=== PATIENT | female | born 2000 | race Caucasian/White ===

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

== ENCOUNTER 2020-08-16 07:39 | Emergency (ER) | payer OTHER, SELFPAY ==
[2020-08-16 07:40] VITALS: BP 139/79; PULSE 90; RESP 17; TEMP 36.4; O2SAT 100; BMI 26.0
--- NOTE | 2020-08-16 07:49 | CT_ITS ---
STUDY: CT ABDOMEN AND PELVIS WITH CONTRAST REASON FOR EXAM: Female, 20 years old. RLQ PAIN RADIATION DOSAGE (If Supplied By Facility): CTDIvol = ( 11.11 ) mGy, DLP = ( 559.07 ) mGycm TECHNIQUE: Transaxial images were obtained from the dome of the diaphragm to the symphysis pubis with oral contrast. Oral and amp; IV Gastrografin and amp; 100mL Isovue-300 was administered. Sagittal and coronal images were reconstructed. Individualized dose optimization techniques were used for this CT. COMPARISON: None. FINDINGS: The visualized lung bases are unremarkable. The visualized portions of the heart are within normal limits. Normal liver. Normal gallbladder and extrahepatic biliary system. Normal spleen. Normal pancreas. Normal bilateral adrenal glands. Normal right kidney. Normal left kidney. Normal visualized stomach. Normal small intestine. Normal colon. The appendix is visualized and appears normal. Small lymph nodes are seen in the mesenteric fat in the right lower quadrant. This may represent mesenteric adenitis. Normal abdominal aorta. Normal inferior vena cava. Normal retroperitoneum. Normal urinary bladder. Follicles are seen in both ovaries. Normal abdominal wall. Normal osseous structures. CT/Abdomen/Pelvis WITH Contrast IMPRESSION: Findings suggestive of a mesenteric adenitis in the right lower quadrant. Follicles are seen in both ovaries. Electronically Signed: Lobo Holloway, at 10:03 EST , Service support ,
--- NOTE | 2020-08-16 07:50 | ED.VIS.GEN ---
History of Present Illness Chief Complaint: Abd Pain Informant: Patient Narrative: 20-year-old female presents with 3 days of right lower quadrant pain. She states that the first 2 days she had diarrhea but that has subsequently resolved. She denies any fevers nausea or vomiting. She states that the band from her pants is uncomfortable. Does not radiate. No urinary symptoms. Last menstrual period was last month. She is on control. Past Medical History - Allergies and Home Meds Allergies/Adverse Reactions: Allergies Egg Derived Allergy (Intermediate, Verified 08/16/20 07:39) Hives Primary Care Physician: Paulina Ware MD [Primary Care Provider] - Past Medical History: - - Depression Surgical History: tonsillectomy, - Smoking Status: Never smoker Review of Systems General: Denies: Chills, Fever, Sweats Eyes: Denies: Visual changes - bilaterally, Diplopia ENT: Denies: Rhinorrhea, Sore throat Cardiovascular: Denies: Chest pain, Palpitations Respiratory: Denies: Dyspnea, Cough, Dyspnea on exertion Gastrointestinal: Reports: Abdominal pain, Diarrhea. Denies: Nausea, Vomiting, Melena, Hematochezia Genitourinary: Denies: Dysuria, Hematuria, Frequency Musculoskeletal: Denies: Back pain, Extremity Pain Skin: Denies: Rash, Wounds Neurological: Denies: Headache, Weakness, Numbness Physical Exam Vital Signs/Narrative: Vital Signs Temp Pulse Resp BP Pulse Ox 08/16/20 07:40 97.6 F L 90 17 139/79 H 100 Inital Vital Signs reviewed: Yes General: Well nourished, Well developed, No Acute Distress Head: Normocephalic, Atraumatic Eyes: Perrl, EOMI ENT: Moist mucous membranes, No rhinorrhea Neck: Supple, Nontender Cardiovascular: Regular rate, Regular rhythm, No murmurs Respiratory: No distress, CTA bilaterally, Chest nontender Abdomen: Soft, Nondistended, Normal bowel sounds, Tender. Negative for: Guarding, Rebound tenderness Back: Nontender, Normal Inspection Extremities: Nontender, No edema Skin: Normal color, No rash Neurological: Alert, Oriented x3, Cranial nerves II-XII grossly intact, Normal Strength, Normal Sensation Psychological: Normal affect, Normal Mood Diagnostic/Tx/Re-eval Laboratory Last Values WBC 6.1 K/mm3 (4.4-11.0) 08/16/20 08:00 RBC 5.13 M/mm3 (4.2-5.4) 08/16/20 08:00 Hgb 14.2 g/dL (12.0-15.0) 08/16/20 08:00 Hct 44.0 % (37-47) 08/16/20 08:00 MCV 85.8 fL (81-99) 08/16/20 08:00 MCH 27.7 pg (27.0-32.0) 08/16/20 08:00 MCHC 32.3 g/dL (32-36) 08/16/20 08:00 RDW Std Deviation 39.5 fl (35.1-43.9) 08/16/20 08:00 RDW Coeff of Breonna 12.4 % (11.6-14.6) 08/16/20 08:00 Plt Count 193 K/mm3 (150-450) 08/16/20 08:00 MPV 8.7 fl (6.2-12.0) 08/16/20 08:00 Immature Gran % (Auto) 0.200 % (0.0-0.9) 08/16/20 08:00 Neut % (Auto) 60.5 % (47-70) 08/16/20 08:00 Lymph % (Auto) 27.5 % (19-41) 08/16/20 08:00 [place] % (Auto) 10.0 % (0-10) 08/16/20 08:00 Eos % (Auto) 1.6 % (0-5) 08/16/20 08:00 Baso % (Auto) 0.2 % (0-1) 08/16/20 08:00 Absolute Neuts (auto) 3.7 X10^3/uL (2.0-7.7) 08/16/20 08:00 Absolute Lymphs (auto) 1.67 X10^3/uL (0.83-4.51) 08/16/20 08:00 Nucleated RBC % 0 % (0-5) 08/16/20 08:00 Sodium 137 mmol/L (136-145) 08/16/20 08:00 Potassium 3.5 mmol/L (3.5-5.1) 08/16/20 08:00 Chloride 104 mmol/L (98-107) 08/16/20 08:00 Carbon Dioxide 27.0 mmol/L (21.0-32.0) 08/16/20 08:00 Anion Gap 6 (5-15) 08/16/20 08:00 BUN 9 mg/dL (7-18) 08/16/20 08:00 Creatinine 0.86 mg/dL (0.55-1.02) 08/16/20 08:00 Estim Creat Clear Calc 86.32 ml/min 08/16/20 08:00 Est GFR (MDRD) Af Amer 108 mL/min (>60) 08/16/20 08:00 Est GFR (MDRD) Non-Af 89 mL/min (>60) 08/16/20 08:00 BUN/Creatinine Ratio 10.5 RATIO (10-20) 08/16/20 08:00 Glucose 97 mg/dL (74-106) 08/16/20 08:00 Calcium 9.1 mg/dL (8.5-10.1) 08/16/20 08:00 Total Bilirubin 0.30 mg/dL (0.20-1.00) 08/16/20 08:00 AST 40 U/L (15-37) H 08/16/20 08:00 ALT 44 U/L (13-56) 08/16/20 08:00 Alkaline Phosphatase 74 U/L (45-117) 08/16/20 08:00 Total Protein 8.3 g/dL (6.4-8.2) H 08/16/20 08:00 Albumin 4.0 g/dL (3.2-5.0) 08/16/20 08:00 Globulin 4.3 g/dL (2.2-4.2) H 08/16/20 08:00 Albumin/Globulin Ratio 0.9 RATIO (0.9-2.4) 08/16/20 08:00 Urine Color Yellow (Yellow) 08/16/20 08:45 Urine Clarity Sl. Cloudy (Clear) 08/16/20 08:45 Urine pH 6.0 (5.0 - 8.0) 08/16/20 08:45 Ur Specific [place] 1.015 (1.002-1.030) 08/16/20 08:45 Urine Protein Negative mg/dl (Negative) 08/16/20 08:45 Urine Glucose (UA) Normal mg/dl (Normal) 08/16/20 08:45 Urine Ketones Negative mg/dl (Negative) 08/16/20 08:45 Urine Occult Blood Negative /ul (Negative) 08/16/20 08:45 Urine Nitrite Negative (Negative) 08/16/20 08:45 Urine Bilirubin Negative mg/dL (Negative) 08/16/20 08:45 Urine Urobilinogen Normal mg/dl (Normal) 08/16/20 08:45 Ur Leukocyte Esterase 25 /ul (Negative) H 08/16/20 08:45 Urine RBC 0 SEEN /hpf (0-5) 08/16/20 08:45 Urine WBC 0-5 SEEN /hpf (0-5) 08/16/20 08:45 Ur Squamous Epith Cells 0-5 SEEN /hpf (5-10) 08/16/20 08:45 Urine Bacteria 0 SEEN /hpf (None Seen) 08/16/20 08:45 Urine Mucus 0 SEEN /hpf (<or=2+) 08/16/20 08:45 Urine Test Negative Negative 08/16/20 08:45 Clinical Impression(s) from Imaging Studies Abdomen/Pelvis CT 08/16/20 07:49 IMPRESSION: Findings suggestive of a mesenteric adenitis in the right lower quadrant. Follicles are seen in both ovaries. Electronically Signed: Lobo Holloway, at 10:03 EST , Service support , - Medical Decision Making IV established basic labs were normal including urinalysis. CT of the abdomen pelvis was obtained and read by myself and the radiologist. CT of the abd/pelvis demonstrates mesenteric adenitis. Evidence of colitis. The appendix was visualized and appears normal. Patient will be discharged home with supportive care return if worsening or concerns ED Disposition - Plan for ED Patient: Disposition: Home or Assisted Living Diagnosis: Mesenteric adenitis, Abdominal pain Instructions: ED Adenitis Mesenteric Referrals: Paulina Ware MD [Primary Care Provider] - As Needed
[2020-08-16 08:25] LABS: Absolute Lymphocyte Count 1.67 X10^3/uL (0.83-4.51); Absolute Neutrophil Count 3.7 X10^3/uL (2.0-7.7); Basophil# 0.01 X10^3/uL; Basophil% 0.2 % (0-1); Eosinophils% 1.6 % (0-5); Hemoglobin 14.2 g/dL (12.0-15.0); Lymphocyte # 1.67 X10^3/ul (4.0); Lymphocyte % 27.5 % (19-41); Mean Corp Hgb Conc 32.3 g/dL (32-36); Mean Corpuscular Hgb 27.7 pg (27.0-32.0); Mean Corpuscular Volume 85.8 fL (81-99); Mean Platelet Vol. 8.7 fl (6.2-12.0); Monocyte# 0.61 X10^3/uL; NRBC Flagged by Analyzer 0 % (0-5); Neutrophil # 3.67 X10^3/uL (2.7-7.7); Neutrophil % 60.5 % (47-70); Platelet Count 193 K/mm3 (150-450); RBC Distribution Width CV 12.4 % (11.6-14.6); RBC Distribution Width SD 39.5 fl (35.1-43.9); Red Blood Count 5.13 M/mm3 (4.2-5.4); White Blood Count 6.1 K/mm3 (4.4-11.0)
[2020-08-16 08:30] LABS: ALB/GLOB Ratio 0.9 RATIO (0.9-2.4); AST(SGOT) 40 U/L (15-37); Alanine Aminotransfer ALT/SGPT 44 U/L (13-56); Alkaline Phosphatase 74 U/L (45-117); Anion Gap 6 (5-15); BUN 9 mg/dL (7-18); BUN/Creat Ratio 10.5 RATIO (10-20); Calcium,Total 9.1 mg/dL (8.5-10.1); Chloride 104 mmol/L (98-107); Creatinine, Serum 0.86 mg/dL (0.55-1.02); EST Glomerular Filtration Rate 89 mL/min (>60); Est Glom Filt Rate - Afr Amer 108 mL/min (>60); Estimated Creatinine Clearance 86.32 ml/min; Globulin 4.3 g/dL (2.2-4.2); Glucose 97 mg/dL (74-106); Potassium 3.5 mmol/L (3.5-5.1); Protein, Total 8.3 g/dL (6.4-8.2); Sodium Level 137 mmol/L (136-145)
[2020-08-16 08:50] VITALS: BP 114/70; PULSE 69; O2SAT 100
[2020-08-16 08:52] LABS: Bacteria 0 SEEN /hpf (None Seen); Mucous, Urine 0 SEEN /hpf (<or=2+); Red Blood Cells-Urine 0 SEEN /hpf (0-5)
[2020-08-16 08:55] LABS: Color, Urine Yellow (Yellow); Glucose, Dipstick Normal (Normal); Ketone-Dipstick Negative (Negative); Leukocyte Esterase-Dipstick 25 /ul (Negative); Nitrite-Dipstick Negative (Negative); Occult Blood-Urine Negative /ul (Negative); Protein-Dipstick Negative (Negative); Specific Gravity, Urine 1.015 (1.002-1.030); Urine Bilirubin Dipstick Negative (Negative); Urine Clarity Sl. Cloudy (Clear); Urine Urobilinogen Normal (Normal)
[2020-08-16 09:02] LABS: Squamous Epithelial Cells - UA 0-5 SEEN /hpf (5-10); White Blood Cells 0-5 SEEN /hpf (0-5)
[2020-08-16 09:03] LABS: Internal QC Validated? YES +Cl - CLEAR BKGD; Pregnancy, Urine Negative Negative
[2020-08-16 10:40] VITALS: BP 112/70; PULSE 70; RESP 18; O2SAT 97
== END 2020-08-16 10:40 | disposition home or self-care (01) ==
PROVIDERS: Emergency Provider Emergency Medicine; PCP Family Medicine
DX: I88.0 Nonspecific mesenteric lymphadenitis (principal)
CPT/HCPCS: 74177; 80053; 81001; 81025; 85025; 99283; Q9967; A4216

== ENCOUNTER 2021-03-28 12:29 | Emergency (ER) | payer OTHER, SELFPAY ==
[2021-02-08 13:18] VITALS: BMI 26.0
[2021-03-28 12:30] VITALS: BP 140/71; PULSE 93; RESP 16; TEMP 36.8; O2SAT 97; BMI 28.0
--- NOTE | 2021-03-28 12:47 | EDS_ITS ---
HPI History of Present Illness Chief Complaint: Shortness of Breath Detail of Chief Complaint: Shortness of breath that started this morning Informant: patient Narrative Narrative: Patient presents to the emergency department complaint of shortness of breath. Patient states that she felt kind of a tightness in her back that comes through to her chest and discomfort when taking deep breath. Patient's had similar symptoms in the past related to bronchospasm. She used her inhaler but did not get much relief. Patient's been to the ER before for this. Patient normally receives breathing treatments and typically resolves her symptoms. She denies fever or recent illness. 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 She herself is not had Covid. Prior similar symptoms: Yes PFSH [facility] Medical History (Updated 03/28/21 @ 15:[address] Deb Donahue, DO) Bronchial spasms Physical exam, pre-employment Home Medications ibuprofen 200 mg capsule 200 mg PO Q6H PRN 04/16/19 [History Last Taken Unknown] cyclobenzaprine 5 mg PO QHS PRN 11/14/19 [History Last Taken Unknown] sertraline 50 mg PO DAILY 11/14/19 [History Last Taken Unknown] prednisone 20 mg PO BID #7 tab 03/28/21 [Rx Last Taken Unknown] Allergy/AdvReac Type Severity Reaction Status Date / Time Egg Derived Allergy Intermediate Hives Verified 03/28/21 12:29 Social History (Updated 04/16/19 @ 13:25 by Jeffry TONY, CECILY) Smoking Status: Never smoker ROS ROS ED Constitutional Constitutional ED: Reports systems reviewed and no addt'l complaints, except as documented; Denies body ache(s), change in weight or chills Eyes Eyes: Denies acute decrease in peripheral vision, change in vision, double vision or loss of vision ENT ENT ED: Reports none; Denies ear pain, lip swelling, loss taste/smell, neck pain, otalgia or sore throat Cardiovascular Cardiovascular: Reports none; Denies abdominal pain, chest pain with activity, leg edema, lightheadedness, palpitations, rapid heart rate or syncope Respiratory/Chest Respiratory/Chest: Reports none and dyspnea; Denies change in mental status, dry cough, hemoptysis, shortness of breath at rest or shortness of breath with exertion Gastrointestinal Gastrointestinal: Reports none; Denies abdominal pain, change in stool character, diarrhea, hematemesis, hematochezia, melena, rectal bleeding or vomiting Genitourinary Genitourinary ED: Reports none; Denies abdominal discomfort, anuria, dysuria, genital pain or polyuria Musculoskeletal Musculoskeletal: Reports none; Denies arthralgias, back pain, difficulty walking, extremity pain, muscle weakness or myalgias Integumentary Reports none; Denies abscess or rash Neurologic Neurologic: Reports none; Denies abnormal gait, confusion, focal weakness, frequent falls, headache(s), loss of vision, numbness, paresthesias, radicular pain, vertigo or weakness Psychiatric Psychiatric: Reports systems reviewed and no addt'l complaints, except as documented and none; Denies behavioral changes, confusion, difficulty concentrating, hallucinations, suicidal ideation, tactile hallucinations or visual hallucinations Endocrine Endocrinology: Denies none, cold intolerance, excessive sweating, fatigue or heat intolerance Hematologic/Lymphatic Hematologic/Lymphatic: Reports none; Denies anemia, easy bleeding or easy bruising Allergic/Immunologic Allergic/Immunologic ED: Denies as per HPI, none, lip swelling, mouth swelling, throat swelling, tongue swelling or hives EXAM Physical Exam Const Vital Signs: 03/28/21 12:30 03/28/21 13:07 03/28/21 13:12 Temperature 98.3 F Temperature Source Temporal Pulse Rate 93 86 Respiratory Rate 16 18 Respiratory Effort Normal Non-Labored Respiratory Depth Normal Respiratory Pattern Normal Blood Pressure 140/71 H Blood Pressure Mean 94 Pulse Ox 97 Oxygen Delivery Method Room Air Room Air Positive well nourished and well developed General Appearance ED: well developed and NAD HEENT Reports TM's clear and moist mucous membranes normocephalic and atraumatic; Negative for trauma or tenderness Tympanic Membrane ED: Yes TM's clear Eyes PERRL and EOMs intact bilaterally General Eye ED: Negative for pale conjunctiva or scleral icterus Neck no lymphadenopathy, supple and no JVD General: Negative for tenderness Chest Wall inspection of chest normal and palpation of chest normal Chest: Negative for tenderness Resp normal respiratory effort and clear to auscultation bilaterally Effort and Inspection: Negative for respiratory distress or pain with movement Auscultation: Negative for rhonchi, wheezes or diminished lung sounds Cardio regular rate, regular rhythm, S1 normal heart sound, S2 normal heart sound and no murmurs Peripheral Pulses: pulses 2+ throughout GI normal to inspection, nondistended, normoactive bowel sounds, soft to palpation, non-tender, non-distended and no masses Back/Spine no CVA tenderness and no thoracic nor lumbar tenderness Extremity normal to inspection General Extremety ED: Negative for edema General Extremity: Negative for edema Neuro oriented x3, CN's II-XII intact bilaterally, no sensory deficits noted and gait normal Sensorium / Orientation: awake, alert, oriented to person, oriented to place and oriented to time Motor Exam: strength 5/5 throughout and strength abnormal Psych mental status grossly normal Skin no rashes or lesions noted and no wounds MDM MDM MDM Narrative Medical decision making narrative: Patient DuoNeb aerosol and did feel improved with that. Patient had a D-dimer test that was negative. Chest x-ray that was normal. At this point I suspect possibly bronchospasm as the etiology of her symptoms. She was started on prednisone. She will be treated with prednisone for 3 days and advised to follow-up with her primary care physician in 3 to 5 days. Lab Data Labs: Laboratory Results - last 24 hr 03/28/21 14:05 D-Dimer Quant (PE/DVT) 0.34 Radiography Chest X-Ray - ED: 1 View Diagnostic Testing: Radiology Impression Chest X-Ray 03/28/21 14:30 IMPRESSION: Normal x-ray examination of the chest. Electronically Signed: Lobo Holloway MD at 14:47 EDT , Service support , 1 view chest x-ray obtained interpreted by myself as no acute disease process. Discharge Plan Triage Chief Complaint: Shortness of Breath ED Provider: Deb Donahue Dx/Rx/DC Orders Clinical Impression: Reactive airway disease Instructions: ED Bronchospasm (Adult) Prescriptions: New prednisone 20 mg tablet 20 mg PO BID Qty: 7 RF: 0 No Action ibuprofen 200 mg capsule 200 mg PO Q6H PRNRF: 0 cyclobenzaprine 10 MG tablet 5 mg PO QHS PRN (Reason: Muscle Spasm) RF: 0 sertraline 50 MG tablet 50 mg PO DAILY RF: 0 Primary Care Provider: Paulina Ware Referrals: Paulina Ware MD [Primary Care Provider] - 3-5 Days Disposition Disposition: Home, Self Care
[2021-03-28] MEDS: Ipratropium/Albuterol Sulfate 3 ML AMPUL.NEB INHALATION (13:05)
[2021-03-28 13:07] VITALS: PULSE 86; RESP 18
[2021-03-28 13:12] VITALS: O2SAT 99
[2021-03-28 14:21] LABS: D-Dimer Quantitative (DVT/PE) 0.34 FEU/ug/m (0.27-0.49)
--- NOTE | 2021-03-28 14:30 | RAD_ITS ---
STUDY: X-RAY CHEST REASON FOR EXAM: Female, 20 years old. Dyspnea TECHNIQUE: Single AP portable view of the chest. COMPARISON: Comparison is made with prior study dated 11/14/2019. FINDINGS: The lungs are clear and expanded. There is no demonstrated pleural abnormality. Normal size heart. Normal mediastinum and guerrero. Normal visualized pulmonary arteries. Normal visualized aortic arch and descending thoracic aorta. Normal visualized thoracic spine. Normal visualized ribs, clavicles, and shoulders. There is no demonstrated abnormality of the visualized soft tissue structures of the upper abdomen. RAD/Chest 1 View (Portable) IMPRESSION: Normal x-ray examination of the chest. Electronically Signed: Lobo Holloway MD at 14:47 EDT , Service support ,
[2021-03-28] MEDS: predniSONE 20 MG Tablet 40 MG PO (15:12)
[2021-03-28 15:15] VITALS: BP 108/67; PULSE 80; RESP 16; O2SAT 98
== END 2021-03-28 15:17 | disposition home or self-care (01) ==
PROVIDERS: Emergency Provider Emergency Medicine; PCP Family Medicine
DX: J45.909 Unspecified asthma, uncomplicated (principal)
CPT/HCPCS: 71045; 85379; 94640; 99284; A4216

== ENCOUNTER → 2022-10-16 | Outpatient (CLI) | payer BC, SELFPAY ==
--- NOTE | 2022-10-16 15:16 | RAD_ITS ---
STUDY: X-RAY - LUMBAR SPINE REASON FOR EXAM: Female, 22 years old. INFLAMMATORY SPONDYLOPATHY TECHNIQUE: 5 view(s) of the lumbar spine were obtained. COMPARISON: None FINDINGS: Normal lumbar lordosis. There is no substantial scoliosis. There is a normal alignment of the vertebrae. Normal vertebral bodies and endplates. Normal disc space heights. The soft tissue structures are unremarkable. RAD/L/S Spine Min 4 Views IMPRESSION: Normal x-ray examination of the lumbar spine. Electronically Signed: London Sandoval MD at 15:57 EST ,
--- NOTE | 2022-10-16 15:16 | RAD_ITS ---
STUDY: X-RAY - PELVIS AND RIGHT HIP REASON FOR EXAM: Female, 22 years old. HIP PAIN TECHNIQUE: 3 views of the pelvis and hip. COMPARISON: None. FINDINGS: There is a non-specific bowel gas pattern. Normal visualized soft tissue structures. Normal bilateral iliac wings, sacroiliac joints and visualized sacrum. Normal bilateral superior and inferior pubic rami. Normal pubic symphysis. Normal bilateral ischial tuberosities. Normal visualized femoral head. Normal acetabulum. Normal hip joint. RAD/HIP, UNI W/ Pelvis 2-3 Views IMPRESSION: Normal x-ray examination of the pelvis and hip. Electronically Signed: Lobo Holloway MD at 15:35 EST ,
== END | disposition home or self-care (01) ==
LOC: RAD 15:12
DX: M46.96 Unspecified inflammatory spondylopathy, lumbar region (principal); M25.551 Pain in right hip
CPT/HCPCS: 72110; 73502

== ENCOUNTER 2022-12-05 19:57 | Emergency (ER) | payer BC, SELFPAY ==
[2022-12-05 19:58] VITALS: BP 148/89; PULSE 107; RESP 18; TEMP 36.8; O2SAT 99; BMI 29.5
[2022-12-05] MEDS: 0.9% Normal Saline 1,000 ML 1000 ML IV (20:22)
--- NOTE | 2022-12-05 20:32 | EDS_ITS ---
HPI History of Present Illness Chief Complaint: Palpitations Narrative Narrative: Patient presents with palpitations and lightheadedness especially when she stands up. She felt somewhat weak all day and very lightheaded. She has no urinary symptoms she has no back pain, she is denying any, chest pain. No tearing sensation no pleuritic component. She does not have any vertigo or neurological symptoms PFSH PFS Medical History Bronchial spasms Contact with and (suspected) exposure to other viral communicable diseases Physical exam, pre-employment URI (upper respiratory infection) Home Medications ethynodiol diacetate-ethinyl estradiol 1 mg-35 mcg tablet (Zovia) 1 tab PO DAILY 12/05/22 [History Last Taken Unknown] meclizine 25 mg tablet 25 mg PO 4X/DAY PRN PRN Dizziness #20 tabs 12/05/22 [Rx Last Taken Unknown] Allergy/AdvReac Type Severity Reaction Status Date / Time Egg Derived Allergy Intermediate Hives Verified 12/05/22 20:00 Social History Smoking Status: Never smoker ROS ROS ED ROS Narrative Past medical history: Reviewed Medications: Reviewed Social history: Noncontributory Review of systems: All systems negative except as indicated General: No fever Eyes: No visual changes ENT: No upper airway congestion, normal voice Neck: No neck pain Cardiovascular: No chest pain. Palpitations as in HPI Respiratory: No shortness of breath or cough Gastrointestinal: No abdominal pain, nausea vomiting or diarrhea Genitourinary: No dysuria Musculoskeletal: Denies myalgias no difficulty with ambulation Skin: No rash Neurological: No memory loss, confusion or any focal weakness Psych: No recent behavioral changes Hematologic: No easy bleeding or easy bruising EXAM Physical Exam Narrative Exam Narrative: Physical exam General: She appears relatively comfortable in the bed Head: Normocephalic, Atraumatic Eyes: Conjunctiva not pale ENT: Dry mucous membranes Neck: Supple, Nontender, No lymphadenopathy Cardiovascular: Regular rate, Regular rhythm Respiratory: No distress, CTA bilaterally Abdomen: Soft, Nontender, Nondistended Back: Nontender, Normal Inspection. Negative for: CVA tenderness Extremities: Nontender, No edema Skin: Normal color, No rash Neurological: Alert, Normal Strength, Normal Sensation Psychological: Normal affect Const Vital Signs: 12/05/22 19:58 12/05/22 20:12 Temperature 98.3 F Temperature Source Temporal Pulse Rate 107 H Respiratory Rate 18 Respiratory Effort Short of Breath Respiratory Pattern Normal Blood Pressure 148/89 H Blood Pressure Mean 108 Pulse Ox 99 Oxygen Delivery Method Room Air MDM MDM MDM Narrative Medical decision making narrative: A. Problems addressed As I walk into the room her heart rate is in the 90s on the monitor. However when I stand her up her heart rate goes into the 130s and she is quite lightheaded. However after I gave her IV fluids, I reassessed her heart rate improved however she still felt dizzy I talked to her again and she said that there may be an element of spinning sensation. I reexamined her, she has bilateral TM bulging. However neurological exam is normal including a Romberg including cerebellar and there is no weakness or focalizing signs. I gave her meclizine and Valium. She is significantly improved I will discharge her. I do not believe she has a central etiology for her symptoms, I think it correlates with her allergies. B. Amount and/or complexity of the data 1. CBC and CMP were interpreted by me I discussed the patient with who was in the room 2. Independent interpretation of test Telemetry: Sinus rhythm with rate in the 90s without ectopy C. Risk of complications and/or morbidity Differential diagnosis: See above Lab Data Labs: Laboratory Results - last 24 hr 12/05/22 12/05/22 20:23 20:23 WBC 7.5 RBC 4.94 Hgb 14.5 Hct 42.9 MCV 86.8 MCH 29.4 MCHC 33.8 RDW Std Deviation 38.0 RDW Coeff of Breonna 11.9 Plt Count 222 MPV 9.2 Immature Gran % (Auto) 0.300 Neut % (Auto) 62.3 Lymph % (Auto) 29.4 [place] % (Auto) 7.4 Eos % (Auto) 0.5 Baso % (Auto) 0.1 Absolute Neuts (auto) 4.6 Absolute Lymphs (auto) 2.19 Nucleated RBC % 0 Sodium 140 Potassium 3.7 Chloride 109 H Carbon Dioxide 23.0 Anion Gap 8 BUN 9 Creatinine 0.90 Estim Creat Clear Calc 81.11 Est GFR (MDRD) Af Amer 100 Est GFR (MDRD) Non-Af 83 BUN/Creatinine Ratio 10.0 Glucose 102 Calcium 8.8 Total Bilirubin 0.40 AST 15 ALT 14 Alkaline Phosphatase 49 Total Protein 7.5 Albumin 3.7 Globulin 3.8 Albumin/Globulin Ratio 1.0 EKG Initial EKG: Comments: Sinus rhythm with a rate of 90. Normal VA and QTc intervals. No ischemic changes. Interpreted by emergency doctor Discharge Plan Triage Chief Complaint: Palpitations ED Provider: Jose Fabian Dx/Rx/DC Orders Clinical Impression: Dizziness, Acute dehydration Instructions: ED Dizziness, Uncertain Cause Prescriptions: New meclizine 25 mg tablet 25 mg PO 4X/DAY PRN PRN (Reason: Dizziness) Qty: 20 0RF No Action ethynodiol diac-eth estradiol [Zovia 1-35 (28)] 1-35 mg-mcg tablet 1 tab PO DAILY Label Comments: Take 1 tablet by mouth daily Primary Care Provider: Paulina Ware Referrals: Paulina Ware MD [Primary Care Provider] - Activity Restrictions/Additional Instructions: Follow-up with your doctor in 2 to 3 days Disposition Disposition: Home, Self Care
[2022-12-05 20:34] LABS: Absolute Lymphocyte Count 2.19 X10^3/uL (0.83-4.51); Absolute Neutrophil Count 4.6 X10^3/uL (2.0-7.7); Basophil# 0.01 X10^3/uL; Basophil% 0.1 % (0-1); Eosinophil# 0.04 X10^3/uL; Eosinophils% 0.5 % (0-5); Hematocrit 42.9 % (37-47); Hemoglobin 14.5 g/dL (12.0-15.0); Lymphocyte # 2.19 X10^3/ul (0.83-4.51); Lymphocyte % 29.4 % (19-41); Mean Corp Hgb Conc 33.8 g/dL (32-36); Mean Corpuscular Hgb 29.4 pg (27.0-32.0); Mean Corpuscular Volume 86.8 fL (81-99); Mean Platelet Vol. 9.2 fl (6.2-12.0); Monocyte# 0.55 X10^3/uL; Monocyte% 7.4 % (0-10); NRBC Flagged by Analyzer 0 % (0-5); Neutrophil # 4.64 X10^3/uL (2.7-7.7); Neutrophil % 62.3 % (47-70); Platelet Count 222 K/mm3 (150-450); RBC Distribution Width CV 11.9 % (11.6-14.6); Red Blood Count 4.94 M/mm3 (4.2-5.4); White Blood Count 7.5 K/mm3 (4.4-11.0)
[2022-12-05 20:54] LABS: AST(SGOT) 15 U/L (15-37); Alanine Aminotransfer ALT/SGPT 14 U/L (13-56); Albumin, Serum 3.7 g/dL (3.2-5.0); Alkaline Phosphatase 49 U/L (45-117); Anion Gap 8 (5-15); BUN 9 mg/dL (7-18); Calcium,Total 8.8 mg/dL (8.5-10.1); Chloride 109 mmol/L (98-107); EST Glomerular Filtration Rate 83 mL/min (>60); Est Glom Filt Rate - Afr Amer 100 mL/min (>60); Estimated Creatinine Clearance 81.11 ml/min; Globulin 3.8 g/dL (2.2-4.2); Glucose 102 mg/dL (74-106); Potassium 3.7 mmol/L (3.5-5.1); Protein, Total 7.5 g/dL (6.4-8.2); Sodium Level 140 mmol/L (136-145)
[2022-12-05] MEDS: Meclizine HCl 25 MG Tablet PO (21:10)
[2022-12-05] MEDS: diazePAM 5 MG Tablet 2.5 MG PO (21:10)
[2022-12-05 21:49] VITALS: BP 128/81; PULSE 80; RESP 20; O2SAT 100
== END 2022-12-05 21:50 | disposition home or self-care (01) ==
PROVIDERS: Emergency Provider Emergency Medicine; PCP Family Medicine; Visit Provider Emergency Medicine
DX: E86.0 Dehydration (principal); R42 Dizziness and giddiness
CPT/HCPCS: 80053; 85025; 93005; 96360; 99284; J7030; A4216

== ENCOUNTER → 2022-12-21 | Outpatient (CLI) | payer BC, SELFPAY ==
--- NOTE | 2022-12-21 09:00 | MRI_ITS ---
INDICATION: INFLAMMATORY SPONDYLOPATHY LUMBAR, rt hip pain extending down leg EXAMINATION: MRI - MR Hip W/O Contrast TECHNIQUE: Multiplanar and multisequence MR images of the RIGHT hip. IV Contrast Dosage and Agent: None. COMPARISON: None. FINDINGS: BONE: No femoral neck fracture, avascular necrosis of the femoral head, or sacral insufficiency fracture. No suspicious bone marrow signal alteration. JOINT: Articular cartilage intact.] No joint effusion. MUSCLES: Normal muscle bulk and signal. ACETABULAR LABRUM: No evidence of a tear on this non-arthrogram exam. TENDONS: The gluteal tendons, hamstrings tendons, and iliopsoas tendon are intact. BURSA: No trochanteric bursitis. OTHER SOFT TISSUES: Unremarkable. PELVIS: Limited non-contrast imaging of the pelvic viscera is unremarkable. MRI/Lower Ext Joint Only (Routine) IMPRESSION: Unremarkable MRI of the RIGHT hip. Electronically Signed: Shiva Man MD, MARISOL at 12:48 EDT ,
== END | disposition home or self-care (01) ==
LOC: MRI 08:47
PROVIDERS: PCP Family Medicine
DX: M46.96 Unspecified inflammatory spondylopathy, lumbar region (principal)
CPT/HCPCS: 73721

== ENCOUNTER → 2023-02-26 | Outpatient (CLI) | payer BC, SELFPAY ==
--- NOTE | 2023-02-26 10:00 | MRI_ITS ---
STUDY: MRI LUMBAR SPINE WITHOUT CONTRAST REASON FOR EXAM: Female, 22 years old. LBP TECHNIQUE: MRI examination lumbar spine fusion protocol including multiplanar multiecho noncontrast imaging. Contrast: No contrast administered. COMPARISON: Plain film examination of 10/16/2022. FINDINGS: Vertebral bodies and alignment. 1. Vertebral body height and alignment are maintained. No evidence of marrow edema or occult fracture. 2. Paraspinous soft tissue planes have normal appearance. Normal appearance of the muscular fascial planes of the erector spinae. 3. Normal appearance of the sacrum and sacroiliac joints. Intervertebral disks levels. T12-L1: Normal endplates. Normal disc height, hydration and morphology. Normal bilateral facet joints. Normal central canal and bilateral lateral recesses. Normal bilateral intervertebral neural foramina. L1-2: Normal endplates. Normal disc height, hydration and morphology. Normal bilateral facet joints. Normal central canal and bilateral lateral recesses. Normal bilateral intervertebral neural foramina. L2-3: Normal endplates. Normal disc height, hydration and morphology. Normal bilateral facet joints. Normal central canal and bilateral lateral recesses. Normal bilateral intervertebral neural foramina. L3-4: Normal endplates. Normal disc height, hydration and morphology. Normal bilateral facet joints. Normal central canal and bilateral lateral recesses. Normal bilateral intervertebral neural foramina. L4-5: Normal endplates. Normal disc height, hydration and morphology. Normal bilateral facet joints. Normal central canal and bilateral lateral recesses. Normal bilateral intervertebral neural foramina. L5-S1: Normal endplates. Normal disc height, hydration and morphology. Normal bilateral facet joints. Normal central canal and bilateral lateral recesses. Normal bilateral intervertebral neural foramina. Spinal cord: Normal appearance of the spinal cord and conus. Conus is located at L1. Cauda equina has normal appearance. No evidence of cord compression or edema. No intramedullary signal abnormality noted. MRI/Spine Lumbar (Routine) IMPRESSION: 1. Normal unenhanced MR examination of the lumbar spine. 2. No evidence of disc herniation canal or foraminal narrowing. No evidence of cord or nerve root impingement or compression. Electronically Signed: Ki Soler MD at 23:53 EDT ,
== END | disposition home or self-care (01) ==
LOC: MRI 09:31
PROVIDERS: PCP Family Medicine
DX: M46.96 Unspecified inflammatory spondylopathy, lumbar region (principal); M54.50 Low back pain, unspecified
CPT/HCPCS: 72148

== ENCOUNTER → 2023-04-15 | Outpatient (CLI) | payer BC, SELFPAY ==
[2023-04-15 18:17] LABS: Absolute Lymphocyte Count 1.95 X10^3/uL (0.83-4.51); Basophil# 0.02 X10^3/uL; Basophil% 0.2 % (0-1); Color, Urine Yellow (Yellow); Eosinophil# 0.05 X10^3/uL; Eosinophils% 0.6 % (0-5); Glucose, Dipstick Normal (Normal); Hematocrit 44.8 % (37-47); Hemoglobin 14.9 g/dL (12.0-15.0); Ketone-Dipstick Negative (Negative); Leukocyte Esterase-Dipstick Negative /ul (Negative); Lymphocyte # 1.95 X10^3/ul (0.83-4.51); Lymphocyte % 22.9 % (19-41); Mean Corp Hgb Conc 33.3 g/dL (32-36); Mean Corpuscular Hgb 28.9 pg (27.0-32.0); Mean Corpuscular Volume 86.8 fL (81-99); Mean Platelet Vol. 9.3 fl (6.2-12.0); Monocyte# 0.47 X10^3/uL; Monocyte% 5.5 % (0-10); NRBC Flagged by Analyzer 0 % (0-5); Neutrophil # 6.03 X10^3/uL (2.7-7.7); Neutrophil % 70.7 % (47-70); Nitrite-Dipstick Negative (Negative); Occult Blood-Urine Negative /ul (Negative); Platelet Count 235 K/mm3 (150-450); Protein-Dipstick Negative (Negative); RBC Distribution Width CV 11.8 % (11.6-14.6); RBC Distribution Width SD 37.9 fl (35.1-43.9); Red Blood Count 5.16 M/mm3 (4.2-5.4); Urine Bilirubin Dipstick Negative (Negative); Urine Clarity Clear (Clear); Urine Urobilinogen Normal (Normal); White Blood Count 8.5 K/mm3 (4.4-11.0)
[2023-04-15 18:38] LABS: AST(SGOT) 17 U/L (15-37); Alanine Aminotransfer ALT/SGPT 19 U/L (13-56); Albumin, Serum 4.1 g/dL (3.2-5.0); Alkaline Phosphatase 65 U/L (45-117); Anion Gap 7 (5-15); BUN 11 mg/dL (7-18); Calcium,Total 9.4 mg/dL (8.5-10.1); Chloride 103 mmol/L (98-107); Creatinine, Serum 0.91 mg/dL (0.55-1.02); EST Glomerular Filtration Rate 81 mL/min (>60); Est Glom Filt Rate - Afr Amer 98 mL/min (>60); Glucose 95 mg/dL (74-106); Protein, Total 8.1 g/dL (6.4-8.2); Sodium Level 137 mmol/L (136-145)
[2023-04-15 18:55] LABS: Protein, Urine (Random) 13.2 mg/dL (<11.9); Protein:Creat Ratio 83 mg/g CRE (0-200)
[2023-04-15 19:09] LABS: Hepatitis C Antibody Non-Reactive (Nonreactive)
[2023-04-15 21:24] LABS: Hepatitis B Surface Antibody Reactive; Hepatitis B Surface Antigen Non-Reactive (Nonreactive)
[2023-04-15 21:26] LABS: EXAGEN MAILED SPECIMEN
[2023-04-19 20:10] LABS: Dilute Prothrombin Time (dPT) 40.6 sec (0.0-47.6); Hexagonal Phase Phospholipid 3 sec (0-11); Hexagonal Phase Phospholipid 2 3 sec (0-11); Interpretation Comment: (.); PTT-LA Mix 41.1 sec (0.0-40.5); Thrombin Time 17.2 sec (0.0-23.0); dPT Confirm Ratio 1.03 Ratio (0.00-1.34)
[2023-04-22 14:36] LABS: Dilute Russell Viper Venom 48.1 sec (0.0-47.0)
== END | disposition home or self-care (01) ==
LOC: MTLAB 14:33
PROVIDERS: PCP Family Medicine; Referring Provider Internal Medicine Rheumatology; Visit Provider Internal Medicine Rheumatology
DX: M06.4 Inflammatory polyarthropathy (principal); R76.8 Other specified abnormal immunological findings in serum
CPT/HCPCS: 80053; 81002; 82570; 84156; 85025; 85598; 85610; 85670; 86706; 86707; 86803; 87340; 87350

== ENCOUNTER → 2023-06-18 | Outpatient (CLI) | payer BC, SELFPAY ==
--- NOTE | 2023-06-18 13:13 | RAD_ITS ---
EXAM: XR CHEST, 2 VIEWS CLINICAL INDICATION: INFLAMMATORY POLYARTHROPATHY TECHNIQUE: Frontal and lateral views of the chest. COMPARISON: 03/28/2021 FINDINGS: LUNGS AND PLEURAL SPACES: No significant abnormality. No consolidation or edema. No pneumothorax. No effusion. HEART: No significant abnormality. Cardiac silhouette not enlarged. MEDIASTINUM: Central airways and mediastinal contour are unremarkable. BONES/JOINTS: No significant abnormality. SOFT TISSUES: No significant abnormality. RAD/Chest PA and Lateral IMPRESSION: No radiographic evidence of acute cardiopulmonary disease. Electronically Signed: Mannie Batista DO at 20:28 EDT ,
[2023-06-20 21:06] LABS: QNTFERON TB Mitogen Value > 10.00 IU/mL (.); QNTFERON TB Nil Value 0.04 IU/mL (.); QNTFERON TB1+ Ag Value 0.03 IU/mL (.); QNTFERON TB2+ Ag Value 0.03 IU/mL (.); QNTIFERON TB Positive Criteria Negative (Negative)
== END | disposition home or self-care (01) ==
LOC: MTLAB 13:11
PROVIDERS: PCP Family Medicine; Referring Provider Internal Medicine Rheumatology; Visit Provider Internal Medicine Rheumatology
DX: M06.4 Inflammatory polyarthropathy (principal); R76.8 Other specified abnormal immunological findings in serum; Z79.899 Other long term (current) drug therapy
CPT/HCPCS: 36415; 71046; 86480

== ENCOUNTER → 2023-10-16 | Outpatient (CLI) | payer BC, SELFPAY ==
--- OUTSIDE RECORDS SUMMARY | 2023-10-16 13:13 | XMS RPT_ITS | CCD ---
Author Name Unknown Address [address] [place] [address] Organization [facility] Care Team Providers Care Corduroy Cutter Operator Name Role Phone MEET LARES Unavailable Unavailable MEET LARES Unavailable Unavailable MEET LARES Unavailable Unavailable AMAN DAVIS Unavailable Unavailable Nessa Ryan Unavailable Unavailable Unruly Warenna Unavailable Unavailable Unruly Warenna Unavailable Unavailable GALI GUZMAN Unavailable Unavailabl e PROVIDER, UNKNOWN Admitting Unavailable PROVIDER, UNKNOWN Attending Unavailable Paulina Ware MD Primary Care Provider [phone] Paulina Ware MD Primary Care Provider [phone] Paulina Ware MD Primary Care Provider PAULINA WARE S Primary Care Unavailable RENATO, PAULINA S Primary Care Unavailable RENATO, PAULINA S Primary Care Unavailable DONNA DUFF Attending Unavailable GIOVANNA DELATORRE Referring Unavailable RENATO, PAULINA S Primary Care Unavailable RENATO, PAULINA S Referring Unavailable PANTERA WAREA S Primary Care Unavailable Paulina Ware MD Primary Care Provider PAULINA WARE Attending Unavailable RENATO, PAULINA Primary Care Unavailable PANTERA WAREA Attending Unavailable PANTERA WAREA Primary Care Unavailable Paulina Ware MD Primary Care Provider [phone] Allergies Allergy Classification Reported Allergen(s) Allergy Type Date of Onset Reaction(s) Facility (6 sources) egg extract; Translations: [EGG] Drug Allergy [address] [facility] Repository (1 source) NO KNOWN ALLERGIES; Translations: [NO KNOWN ALLERGIES] Propensity to adverse reactions to drug (disorder) [facility] Repository (9 sources) Eggs Or Egg-Derived Products Propensity to adverse reactions to drug 6 Hives [facility] Medications Current Medications Medication Drug Class(es) Dates Sig (Normalized) Sig (Original) amoxicillin 875 mg oral tablet (1 source) Penicillin-class Antibacterial Start: 03-16-2022 End: 03-23-2022 take 1 tablet by mouth twice daily amoxicillin (AMOXIL) 875 mg tablet Indications: Otitis media with effusion, left Take 1 tablet by mouth twice daily for 7 days. 14 tablet 0 03/16/2022 03/23/2022 Active Completed/Discontinued Medications Medication Drug Class(es) Dates Sig (Normalized) Sig (Original) amoxicillin 875 mg / clavulanate 125 mg oral tablet (1 source) Penicillin-class Antibacterial Start: 03-16-2019 End: 03-16-2022 take 1 tablet by mouth twice daily amoxicillin-clavul anic acid (AUGMENTIN) 875-125 mg per tablet Indications: Bacterial sinusitis Take 1 tablet by mouth twice daily. 20 tablet 0 03/16/2019 03/16/2022 Discontinued Problems Active Problems Problem Classification Problem Date Documented Date Episodic/Chronic Anxiety disorders (8 sources) Generalized anxiety disorder; Translations: [Generalized anxiety disorder] Onset: 07-11-2022 12-18-2022 Chronic Asthma (8 sources) Reactive airway disease; Translations: [Unspecified asthma, uncomplicated] Onset: 06-18-2021 07-13-2022 Chronic Genitourinary symptoms and ill-defined conditions (1 source) Dysuria; Translations: [Dysuria] Onset: 09-21-2018 Episodic Headache; including migraine (8 sources) Migraine without aura, not refractory ; Translations: [Migraine without aura, not intractable, without status migrainosus] Onset: 06-18-2021 07-13-2022 Chronic Medical examination/evaluatio n (1 source) Encounter for other preprocedural examination; Translations: [Encounter for other preprocedural examination] Onset: 2018 Episodic Mood disorders (8 sources) Mood disorder; Translations: [Unspecified mood [affective] disorder] Onset: 02-22-2021 07-13-2022 Chronic Nonspecific chest pain (2 sources) Chest pain, unspecified; Translations: [Chest pain, unspecified] Onset: 06-22-2018 Episodic Other connective tissue disease (2 sources) Pain in left arm; Translations: [Pain in left arm] Onset: 06-22-2018 Episodic Other connective tissue disease (1 source) Trochanteric bursitis of right hip; Translations: [Trochanteric bursitis, right hip] 03-13-2023 Episodic Other connective tissue disease (2 sources) Spasm; Translations: [Other muscle spasm] 04-14-2023 Episodic Other connective tissue disease (2 sources) Trochanteric bursitis, right hip; Translations: [Trochanteric bursitis, right hip] Onset: 03-13-2023 Episodic Other ear and sense organ disorders (1 source) Impacted cerumen in left ear; Translations: [Impacted cerumen, left ear] Episodic Other non-traumatic joint disorders (3 sources) Pain in right hip joint; Translations: [Pain in right hip] 03-13-2023 Episodic Other non-traumatic joint disorders (3 sources) Joint pain; Translations: [Pain in unspecified joint] 03-13-2023 Episodic Other non-traumatic joint disorders (2 sources) Pain in right hip; Translations: [Pain in right hip] Onset: 03-13-2023 Episodic Other non-traumatic joint disorders (2 sources) Pain in unspecified joint; Translations: [Pain in unspecified joint] Onset: 03-13-2023 Episodic Other upper respiratory disease (1 source) Acute bronchospasm; Translations: [Acute bronchospasm] Onset: 2018 Episodic Other upper respiratory disease (3 sources) Bronchospasm; Translations: [Acute bronchospasm] 2018 Episodic Otitis media and related conditions (1 source) Otitis media; Translations: [Unspecified nonsuppurative otitis media, left ear] Episodic Residual codes; unclassified (2 sources) Difficulty sleeping ; Translations: [Sleep deprivation] 04-14-2023 Episodic Spondylosis; intervertebral disc disorders; other back problems (8 sources) Cervicalgia; Translations: [Acute low back pain] Onset: 06-22-2018 Episodic Unclassified (1 source) Pain, unspecified; Translations: [Pain, unspecified] Onset: 04-21-2017 Unclassified (1 source) Other specified postprocedural states; Translations: [Other specified postprocedural states] Onset: 04-07-2018 Unclassified (1 source) Encounter for screening for COVID-19; Translations: [Encounter for screening for COVID-19] Onset: 11-17-2021 Unclassified (1 source) Low back pain, unspecified; Translations: [Low back pain, unspecified] Onset: 12-18-2022 Past or Other Problems Problem Classification Problem Date Documented Date Episodic/Chronic Cardiac dysrhythmias (1 source) Palpitations Episodic Contraceptive and procreative management (2 sources) Encounter for surveillance of contraceptive pills; Translations: [Encounter for surveillance of contraceptive pills] Onset: 12-18-2022 Episodic Joint disorders and dislocations; trauma-related (13 sources) Unspecified tear of unspecified meniscus, current injury, right knee, subsequent encounter; Translations: [Tear of meniscus of knee] Onset: 09-15-2015 01-09-2017 Episodic Lymphadenitis (8 sources) Mesenteric lymphadenitis; Translations: [Nonspecific mesenteric lymphadenitis] Onset: 06-18-2021 07-13-2022 Episodic Other connective tissue disease (2 sources) Other muscle spasm; Translations: [Other muscle spasm] Onset: 12-18-2022 Episodic Other non-traumatic joint disorders (8 sources) Pain in right knee; Translations: [Pain in joint, lower leg] Onset: 09-15-2015 09-15-2015 Episodic Residual codes; unclassified (2 sources) Sleep deprivation; Translations: [Sleep deprivation] Onset: 12-18-2022 Episodic Unclassified (1 source) Low back pain, unspecified; Translations: [Low back pain, unspecified] Onset: 12-18-2022 Results Test Name Value Interpretation Reference Range Facil ity Vital Signs Date Time Vital Sign Value Performing Clinician Padmini powell 03-13-2023 10:24040 Body height 162.6 cm Paulina Ware MD Work Phone: [facility] [email or web address] 03-13-2023 10:24-0400 Body mass index (BMI) [Ratio] 28.43 kg/m2 Paulina Ware MD Work Phone: [facility] [email or web address] 03-13-2023 10:24-040 Body temperature 97.9 [degF] Paulina Ware MD Work Phone: [facility] [email or web address] 03-13-2023 10:24-040 Body weight 75.12 kg Paulina Ware MD Work Phone: [facility] 03-13-2023 10:24-0400 Diastolic blood pressure 74 mm[Hg] Paulina Ware MD Work Phone: [facility] 03-13-2023 10:24-0400 Heart rate 71 /min Paulina Ware MD Work Phone: [facility] 03-13-2023 10:24-0400 SaO2% (BldA) [Mass fraction] 98 % Pualina Ware MD Work Phone: [facility] 03-13-2023 10:24-0400 Systolic blood pressure 113 mm[Hg] Paulina Ware MD Work Phone: [facility] 09-13-2022 15:42-0500 Body temperature 98.71 [degF] Jimmy Monahan MD Work Phone: [facility] 09-13-2022 15:42-0500 Body weight 76.75 kg Jimmy Monahan MD Work Phone: [facility] 09-13-2022 15:42-0500 Diastolic blood pressure 74 mm[Hg] Jimmy Monahan MD Work Phone: [facility] 09-13-2022 15:42-0500 Heart rate 84 /min Jimmy Monahan MD Work Phone: [facility] 09-13-2022 15:42-0500 Respiratory rate 16 /min Jimmy Monahan MD Work Phone: [facility] 09-13-2022 15:42-0500 SaO2% (BldA) [Mass fraction] 97 % Jimmy Monahan MD Work Phone: [facility] 09-13-2022 15:42-0500 Systolic blood pressure 126 mm[Hg] Jimmy Monahan MD Work Phone: [facility] 03-25-2022 11:23-0400 Body height 160 cm Donna Duff MD Work Phone: [facility] 06-27-2022 11:23-0400 Body weight 75.75 kg Donna Duff MD Work Phone: [facility] 03-16-2022 13:47-0400 Body temperature 97.9 [degF] Zuleyka Praisler-Wood APPLIED COMPUTER SCIENCE PROFESSOR.MACHINE PACKAGING TECHNICIAN Work Phone: [facility] 03-16-2022 13:47-0400 Body weight 74.84 kg Zuleyka Praisler-Wood APPLIED COMPUTER SCIENCE PROFESSOR.MACHINE PACKAGING TECHNICIAN Work Phone: [facility] 03-16-2022 13:47-0400 Diastolic blood pressure 70 mm[Hg] Zuleyka Praisler-Wood APPLIED COMPUTER SCIENCE PROFESSOR.MACHINE PACKAGING TECHNICIAN Work Phone: [facility] 03-16-2022 13:47-0400 Heart rate 77 /min Zuleyka Praisler-Wood APPLIED COMPUTER SCIENCE PROFESSOR.MACHINE PACKAGING TECHNICIAN Work Phone: [facility] 03-16-2022 13:47-0400 Respiratory rate 18 /min Zuleyka Praisler-Wood APPLIED COMPUTER SCIENCE PROFESSOR.MACHINE PACKAGING TECHNICIAN Work Phone: [facility] 03-16-2022 13:47-0400 SaO2% (BldA) [Mass fraction] 98 % Zuleyka Praisler-Wood APPLIED COMPUTER SCIENCE PROFESSOR.MACHINE PACKAGING TECHNICIAN Work Phone: [facility] 03-16-2022 13:47-0400 Systolic blood pressure 116 mm[Hg] Zuleyka Praisler-Wood APPLIED COMPUTER SCIENCE PROFESSOR.MACHINE PACKAGING TECHNICIAN Work Phone: [facility] Encounters Encounter Date Encounter Type Care Provider Facility Start: 07-21-2023 Refill Paulina ga MD Work Phone: [facility] Procedures Date Procedure Procedure Detail Performing Clinician Start: 07-11-2022 Microscopic observat ion [Identifier] in Cervix by Cyto stain Paulina Wrae MD Work Phone: Plan of Treatment Date Care Activity Detail Author Start: 2050 Zoster Vaccines (1 of 2) Zoster Vacc fern (1 of 2) [facility] Start: 11-12-2032 DTaP/Tdap/Td Vaccine s (8 - Td or Tdap) DTaP/Tdap/Td Vaccines (8 - Td or Tdap) [facility] Start: 07-11-2025 Screening for malign ant neoplasm of cervix Pap Smear [facility] Start: 05-30-2023 Influenza vaccination Influenza Vacc ine (#1) [facility] Start: 03-13-2023 End: 03-13-2024 C reactive protein [Mass/volume] in Serum or Plasma C-reactive protein Lab Routine Right hip pain Arthralgia, unspecified joint Expected: 03/13/2023 (Approximate), Expires: 03/13/2024 [facility] Work Phone: Immunizations Immunization Date Immunization Notes Care Provider Fa cility 11-12-2022 tetanus toxoid, redu sachin diphtheria toxoid, and acellular pertussis vaccine, adsorbed Paulina Ware MD Work Phone: [facility] 11-05-2022 influenza, seasonal, injectable Paulina Ware MD Work Phone: [facility] 11-05-2022 influenza virus vacc ine, unspecified formulation Paulina Ware MD Work Phone: [facility] 12-21-2021 Pfizer SARS-CoV-2 Vaccination Paulina Ware MD Work Phone: [facility] 11-30-2021 Pfizer SARS-CoV-2 Vaccination Paulina Ware MD Work Phone: [facility] 06-18-2021 Human Papillomavirus 9-valent vaccine Paulina Ware MD Work Phone: [facility] 06-18-2021 HPV, unspecified formulation Paulina Ware MD Work Phone: [facility] 05-31-2020 Human Papillomavirus 9-valent vaccine Paulina Ware MD Work Phone: [facility] 07-30-2019 Seasonal, quadrivale nt, recombinant, injectable influenza vaccine, preservative free Nessa Ryan APRN - MACHINE PACKAGING TECHNICIAN Work Phone: [facility] 05-13-2016 meningococcal oligosaccharide (groups A, C, Y and W-135) diphtheria toxoid conjugate vaccine (MCV4O) Nessa Ryan APRN - MACHINE PACKAGING TECHNICIAN Work Phone: [facility] 05-06-2012 meningococcal polysaccharide (groups A, C, Y and W-135) diphtheria toxoid conjugate vaccine (MCV4P) Nessa Ryan APPLIED COMPUTER SCIENCE PROFESSOR - [facility] Work Phone: [facility] 05-06-2012 tetanus toxoid, redu sachin diphtheria toxoid, and acellular pertussis vaccine, adsorbed Nessa Ryan APPLIED COMPUTER SCIENCE PROFESSOR - [facility] Work Phone: [facility] 04-04-2005 diphtheria, tetanus toxoids and acellular pertussis vaccine Nessa Ryan APPLIED COMPUTER SCIENCE PROFESSOR - [facility] Work Phone: [facility] Work Phone: 04-04-2005 measles, mumps and rubella virus vaccine Nessa Ryan APPLIED COMPUTER SCIENCE PROFESSOR - [facility] Work Phone: [facility] 04-04-2005 poliovirus vaccine, inactivated Nessa Ryan APPLIED COMPUTER SCIENCE PROFESSOR - [facility] Work Phone: [facility] 04-07-2002 diphtheria, tetanus toxoids and acellular pertussis vaccine Nessa Ryan APPLIED COMPUTER SCIENCE PROFESSOR - [facility] Work Phone: [facility] Work Phone: 04-07-2002 haemophilus influenz ae type b vaccine, PRP-T conjugate Nessa Ryan APPLIED COMPUTER SCIENCE PROFESSOR - [facility] Work Phone: [facility] 04-07-2002 measles, mumps and rubella virus vaccine Nessa Ryan APPLIED COMPUTER SCIENCE PROFESSOR - [facility] Work Phone: [facility] 2001 poliovirus vaccine, inactivated Nessa Ryan APPLIED COMPUTER SCIENCE PROFESSOR - [facility] Work Phone: [facility] 2001 varicella virus vaccine Kale Ryan APPLIED COMPUTER SCIENCE PROFESSOR - [facility] Work Phone: [facility] 2000 hepatitis B vaccine, unspecified formulation Nessa Ryan APPLIED COMPUTER SCIENCE PROFESSOR - [facility] Work Phone: [facility] Work Phone: 2000 pneumococcal conjuga te vaccine, 13 valent Nessa Ryan APPLIED COMPUTER SCIENCE PROFESSOR - MACHINE PACKAGING TECHNICIAN Work Phone: [facility] 2000 diphtheria, tetanus toxoids and acellular pertussis vaccine Nessa Ryan APPLIED COMPUTER SCIENCE PROFESSOR - MACHINE PACKAGING TECHNICIAN Work Phone: [facility] Work Phone: 2000 haemophilus influenz ae type b vaccine, PRP-T conjugate Nessa Connor APPLIED COMPUTER SCIENCE PROFESSOR - MACHINE PACKAGING TECHNICIAN Work Phone: [facility] 2000 pneumococcal conjuga te vaccine, 13 valent Nessa Ryan APPLIED COMPUTER SCIENCE PROFESSOR - MACHINE PACKAGING TECHNICIAN Work Phone: [facility] 2000 diphtheria, tetanus toxoids and acellular pertussis vaccine Nessameliza Ryan APPLIED COMPUTER SCIENCE PROFESSOR - MACHINE PACKAGING TECHNICIAN Work Phone: [facility] Work Phone: 2000 haemophilus influenz ae type b vaccine, PRP-T conjugate Nessa Suellpatrick APPLIED COMPUTER SCIENCE PROFESSOR - MACHINE PACKAGING TECHNICIAN Work Phone: [facility] 2000 pneumococcal conjuga te vaccine, 13 valent Nessa Ryan APPLIED COMPUTER SCIENCE PROFESSOR - MACHINE PACKAGING TECHNICIAN Work Phone: [facility] 2000 poliovirus vaccine, inactivated Nessa Ryan APPLIED COMPUTER SCIENCE PROFESSOR - MACHINE PACKAGING TECHNICIAN Work Phone: [facility] 2000 diphtheria, tetanus toxoids and acellular pertussis vaccine Nessa Ryan APPLIED COMPUTER SCIENCE PROFESSOR - MACHINE PACKAGING TECHNICIAN Work Phone: [facility] Work Phone: 2000 haemophilus influenz ae type b vaccine, PRP-T conjugate Nessa Suellpatrick APPLIED COMPUTER SCIENCE PROFESSOR - MACHINE PACKAGING TECHNICIAN Work Phone: [facility] 2000 poliovirus vaccine, inactivated Nessa Connor APPLIED COMPUTER SCIENCE PROFESSOR - MACHINE PACKAGING TECHNICIAN Work Phone: [facility] 2000 hepatitis B vaccine, unspecified formulation Nessa Connor APPLIED COMPUTER SCIENCE PROFESSOR - MACHINE PACKAGING TECHNICIAN Work Phone: [facility] Work Phone: 2000 hepatitis B vaccine, unspecified formulation Nessa Ryan APPLIED COMPUTER SCIENCE PROFESSOR - MACHINE PACKAGING TECHNICIAN Work Phone: [facility] Work Phone: Payers Date Payer Category Payer Unknown 2022 Unknown [id number] 2015 Unknown [id number] 2015 Unknown MMO MMO [employer] [id number] 2015-Present [phone] [address] [place] [address] PPO [id number] 2014 Unknown [employer] [address] xxxxxxxxxxxx 2014-Present [phone] [address] [place] [address] xxxxxxxxxxxx [id number] 2000 Unknown [id number] 2000 Unknown [id number] Social History Date Type Detail Facility Start: 09-16-2019 End: 12-18-2022 Tobacco smoking status NHIS Never smoker [facility] Start: 09-16-2019 Alcohol intake Current non-dr air brakes inspector of alcohol (finding) [facility] Work Phone: Start: 2000 Sex Assigned At Not on file [facility] Work Phone: Start: 12-30-2012 End: 12-18-2022 Tobacco use and exposure Smokeless tobacco non-user [facility] Start: 03-16-2022 End: 03-13-2023 Alcohol intake Current drinker of alcohol (finding) [facility] Start: 03-06-2022 End: 03-25-2022 Exposure to SARS-CoV-2 (event) Not sure [facility] Start: 03-25-2022 End: 12-18-2022 Alcohol intake [facility] Start: 03-25-2022 History SDOH Alcohol Comment 2 [place] Claws per week [facility] Start: 12-18-2022 End: 03-13-2023 Humiliation, Afraid, Rape, and Kick questionnaire [HARK] [facility] Within the last year , have you been afraid of your partner or ex-partner? Patient refused [facility] Are you now , , , , never or living with a partner? Living with partner [facility] How often to you hav e a drink containing alcohol? 2-4 times a month [facility] How many standard dr inks containing alcohol do you have on a typical day? 1 or 2 [facility] How often do you hav e 6 or more drinks on 1 occasion? Never [facility] How hard is it for y ou to pay for the very basics like food, housing, medical care, and heating Not very hard [facility] Do you feel stress - tense, restless, nervous, or anxious, or unable to sleep at night because your mind is troubled all the time - these days [OSQ] Only a little [facility] (I/We) worried wheth er (my/our) food would run out before (I/we) got money to buy more. Never true [facility] In the past 12 month s, was there a time when you were not able to pay the mortgage or rent on time? No [facility] NEGATED: Highlighted rowStart: JEYF History of tobacco use Passive smoker [facility] Goals Date Patient Goal Desired Activity /State Clinical Notes 11-17-2021 to 06-12-2023 Telephone Encounter - Emerald Savage LPN - 06/12/2023 6:33 AM EDTTelephone Encounter - Emerald Savage LPN - 06/12/2023 6:33 AM EDTTelephone Encounter - Emerald Savage LPN - 06/12/2023 6:32 AM EDT Note Date & Type Note Facility 06-12-2023 Telephone encounter Note Last appointment 03/13/2023 , Next appointment is Visit date not found Last filled 04/15/23 1 month 1 refill [facility] 06-12-2023 Miscellaneous Notes Last appointment 03/13/2023 , Next appointment is Visit date not found Last filled 04/15/23 1 month 1 refill documented in this encounter [facility] 06-12-2023 Telephone encounter Note Last appointment 03/13/2023 , Next appointment is 06/12/2023 Last filled 04/14/23 1 month 1 refill [facility] 06-12-2023 Miscellaneous Notes Last appointment 03/13/2023 , Next appointment is 06/12/2023 Last filled 04/14/23 1 month 1 refill documented in this encounter [facility] 04-15-2023 Telephone encounter Note Last appointment 03/13/2023 , Next appointment is Visit date not found Last filled 02/13/23 1 month 1 refill [facility] 04-15-2023 Miscellaneous Notes Last appointment 03/13/2023 , Next appointment is Visit date not found Last filled 02/13/23 1 month 1 refill documented in this encounter [facility] 04-13-2023 Telephone encounter Note Last appointment 03/13/2023 , Next appointment is Visit date not found Last filled 02/13/23 1 month 1 refill [facility] 04-13-2023 Miscellaneous Notes Last appointment 03/13/2023 , Next appointment is Visit date not found Last filled 02/13/23 1 month 1 refill documented in this encounter [facility] 03-19-2023 Telephone encounter Note Name of caller: Purnima Contact phone number: [phone] Relationship to Patient: Patient Provider: Dr. Ware Practice: [facility] [place] Chief Complaint/Reason for Call: Patient says the other office hasn't received the fax yet and wanted it resent over. Confirmed fax # is [phone]. They are also requesting a copy of patients insurance card which was put in her chart in November 2021. Please advise. [facility] 03-19-2023 Miscellaneous Notes Name of caller: Purnima Contact phone number: [phone] Relationship to Patient: Patient Provider: Dr. Ware Practice: [facility] Chief Complaint/Reason for Call: Patient says the other office hasn't received the fax yet and wanted it resent over. Confirmed fax # is [phone]. They are also requesting a copy of patients insurance card which was put in her chart in November 2021. Please advise. Faxed to psychology professor, and patient notified. In the fax folder Name of caller: Purnima Acosta Contact phone number: [phone] Relationship to Patient: patient Provider: Dr Ware Practice: [facility] Chief Complaint/Reason for Call: Pt requesting referral for Rheumatology to be sent to Dr Chela Loomis in [place] [phone]. Please fax referral, labs and OV notes to [phone] Best time of day caller can be reached: Any Patient advised that office/PCP has 24-48 business hours to return their call: Yes documented in this encounter [facility] 03-19-2023 Telephone encounter Note Faxed to psychology professor, and patient notified. [facility] 03-19-2023 Telephone encounter Note In the fax folder [facility] 03-18-2023 Telephone encounter Note Name of caller: Purnima Acosta Contact phone number: [phone] Relationship to Patient: patient Provider: Dr Ware Practice: [facility] Chief Complaint/Reason for Call: Pt requesting referral for Rheumatology to be sent to Dr Chela Loomis in [place] [phone]. Please fax referral, labs and OV notes to [phone] Best time of day caller can be reached: Any Patient advised that office/PCP has 24-48 business hours to return their call: Yes [facility] 03-13-2023 History of Presen t illness Narrative Subjective Patient ID: Purnima Acosta is a 22 y.o. female who presents for Hip Pain (Right hip pain, since haroldo time. Seeing chiropractor who wants blood work done to check inflammatory markers. MRI was normal./Pt is fasting). No specific injury. Played soccer in high school. Has an MRI and x ray and all normal. PGM has RA. MGM osteoarthritis. Mom has DJD. MRI of the right knee was done in December. Sees Dr Lares. Review of Systems Constitutional: Positive for activity change. Negative for chills and fever. Musculoskeletal: Positive for arthralgias, back pain and gait problem. Objective Physical Exam Vitals and nursing note reviewed. Constitutional: General: She is not in acute distress. Appearance: She is not ill-appearing or toxic-appearing. Musculoskeletal: General: Tenderness present. No swelling or deformity. Right lower leg: No edema. Left lower leg: No edema. Comments: Tender over the right trochanteric bursae Skin: Capillary Refill: Capillary refill takes less than 2 seconds. Neurological: Mental Status: She is alert. Assessment/Plan Problem List Items Addressed This Visit None Visit Diagnoses Right hip pain - Primary Acute, uncontrolled Continue with PT Could be bursitis. May want to look into a steroid shot Relevant Orders C-reactive protein Uric acid Sedimentation rate, automated Arthralgia, unspecified joint Acute, uncontrolled Has a FH of CTD Check the labs Relevant Orders C-reactive protein MATTHEW Rheumatoid factor Sedimentation rate, automated Trochanteric bursitis of right hip Acute, uncontrolled She is tender right over the hip May want to see Dr Lares for an injection documented in this encounter [facility] 09-13-2022 Note HNO ID: [id number] Author: Jimmy Monahan MD Service: ? Author Type: Physician Type: Progress Notes Filed: 09/13/2022 4:18 PM Note Text: Patient presents with: Pain: Pt denied injury, reported lower back pain current txt Chiropractor pain rated 8, denied urinary sxs. HPI: Back pain: Duration: 5 days Character: dull, aching, sharp, and spasms Location: bilateral lower back (started on the right) Radiation: upper right buttock Aggravating: bending and twisting Relieving: standing Pain relievers: Motrin and Tylenol are no help. Associated: sciatica 6 months ago Pertinent negatives: Denies numbness or weakness, fever, loss of bladder or bowel control, dysuria, blood in urine, urinary frequency. Imaging: none Physical Therapy: not for back. Has been to chiropractor this week it is suggested she get prescribed an anti-inflammatory and muscle relaxer. PAST MEDICAL HISTORY Diagnosis Date Bronchial spasm Tear of meniscus of right knee 09/15/2015 See OR report 04-07-[address] Lares MEDICATIONS: ethynodiol d-ethinyl estradiol (ZOVIA 35E, 28, ORAL) Take by mouth. ALLERGIES: ALLERGIES Allergen Reactions Eggs [Egg] Hives VITALS: BP 126/74 Pulse 84 Temp 37.1 ?C (98.7 ?F) Resp 16 Wt 76.7 kg (169 lb 3.2 oz) LMP (Approximate) SpO2 97% BMI 29.97 kg/m? PHYSICAL EXAM: GEN: pleasant, no acute distress, alert HEART: regular rate, regular rhythm, no murmurs LUNGS: clear to auscultation, no wheezes or crackles, no increased WOB EXT: no clubbing, no cyanosis, no edema BACK: Normal curvature of spine. No midline tenderness. No paraspinal tenderness. Straight leg test negative. Deep tendon reflexes 2+/4 at patellas. Normal lower extremity strength. ASSESSMENT/PLAN: 1. Acute bilateral low back pain without sciatica - ICD9: 724.2, 338.19, ICD10: M54.50 Musculoskeletal low back pain. - CYCLOBENZAPRINE 10 MG TABLET -cautioned about drowsiness, she has used this before. Reviewed options for anti-inflammatory pain medicine which is not ibuprofen. She did not tolerate prednisone in the past (caused sweats and anxiety). She would rather use OTC ibuprofen then prescription for once or twice a day anti-inflammatory. 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 Discussed physical therapy for core strengthening. Narcotic pain relievers would need prescribed through PCP appropriate. Seek immediate evaluation for loss of bladder or bowel control, unexplained fever, or progressive weakness or numbness. Jimmy Monahan MD [facility] 09-13-2022 History of Presen t illness Narrative Patient presents with: Pain: Pt denied injury, reported lower back pain current txt Chiropractor pain rated 8, denied urinary sxs. HPI: Back pain: Duration: 5 days Character: dull, aching, sharp, and spasms Location: bilateral lower back (started on the right) Radiation: upper right buttock Aggravating: bending and twisting Relieving: standing Pain relievers: Motrin and Tylenol are no help. Associated: sciatica 6 months ago Pertinent negatives: Denies numbness or weakness, fever, loss of bladder or bowel control, dysuria, blood in urine, urinary frequency. Imaging: none Physical Therapy: not for back. Has been to chiropractor this week it is suggested she get prescribed an anti-inflammatory and muscle relaxer. PAST MEDICAL HISTORY Diagnosis Date Bronchial spasm Tear of meniscus of right knee 09/15/2015 See OR report 04-07-[address] Lares MEDICATIONS: ethynodiol d-ethinyl estradiol (ZOVIA E, 28, ORAL) Take by mouth. ALLERGIES: ALLERGIES Allergen Reactions Eggs [Egg] Hives VITALS: BP 126/74 Pulse 84 Temp 37.1 C (98.7 F) Resp 16 Wt 76.7 kg (169 lb 3.2 oz) LMP (Approximate) SpO2 97% BMI 29.97 kg/m PHYSICAL EXAM: GEN: pleasant, no acute distress, alert HEART: regular rate, regular rhythm, no murmurs LUNGS: clear to auscultation, no wheezes or crackles, no increased WOB EXT: no clubbing, no cyanosis, no edema BACK: Normal curvature of spine. No midline tenderness. No paraspinal tenderness. Straight leg test negative. Deep tendon reflexes 2+/4 at patellas. Normal lower extremity strength. ASSESSMENT/PLAN: 1. Acute bilateral low back pain without sciatica - ICD9: 724.2, 338.19, ICD10: M54.50 Musculoskeletal low back pain. - CYCLOBENZAPRINE 10 MG TABLET -cautioned about drowsiness, she has used this before. Reviewed options for anti-inflammatory pain medicine which is not ibuprofen. She did not tolerate prednisone in the past (caused sweats and anxiety). She would rather use OTC ibuprofen then prescription for once or twice a day anti-inflammatory. 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 Discussed physical therapy for core strengthening. Narcotic pain relievers would need prescribed through PCP appropriate. Seek immediate evaluation for loss of bladder or bowel control, unexplained fever, or progressive weakness or numbness. Jimmy Monahan MD documented in this encounter [facility] 03-25-2022 Note HNO ID: [id number] Author: Donna Duff MD Service: ? Author Type: Physician Type: Progress Notes Filed: 04/15/2022 7:03 AM Note Text: Donna Duff MD Department of Orthopaedics [facility] [address] [facility] [address] Dept: [phone] Dept March 25, 2022 CHIEF COMPLAINT: New and Knee Pain of the Right Knee and REF: Lottie ([facility] films) HPI Pt initially injured knee in high school playing football. She had right knee scope by Dr. Lares on 04-07-18 after MRI and xrays. She has continued to have intermittent knee pain and swelling since. 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 She sought second opinion by Dr. Delatorre and he ordered PT and another xray and MRI, and she is no better and he does not feel surgery would benefit her. She denies locking, but knee feels unstable. She states PT made worse. She is here for another opinion. CD from [facility] downloaded by [place] in radiology, but not viewable yet. AMB ROOMING INTAKE FLOWSHEET DATA Risk Screening Do you have concerns about personal safety or safety in the home?: No Pain Pain Level: (2-7) Pain Location: Knee-Right Description: Aching, Sharp Duration Amount of Time: 2 Duration Units: Months Frequency: Continuous Intervention/Comfort measure: Medication Comments: knee brace and PT and meloxicam without relief, PT made worse ASSESSMENT: M25.561, G89.29 Chronic pain of right knee (primary encounter diagnosis) PLAN: New MRI actually looks quite well. I suspect this is still some patellofemoral pain in the instability she is feeling is likely secondary to simply strengthening and conditioning. I recommend VMO exercises. FOLLOW UP INSTRUCTIONS: As needed Ms. Purnima Acosta was advised as to contrast therapies and/or to take analgesics/anti-inflammatories as needed and all contraindications were reviewed. OBJECTIVE: Ms. Purnima Acosta is a pleasant 21 year old in no apparent distress. Gen:Ht 5' 3 [stated[ (1.60m) Wt 167 lb (75.8kg) LMP 03/08/2022 BMI 29.59 kg/(m2). nl development, non obese, no deformities ENT: Normocephalic, normal hearing, moist mucosa CV: Pulses:DP/PT= 2+ and symmetric, capillary refill < 2 secs, no peripheral edema/varicosities Skin: no rash, bruising or lesions. Good turgor. Psych: cooperative and appropriate, alert and oriented x 3, good mood and affect. Musculoskeletal: Patient walks without antalgia, normal station. Hip motion without pain. Knee without effusion. Patella tracks normally. There is no patellar crepitance. No pain along the medial positive tenderness over the lateral facets. Range of motion 0-130 degrees. No medial or lateral joint line pain on palpation. Ligamentous exam stable on varus and valgus stress testing at 0 and 30 degrees. Judd's examination is negative. Posterior drawer is negative. Negative McMurrays, without palpable click. Extremity is warm and well perfused. Sensation is grossly intact to light touch, subjectively. IMAGING: MRI from an outside facility suggest no obvious neurosurgical findings. Supporting Subjective Information Below: Past Medical History: PAST MEDICAL HISTORY Diagnosis Date - Bronchial spasm - Tear of meniscus of right knee 09/15/2015 See OR report 04-07-[address] Lares Past Surgical History: PAST SURGICAL HISTORY Procedure Laterality Date - ARTHROSCOPY KNEE DIAGNOSTIC W/WO SYNOVIAL BX SPX Right 04/07/2018 Arthroscopy, knee - TONSILLECTOMY HX 2009 Family History: FAMILY HISTORY Problem Relation Age of Onset - Hypertension Mother - Diabetes Mother - other (Leiden Factor 5) Father Social History: Social History Tobacco Use - Smoking status: Never Smoker - Smokeless tobacco: Never Used Vaping Use - Vaping Use: Never used Substance Use Topics - Alcohol use: Yes Alcohol/week: 2.0 standard drinks Types: 2 Cans of Beer (12oz) per week Comment: 2 White Claws per week - Drug use: Not Currently Comment: last night Medications: Current Outpatient Medications Medication Sig - sertraline (ZOLOFT) 50 mg tablet Take 100 mg by mouth. - ethynodiol d-ethinyl estradiol (ZOVIA 1/35E, 28, ORAL) Take by mouth. - Ibuprofen 200 mg cap Take by mouth as needed. - ibuprofen (MOTRIN) 600 mg tablet Take 1 tablet by mouth every 6 hours as needed for Pain. (Patient not taking: Reported on 03/25/2022 ) - cyclobenzaprine (FLEXERIL) 5 mg tablet Take 1 tablet by mouth three times daily as needed. (Patient not taking: Reported on 11/17/2021 ) No current facility-administered medications for this visit. Allergies: Eggs [Egg] ROS: General (negative for fatigue, malaise, weight loss/gain) HEENT (negative for headache, earache, recent vision changes, sinus pain, sore throat) Respiratory (no recent shortness of breath, hemoptysis) CV (negative for chest tightness, palpitations) Musculoskeletal (see HPI) Psych (no depres (more content not included)... [facility] 03-25-2022 History of Presen t illness Narrative Donna Duff MD Department of Orthopaedics Orthopaedics [address] [facility] [address] Dept: [phone] Dept March 25, 2022 CHIEF COMPLAINT: New and Knee Pain of the Right Knee and REF: Lottie ([facility] films) HPI Pt initially injured knee in high school playing football. She had right knee scope by Dr. Lares on 04-07-18 after MRI and xrays. She has continued to have intermittent knee pain and swelling since. 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 She sought second opinion by Dr. Delatorre and he ordered PT and another xray and MRI, and she is no better and he does not feel surgery would benefit her. She denies locking, but knee feels unstable. She states PT made worse. She is here for another opinion. [facility] [place] in [facility], but not viewable yet. AMB ROOMING INTAKE FLOWSHEET DATA Risk Screening Do you have concerns about personal safety or safety in the home?: No Pain Pain Level: (2-7) Pain Location: Knee-Right Description: Aching, Sharp Duration Amount of Time: 2 Duration Units: Months Frequency: Continuous Intervention/Comfort measure: Medication Comments: knee brace and PT and meloxicam without relief, PT made worse ASSESSMENT: M25.561, G89.29 Chronic pain of right knee (primary encounter diagnosis) PLAN: New MRI actually looks quite well. I suspect this is still some patellofemoral pain in the instability she is feeling is likely secondary to simply strengthening and conditioning. I recommend VMO exercises. FOLLOW UP INSTRUCTIONS: As needed Ms. Purnima Acosta was advised as to contrast therapies and/or to take analgesics/anti-inflammatories as needed and all contraindications were reviewed. OBJECTIVE: Ms. Purnima Acosta is a pleasant 21 year old in no apparent distress. Gen:Ht 5' 3 [stated[ (1.60m) Wt 167 lb (75.8kg) LMP 03/08/2022 BMI 29.59 kg/(m^2). nl development, non obese, no deformities ENT: Normocephalic, normal hearing, moist mucosa CV: Pulses:DP/PT= 2+ and symmetric, capillary refill < 2 secs, no peripheral edema/varicosities Skin: no rash, bruising or lesions. Good turgor. Psych: cooperative and appropriate, alert and oriented x 3, good mood and affect. Musculoskeletal: Patient walks without antalgia, normal station. Hip motion without pain. Knee without effusion. Patella tracks normally. There is no patellar crepitance. No pain along the medial positive tenderness over the lateral facets. Range of motion 0-130 degrees. No medial or lateral joint line pain on palpation. Ligamentous exam stable on varus and valgus stress testing at 0 and 30 degrees. Judd's examination is negative. Posterior drawer is negative. Negative McMurrays, without palpable click. Extremity is warm and well perfused. Sensation is grossly intact to light touch, subjectively. IMAGING: MRI from an outside facility suggest no obvious neurosurgical findings. Supporting Subjective Information Below: Past Medical History: PAST MEDICAL HISTORY Diagnosis Date Bronchial spasm Tear of meniscus of right knee 09/15/2015 See OR report 04-07-[address] Lares Past Surgical History: PAST SURGICAL HISTORY Procedure Laterality Date ARTHROSCOPY KNEE DIAGNOSTIC W/WO SYNOVIAL BX SPX Right 04/07/2018 Arthroscopy, knee TONSILLECTOMY HX 2009 Family History: FAMILY HISTORY Problem Relation Age of Onset Hypertension Mother Diabetes Mother other (Leiden Factor 5) Father Social History: Social History Tobacco Use Smoking status: Never Smoker Smokeless tobacco: Never Used Vaping Use Vaping Use: Never used Substance Use Topics Alcohol use: Yes Alcohol/week: 2.0 standard drinks Types: 2 Cans of Beer (12oz) per week Comment: 2 [place] Claws per week Drug use: Not Currently Comment: last night Medications: Current Outpatient Medications Medication Sig sertraline (ZOLOFT) 50 mg tablet Take 100 mg by mouth. ethynodiol d-ethinyl estradiol (ZOVIA 1/35E, 28, ORAL) Take by mouth. Ibuprofen 200 mg cap Take by mouth as needed. ibuprofen (MOTRIN) 600 mg tablet Take 1 tablet by mouth every 6 hours as needed for Pain. (Patient not taking: Reported on 03/25/2022 ) cyclobenzaprine (FLEXERIL) 5 mg tablet Take 1 tablet by mouth three times daily as needed. (Patient not taking: Reported on 11/17/2021 ) No current facility-administered medications for this visit. Allergies: Eggs [Egg] ROS: General (negative for fatigue, malaise, weight loss/gain) HEENT (negative for headache, earache, recent vision changes, sinus pain, sore throat) Respiratory (no recent shortness of breath, hemoptysis) CV (negative for chest tightness, palpitations) Musculoskeletal (see HPI) Psych (no depression, anxiety) REFERRING PHYSICIAN: Ms. Purnima Acosta was referred to me for consultation by the following physician. This consultation note will be sent to the following physician by either mail or electronic medical record. Giovanna Delatorre MD [address] [facility] [address] Paulina Ware MD [address] [facility] [address] [facility] [address] Donna Duff MD documented in this encounter [facility] 03-16-2022 Note HNO ID: [id number] Author: Zuleyka Hatfield APRN.MACHINE PACKAGING TECHNICIAN Service: ? Author Type: Nurse Practitioner Type: Progress Notes Filed: 03/16/2022 2:24 PM Note Text: Subjective HPI Purnima Acosta is a 21 year old female who presents with left ear pain. She was rinsing her ear yesterday after using debrox. Since then she has had decreased hearing and some ringing in her ear. She denies pain. No recent URI symptoms. Review of Systems Constitutional: Negative for chills and fever. HENT: Positive for hearing loss and tinnitus. Negative for congestion, ear pain and sore throat. Respiratory: Negative for cough. Cardiovascular: Negative. Neurological: Positive for dizziness. BP 116/70 Pulse 77 Temp 36.6 ?C (97.9 ?F) Resp 18 Wt 74.8 kg (165 lb) LMP 03/08/2022 SpO2 98% BMI 29.23 kg/m? PAST MEDICAL HISTORY Diagnosis Date - Bronchial spasm - Tear of meniscus of right knee 09/15/2015 PAST SURGICAL HISTORY Procedure Laterality Date - ARTHROSCOPY KNEE DIAGNOSTIC W/WO SYNOVIAL BX SPX Right 04/07/2018 Arthroscopy, knee - TONSILLECTOMY HX 2009 ALLERGIES Eggs [Egg] MEDICATIONS ibuprofen (MOTRIN) 600 mg tablet Take 1 tablet by mouth every 6 hours as needed for Pain. ethynodiol d-ethinyl estradiol (ZOVIA 1/35E, 28, ORAL) Take by mouth. sertraline (ZOLOFT) 50 mg tablet Take 100 mg by mouth. cyclobenzaprine (FLEXERIL) 5 mg tablet Take 1 tablet by mouth three times daily as needed. amoxicillin-clavulanic acid (AUGMENTIN) 875-125 mg per tablet Take 1 tablet by mouth twice daily. Ibuprofen 200 mg cap Take by mouth as needed. FAMILY HISTORY Problem Relation Age of Onset - Hypertension Mother - Diabetes Mother - other (Leiden Factor 5) Father Social History Tobacco Use - Smoking status: Never Smoker - Smokeless tobacco: Never Used Vaping Use - Vaping Use: Never used Substance Use Topics - Alcohol use: Yes - Drug use: Not Currently Comment: last night Objective Physical Exam Vitals and nursing note reviewed. Constitutional: Appearance: Normal appearance. HENT: Right Ear: Tympanic membrane, ear canal and external ear normal. Left Ear: External ear normal. There is impacted cerumen. Cardiovascular: Rate and Rhythm: Normal rate. Pulmonary: Effort: Pulmonary effort is normal. Skin: General: Skin is warm and dry. Neurological: Mental Status: She is alert. ASSESSMENT/PLAN: 1. Impacted cerumen of left ear - ICD9: 380.4, ICD10: H61.22 - PERS HLTH MGMT EAR WAX REMOVAL - Cerumen removed from left ear via irrigation by MA, patient tolerated procedure well. Post procedure left ear canal is clear and TM is well visualized with bony landmarks intact. The left ear drum is injected and bulging with cloudy fluid behind TM. 2. Otitis media with effusion, left - ICD9: 381.4, ICD10: H65.92 - Will begin treatment with Amoxicillin for 7 days - AMOXICILLIN 875 MG TABLET Zuleyka Hatfield APRN.CNP [facility] 03-16-2022 Instructions Zuleyka Hatfield APRN.CNP - 03/16/2022 2:04 PM EDT ASSESSMENT/PLAN: 1. Impacted cerumen of left ear - ICD9: 380.4, ICD10: H61.22 - PERS HLTH MGMT EAR WAX REMOVAL - Cerumen removed from left ear via irrigation by DAYA, patient tolerated procedure well. Post procedure ear canal is clear and TM is well visualized with bony landmarks intact. The left ear drum is injected and bulging with cloudy fluid behind TM. 2. Otitis media with effusion, left - ICD9: 381.4, ICD10: H65.92 - Will begin treatment with Amoxicillin for 7 days - AMOXICILLIN 875 MG TABLET Zuleyka Hatfield APRN.MACHINE PACKAGING TECHNICIAN documented in this encounter [facility] 03-16-2022 History of Presen t illness Narrative Subjective HPI Purnima Acosta is a 21 year old female who presents with left ear pain. She was rinsing her ear yesterday after using debrox. Since then she has had decreased hearing and some ringing in her ear. She denies pain. No recent URI symptoms. Review of Systems Constitutional: Negative for chills and fever. HENT: Positive for hearing loss and tinnitus. Negative for congestion, ear pain and sore throat. Respiratory: Negative for cough. Cardiovascular: Negative. Neurological: Positive for dizziness. BP 116/70 Pulse 77 Temp 36.6 C (97.9 F) Resp 18 Wt 74.8 kg (165 lb) LMP 03/08/2022 SpO2 98% BMI 29.23 kg/m PAST MEDICAL HISTORY Diagnosis Date Bronchial spasm Tear of meniscus of right knee 09/15/2015 PAST SURGICAL HISTORY Procedure Laterality Date ARTHROSCOPY KNEE DIAGNOSTIC W/WO SYNOVIAL BX SPX Right 04/07/2018 Arthroscopy, knee TONSILLECTOMY HX 2009 ALLERGIES Eggs [Egg] MEDICATIONS ibuprofen (MOTRIN) 600 mg tablet Take 1 tablet by mouth every 6 hours as needed for Pain. ethynodiol d-ethinyl estradiol (ZOVIA 1/35E, 28, ORAL) Take by mouth. sertraline (ZOLOFT) 50 mg tablet Take 100 mg by mouth. cyclobenzaprine (FLEXERIL) 5 mg tablet Take 1 tablet by mouth three times daily as needed. amoxicillin-clavulanic acid (AUGMENTIN) 875-125 mg per tablet Take 1 tablet by mouth twice daily. Ibuprofen 200 mg cap Take by mouth as needed. FAMILY HISTORY Problem Relation Age of Onset Hypertension Mother Diabetes Mother other (Leiden Factor 5) Father Social History Tobacco Use Smoking status: Never Smoker Smokeless tobacco: Never Used Vaping Use Vaping Use: Never used Substance Use Topics Alcohol use: Yes Drug use: Not Currently Comment: last night Objective Physical Exam Vitals and nursing note reviewed. Constitutional: Appearance: Normal appearance. HENT: Right Ear: Tympanic membrane, ear canal and external ear normal. Left Ear: External ear normal. There is impacted cerumen. Cardiovascular: Rate and Rhythm: Normal rate. Pulmonary: Effort: Pulmonary effort is normal. Skin: General: Skin is warm and dry. Neurological: Mental Status: She is alert. ASSESSMENT/PLAN: 1. Impacted cerumen of left ear - ICD9: 380.4, ICD10: H61.22 - PERS TH MGMT EAR WAX REMOVAL - Cerumen removed from left ear via irrigation by MA, patient tolerated procedure well. Post procedure left ear canal is clear and TM is well visualized with bony landmarks intact. The left ear drum is injected and bulging with cloudy fluid behind TM. 2. Otitis media with effusion, left - ICD9: 381.4, ICD10: H65.92 - Will begin treatment with Amoxicillin for 7 days - AMOXICILLIN 875 MG TABLET Zuleyka Hatfield APRN.MACHINE PACKAGING TECHNICIAN documented in this encounter [facility] 11-17-2021 Note HNO ID: [id number] Author: Roselia Mcgill PA-C Service: ? Author Type: Physician Copyright Manager Type: Progress Notes Filed: 11/17/2021 10:21 AM Note Text: This note was created using [employer]. Subjective Purnima Acosta is a 21 year old female. HPI Patient presents with congestion sore throat fever and fatigue with a cough for 1 day. She had a temp of 101 that had broke this morning around 6 AM. 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 She did have Covid September 29. She had been on Augmentin at the end of the month due to a secondary sinus infection. No shortness of breath or chest pain. She states she was completely better for about a week and then this started yesterday. Denies any known influenza exposure. No diarrhea. Review of Systems Constitutional: Positive for chills, fatigue and fever. HENT: Positive for congestion, ear pain, rhinorrhea and sore throat. Respiratory: Positive for cough. Negative for shortness of breath and wheezing. Cardiovascular: Negative. Gastrointestinal: Negative. Musculoskeletal: Positive for myalgias. Neurological: Positive for headaches. All other systems reviewed and are negative. PAST MEDICAL HISTORY Diagnosis Date - Bronchial spasm - Tear of meniscus of right knee 09/15/2015 Current Outpatient Medications Medication Sig Dispense Refill - sertraline (ZOLOFT) 50 mg tablet Take 100 mg by mouth. - ethynodiol d-ethinyl estradiol (ZOVIA /35E, 28, ORAL) Take by mouth. - Ibuprofen 200 mg cap Take by mouth as needed. - ibuprofen (MOTRIN) 600 mg tablet Take 1 tablet by mouth every 6 hours as needed for Pain. 30 tablet 1 - cyclobenzaprine (FLEXERIL) 5 mg tablet Take 1 tablet by mouth three times daily as needed. (Patient not taking: Reported on 11/17/2021 ) 30 tablet 0 - amoxicillin-clavulanic acid (AUGMENTIN) 875-125 mg per tablet Take 1 tablet by mouth twice daily. (Patient not taking: Reported on 11/09/2019 ) 20 tablet 0 No current facility-administered medications for this visit. PAST SURGICAL HISTORY Procedure Laterality Date - ARTHROSCOPY KNEE DIAGNOSTIC W/WO SYNOVIAL BX SPX Right 04/07/2018 Arthroscopy, knee - TONSILLECTOMY HX 2009 FAMILY HISTORY Problem Relation Age of Onset - Hypertension Mother - Diabetes Mother - other (Leiden Factor 5) Father Social History Tobacco Use - Smoking status: Never Smoker - Smokeless tobacco: Never Used Vaping Use - Vaping Use: Never used Substance Use Topics - Alcohol use: No - Drug use: Not Currently Comment: last night Objective BP 122/80 Pulse 70 Temp 36.3 ?C (97.4 ?F) (Tympanic) Resp 18 Wt 74.4 kg (164 lb) LMP 12/13/2020 SpO2 99% BMI 29.05 kg/m? Physical Exam Vitals reviewed. Constitutional: Appearance: Normal appearance. HENT: Head: Normocephalic and atraumatic. Right Ear: Tympanic membrane, ear canal and external ear normal. Left Ear: Tympanic membrane, ear canal and external ear normal. Nose: Congestion present. Mouth/Throat: Mouth: Mucous membranes are moist. Pharynx: Oropharynx is clear. Cardiovascular: Rate and Rhythm: Normal rate and regular rhythm. Heart sounds: Normal heart sounds. Pulmonary: Effort: Pulmonary effort is normal. Breath sounds: Normal breath sounds. Skin: General: Skin is warm and dry. Findings: No rash. Neurological: General: No focal deficit present. Mental Status: She is alert and oriented to person, place, and time. Assessment and Plan ASSESSMENT/PLAN: 1. Viral URI with cough - ICD9: 465.9, ICD10: J06.9 - Discussed viral etiology and rationale for treatment. - Symptomatic treatment with prn analgesia - Supportive care with fluids and rest - Follow up in 3-5 days if symptoms persist or sooner if worsening of symptoms -Patient just had Covid at the beginning of September, testing today more for influenza. She is interested in Tamiflu and would be in the window if that comes back positive she would like that called in. Discussed red flags to be seen again. Patient agreeable. - COVID WITH FLUA+B, ROUTINE Roselia Mcgill PA-C [facility] documented in this encounter [facility] Work Phone: Evaluation note* Diagnosis Impacted cerumen of left ear- Primary Impacted cerumen Otitis media with effusion, left [facility] Diagnosis Chronic pain of right knee- Primary [facility] Diagnosis Acute bilateral low back pain without sciatica- Primary [facility] Diagnosis Right hip pain- Primary Pain in joint, pelvic region and thigh Arthralgia, unspecified joint Trochanteric bursitis of right hip [facility] Diagnosis Arthralgia, unspecified joint- Primary Right hip pain Pain in joint, pelvic region and thigh documented in this encounter [facility] note* Diagnosis Acute right-sided low back pain without sciatica Muscle spasm Spasm of muscle Poor sleep [facility] Diagnosis Acute right-sided low back pain without sciatica documented in this encounter [facility] note* Diagnosis Acute right-sided low back pain without sciatica [facility] Consultation (Routine) - Pending Review Specialty Diagnoses / Procedures Referred By Michela roldan Referred To Contact Rheumatology Diagnoses Arthralgia, unspecified joint Right hip pain Procedures [place] OFFICE/OUTPATIENT [facility] 60-74 MINUTES Paulina Ware MD [facility] [place] [address] Referral ID Status Reason Start Date Expiration Date Visits Requested Visits Authorized [id number] Pending Review Specialty Services Required 03/19/2023 03/18/2024 1 1 [facility] Summary Purpose Family History No Family History Records FoundNo Family History Records FoundNo Family History Records FoundNo Family History Records FoundNo Family History Records FoundNo Family History Records FoundNo Family History Records Found Advance Directives Documents on File Type Date Recorded 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 Advance Directives and Living Will Power of Fire Investigator Documents on File Type Date Recorded 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 DATE CREATED AUTHOR AUTHOR'S ORGANIZ ATION 09/23/2018 [facility] DATE CREATED AUTHOR AUTHOR'S ORGANIZ ATION 04/17/2020 [facility] DATE CREATED AUTHOR AUTHOR'S ORGANIZ ATION 12/22/2020 [facility] DATE CREATED AUTHOR AUTHOR'S ORGANIZ ATION 09/20/2022 [facility] DATE CREATED AUTHOR AUTHOR'S ORGANIZ ATION 04/15/2023 [facility] Source Comments (unrecognize d section and content) In the event this informatio n is protected by the Federal Confidentiality of Alcohol and Drug Abuse Patient Records regulations: The Federal rules restrict any use of the information to criminally investigate or prosecute any alcohol or drug abuse patient.[facility] the event this information is protected by the Federal Confidentiality of Alcohol and Drug Abuse Patient Records regulations: The Federal rules restrict any use of the information to criminally investigate or prosecute any alcohol or drug abuse patient.[facility] the event this information is protected by the Federal Confidentiality of Alcohol and Drug Abuse Patient Records regulations: The Federal rules restrict any use of the information to criminally investigate or prosecute any alcohol or drug abuse patient.[facility] Reason for Visit (unrecogniz ed section and content) Reason Comments REF: [facility] films New Knee Pain Reason Comments Pain Pt denied injury, re ported lower back pain current txt Chiropractor pain rated 8, denied urinary sxs. Reason Comments Hip Pain Right hip pain, sinc e haroldo time. Seeing chiropractor who wants blood work done to check inflammatory markers. 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 Relationship Specialty Start Date End Date Paulina Ware MD [address] [place] [address] PCP - General 06/24/15 Corduroy Cutter Operator Relationship Specialty Start Date End Date Paulina Ware MD [address] [place] [address] PCP - General 06/24/15 Corduroy Cutter Operator Relationship Specialty Start Date End Date Paulina Ware MD [address], [address] [place] [address] PCP - General 06/24/15 Corduroy Cutter Operator Relationship Specialty Start Date End Date Paulina Ware MD [address] [place] [address], [address] [place], [place] [id number] PCP - General 06/24/15 Corduroy Cutter Operator Relationship Specialty Start Date End Date Paulina Ware MD [address] [place] [address] [address] [place] [address] PCP - General 06/24/15 FOR RECORDS PERTAINING TO PATIENTS WHO ARE OR HAVE BEEN ENROLLED IN A CHEMICAL DEPENDENCY/SUBSTANCEABUSE PROGRAM, SOME INFORMATION MAY BE OMITTED. This clinical summary was aggregated from multiple sources. Caution should be exercised in using it in the provision of clinical care. This summary normalizes information from multiple sources, and as a consequence, information in this document may materially change the coding, format and clinical context of patient data. In addition, data may be omitted in some cases. CLINICAL DECISIONS SHOULD BE BASED ON THE PRIMARY CLINICAL RECORDS. [facility] [employer] provides no warranty or guarantee of the accuracy or completeness of information in this document.
[2023-10-16 15:34] LABS: Absolute Lymphocyte Count 2.07 X10^3/uL (0.83-4.51); Absolute Neutrophil Count 3.6 X10^3/uL (2.0-7.7); Basophil# 0.03 X10^3/uL; Basophil% 0.5 % (0-1); Eosinophil# 0.08 X10^3/uL; Eosinophils% 1.3 % (0-5); Hemoglobin 13.9 g/dL (12.0-15.0); Lymphocyte # 2.07 X10^3/ul (0.83-4.51); Lymphocyte % 32.5 % (19-41); Mean Corp Hgb Conc 32.3 g/dL (32-36); Mean Corpuscular Hgb 28.6 pg (27.0-32.0); Mean Corpuscular Volume 88.5 fL (81-99); Mean Platelet Vol. 9.1 fl (6.2-12.0); Monocyte% 9.4 % (0-10); NRBC Flagged by Analyzer 0 % (0-5); Neutrophil # 3.58 X10^3/uL (2.7-7.7); Neutrophil % 56.1 % (47-70); Platelet Count 229 K/mm3 (150-450); RBC Distribution Width CV 11.9 % (11.6-14.6); RBC Distribution Width SD 38.6 fl (35.1-43.9); Red Blood Count 4.86 M/mm3 (4.2-5.4); White Blood Count 6.4 K/mm3 (4.4-11.0)
[2023-10-16 16:49] LABS: ALB/GLOB Ratio 0.9 RATIO (0.9-2.4); AST(SGOT) 17 U/L (15-37); Alanine Aminotransfer ALT/SGPT 18 U/L (13-56); Albumin, Serum 3.4 g/dL (3.2-5.0); Alkaline Phosphatase 58 U/L (45-117); Anion Gap 5 (5-15); BUN 8 mg/dL (7-18); BUN/Creat Ratio 10.1 RATIO (10-20); Calcium,Total 8.9 mg/dL (8.5-10.1); Chloride 109 mmol/L (98-107); EST Glomerular Filtration Rate 95 mL/min (>60); Est Glom Filt Rate - Afr Amer 114 mL/min (>60); Globulin 3.9 g/dL (2.2-4.2); Glucose 91 mg/dL (74-106); Potassium 3.9 mmol/L (3.5-5.1); Protein, Total 7.3 g/dL (6.4-8.2); Sodium Level 140 mmol/L (136-145)
== END | disposition home or self-care (01) ==
LOC: MTLAB 12:51
PROVIDERS: PCP Family Medicine; Referring Provider Internal Medicine Rheumatology; Visit Provider Internal Medicine Rheumatology
DX: M06.4 Inflammatory polyarthropathy (principal); R76.8 Other specified abnormal immunological findings in serum; Z79.899 Other long term (current) drug therapy
CPT/HCPCS: 36415; 80053; 85025

== ENCOUNTER 2023-11-05 02:03 | Emergency (ER) | payer BC, SELFPAY ==
[2023-11-05] VITALS (11 sets, daily range): BP systolic 146–153; BP diastolic 80–88; PULSE 102–132; RESP 14–34; TEMP 36.4; O2SAT 98–100; BMI 30.2
--- OUTSIDE RECORDS SUMMARY | 2023-11-05 02:40 | XMS RPT_ITS | CCD ---
Author Name Unknown Address [address] [place] [address] Organization [facility] Care Team Providers Care Shampoo Assistant Name Role Phone MEET LARES Unavailable Unavailable MEET LARES Unavailable Unavailable MEET LARES Unavailable Unavailable AMAN DAVIS Unavailable Unavailable Nessa Ryan Unavailable Unavailable Duke Warenna Unavailable Unavailable Duke Warenna Unavailable Unavailable GALI GUZMAN Unavailable Unavailabl e PROVIDER, UNKNOWN Admitting Unavailable PROVIDER, UNKNOWN Attending Unavailable Paulina Ware MD Primary Care Provider [phone] Paulina Ware MD Primary Care Provider Paulina Ware MD Primary Care Provider [phone] PAULINA AWRE S Primary Care Unavailable RENATO, PAULINA S Primary Care Unavailable RENATO, PAULINA S Primary Care Unavailable DONNA DUFF Attending Unavailable GIOVANNA DELATORRE Referring Unavailable RENATO, PAULINA S Primary Care Unavailable RENATO, PAULINA S Referring Unavailable PANTERA WAREA S Primary Care Unavailable Paulina Ware MD Primary Care Provider [phone] PAULINA WARE Attending Unavailable RENATO, PAULINA Primary Care Unavailable PANTERA WAREA Attending Unavailable DUKE WARENNA Primary Care Unavailable Paulina Ware MD Primary Care Provider Allergies Allergy Classification Reported Allergen(s) Allergy Type Date of Onset Reaction(s) Facility (6 sources) egg extract; Translations: [EGG] Drug Allergy 8 Hives [facility] Repository (1 source) NO KNOWN ALLERGIES; Translations: [NO KNOWN ALLERGIES] Propensity to adverse reactions to drug (disorder) [facility] Repository (9 sources) Eggs Or Egg-Derived Products [...] 162.6 cm Paulina Ware MD Work Phone: [facility] [employer] 03-13-2023 10:24-0400 Body mass index (BMI) [Ratio] 28.43 kg/m2 Paulina Ware MD Work Phone: [facility] [employer] 03-13-2023 10:24-040 Body temperature 97.9 [degF] Paulina Ware MD Work Phone: [facility] [employer] 03-13-2023 10:24-040 Body weight 75.12 kg Paulina Ware MD Work Phone: [facility] 03-13-2023 10:24-0400 Diastolic blood pressure 74 mm[Hg] Paulina Ware MD Work Phone: [facility] 03-13-2023 10:24-0400 Heart rate 71 /min Paulina Ware MD Work Phone: [facility] 03-13-2023 10:24-0400 SaO2% (BldA) [Mass fraction] 98 % Paulina Ware MD Work Phone: [facility] 03-13-2023 10:24-0400 Systolic blood pressure 113 mm[Hg] Paulina Ware MD Work Phone: [facility] 09-13-2022 15:42-0500 Body temperature 98.71 [degF] Jimmy Monahan MD Work Phone: [facility] 09-13-2022 15:42-0500 Body weight 76.75 kg Jimmy Monahan MD Work Phone: [facility] 09-13-2022 15:42-0500 Diastolic blood pressure 74 mm[Hg] Jimmy Monahan MD Work Phone: [facility] 09-13-2022 15:42-0500 Heart rate 84 /min Jimmy Monahan MD Work Phone: [facility] 09-13-2022 15:42-0500 Respiratory rate 16 /min Jimmy Monahan MD Work Phone: [facility] 09-13-2022 15:42-0500 SaO2% (BldA) [Mass fraction] 97 % Jimmy Monahan MD Work Phone: [facility] 09-13-2022 15:42-0500 Systolic blood pressure 126 mm[Hg] Jimmy Monahan MD Work Phone: [facility] 03-25-2022 11:23-0400 Body height 160 cm Donna Duff MD Work Phone: [facility] 06-27-2022 11:23-0400 Body weight 75.75 kg Donna Duff MD Work Phone: [facility] 03-16-2022 13:47-0400 Body temperature 97.9 [degF] Zuleyka Praisler-Wood BROADCAST OPERATIONS ENGINEER.MOTTLER OPERATOR Work Phone: [facility] 03-16-2022 13:47-0400 Body weight 74.84 kg Zuleyka Praisler-Wood BROADCAST OPERATIONS ENGINEER.MOTTLER OPERATOR Work Phone: [facility] 03-16-2022 13:47-0400 Diastolic blood pressure 70 mm[Hg] Zuleyka Praisler-Wood BROADCAST OPERATIONS ENGINEER.MOTTLER OPERATOR Work Phone: [facility] 03-16-2022 13:47-0400 Heart rate 77 /min Zuleyka Praisler-Wood BROADCAST OPERATIONS ENGINEER.MOTTLER OPERATOR Work Phone: [facility] 03-16-2022 13:47-0400 Respiratory rate 18 /min Zuleyka Praisler-Wood BROADCAST OPERATIONS ENGINEER.MOTTLER OPERATOR Work Phone: [facility] 03-16-2022 13:47-0400 SaO2% (BldA) [Mass fraction] 98 % Zuleyka Praisler-Wood BROADCAST OPERATIONS ENGINEER.MOTTLER OPERATOR Work Phone: [facility] 03-16-2022 13:47-0400 Systolic blood pressure 116 mm[Hg] Zuleyka Praisler-Wood BROADCAST OPERATIONS ENGINEER.MOTTLER OPERATOR Work Phone: [facility] Encounters Encounter Date Encounter Type Care Provider Facility Start: 07-21-2023 Refill Paulina ga MD Work Phone: [facility] Procedures Date Procedure Procedure Detail Performing Clinician Start: 07-11-2022 Microscopic observat ion [Identifier] in Cervix by Cyto stain Paulina Ware MD Work Phone: Plan of Treatment Date Care Activity Detail Author Start: 2050 Zoster Vaccines (1 of 2) Zoster Vacc fern (1 of 2) [facility] Start: 11-12-2032 DTaP/Tdap/Td Vaccine s (8 - Td or Tdap) DTaP/Tdap/Td Vaccines (8 - Td or Tdap) [facility] Start: 07-11-2025 Screening for malign ant neoplasm of cervix Pap Smear [facility] Start: 05-30-2023 Influenza vaccination Influenza Vacc ine (#1) [facility] Start: 03-13-2023 End: 03-13-2024 C reactive protein [Mass/volume] in Serum or Plasma C-reactive protein Lab Routine Right hip pain Arthralgia, unspecified joint Expected: 03/13/2023 (Approximate), Expires: 03/13/2024 [facility] Work Phone: Immunizations Immunization Date Immunization Notes Care Provider Fa cility 11-12-2022 tetanus toxoid, redu sachin diphtheria toxoid, and acellular pertussis vaccine, adsorbed Paulina Ware MD Work Phone: [facility] 11-05-2022 influenza, seasonal, injectable Paulina Ware MD Work Phone: [facility] 11-05-2022 influenza virus vacc ine, unspecified formulation Paulina Ware MD Work Phone: [facility] 12-21-2021 Pfizer SARS-CoV-2 Vaccination Paulina Ware MD Work Phone: [facility] 11-30-2021 Pfizer SARS-CoV-2 Vaccination Paulina Ware MD Work Phone: [facility] 06-18-2021 Human Papillomavirus 9-valent vaccine Paulina Ware MD Work Phone: [facility] 06-18-2021 HPV, unspecified formulation Pualina Ware MD Work Phone: [facility] 05-31-2020 Human Papillomavirus 9-valent vaccine Paulina Ware MD Work Phone: [facility] 07-30-2019 Seasonal, quadrivale nt, recombinant, injectable influenza vaccine, preservative free Nessa Ryan APRN - MOTTLER OPERATOR Work Phone: [facility] 05-13-2016 meningococcal oligosaccharide (groups A, C, Y and W-135) diphtheria toxoid conjugate vaccine (MCV4O) Nessa Ryan APRN - MOTTLER OPERATOR Work Phone: [facility] 05-06-2012 meningococcal polysaccharide (groups A, C, Y and W-135) diphtheria toxoid conjugate vaccine (MCV4P) Nessa Ryan BROADCAST OPERATIONS ENGINEER - [facility] Work Phone: [facility] 05-06-2012 tetanus toxoid, redu sachin diphtheria toxoid, and acellular pertussis vaccine, adsorbed Nessa Ryan BROADCAST OPERATIONS ENGINEER - [facility] Work Phone: [facility] 04-04-2005 diphtheria, tetanus toxoids and acellular pertussis vaccine Nessa Ryan BROADCAST OPERATIONS ENGINEER - [facility] Work Phone: [facility] Work Phone: 04-04-2005 measles, mumps and rubella virus vaccine Nessa Ryan BROADCAST OPERATIONS ENGINEER - [facility] Work Phone: [facility] 04-04-2005 poliovirus vaccine, inactivated Nessa Ryan BROADCAST OPERATIONS ENGINEER - [facility] Work Phone: [facility] 04-07-2002 diphtheria, tetanus toxoids and acellular pertussis vaccine Nessa Ryan BROADCAST OPERATIONS ENGINEER - [facility] Work Phone: [facility] Work Phone: 04-07-2002 haemophilus influenz ae type b vaccine, PRP-T conjugate Nessa Ryan BROADCAST OPERATIONS ENGINEER - [facility] Work Phone: [facility] 04-07-2002 measles, mumps and rubella virus vaccine Nessa Ryan BROADCAST OPERATIONS ENGINEER - [facility] Work Phone: [facility] 2001 poliovirus vaccine, inactivated Nessa Ryan BROADCAST OPERATIONS ENGINEER - [facility] Work Phone: [facility] 2001 varicella virus vaccine Kale Ryan BROADCAST OPERATIONS ENGINEER - [facility] Work Phone: [facility] 2000 hepatitis B vaccine, unspecified formulation Nessa Ryan BROADCAST OPERATIONS ENGINEER - [facility] Work Phone: [facility] Work Phone: 2000 pneumococcal conjuga te vaccine, 13 valent Nessa Ryan BROADCAST OPERATIONS ENGINEER - MOTTLER OPERATOR Work Phone: [facility] 2000 diphtheria, tetanus toxoids and acellular pertussis vaccine Nessa Ryan BROADCAST OPERATIONS ENGINEER - MOTTLER OPERATOR Work Phone: [facility] Work Phone: 2000 haemophilus influenz ae type b vaccine, PRP-T conjugate Nessa Connor BROADCAST OPERATIONS ENGINEER - MOTTLER OPERATOR Work Phone: [facility] 2000 pneumococcal conjuga te vaccine, 13 valent Nessa Ryan BROADCAST OPERATIONS ENGINEER - MOTTLER OPERATOR Work Phone: [facility] 2000 diphtheria, tetanus toxoids and acellular pertussis vaccine Nessameliza Ryan BROADCAST OPERATIONS ENGINEER - MOTTLER OPERATOR Work Phone: [facility] Work Phone: 2000 haemophilus influenz ae type b vaccine, PRP-T conjugate Nessa Suellpatrick BROADCAST OPERATIONS ENGINEER - MOTTLER OPERATOR Work Phone: [facility] 2000 pneumococcal conjuga te vaccine, 13 valent Nessa Ryan BROADCAST OPERATIONS ENGINEER - MOTTLER OPERATOR Work Phone: [facility] 2000 poliovirus vaccine, inactivated Nessa Ryan BROADCAST OPERATIONS ENGINEER - MOTTLER OPERATOR Work Phone: [facility] 2000 diphtheria, tetanus toxoids and acellular pertussis vaccine Nessa Ryan BROADCAST OPERATIONS ENGINEER - MOTTLER OPERATOR Work Phone: [facility] Work Phone: 2000 haemophilus influenz ae type b vaccine, PRP-T conjugate Nessa Suellpatrick BROADCAST OPERATIONS ENGINEER - MOTTLER OPERATOR Work Phone: [facility] 2000 poliovirus vaccine, inactivated Nessa Connor BROADCAST OPERATIONS ENGINEER - MOTTLER OPERATOR Work Phone: [facility] 2000 hepatitis B vaccine, unspecified formulation Nessa Connor BROADCAST OPERATIONS ENGINEER - MOTTLER OPERATOR Work Phone: [facility] Work Phone: 2000 hepatitis B vaccine, unspecified formulation Nessa Ryan BROADCAST OPERATIONS ENGINEER - MOTTLER OPERATOR Work Phone: [facility] Work Phone: Payers Date Payer Category Payer Unknown 2022 Unknown [id number] 2015 Unknown [id number] 2015 Unknown MMO MMO [employer] [id number] 2015-Present [phone] [address] [place] [address] PPO [id number] 2014 Unknown [employer] [address] xxxxxxxxxxxx 2014-Present [phone] [address] [place] [address] xxxxxxxxxxxx [id number] 2000 Unknown [id number] 2000 Unknown [id number] Social History Date Type Detail Facility Start: 09-16-2019 End: 12-18-2022 Tobacco smoking status NHIS Never smoker [facility] Start: 09-16-2019 Alcohol intake 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) [facility] Work Phone: Start: 2000 Sex Assigned At Not on file S [facility] Work Phone: Start: 12-30-2012 End: 12-18-2022 Tobacco use and exposure Smokeless tobacco non-user [facility] Start: 03-16-2022 End: 03-13-2023 Alcohol intake Current drinker of alcohol (finding) [facility] Start: 03-06-2022 End: 03-25-2022 Exposure to SARS-CoV-2 (event) Not sure [facility] Start: 03-25-2022 End: 12-18-2022 Alcohol intake [facility] Start: 03-25-2022 History SDOH Alcohol Comment 2 White Claws per week [facility] Start: 12-18-2022 End: 03-13-2023 Humiliation, Afraid, Rape, and Kick questionnaire [HARK] [facility] Within the last year , have [...] Last filled 04/15/23 1 month 1 refill [facility] 06-12-2023 Miscellaneous Notes Last appointment 03/13/2023 , Next appointment is Visit date not found Last filled 04/15/23 1 month 1 refill documented in this encounter [facility] 06-12-2023 Telephone encounter Note Last appointment 03/13/2023 , Next appointment is 06/12/2023 Last filled 04/14/23 1 month 1 refill [facility] 06-12-2023 Miscellaneous Notes Last appointment 03/13/2023 , Next appointment is 06/12/2023 Last filled 04/14/23 1 month 1 refill documented in this encounter [facility] 04-15-2023 Telephone encounter Note Last appointment 03/13/2023 , Next appointment is Visit date not found Last filled 02/13/23 1 month 1 refill [facility] 04-15-2023 Miscellaneous Notes Last appointment 03/13/2023 , Next appointment is Visit date not found Last filled 02/13/23 1 month 1 refill documented in this encounter [facility] 04-13-2023 Telephone encounter Note Last appointment 03/13/2023 , Next appointment is Visit date not found Last filled 02/13/23 1 month 1 refill [facility] 04-13-2023 Miscellaneous Notes Last appointment 03/13/2023 , Next appointment is Visit date not found Last filled 02/13/23 1 month 1 refill documented in this encounter [facility] 03-19-2023 Telephone encounter Note Name of caller: Purnima Contact phone number: [phone] Relationship to Patient: Patient Provider: Dr. Ware Practice: [facility] Chief Complaint/Reason for Call: Patient says the other office hasn't received the fax yet and wanted it resent over. Confirmed fax # is [phone]. They are also requesting a copy of patients insurance card which was put in her chart in November 2021. Please advise. [facility] 03-19-2023 Miscellaneous Notes Name of caller: Purnima Contact phone number: [phone] Relationship to Patient: Patient Provider: Dr. Ware Practice: [facility] Chief Complaint/Reason for Call: Patient says the other office hasn't received the fax yet and wanted it resent over. Confirmed fax # is [phone]. They are also requesting a copy of patients insurance card which was put in her chart in November 2021. Please advise. Faxed to button inspector, and patient notified. In the fax folder Name of caller: Purnima Acosta Contact phone number: [phone] Relationship to Patient: patient Provider: Dr Ware Practice: [facility] Chief Complaint/Reason for Call: Pt requesting referral for Rheumatology to be sent to Dr Chela Loomis in [place] [phone]. Please fax referral, labs and OV notes to [phone] Best time of day caller can be reached: Any Patient advised that office/PCP has 24-48 business hours to return their call: Yes documented in this encounter [facility] 03-19-2023 Telephone encounter Note Faxed to button inspector, and patient notified. [facility] 03-19-2023 Telephone encounter Note In the fax folder [facility] 03-18-2023 Telephone encounter Note Name of caller: Purnima Acosta Contact phone number: [phone] Relationship to Patient: patient Provider: Dr Ware Practice: [facility] Chief Complaint/Reason for Call: Pt requesting referral for Rheumatology to be sent to Dr Chela Loomis in [place] [phone]. Please fax referral, labs and OV notes to [phone] Best time of day caller can be reached: Any Patient advised that office/PCP has 24-48 business hours to return their call: Yes [facility] 03-13-2023 History of Presen t illness Narrative [...] for an injection documented in this encounter [facility] 09-13-2022 Note HNO ID: [id number] Author: Jimmy Monahan MD Service: ? Author [...] twice a day anti-inflammatory. She may continue rn progressive care. Discussed physical therapy for core strengthening. Narcotic pain relievers would need prescribed through PCP appropriate. Seek immediate evaluation for loss of bladder or bowel control, unexplained fever, or progressive weakness or numbness. Jimmy Monahan MD [facility] 09-13-2022 History of Presen t illness Narrative [...] twice a day anti-inflammatory. She may continue rn progressive care. Discussed physical therapy for core strengthening. Narcotic pain relievers would need prescribed through PCP appropriate. Seek immediate evaluation for loss of bladder or bowel control, unexplained fever, or progressive weakness or numbness. Jimmy Monahan MD documented in this encounter [facility] 03-25-2022 Note HNO ID: [id number] Author: Donna Duff MD Service: ? Author Type: Physician Type: Progress Notes Filed: 04/15/2022 7:03 AM Note Text: Donna Duff MD Department of Orthopaedics [facility] [address] [facility] [facility] [address] Dept: [phone] Dept March 25, 2022 CHIEF COMPLAINT: New and Knee Pain of the Right Knee and REF: Lottie ([facility] films) HPI Pt initially injured knee in high school playing football. She had right knee scope by Dr. Lares on 04-07-18 after MRI and xrays. She has continued to have intermittent knee pain and swelling since. 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 She sought second opinion by Dr. Delatorre and he ordered PT and another xray and MRI, and she is no better and he does not feel surgery would benefit her. She denies locking, but knee feels unstable. She states PT made worse. She is here for another opinion. CD from [facility] [facility] downloaded by [place] in radiology, but [...] Psych (no depres (more content not included)... [facility] 03-25-2022 History of Presen t illness Narrative Donna Duff MD Department of Orthopaedics Orthopaedics [address] [facility] [address] Dept: [phone] Dept March 25, 2022 CHIEF COMPLAINT: New and Knee Pain of the Right Knee and REF: Lottie ([facility] films) HPI Pt initially injured knee in high school playing football. She had right knee scope by Dr. Lares on 04-07-18 after MRI and xrays. She has continued to have intermittent knee pain and swelling since. 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 She sought second opinion by Dr. Delatorre and he ordered PT and another xray and MRI, and she is no better and he does not feel surgery would benefit her. She denies locking, but knee feels unstable. She states PT made worse. She is here for another opinion. [facility] [place] [facility], but [...] electronic medical record. Giovanna Delatorre MD [address] [place] [address] [facility] [address] Paulina Ware MD [address] [facility] [address] [facility] [address] Donna Duff MD documented in this encounter [facility] 03-16-2022 Note HNO ID: [id number] Author: Zuleyka Hatfield APRN.MOTTLER OPERATOR Service: ? Author Type: Nurse Practitioner Type: [...] AMOXICILLIN 875 MG TABLET Zuleyka Hatfield APRN.CNP [facility] 03-16-2022 Instructions Zuleyka Hatfield APRN.CNP - 03/16/2022 [...] - AMOXICILLIN 875 MG TABLET Zuleyka Hatfield APRN.MOTTLER OPERATOR documented in this encounter [facility] 03-16-2022 History of Presen t illness Narrative [...] - AMOXICILLIN 875 MG TABLET Zuleyka Hatfield APRN.MOTTLER OPERATOR documented in this encounter [facility] 11-17-2021 Note HNO ID: [id number] Author: Roselia Mcgill PA-C Service: ? Author Type: Physician Interdisciplinary Professor Type: Progress Notes Filed: 11/17/2021 10:21 AM Note Text: This note was created using K2 Mediar[employer]. Subjective Purnima Acosta is a 21 year old female. HPI Patient presents with congestion sore throat fever and fatigue with a cough for 1 day. She had a temp of 101 that had broke this morning around 6 AM. 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 She did have Covid September 29. She [...] COVID WITH FLUA+B, ROUTINE Roselia Mcgill PA-C [facility] documented in this encounter [facility] Work Phone: Evaluation note* Diagnosis Impacted cerumen of left ear- Primary Impacted cerumen Otitis media with effusion, left [facility] Diagnosis Chronic pain of right knee- Primary [facility] [place]* Diagnosis Acute bilateral low back pain without sciatica- Primary [facility]* Diagnosis Right hip pain- Primary Pain in joint, pelvic region and thigh Arthralgia, unspecified joint Trochanteric bursitis of right hip documented [facility] [place] [facility]* Diagnosis Arthralgia, unspecified joint- Primary Right hip pain Pain in joint, pelvic region and thigh documented in this encounter [facility] note* Diagnosis Acute right-sided low back pain without sciatica Muscle spasm Spasm of muscle Poor sleep documented [facility] this encounter [facility] [place] [facility]* Diagnosis Acute right-sided low back pain without sciatica documented in this encounter [facility] note* Diagnosis Acute right-sided low back pain without sciatica documented [facility] this [facility] Consultation (Routine) - Pending Review Specialty Diagnoses / Procedures Referred By Michela roldan Referred To Contact Rheumatology Diagnoses Arthralgia, unspecified joint Right hip pain Procedures [facility] OFFICE/OUTPATIENT [facility] 60-74 MINUTES Paulina Ware MD [facility], [address] [place] [address] Referral ID Status Reason Start Date Expiration Date Visits Requested Visits Authorized [id number] Pending Review Specialty Services Required 03/19/2023 03/18/2024 1 1 [facility] Summary Purpose Family History No Family History Records FoundNo Family History Records FoundNo Family History Records FoundNo Family History Records FoundNo Family History Records FoundNo Family History Records FoundNo Family History Records Found Advance Directives Documents on File Type Date Recorded Patient House Painter Expl anation Advance Directives and Living Will Power of Store Warehouse Associate Documents on File Type Date Recorded Patient House Painter Expl anation Advance Directive(s) 12/20/2020 11:42 PM Advance Directive(s) 09/21/2018 6:51 PM Advance Directive(s) 04/07/2018 6:37 AM Reason for Referral Status Reason Specialty Diagnoses / Procedures Referre d By Contact Referred To Contact Open Diagnoses Heart palpitations Procedures Cardiac event monitor Nessa Ryan APRN - CNP [address] [facility] [place] [address] Additional Source Comments INFORMATION SOURCE (unrecogn ized section and content) DATE CREATED AUTHOR AUTHOR'S ORGANIZ ATION 09/07/2018 [facility] DATE CREATED AUTHOR AUTHOR'S ORGANIZ ATION 09/23/2018 [facility] DATE CREATED AUTHOR AUTHOR'S ORGANIZ ATION 04/17/2020 [facility] DATE CREATED AUTHOR AUTHOR'S ORGANIZ ATION 12/22/2020 [facility] DATE CREATED AUTHOR AUTHOR'S ORGANIZ ATION 09/20/2022 [facility] DATE CREATED AUTHOR AUTHOR'S ORGANIZ ATION 04/15/2023 [facility] Source Comments (unrecognize d section and content) In the event this informatio n is protected by the Federal Confidentiality of Alcohol and Drug Abuse Patient Records regulations: The Federal rules restrict any use of the information to criminally investigate or prosecute any alcohol or drug abuse patient.[facility] the event this information is protected by the Federal Confidentiality of Alcohol and Drug Abuse Patient Records regulations: The Federal rules restrict any use of the information to criminally investigate or prosecute any alcohol or drug abuse patient.[facility] the event this information is protected by the Federal Confidentiality of Alcohol and Drug Abuse Patient Records regulations: The Federal rules restrict any use of the information to criminally investigate or prosecute any alcohol or drug abuse patient.[facility] Reason for Visit (unrecogniz ed section and [...] Onset Date Comments Referral 03/18/2023 Rheumatology in [place] Reason Comments Med Refill Care Teams (unrecognized sec tion and content) Shampoo Assistant Relationship Specialty Start Date End Date Paulina Ware MD [address] [place] [address] [place] [address] PCP - General Family Practice 12/17/12 Shampoo Assistant Relationship Specialty Start Date End Date Paulina Ware MD [address] [place] [address] [place] [address] PCP - General Family Medicine 12/17/12 Shampoo Assistant Relationship Specialty Start Date End Date Paulina Ware MD [address] [place] [address] PCP - General 06/24/15 Shampoo Assistant Relationship Specialty Start Date End Date Paulina Ware MD [address] [place] [address] PCP - General 06/24/15 Shampoo Assistant Relationship Specialty Start Date End Date Paulina Ware MD [address] [place] [address] [place] [address] PCP - General 06/24/15 Shampoo Assistant Relationship Specialty Start Date End Date Paulina Ware MD [address] [place] [address], [address] [place], [place] [id number] PCP - General 06/24/15 Shampoo Assistant Relationship Specialty Start Date End Date Paulina Ware MD [address] [place] [address] [address] [place] [address] PCP - General 06/24/15 FOR [...] BE BASED ON THE PRIMARY CLINICAL RECORDS. [facility] [employer] provides no warranty or guarantee of the accuracy or completeness of information in this document.
--- NOTE | 2023-11-05 03:13 | RAD_ITS ---
EXAM: XR CHEST, 2 VIEWS CLINICAL INDICATION: dyspnea TECHNIQUE: Frontal and lateral views of the chest. COMPARISON: Two-view chest 06/18/2023 FINDINGS: LUNGS AND PLEURAL SPACES: Unremarkable. No consolidation or edema. No pneumothorax. No effusion. HEART: Unremarkable. Cardiac silhouette not enlarged. MEDIASTINUM: Central airways and mediastinal contour are unremarkable. BONES/JOINTS: Unremarkable. No acute fracture. SOFT TISSUES: Unremarkable. RAD/Chest PA and Lateral IMPRESSION: No radiographic evidence of acute cardiopulmonary disease. Electronically Signed: Harinder Valdivia MD at 4:01 EST ,
[2023-11-05] MEDS: 0.9% Normal Saline (1000mL) 1,000 ML 999 ML IV (03:21)
[2023-11-05 03:25] LABS: Absolute Lymphocyte Count 2.37 X10^3/uL (0.83-4.51); Basophil# 0.02 X10^3/uL; Basophil% 0.2 % (0-1); Eosinophil# 0.03 X10^3/uL; Eosinophils% 0.3 % (0-5); Hematocrit 41.4 % (37-47); Hemoglobin 14.3 g/dL (12.0-15.0); Lymphocyte # 2.37 X10^3/ul (0.83-4.51); Lymphocyte % 23.4 % (19-41); Mean Corp Hgb Conc 34.5 g/dL (32-36); Mean Corpuscular Hgb 29.2 pg (27.0-32.0); Mean Corpuscular Volume 84.7 fL (81-99); Mean Platelet Vol. 9.8 fl (6.2-12.0); Monocyte# 0.69 X10^3/uL; Monocyte% 6.8 % (0-10); NRBC Flagged by Analyzer 0 % (0-5); Neutrophil # 6.98 X10^3/uL (2.7-7.7); Neutrophil % 69.1 % (47-70); POSITIVE COUNT YES; Platelet Count 197 K/mm3 (150-450); RBC Distribution Width CV 11.7 % (11.6-14.6); RBC Distribution Width SD 35.5 fl (35.1-43.9); Red Blood Count 4.89 M/mm3 (4.2-5.4); White Blood Count 10.1 K/mm3 (4.4-11.0)
[2023-11-05 03:41] LABS: Anion Gap 6 (5-15); BUN 5 mg/dL (7-18); BUN/Creat Ratio 6.8 RATIO (10-20); Calcium,Total 9.3 mg/dL (8.5-10.1); Chloride 105 mmol/L (98-107); Creatinine, Serum 0.74 mg/dL (0.55-1.02); EST Glomerular Filtration Rate 103 mL/min (>60); Est Glom Filt Rate - Afr Amer 124 mL/min (>60); Estimated Creatinine Clearance 116.47 ml/min; Glucose 95 mg/dL (74-106); Internal QC Validated? YES +Cl - CLEAR BKGD; Magnesium 1.9 mg/dL (1.6-2.6); Potassium 3.1 mmol/L (3.5-5.1); Pregnancy, Serum, hCG Quali. NEGATIVE Negative; Sodium Level 134 mmol/L (136-145)
[2023-11-05 03:52] LABS: D-Dimer Quantitative (DVT/PE) 1.16 FEU/ug/m (0.27-0.49)
--- NOTE | 2023-11-05 03:54 | CT_ITS ---
EXAM: CT ANGIOGRAPHY CHEST WITHOUT AND WITH INTRAVENOUS CONTRAST CLINICAL INDICATION: chest pain with elevated d-dimer TECHNIQUE: Helically acquired angiography images were obtained of the chest without and with intravenous contrast. This CT exam was performed using one or more of the following dose reduction techniques: automated exposure control, adjustment of the mA and/or kV according to patient size, and/or use of iterative reconstruction technique. MIP reconstructed images were created and reviewed. CONTRAST: IV 100mL Isovue-370 RADIATION DOSE: CTDIvol = 12.90 mGy, DLP = 299.59 mGy-cm COMPARISON: Two-view chest from same date FINDINGS: PULMONARY ARTERIES: Unremarkable. Normal in caliber. No evidence of pulmonary embolism. AORTA: Unremarkable. Normal in caliber. No evidence of dissection. GREAT VESSELS OF AORTIC ARCH: Unremarkable. Normal in caliber. No evidence of dissection. LUNGS AND PLEURAL SPACES: Unremarkable. No mass. No consolidation or edema. No pleural effusion or thickening. No pneumothorax. HEART: Unremarkable. Heart size is normal. No pericardial effusion. No significant coronary artery calcifications. MEDIASTINUM: Unremarkable. No mediastinal or hilar adenopathy. Esophagus is unremarkable. No hiatal hernia. THYROID: Unremarkable. No thyroid lesions. BONES/JOINTS: Unremarkable. No suspicious lytic or blastic abnormality. CT/CTA Chest W/WO Contrast IMPRESSION: Negative CTA chest. Electronically Signed: Harinder Valdivia MD at 4:55 EST ,
[2023-11-05 04:06] LABS: International Normalized Ratio 1.1
[2023-11-05 04:07] LABS: Partial Thromboplast Time 25.3 Seconds (24.1-36.2)
[2023-11-05 04:09] LABS: Thyroid Stim Hormone (TSH) 2.04 uIU/mL (0.358-3.74); Troponin-I HS 15 pg/mL (3.0-54.0)
[2023-11-05 04:45] LABS: Differential Comment SCANNED
[2023-11-05 04:46] LABS: Differential Indicated SCAN CRITERIA MET
--- NOTE | 2023-11-05 05:21 | EX.ED.DYSGE1 ---
HPI History of Present Illness Chief Complaint: Shortness of Breath Informant: patient Narrative Narrative: Patient is a 23-year-old female with past medical history of anxiety depression rheumatoid arthritis and cold induced bronchospasm. She states that over the last day she has had intermittent bouts of sharp left-sided chest pain. She states the pain feels like she is being stabbed and only last for 1 to 2 seconds and then resolves. She states that she has noticed that her heart has been racing along with the pain. She denies any recent trauma any previous surgery travel or history of DVT/PE but does report a strong family history of blood clot . The patient also denies any family history of cardiac disease at a young age and she denies any illicit drug use but with the recurrent nature of her symptoms and her persistent tachycardia she comes in for evaluation [facility] Medical History (Updated 11/06/23 @ 06:[address] Justice Alberto DO) Anxiety Bronchial spasms Contact with and (suspected) exposure to other viral communicable diseases Depression Irregular heart beat Migraines Physical exam, pre-employment Rheumatoid arthritis URI (upper respiratory infection) Home Medications ethynodiol diacetate-ethinyl estradiol 1 mg-35 mcg tablet (Zovia) 1 tab PO DAILY 12/05/22 [History Last Taken Unknown] Allergy/AdvReac Type Severity Reaction Status Date / Time Egg Derived Allergy Intermediate Hives Verified 06/18/23 12:45 hydroxychloroquine Allergy Intermediate Rash Verified 11/05/23 02:17 [From Plaquenil] Surgical History (Updated 11/05/23 @ 02:19 by Keke Cabrera) History of tonsillectomy Social History Smoking Status: Never smoker ROS ROS ED Constitutional Constitutional ED: Denies chills or fever(s) ENT ENT ED: Denies sore throat Cardiovascular Cardiovascular: Reports chest pain, palpitations and racing heartbeat Respiratory/Chest Respiratory/Chest: Reports dyspnea; Denies cough Gastrointestinal Gastrointestinal: Denies abdominal pain, diarrhea, nausea or vomiting Genitourinary Genitourinary ED: Denies dysuria Musculoskeletal Musculoskeletal: Denies myalgias Integumentary Denies rash Neurologic Neurologic: Denies headache(s) Psychiatric Psychiatric: Reports anxiety Hematologic/Lymphatic Hematologic/Lymphatic: Denies easy bleeding or easy bruising EXAM Physical Exam Const Vital Signs: 11/05/23 02:04 11/05/23 02:19 11/05/23 02:21 Temperature 97.6 F L Temperature Source Oral Pulse Rate 132 H 127 H Respiratory Rate 34 H 21 H Respiratory Effort Short of Breath Respiratory Depth Normal Respiratory Pattern Tachypnea Blood Pressure 146/88 H 153/80 H Blood Pressure Mean 107 104 Pulse Ox 100 100 Oxygen Delivery Method Room Air Room Air 11/05/23 03:08 11/05/23 03:10 11/05/23 03:20 Temperature Temperature Source Pulse Rate 127 H 121 H 128 H Respiratory Rate 14 14 19 H Respiratory Effort Respiratory Depth Respiratory Pattern Blood Pressure Blood Pressure Mean Pulse Ox 100 100 100 Oxygen Delivery Method 11/05/23 03:30 11/05/23 03:40 11/05/23 03:50 Temperature Temperature Source Pulse Rate 102 H 116 H 106 H Respiratory Rate 14 21 H 21 H Respiratory Effort Respiratory Depth Respiratory Pattern Blood Pressure Blood Pressure Mean Pulse Ox 100 99 98 Oxygen Delivery Method Positive well nourished and well developed General Appearance ED: well developed; Negative for pallor HEENT Reports moist mucous membranes HEENT Narrative: No tongue or lip swelling no oral lesions no airway edema or compromise No signs of infection noted in the posterior pharynx Eyes PERRL and EOMs intact bilaterally General Eye ED: Negative for scleral icterus Neck supple and no JVD Neck Narrative: No nuchal rigidity or meningeal signs noted Chest Wall Chest Narrative: No bony deformity or crepitance with palpation of the chest wall but there is reproducible left-sided chest pain with palpation Resp clear to auscultation bilaterally Resp Narrative: Patient is tachypneic but otherwise no nasal flaring retractions or accessory muscle use and breath sounds are clear throughout Cardio regular rhythm Rate: tachycardic and other Other Details: Tachycardic rate with regular rhythm. No murmurs rubs or gallops Radial and carotid pulses are equal and symmetric GI normal to inspection, nondistended, normoactive bowel sounds, non-tender, non-distended and no masses GI Narrative: No voluntary guarding or rigidity or pulsatile mass Auscultation: normoactive bowel sounds Palpation: soft Extremity normal to inspection Extremity Narrative: No asymmetric edema no pitting edema negative Homans' sign bilaterally Neuro oriented x3, CN's II-XII intact bilaterally and no sensory deficits noted Sensorium / Orientation: alert Motor Exam: strength 5/5 throughout Psych Psych Narrative: Patient has a nervous/anxious affect Skin no rashes or lesions noted and no wounds General Skin Exam: Negative for jaundice or pallor MDM MDM MDM Narrative Medical decision making narrative: Patient presented to the ER hypertensive and tachycardic. She reported intermittent left-sided sharp stabbing chest pain that just last for a few seconds and then resolved. Difficult diagnosis is for acute coronary syndrome versus pneumothorax versus pneumonia versus anxiety versus [place] abnormality versus cardiac dysrhythmia versus pulmonary embolus. Secondary to this a cardiac workup was obtained with a D-dimer in order to rule out PE as patient is tachycardic and on control. H&H is stable no signs of acute kidney injury or electrolyte derangement. Her troponin is normal at 15 going against acute coronary injury or pericarditis or myocarditis. Her D-dimer was elevated however a 1.16 so a CTA was obtained. CTA revealed no signs of PE or dissection or lung pathology. Therefore at this time as patient does not have findings to suggest hyperthyroidism pulmonary embolus infection anemia or electrolyte derangement as a cause of her symptoms and they have improved with rest and IV hydration I do not feel there is need for further workup in the ER and patient is otherwise safe for discharge History & Record Review Discussion w/independent historian: Patient Lab Data Attestation: I reviewed the patient's lab results. Labs: Laboratory Results - last 24 hr 11/05/23 11/05/23 02:40 03:45 WBC 10.1 RBC 4.89 Hgb 14.3 Hct 41.4 MCV 84.7 MCH 29.2 MCHC 34.5 RDW Std Deviation 35.5 RDW Coeff of Breonna 11.7 Plt Count 197 MPV 9.8 Immature Gran % (Auto) 0.200 Neut % (Auto) 69.1 Lymph % (Auto) 23.4 [place] % (Auto) 6.8 Eos % (Auto) 0.3 Baso % (Auto) 0.2 Absolute Neuts (auto) 7.0 Absolute Lymphs (auto) 2.37 Nucleated RBC % 0 Differential Comment SCANNED PT 14.0 INR 1.1 APTT 25.3 D-Dimer Quant (PE/DVT) 1.16 H* Sodium 134 L Potassium 3.1 L Chloride 105 Carbon Dioxide 23.0 Anion Gap 6 BUN 5 L Creatinine 0.74 Estim Creat Clear Calc 116.47 Est GFR (MDRD) Af Amer 124 Est GFR (MDRD) Non-Af 103 BUN/Creatinine Ratio 6.8 L Glucose 95 Calcium 9.3 Magnesium 1.9 Troponin I High Sens 15 TSH 2.04 Serum , Qual NEGATIVE Radiography Diagnostic Testing: Clinical Impression(s) from Imaging Studies Chest X-Ray 11/05/23 03:13 IMPRESSION: No radiographic evidence of acute cardiopulmonary disease. Electronically Signed: Harinder Valdivia MD at 4:01 EST Reading Location ID and State: [address] [place] [address] Tel , Service support , Chest CTA 11/05/23 03:54 IMPRESSION: Negative CTA chest. Electronically Signed: Harinder Valdivia MD at 4:55 EST Reading Location ID and State: [facility] / [place] Tel , Service support , Chest x-ray as interpreted by the emergency medicine physician reveals no acute infiltrate pneumothorax or pleural effusion Discharge Plan Triage Chief Complaint: Shortness of Breath ED Provider: Justice Alberto Dx/Rx/DC Orders Clinical Impression: Acute nonspecific chest pain with low risk of coronary artery disease, Sinus tachycardia, Rheumatoid arthritis Instructions: Understanding Tachycardia, ED Chest Pain, Uncertain Cause Prescriptions: No Action ethynodiol diac-eth estradiol [Zovia 1-35 (28)] 1-35 mg-mcg tablet 1 tab PO DAILY Patient Comments: Take 1 tablet by mouth daily Primary Care Provider: Paulina Ware Referrals: Paulina Ware MD [Primary Care Provider] - Activity Restrictions/Additional Instructions: Your workup today showed no sign of pneumonia or pulmonary embolus/blood clot and we did not have an abnormal heart rhythm or signs of heart damage. Your potassium was slightly low so therefore eat potassium rich foods. Follow-up with your family doctor for repeat evaluation and return to the ER should you have any further concerns Disposition Disposition: Home, Self Care Discharge Date/Time: 11/05/23 05:47
== END 2023-11-05 05:47 | disposition home or self-care (01) ==
PROVIDERS: Emergency Provider Emergency Medicine; PCP Family Medicine; Visit Provider Emergency Medicine
DX: R07.9 Chest pain, unspecified (principal); M06.9 Rheumatoid arthritis, unspecified; R00.0 Tachycardia, unspecified
CPT/HCPCS: 71046; 71275; 80048; 83735; 84443; 84484; 84703; 85025; 85379; 85610; 85730; 93005; 99283; J7030; Q9967; A4216

== ENCOUNTER → 2024-01-15 | Outpatient (CLI) | payer BC, SELFPAY ==
[2024-01-15 15:26] LABS: Absolute Lymphocyte Count 1.21 X10^3/uL (0.83-4.51); Basophil# 0.02 X10^3/uL; Basophil% 0.4 % (0-1); Eosinophil# 0.11 X10^3/uL; Eosinophils% 2.3 % (0-5); Hematocrit 42.5 % (37-47); Hemoglobin 13.9 g/dL (12.0-15.0); Lymphocyte # 1.21 X10^3/ul (0.83-4.51); Lymphocyte % 24.9 % (19-41); Mean Corp Hgb Conc 32.7 g/dL (32-36); Mean Corpuscular Hgb 27.9 pg (27.0-32.0); Mean Corpuscular Volume 85.2 fL (81-99); Mean Platelet Vol. 9.3 fl (6.2-12.0); Monocyte# 0.49 X10^3/uL; Monocyte% 10.1 % (0-10); NRBC Flagged by Analyzer 0 % (0-5); Neutrophil % 61.9 % (47-70); Platelet Count 227 K/mm3 (150-450); RBC Distribution Width CV 11.6 % (11.6-14.6); RBC Distribution Width SD 35.3 fl (35.1-43.9); Red Blood Count 4.99 M/mm3 (4.2-5.4); White Blood Count 4.9 K/mm3 (4.4-11.0)
[2024-01-15 16:04] LABS: ALB/GLOB Ratio 0.9 RATIO (0.9-2.4); AST(SGOT) 20 U/L (15-37); Alanine Aminotransfer ALT/SGPT 30 U/L (13-56); Albumin, Serum 3.5 g/dL (3.2-5.0); Alkaline Phosphatase 77 U/L (45-117); Anion Gap 5 (5-15); BUN 7 mg/dL (7-18); Calcium,Total 8.9 mg/dL (8.5-10.1); Chloride 106 mmol/L (98-107); Creatinine, Serum 0.87 mg/dL (0.55-1.02); EST Glomerular Filtration Rate 85 mL/min (>60); Est Glom Filt Rate - Afr Amer 103 mL/min (>60); Globulin 4.1 g/dL (2.2-4.2); Glucose 109 mg/dL (74-106); Potassium 3.8 mmol/L (3.5-5.1); Protein, Total 7.6 g/dL (6.4-8.2); Sodium Level 137 mmol/L (136-145)
== END | disposition home or self-care (01) ==
LOC: MTLAB 13:21
PROVIDERS: PCP Family Medicine; Referring Provider Internal Medicine Rheumatology; Visit Provider Internal Medicine Rheumatology
DX: M06.09 Rheumatoid arthritis without rheumatoid factor, multiple sites (principal); R76.8 Other specified abnormal immunological findings in serum; Z79.899 Other long term (current) drug therapy
CPT/HCPCS: 36415; 80053; 85025

== ENCOUNTER → 2024-06-17 | Outpatient (CLI) | payer OTHER, BC, SELFPAY ==
--- NOTE | 2024-06-17 15:49 | CT_ITS ---
STUDY: CT ABDOMEN AND PELVIS WITH CONTRAST REASON FOR EXAM: Female, 24 years old. RLQ abdominal pain x1 week, pain with palpitation. RADIATION DOSAGE (If Supplied By Facility): CTDIvol = ( 11.86 ) mGy, DLP = ( 819.76 ) mGycm TECHNIQUE: Transaxial images were obtained from the dome of the diaphragm to the symphysis pubis without oral contrast. Oral and amp; IV Gastrografin and amp; 75mL Isovue-370 was administered. Sagittal and coronal images were reconstructed. Individualized dose optimization techniques were used for this CT. COMPARISON: None. FINDINGS: The visualized lung bases are unremarkable. The visualized portions of the heart are within normal limits. Normal liver. Normal gallbladder and extrahepatic biliary system. Normal spleen. Normal pancreas. Normal bilateral adrenal glands. Normal right kidney. Normal left kidney. Normal visualized stomach. There is minor thickening of the rosales of the cecum and terminal ileum possibly due to ileocolitis... There is also diffuse thickening of the rosales of the sigmoid:. The appendix is visualized and does not fill with contrast. There are also tiny pericecal nodes There is some minor thickening of the rosales of the appendix with mild stranding of fat possibly representing early changes of acute appendicitis.. Normal abdominal aorta. Normal inferior vena cava. Normal retroperitoneum. Normal urinary bladder. There is a right ovarian cyst measuring 2.7 x 1.6 cm Normal abdominal wall. Normal osseous structures. CT/Abdomen/Pelvis WITH Contrast IMPRESSION: Findings which may be consistent with ileocolitis. There are also findings which may be consistent with early changes of acute appendicitis however clinical correlation is recommended Small right ovarian cyst measuring 2.7 x 1.6 cm N.B. : The above Results were Read Back by London Sandoval MD to Jenn Sweeney DO, and understanding confirmed on 06/17/2024 19:56:32 (ET). Electronically Signed: London Sandoval MD at 20:01 EDT ,
== END | disposition home or self-care (01) ==
PROVIDERS: PCP Family Medicine; Referring Provider Family Medicine; Visit Provider Family Medicine
DX: R10.9 Unspecified abdominal pain (principal)
CPT/HCPCS: 74177; Q9967

== ENCOUNTER → 2024-06-17 | Outpatient (CLI) | payer BC, OTHER, SELFPAY ==
[2024-06-17 10:04] LABS: Mucous, Urine 0 SEEN /hpf (<or=2+); Red Blood Cells-Urine 0 SEEN /hpf (0-5); White Blood Cells 0 SEEN /hpf (0-5)
[2024-06-17 10:50] LABS: Color, Urine Yellow (Yellow); Glucose, Dipstick Normal (Normal); Ketone-Dipstick Negative (Negative); Leukocyte Esterase-Dipstick Negative /ul (Negative); Nitrite-Dipstick Negative (Negative); Occult Blood-Urine Negative /ul (Negative); Protein-Dipstick Negative (Negative); Specific Gravity, Urine 1.015 (1.002-1.030); Urine Bilirubin Dipstick Negative (Negative); Urine Clarity Clear (Clear); Urine Urobilinogen Normal (Normal)
[2024-06-17 10:52] LABS: Absolute Lymphocyte Count 1.86 X10^3/uL (0.83-4.51); Absolute Neutrophil Count 3.1 X10^3/uL (2.0-7.7); Basophil# 0.03 X10^3/uL; Basophil% 0.5 % (0-1); Eosinophil# 0.06 X10^3/uL; Eosinophils% 1.1 % (0-5); Hematocrit 41.2 % (37-47); Hemoglobin 13.8 g/dL (12.0-15.0); Lymphocyte # 1.86 X10^3/ul (0.83-4.51); Lymphocyte % 33.3 % (19-41); Mean Corp Hgb Conc 33.5 g/dL (32-36); Mean Corpuscular Hgb 28.5 pg (27.0-32.0); Mean Corpuscular Volume 85.1 fL (81-99); Mean Platelet Vol. 8.7 fl (6.2-12.0); Monocyte# 0.53 X10^3/uL; Monocyte% 9.5 % (0-10); NRBC Flagged by Analyzer 0 % (0-5); Neutrophil # 3.08 X10^3/uL (2.7-7.7); Neutrophil % 55.2 % (47-70); Platelet Count 172 K/mm3 (150-450); RBC Distribution Width CV 12.3 % (11.6-14.6); RBC Distribution Width SD 37.9 fl (35.1-43.9); Red Blood Count 4.84 M/mm3 (4.2-5.4); White Blood Count 5.6 K/mm3 (4.4-11.0)
[2024-06-17 11:03] LABS: Vitamin B12 481 pg/mL (211-911); Vitamin D,25 Hydroxy 25.8 ng/mL
[2024-06-17 11:07] LABS: Bacteria 1+ /hpf (None Seen); Squamous Epithelial Cells - UA 0-5 SEEN /hpf (5-10)
[2024-06-17 11:32] LABS: Ferritin 40 ng/mL (8-252)
[2024-06-18 15:13] LABS: ALB/GLOB Ratio 1.1 RATIO (0.9-2.4); AST(SGOT) 45 U/L (15-37); Alanine Aminotransfer ALT/SGPT 57 U/L (13-56); Albumin, Serum 3.9 g/dL (3.2-5.0); Alkaline Phosphatase 81 U/L (45-117); Anion Gap 6 (5-15); BUN 8 mg/dL (7-18); BUN/Creat Ratio 11.6 RATIO (10-20); Calcium,Total 9.1 mg/dL (8.5-10.1); Chloride 109 mmol/L (98-107); Creatinine, Serum 0.69 mg/dL (0.55-1.02); EST Glomerular Filtration Rate 112 mL/min (>60); Est Glom Filt Rate - Afr Amer 135 mL/min (>60); Globulin 3.6 g/dL (2.2-4.2); Glucose 95 mg/dL (74-106); Potassium 4.1 mmol/L (3.5-5.1); Protein, Total 7.5 g/dL (6.4-8.2); Sodium Level 138 mmol/L (136-145)
== END | disposition home or self-care (01) ==
LOC: VSLAB 10:01
PROVIDERS: PCP Family Medicine; Visit Provider Family Medicine
DX: R10.9 Unspecified abdominal pain (principal); R53.83 Other fatigue
CPT/HCPCS: 36415; 80053; 81001; 82306; 82607; 82728; 83735; 84443; 85025; 87086

== ENCOUNTER 2024-06-23 22:57 | Emergency (ER) | payer OTHER, BC, SELFPAY ==
[2024-06-23 22:58] VITALS: BP 137/78; PULSE 92; RESP 16; TEMP 37.1; O2SAT 100; BMI 28.9
[2024-06-23 23:16] VITALS: BP 134/82; PULSE 93; RESP 18; TEMP 37.1; O2SAT 100
[2024-06-23] MEDS: 0.9% Normal Saline (1000mL) 1,000 ML 999 ML IV (23:27)
[2024-06-23 23:45] LABS: Absolute Lymphocyte Count 2.58 X10^3/uL (0.83-4.51); Absolute Neutrophil Count 4.3 X10^3/uL (2.0-7.7); Basophil# 0.03 X10^3/uL; Basophil% 0.4 % (0-1); Eosinophil# 0.06 X10^3/uL; Eosinophils% 0.8 % (0-5); Hematocrit 42.8 % (37-47); Hemoglobin 14.3 g/dL (12.0-15.0); Lymphocyte # 2.58 X10^3/ul (0.83-4.51); Lymphocyte % 34.4 % (19-41); Mean Corp Hgb Conc 33.4 g/dL (32-36); Mean Corpuscular Hgb 28.4 pg (27.0-32.0); Mean Corpuscular Volume 84.9 fL (81-99); Mean Platelet Vol. 8.8 fl (6.2-12.0); Monocyte% 6.7 % (0-10); NRBC Flagged by Analyzer 0 % (0-5); Neutrophil # 4.32 X10^3/uL (2.7-7.7); Neutrophil % 57.4 % (47-70); Platelet Count 231 K/mm3 (150-450); RBC Distribution Width CV 12.4 % (11.6-14.6); RBC Distribution Width SD 37.4 fl (35.1-43.9); Red Blood Count 5.04 M/mm3 (4.2-5.4); White Blood Count 7.5 K/mm3 (4.4-11.0)
[2024-06-23 23:49] LABS: Internal QC Validated? YES +Cl - CLEAR BKGD; Pregnancy, Serum, hCG Quali. NEGATIVE Negative; Record Kit Lot#, Serum Preg. 774476
[2024-06-23 23:54] LABS: AST(SGOT) 33 U/L (15-37); Alanine Aminotransfer ALT/SGPT 54 U/L (13-56); Albumin, Serum 4.4 g/dL (3.2-5.0); Alkaline Phosphatase 88 U/L (45-117); Anion Gap 5 (5-15); BUN 10 mg/dL (7-18); BUN/Creat Ratio 13.3 RATIO (10-20); Bilirubin, Direct 0.12 mg/dL (0.00-0.30); CRP < 2.90 mg/L (0.0-3.0); Calcium,Total 9.8 mg/dL (8.5-10.1); Chloride 107 mmol/L (98-107); Creatinine, Serum 0.75 mg/dL (0.55-1.02); EST Glomerular Filtration Rate 101 mL/min (>60); Est Glom Filt Rate - Afr Amer 122 mL/min (>60); Estimated Creatinine Clearance 111.57 ml/min; Globulin 3.8 g/dL (2.2-4.2); Glucose 91 mg/dL (74-106); Lipase 34 U/L (13-75); Potassium 3.6 mmol/L (3.5-5.1); Protein, Total 8.2 g/dL (6.4-8.2); Sodium Level 139 mmol/L (136-145)
[2024-06-23 23:57] LABS: Lactic Acid 0.9 mmol/L (0.4-1.9)
[2024-06-23 23:59] LABS: Erythrocyte Sedimentation Rate 2 mm/hr (0-30)
[2024-06-24 00:58] VITALS: BP 126/58; PULSE 85; RESP 18; O2SAT 98
--- NOTE | 2024-06-24 01:03 | EDS_ITS ---
HPI History of Present Illness Chief Complaint: Abd Pain Informant: patient Narrative Narrative: Patient is a 24-year-old female with past medical history of anxiety depression and rheumatoid arthritis. She has been having right sided abdominal pain for the past few weeks and was seen as an outpatient and had a CT scan of the abdomen and pelvis with oral and IV contrast obtained on June 17. That scan showed inflammation along the ileocecal region of the intestine consistent with ileocolitis. There is also a question of early/developing appendicitis. The patient states that reported this case was reviewed by general surgery and they did not feel correlated with appendicitis and therefore wanted her to keep her GI appointment but recommended she go to the ER if symptoms worsen. Patient states today she had increased pain in the right lower quadrant with a bout of diarrhea and this concerned her and therefore she presents for evaluation. [facility] Medical History (Updated 06/24/24 @ 01:[address] Justice Alberto, DO) Ovarian cyst Rheumatoid arthritis Depression Anxiety Irregular heart beat Migraines Bronchial spasms Home Medications ?Medication ?Instructions ?Recorded ?Last Taken ?Type cholecalciferol (vitamin D3) 50 50 mcg PO DAILY 04/21/24 Unknown History mcg (2,000 unit) capsule Allergy/AdvReac Type Severity Reaction Status Date / Time Egg Derived Allergy Intermediate Hives Verified 06/23/24 22:58 hydroxychloroquine (From Allergy Intermediate Rash Verified 06/23/24 22:58 Plaquenil) Family History (Updated 04/21/24 @ 14:21 by Nat Haney) Grandfather Cancer Paternal- skin cancer Surgical History S/P wisdom tooth extraction H/O knee surgery History of tonsillectomy Social History (Updated 04/21/24 @ 14:22 by Nat Haney) household members: spouse current occupational status: employed 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[employer] Smoking Status: Never smoker substance use type: does not use seatbelt use: always do you feel safe at home: Yes additional social history: - Suhail Parsons HELENA ROS ED Constitutional Constitutional ED: Denies chills or fever(s) ENT ENT ED: Denies sore throat Cardiovascular Cardiovascular: Denies chest pain Respiratory/Chest Respiratory/Chest: Denies cough or dyspnea Gastrointestinal Gastrointestinal: Reports abdominal pain, diarrhea and nausea; Denies vomiting Genitourinary Genitourinary ED: Denies dysuria, hematuria or urinary frequency Musculoskeletal Musculoskeletal: Denies back pain or myalgias Integumentary Denies rash Neurologic Neurologic: Denies headache(s) Psychiatric Psychiatric: Reports anxiety and depression Hematologic/Lymphatic Hematologic/Lymphatic: Denies easy bleeding or easy bruising EXAM Physical Exam Const Vital Signs: 06/23/24 22:58 06/23/24 23:16 06/24/24 00:58 Temperature 98.8 F 98.7 F Temperature Source Oral Oral Pulse Rate 92 93 85 Respiratory Rate 16 18 18 Blood Pressure 137/78 H 134/82 H 126/58 H Blood Pressure Mean 97 99 80 Pulse Ox 100 100 98 Oxygen Delivery Method Room Air Room Air Room Air Positive well nourished and well developed General Appearance ED: well developed; Negative for pallor HEENT Reports moist mucous membranes HEENT Narrative: No signs of infection noted in the posterior pharynx Eyes PERRL and EOMs intact bilaterally General Eye ED: Negative for scleral icterus Neck supple Resp normal respiratory effort and clear to auscultation bilaterally Cardio regular rate and regular rhythm Rate: other Other Details: Heart is regular rate and rhythm without murmurs rubs or gallop Radial and carotid pulses are equal and symmetric GI non-distended and no masses GI Narrative: Abdomen is soft and nondistended with normal active bowel sounds. There is pain with palpation and voluntary guarding in the right lower. No rebound. Negative heel strike psoas and obturator signs. No increased tympany or pulsatile mass Auscultation: normoactive bowel sounds Palpation: soft Back/Spine no CVA tenderness Extremity normal to inspection Neuro oriented x3, CN's II-XII intact bilaterally and no sensory deficits noted Sensorium / Orientation: alert Motor Exam: strength 5/5 throughout Psych mental status grossly normal Skin no rashes or lesions noted and no wounds General Skin Exam: Negative for jaundice or pallor MDM MDM MDM Narrative Medical decision making narrative: Patient presented to the ER with stable vitals. She had pain with guarding in the right lower quadrant and a CT scan from May at 19 that question early developing appendicitis. With her report of worsening pain nausea and a bout of diarrhea there is concern that she is developing appendicitis. There is also potential for UTI versus pyelonephritis versus kidney stone versus complication versus colitis. Therefore repeat labs were obtained as well as a CT scan. Patient's labs revealed no clinically significant changes serum test is negative going as complication and she denied any dysuria going against UTI. CT scan showed inflammation of the right hemicolon consistent with her recent ileocolitis but a normal appendix. Therefore at this time as the appendix is seen and is normal her vitals are stable and labs normal I do not feel there is need for further workup and she is otherwise safe for discharge. She was advised to keep her appointment with GI as previously directed based on the persistent inflammation of her right sided colon History & Record Review Discussion w/independent historian: Patient Lab Data Attestation: I reviewed the patient's lab results. Labs: Laboratory Results - last 24 hr 06/23/24 06/23/24 23:08 23:26 WBC 7.5 RBC 5.04 Hgb 14.3 Hct 42.8 MCV 84.9 MCH 28.4 MCHC 33.4 RDW Std Deviation 37.4 RDW Coeff of Breonna 12.4 Plt Count 231 MPV 8.8 Immature Gran % (Auto) 0.300 Neut % (Auto) 57.4 Lymph % (Auto) 34.4 [place] % (Auto) 6.7 Eos % (Auto) 0.8 Baso % (Auto) 0.4 Absolute Neuts (auto) 4.3 Absolute Lymphs (auto) 2.58 Nucleated RBC % 0 ESR 2 Sodium 139 Potassium 3.6 Chloride 107 Carbon Dioxide 27.0 Anion Gap 5 BUN 10 Creatinine 0.75 Estim Creat Clear Calc 111.57 Est GFR (MDRD) Af Amer 122 Est GFR (MDRD) Non-Af 101 BUN/Creatinine Ratio 13.3 Glucose 91 Lactic Acid 0.9 Calcium 9.8 Total Bilirubin 0.30 Direct Bilirubin 0.12 AST 33 ALT 54 Alkaline Phosphatase 88 C-React Prot Ext Range < 2.90 Total Protein 8.2 Albumin 4.4 Globulin 3.8 Lipase 34 Serum , Qual NEGATIVE Radiography Diagnostic Testing: Clinical Impression(s) from Imaging Studies Abdomen/Pelvis CT 06/24/24 23:21 IMPRESSION: 1. Some wall thickening and inflammation involving the hepatic flexure and proximal transverse colon. This may indicate an infectious or inflammatory colitis. 2. The appendix is normal. Electronically Signed: Harinder Valdivia MD at 0:55 EDT , Discharge Plan Triage Chief Complaint: Abd Pain ED Provider: Justice Alberto Dx/Rx/DC Orders Clinical Impression: Colitis, Rheumatoid arthritis, Anxiety and depression Instructions: ED Understanding Colitis Prescriptions: No Action cholecalciferol (vitamin D3) 50 mcg (2,000 unit) capsule 50 mcg PO DAILY Stand Alone Forms: ED Work / School Excuse Primary Care Provider: Jenn Sweeney Referrals: Jenn Sweeney DO [Primary Care Provider] - Activity Restrictions/Additional Instructions: Your CT scan today showed persistent inflammation of your right sided intestine consistent with the ileocolitis diagnosed on your CT scan from June 17. Your appendix was seen and is normal. Keep your appointment with your treasury consultant for further testing regarding the cause of your colitis and return to the ER should you have any further concerns Print Language: Luxembourgish Disposition Disposition: Home, Self Care Discharge Date/Time: 06/24/24 01:14
[2024-06-24 01:13] VITALS: BP 110/74; PULSE 69; RESP 17; TEMP 37; O2SAT 99
--- NOTE | 2024-06-24 23:21 | CT_ITS ---
EXAM: CT ABDOMEN AND PELVIS WITH INTRAVENOUS CONTRAST CLINICAL INDICATION: RLQ pain TECHNIQUE: Helically acquired images were obtained of the abdomen and pelvis with intravenous contrast. This CT exam was performed using one or more of the following dose reduction techniques: automated exposure control, adjustment of the mA and/or kV according to patient size, and/or use of iterative reconstruction technique. CONTRAST: IV 100mL Isovue-370 RADIATION DOSE: CTDIvol = 12.17 mGy, DLP = 681.48 mGy-cm COMPARISON: CT abdomen and pelvis 06/17/2024 FINDINGS: LOWER THORAX: Unremarkable. Lung bases are clear. No cardiomegaly. No significant pericardial effusion. ABDOMEN: LIVER: Unremarkable. Homogeneous. No focal mass. GALLBLADDER AND BILE DUCTS: Unremarkable. No calcified gallstones. No gallbladder distention or wall edema. No intra- or extrahepatic biliary ductal dilation. PANCREAS: Unremarkable. No focal cystic or solid mass. SPLEEN: Unremarkable. Normal size without focal cystic or solid mass. ADRENALS: Unremarkable. No nodules. KIDNEYS AND URETERS: Normal enhancement of the renal parenchyma bilaterally. Normal renal size and position. No hydronephrosis. STOMACH AND BOWEL: Some wall thickening and inflammation involving the hepatic flexure and proximal transverse colon. No stomach or bowel distention. PELVIS: APPENDIX: The appendix is normal. BLADDER: Unremarkable. REPRODUCTIVE: Tampon artifact in the vagina. ABDOMEN and PELVIS: INTRAPERITONEAL SPACE: Unremarkable. No ascites or other fluid collection. No free air. BONES/JOINTS: Unremarkable. No suspicious lytic or blastic abnormality. SOFT TISSUES: Unremarkable. No discrete abdominal or pelvic wall hernia. VASCULATURE: Unremarkable. Abdominal aorta is non-dilated. LYMPH NODES: Unremarkable. No enlarged lymph nodes. CT/Abdomen/Pelvis W IV Cont ONLY IMPRESSION: 1. Some wall thickening and inflammation involving the hepatic flexure and proximal transverse colon. This may indicate an infectious or inflammatory colitis. 2. The appendix is normal. Electronically Signed: Harinder Valdivia MD at 0:55 EDT ,
== END 2024-06-24 01:14 | disposition home or self-care (01) ==
PROVIDERS: Emergency Provider Emergency Medicine; PCP Family Medicine; Visit Provider Emergency Medicine
DX: K52.9 Noninfective gastroenteritis and colitis, unspecified (principal); M06.9 Rheumatoid arthritis, unspecified; F41.9 Anxiety disorder, unspecified; F32.A Depression, unspecified
CPT/HCPCS: 74177; 80048; 80076; 83605; 83690; 84703; 85025; 85652; 86140; 96360; 96361; 99283; J7030; Q9967; A4216

== ENCOUNTER → 2024-07-02 | Outpatient (CLI) | payer OTHER, BC, SELFPAY ==
--- NOTE | 2024-07-02 08:49 | US_ITS ---
HISTORY: pelvic pain. TECHNIQUE: Transabdominal and transvaginal pelvic ultrasound was performed with kramer scale , spectral Doppler, and color Doppler evaluation. 136 images. COMPARISON: CT 06/24/2024. FINDINGS: UTERUS: 8.2 x 3.3 x 4.7 cm. Anteverted. ENDOMETRIAL THICKNESS: 6 mm. RIGHT OVARY: 2.1 x 2.5 x 4.5 cm for a volume of 12 cc. Several follicles present. Vascular flow demonstrated. No adnexal masses. LEFT OVARY: 2.3 x 2.8 x 3.3 cm for a volume of 11 cc. Several follicles present. Vascular flow demonstrated. No adnexal masses. FREE FLUID: None. URINARY BLADDER: Well-distended at 412 cc. US/Pelvic w/ Transvaginal IMPRESSION: Mildly prominent size of the ovaries with several follicles, raising the possibility of polycystic ovarian syndrome in the appropriate clinical setting. Electronically Signed: Queta Card MD at 10:59 EDT ,
== END | disposition home or self-care (01) ==
LOC: OPUS 08:48
PROVIDERS: PCP Family Medicine; Referring Provider Nurse Practitioner Women's Health; Visit Provider Nurse Practitioner Women's Health
DX: R10.2 Pelvic and perineal pain (principal)
CPT/HCPCS: 76830; 76856

== ENCOUNTER → 2024-07-12 | Outpatient (CLI) | payer OTHER, BC, SELFPAY ==
[2024-07-12 11:30] LABS: LDH 259 U/L (84-246)
[2024-07-15 21:07] LABS: ACCA 9 units (0-90); ALCA 21 units (0-60); AMCA 51 units (0-100); Albumin 4.4 g/dL (2.9-4.4); Alpha-1-Globulins 0.2 g/dL (0.0-0.4); Alpha-2-Globulins 0.6 g/dL (0.4-1.0); Cytoplasmic Ab (C-ANCA) <1:20 titer (Neg:<1:20); Endomysial Antibody IgA Negative (Negative); Gamma Globulin 1.3 g/dL (0.4-1.8); Immunoglobulin A 131 mg/dL (87-352); Immunoglobulin E 213 IU/mL (6-495); Immunoglobulin G 1302 mg/dL (586-1602); Immunoglobulin M 152 mg/dL (26-217); PROEL- TOTAL PROTEIN 7.4 g/dL (6.0-8.5); Perinuclear Ab (P-ANCA) <1:20 titer (Neg:<1:20); gASCA 51 units (0-50); t-Transglutaminase IgA <2 U/mL (0-3)
[2024-07-16 06:10] LABS: Anti-Centromere B Ab <0.2 AI (0.0-0.9); Anti-Chromatin <0.2 AI (0.0-0.9); Anti-Jo <0.2 AI (0.0-0.9); Anti-Scleroderma-70 AB <0.2 AI (0.0-0.9); Anti-dsDNA Ab 1 IU/mL (0-9); Beef <0.10 kU/L (Class 0); Chocolate <0.10 kU/L (Class 0); Codfish <0.10 kU/L (Class 0); Corn <0.10 kU/L (Class 0); Milk (Cow) 0.27 kU/L (Class 0/I); Mussels <0.10 kU/L (Class 0); Peanut 0.14 kU/L (Class 0/I); Pork <0.10 kU/L (Class 0); RNP Ab <0.2 AI (0.0-0.9); SJOGREN'S Anti-SS-A test < 0.2 AI (0.0-0.9); SJOGREN'S Anti-SS-B test < 0.2 AI (0.0-0.9); Salmon <0.10 kU/L (Class 0); Shrimp 0.45 kU/L (Class I); Smith Ab <0.2 AI (0.0-0.9); Soybean <0.10 kU/L (Class 0); Tuna <0.10 kU/L (Class 0)
== END | disposition home or self-care (01) ==
LOC: LAB 10:20
PROVIDERS: PCP Family Medicine
DX: K58.9 Irritable bowel syndrome, unspecified (principal)
CPT/HCPCS: 36415; 82784; 82785; 83516; 83615; 84165; 86003; 86005; 86036; 86037; 86225; 86235; 86255; 86334; 86671

== ENCOUNTER → 2024-07-14 | Outpatient (CLI) | payer OTHER, BC, SELFPAY ==
[2024-07-19 17:49] LABS: HPV Reflexed? NOT INDICATED
== END | disposition home or self-care (01) ==
LOC: LABSPEC 10:57
PROVIDERS: PCP Family Medicine; Referring Provider Nurse Practitioner Women's Health; Visit Provider Nurse Practitioner Women's Health
DX: Z12.4 Encounter for screening for malignant neoplasm of cervix (principal)
CPT/HCPCS: 88175; G0145

== ENCOUNTER → 2024-11-10 | Outpatient (CLI) | payer OTHER, BC, SELFPAY ==
[2024-11-10 13:43] LABS: Syphilis Antibodies Non-reactive
[2024-11-11 05:06] LABS: HEPATITIS B SURFACE AG Negative (Negative); Hep C Antibodies Non Reactive (Non Reactive); Hepatitis A IgM Antibody Negative (Negative); Hepatitis B Core AB IgM Negative (Negative)
[2024-11-16 16:13] LABS: HIV - WCH Non-Reactive (Nonreactive)
== END | disposition home or self-care (01) ==
LOC: VSLAB 11:57
PROVIDERS: PCP Family Medicine; Visit Provider Family Medicine
DX: N89.8 Other specified noninflammatory disorders of vagina (principal)
CPT/HCPCS: 36415; 80074; 86703; 86780

== ENCOUNTER → 2024-11-18 | Outpatient (CLI) | payer OTHER, BC, SELFPAY ==
[2024-11-18 12:56] LABS: hCG Titer Quant., Serum < 1 mIU/mL (1-3)
== END | disposition home or self-care (01) ==
LOC: VSLAB 11:42
PROVIDERS: PCP Family Medicine; Visit Provider Family Medicine
DX: N92.6 Irregular menstruation, unspecified (principal)
CPT/HCPCS: 36415; 84702

== ENCOUNTER → 2025-02-17 | Outpatient (CLI) | payer OTHER, BC, SELFPAY ==
--- NOTE | 2025-02-17 11:32 | RAD_ITS ---
EXAM: XR Left Foot Complete, 3 or More Views CLINICAL INDICATION: FOOT INJURY TECHNIQUE: Frontal, lateral and oblique views of the left foot. COMPARISON: No relevant prior studies available. FINDINGS: BONES/JOINTS: Renal cortical created bony fragment inferior to the navicular, best visualized in the lateral view, likely from prior injury. Otherwise, no acute fracture. No dislocation. SOFT TISSUES: Soft tissue swelling. No radiopaque foreign body. RAD/Foot min 3 Views IMPRESSION: Renal cortical created bony fragment inferior to the navicular, best visualized in the lateral view, likely from prior injury. Otherwise, no acute fracture. Reading Location[facility]
--- NOTE | 2025-02-17 11:32 | RAD_ITS ---
EXAM: XR Left Ankle Complete, 3 or More Views CLINICAL INDICATION: ANKLE INJURY TECHNIQUE: Frontal, lateral and oblique views of the left ankle. COMPARISON: No relevant prior studies available. FINDINGS: BONES/JOINTS: See below. SOFT TISSUES: Soft tissue swelling without acute fracture. RAD/Ankle min 3 Views IMPRESSION: 1. Soft tissue swelling without acute fracture. 2. If symptoms persist, further evaluation with CT is recommended. Reading Location: [facility]
== END | disposition home or self-care (01) ==
LOC: MTRAD 11:31
PROVIDERS: PCP Family Medicine; Referring Provider Physician Assistant Surgical; Visit Provider Physician Assistant Surgical
DX: S99.922A Unspecified injury of left foot, initial encounter (principal); S99.912A Unspecified injury of left ankle, initial encounter
CPT/HCPCS: 73610; 73630

== ENCOUNTER 2025-03-15 20:44 | Emergency (ER) | payer OTHER, BC, SELFPAY ==
[2025-03-15 20:44] VITALS: BP 134/80; PULSE 108; RESP 16; TEMP 36.1; O2SAT 100; BMI 30.8
--- NOTE | 2025-03-15 20:57 | ED.RN ---
positive test 03/14. states she went to OB this morning and had an ultrasound. They called her after her appointment and advised her to seek treatment in ER d/t risk of ectopic .
--- NOTE | 2025-03-15 21:03 | US_ITS ---
PROCEDURE: TRANSVAGINAL W/PREG US 03/15/2025 REASON FOR EXAM: RIGHT LOWER QUADRANT PAIN CONCERN ECTOPIC TECHNIQUE: TRANSVAGINAL W/PREG US COMPARISON: None. FINDINGS No visualized gestational sac or pole. Uterus measures 6.7 x 4.4 x 3.7 cm. Endometrial thickness measures 18 mm. No free fluid in the cul-de-sac. The cervix is closed. Right ovary measures 4.2 x 3.0 x 2.9 cm with preserved vascular flow. Right ovarian 2.9 cm cyst. Left ovary measures 3.3 x 2.4 x 1.9 cm with preserved vascular flow. US/Transvaginal w/Preg US IMPRESSION: No visualized intrauterine . No visualized ectopic (can not be excluded). Reading Location: [id number]
[2025-03-15 21:41] LABS: hCG Titer Quant., Serum 128 mIU/mL (<9 non-preg)
[2025-03-15 22:44] VITALS: BP 133/80; PULSE 101; RESP 18; O2SAT 100
--- NOTE | 2025-03-15 23:05 | EDS_ITS ---
HPI HPI - Female History of Present Illness Chief Complaint: Detail of Chief Complaint: Sent from OB clinic for possible ectopic. Informant: patient Pain Pain: Negative for Pelvic Pain, Vulvar Pain or Vaginal Pain Current Severity: Mild Maximum Severity: Mild Worsened by: - (Nothing specific) Relieved by: - (Nothing) Bleeding Issue: Negative for Vaginal bleeding, Passing clots or Passing tissue Associated Symptoms Associated Symptoms: Positive for Frequency and Missed Period; Negative for Dysuria, Urgency or Hematuria Last known menstrual period: February 10 Test: Positive Sexually: Positive for Active Control: No control P: 0 Ab: 0 Narrative Narrative: Patient is a 24-year-old female who presents for possible ectopic. She does not use any form of control. She is sexually active. She denies history of STI, endometriosis. She does have history of ovarian cyst. She denies vaginal bleeding or vaginal discharge. Her only urologic symptom is frequency. She denies nausea or vomiting. She does report some breast fullness. She denies pain referred to her shoulder/trapezius area. Prior similar symptoms: No Recent Illness/Hospitalization: No PFSH PFSH Medical History Ovarian cyst Rheumatoid arthritis Depression Anxiety Irregular heart beat Migraines Bronchial spasms Home Medications ?Medication ?Instructions ?Recorded ?Last Taken ?Type allergy shot IM 02/17/25 Unknown History fexofenadine 60 mg tablet (Liss 60 mg PO BID Unknown History Allergy) trazodone 100 mg tablet 50 - 200 mg PO QHS PRN insom naga 02/17/25 Unknown History Allergy/AdvReac Type Severity Reaction Status Date / Time Egg Derived Allergy Intermediate Hives Verified 03/15/25 20:48 hydroxychloroquine (From Allergy Intermediate Rash Verified 03/15/25 20:48 Plaquenil) Family History Grandfather Cancer Paternal- skin cancer Surgical History S/P wisdom tooth extraction H/O knee surgery History of tonsillectomy Social History household members: spouse current occupational status: employed 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[employer]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 smoker alcohol intake: current alcohol intake frequency: a few times a month Alcohol type: other substance use type: does not use seatbelt use: always do you feel safe at home: Yes additional social history: - Suhail MALIK ROS ED Cardiovascular Cardiovascular: Denies chest pain or palpitations Respiratory/Chest Respiratory/Chest: Denies dyspnea or dyspnea on exertion Gastrointestinal Gastrointestinal: Reports abdominal pain and nausea; Denies constipation, diarrhea, melena or vomiting Genitourinary Genitourinary ED: Reports urinary frequency; Denies dysuria or hematuria Psychiatric Psychiatric: Denies anxiety Endocrine Endocrinology: Denies heat intolerance, polydipsia or polyuria Hematologic/Lymphatic Hematologic/Lymphatic: Denies easy bleeding or easy bruising EXAM Physical Exam Const Vital Signs: 03/15/25 20:44 03/15/25 22:44 Temperature 97.0 F L Temperature Source Temporal Pulse Rate 108 H 101 H Respiratory Rate 16 18 Blood Pressure 134/80 H 133/80 H Blood Pressure Mean 98 97 Pulse Ox 100 100 Oxygen Delivery Method Room Air Room Air Positive well nourished and well developed General Appearance ED: well developed and NAD HEENT Reports moist mucous membranes HEENT Narrative: Head is atraumatic normocephalic. Eyes EOMs intact bilaterally General Eye ED: Negative for pale conjunctiva or scleral icterus Neck no lymphadenopathy, supple and no JVD Chest Wall palpation of chest normal Resp normal respiratory effort and clear to auscultation bilaterally Cardio regular rate, regular rhythm, S1 normal heart sound, no murmurs and no JVD GI normal to inspection, nondistended, normoactive bowel sounds, soft to palpation, non-distended and no masses; Negative for non-tender GI Narrative: There is pain palpation near the right inguinal groove. There is no tenderness over McBurney's point or in the proximity of McBurney's point. There is no guarding or peritoneal findings. Her pain started a couple of days ago. Was worse today when she pushed on it. Extremity normal to inspection and full ROM General Extremety ED: Negative for edema or tenderness General Extremity: Negative for edema Neuro oriented x3 and CN's II-XII intact bilaterally Sensorium / Orientation: alert Psych mental status grossly normal Skin no rashes or lesions noted and no wounds MDM MDM MDM Narrative Medical decision making narrative: With positive test and concern for ectopic and unable to view films pelvic ultrasound was ordered here. Patient informed that the person to perform the pelvic is an RN and not a radiologist. Since she does not know her blood type we will obtain ABO Rh as well. Also in consideration is ovarian cyst, torsion versus early . Lab Data Attestation: I reviewed the patient's lab results. Lab results narrative: hCG quant is 128. Patient has a negative blood. Labs: Laboratory Results - last 24 hr 03/15/25 21:04 HCG, Quant 128 H Blood Type A NEGATIVE Radiography Diagnostic Testing: Clinical Impression(s) from Imaging Studies Obstetrics Ultrasound 03/15/25 21:03 IMPRESSION: No visualized intrauterine . No visualized ectopic (can not be excluded). Reading Location: [id number] Reviewed radiologist interpretation. Since she has been seen by the [place] [employer] group page was placed to Dr. Tijerina. Plan repeat hCG in 48 hours and close follow-up. Suspect this is an early . Management Discussion w/another healthcare provider: [facility] (Spoke with Dr. Sarah Tijerina. Plan is repeat quant in 48 hours and follow-up in the [employer] office.) Discharge Plan Triage Chief Complaint: ED Provider: David Oakley Dx/Rx/DC Orders Clinical Impression: Abdominal pain in early , Sinus tachycardia, Elevated blood-pressure reading without diagnosis of hypertension Instructions: ED Abdominal Pain, Early Prescriptions: No Action trazodone 100 mg tablet 50 - 200 mg PO QHS PRN (Reason: insomnia) fexofenadine [Liss Allergy] 60 mg tablet 60 mg PO BID allergy shot IM Rx Instructions: Weekly allergy shots Primary Care Provider: Jenn Sweeney Referrals: Sarah Harmon DO [Med Staff - Active Staff] - 3-5 Days Jenn Sweeney DO [Primary Care Provider] - Activity Restrictions/Additional Instructions: Need to repeat blood test on , March 17. You will need to go to outpatient lab. Call Dr. Tijerina's office for follow-up in 3 to 5 days Print Language: Urdu Disposition Disposition: Home, Self Care
[2025-03-16 00:15] VITALS: BP 123/74; PULSE 78; RESP 16; TEMP 36.6; O2SAT 99
== END 2025-03-16 00:15 | disposition home or self-care (01) ==
PROVIDERS: Emergency Provider Emergency Medicine; PCP Family Medicine; Visit Provider Emergency Medicine
DX: O99.891 Other specified diseases and conditions complicating pregnancy (principal); R10.9 Unspecified abdominal pain; R00.0 Tachycardia, unspecified; R03.0 Elevated blood-pressure reading, without diagnosis of hypertension; Z3A.00 Weeks of gestation of pregnancy not specified; Z87.891 Personal history of nicotine dependence
CPT/HCPCS: 76817; 84702; 86900; 86901; 99283; A4216

== ENCOUNTER → 2025-03-17 | Outpatient (CLI) | payer OTHER, BC, SELFPAY ==
[2025-03-17 13:34] LABS: hCG Titer Quant., Serum 248 mIU/mL (<9 non-preg)
== END | disposition home or self-care (01) ==
PROVIDERS: PCP Family Medicine; Referring Provider Emergency Medicine; Visit Provider Emergency Medicine
DX: O99.891 Other specified diseases and conditions complicating pregnancy (principal); R10.9 Unspecified abdominal pain; Z3A.00 Weeks of gestation of pregnancy not specified
CPT/HCPCS: 36415; 84702

== ENCOUNTER → 2025-03-30 | Outpatient (CLI) | payer OTHER, BC, SELFPAY ==
[2025-03-30 16:52] LABS: hCG Titer Quant., Serum 15712 mIU/mL (<9 non-preg)
== END | disposition home or self-care (01) ==
LOC: LAB 14:38
PROVIDERS: PCP Family Medicine; Referring Provider Obstetrics & Gynecology; Visit Provider Obstetrics & Gynecology
DX: Z34.90 Encounter for supervision of normal pregnancy, unspecified, unspecified trimester (principal)
CPT/HCPCS: 36415; 84702

== ENCOUNTER → 2025-04-04 | Outpatient (CLI) | payer OTHER, BC, SELFPAY | END | disposition home or self-care (01) | LOC: US 16:26 | PROVIDERS: PCP Family Medicine; Referring Provider Obstetrics & Gynecology; Visit Provider Obstetrics & Gynecology | DX: O26.899 Other specified pregnancy related conditions, unspecified trimester (principal); R10.9 Unspecified abdominal pain; Z3A.00 Weeks of gestation of pregnancy not specified | CPT/HCPCS: 76817 ==

== ENCOUNTER 2025-04-15 15:47 | Emergency (ER) | payer OTHER, BC, SELFPAY ==
[2025-04-15 15:48] VITALS: BP 140/85; PULSE 106; RESP 16; TEMP 36.8; O2SAT 97; BMI 30.6
--- NOTE | 2025-04-15 16:19 | ED.VIS.FEGU ---
HPI HPI - Female History of Present Illness Chief Complaint: Informant: patient Narrative Narrative: Patient is a G1, P0 25-year-old female with history of sinus tachycardia and rheumatoid arthritis presenting from home with nausea, vomiting, decreased urine output and lightheadedness. States her symptoms been particularly bad for the past 2 days is not really been able to keep anything down. She states she has not urinated since 4 AM this morning. States her urine is dark. States the nausea is intermittent. Denies any significant nausea right now. Does have some mild lower abdominal cramping and some mild discomfort in her left flank area. Denies any dysuria. Denies any abnormal vaginal discharge or bleeding. Follows Dr. T[place]ina. Has had a to confirm intrauterine gestation. Has not had any vaginal bleeding. Came in for further evaluation. No other complaints or concerns reported at this time. PFSH PFS Medical History Ovarian cyst Depression Anxiety Irregular heart beat Migraines Bronchial spasms Home Medications ?Medication ?Instructions ?Recorded ?Last Taken ?Type fexofenadine 60 mg tablet (Liss 60 mg PO BID 02/17/25 Unknown History Allergy) docosahexaenoic acid 200 mg mg PO 04/12/25 Unknown History capsule ( DHA) ondansetron 4 mg disintegrating 4 mg PO Q8H PRN PRN Nausea #20 tabs 04/15/25 Unknown Rx tablet Allergy/AdvReac Type Severity Reaction Status Date / Time Egg Derived Allergy Intermediate Hives Verified 04/15/25 15:48 hydroxychloroquine (From Allergy Intermediate Rash Verified 04/15/25 15:48 Plaquenil) adhesive Allergy Mild rash Verified 04/15/25 15:48 Family History Grandfather Cancer Paternal- skin cancer COPD (chronic obstructive pulmonary disease) Factor 5 Leiden mutation, heterozygous Grandmother Congestive heart failure Rheumatoid arthritis Father Factor 5 Leiden mutation, heterozygous Mother Gestational diabetes Hypertension Osteoarthritis Grandmother Arthritis Surgical History S/P wisdom tooth extraction H/O knee surgery History of tonsillectomy Social History adopted: No household members: significant other number of children: 0 current occupational status: employed 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/hazards: No pets and animals: Yes pets and animals: dog(s) history of recent travel: No sexually active: Yes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 smoker quit date: 01/27/25 second hand exposure: Yes quit status: quit date established alcohol intake: current alcohol intake frequency: a few times a month Alcohol type: other details: Not while substance use type: does not use diet: other well-balanced diet: about half the time caffeine: Yes Type: carbonated beverages Number of servings: 1 eating out: 1-3 times/week during the past year weight has: increased > 10 lbs what type of physical activity do you participate in: walking frequency: 3-4 times per week duration: < 15 minutes/day jaye/anabaptism: Adventist seatbelt use: always do you feel safe at home: Yes additional social history: (Martinez) : BF: [facility] - [facility] ROS ROS ED Constitutional Constitutional ED: Denies chills or fever(s) Respiratory/Chest Respiratory/Chest: Denies cough or dyspnea Gastrointestinal Gastrointestinal: Reports abdominal pain, nausea and vomiting; Denies constipation or diarrhea Genitourinary Genitourinary ED: Reports other Details: Decreased urination, darker urine ; Denies dysuria or hematuria Musculoskeletal Musculoskeletal: Reports other Details: Left-sided low back pain ; Denies arthralgias Integumentary Denies rash Neurologic Neurologic: Reports weakness and other Details: Lightheaded EXAM Physical Exam Const Vital Signs: 04/15/25 15:48 04/15/25 17:47 04/15/25 21:18 Temperature 98.2 F 98 F Temperature Source Oral Pulse Rate 106 H 65 96 Respiratory Rate 16 16 18 Blood Pressure 140/85 H 102/67 117/66 Blood Pressure Mean 103 78 83 Pulse Ox 97 97 100 Oxygen Delivery Method Room Air Room Air Positive well nourished and well developed General Appearance ED: well developed and NAD HEENT Reports moist mucous membranes Eyes PERRL Neck supple Chest Wall inspection of chest normal and palpation of chest normal Resp normal respiratory effort and clear to auscultation bilaterally Cardio regular rhythm Rate: tachycardic GI normal to inspection, nondistended, normoactive bowel sounds, soft to palpation and non-tender Auscultation: normoactive bowel sounds Palpation: Negative for tender or guarding Back/Spine no CVA tenderness Extremity normal to inspection and full ROM Neuro oriented x3 Sensorium / Orientation: alert Psych mental status grossly normal Skin no rashes or lesions noted and no wounds MDM MDM MDM Narrative Medical decision making narrative: Patient evaluated for nausea and vomiting associate with early . Is also having some cramping. Has had decreased urine output. Differential includes gastritis, hyperemesis gravidarum, infection, urinary tract infection, DENAE and dehydration. She is already had confirmed IUP so low suspicion for ectopic . She denies any vaginal bleeding. Bedside ultrasound performed by myself which shows normal cardiac activity. Patient is reassured with this. Patient is given IV fluids. She declines nausea medicine in the emergency room. CBC normal. CMP shows normal creatinine but she does have a low bicarb of 20.3. Laboratory work otherwise normal. She gets a second liter of fluid she still not able to produce urine. She finally is able to give a urine sample and she is of 150 ketones. Urinalysis most consistent otherwise with contamination. Patient is able to tolerate liquids in the emergency room and states she is feeling hungry would like to go home. Patient will be discharged home with a prescription for Zofran. Discussed risk and benefits. Patient verbalized agreement or stands this plan. Discharged home in stable condition. Will follow-up with her [employer]. Given return precautions. Discussed small frequent meals to help with morning sickness as well. Lab Data Attestation: I reviewed the patient's lab results. Labs: Laboratory Results - last 24 hr 04/15/25 04/15/25 15:56 19:59 WBC 8.2 RBC 4.74 Hgb 14.7 Hct 39.7 MCV 83.8 MCH 31.0 MCHC 37.0 H RDW Std Deviation 34.8 L RDW Coeff of Breonna 11.4 L Plt Count 224 MPV 9.4 Immature Gran % (Auto) 0.400 Neut % (Auto) 72.4 H Lymph % (Auto) 19.4 [place] % (Auto) 7.2 Eos % (Auto) 0.2 Baso % (Auto) 0.4 Absolute Neuts (auto) 6.0 Absolute Lymphs (auto) 1.60 Nucleated RBC % 0 Sodium 136 Potassium 3.6 Chloride 102 Carbon Dioxide 20.3 L Anion Gap 14 BUN 6 Creatinine 0.68 L Estim Creat Clear Calc 125.44 Est GFR (MDRD) Non-Af 124 BUN/Creatinine Ratio 9.1 L Glucose 101 H Calcium 9.6 Total Bilirubin 0.89 AST 19 ALT 13 Alkaline Phosphatase 76 Total Protein 7.6 Albumin 4.5 Globulin 3.2 Albumin/Globulin Ratio 1.4 Lipase 24 Urine Color Yellow Urine Clarity Clear Urine pH 6.0 Ur Specific [place] 1.020 Urine Protein Negative Urine Glucose (UA) Normal Urine Ketones 150 A* Urine Occult Blood Negative Urine Nitrite Negative Urine Bilirubin Negative Urine Urobilinogen Normal Ur Leukocyte Esterase Negative Urine RBC 0 SEEN Urine WBC 0-5 SEEN Ur Squamous Epith Cells 0-5 SEEN Urine Bacteria 1+ Urine Mucus 1+ Discharge Plan Triage Chief Complaint: ED Provider: Sarah Stubbs Dx/Rx/DC Orders Clinical Impression: Acute dehydration, Nausea and vomiting during Instructions: ED Dehydration (Adult), ED Hyperemesis Gravidarum Prescriptions: New ondansetron 4 mg tablet,disintegrating 4 mg PO Q8H PRN PRN (Reason: Nausea) Qty: 20 0RF No Action fexofenadine [Liss Allergy] 60 mg tablet 60 mg PO BID DHA 200 mg capsule PO Primary Care Provider: Jenn Sweeney Referrals: Jenn Sweeney, DO [Primary Care Provider] - Activity Restrictions/Additional Instructions: Continue to try to push fluids and eat small frequent meals. Return if you have progression worsening your symptoms or further concerns. Print Language: Mohawk Disposition Disposition: Home, Self Care
[2025-04-15] MEDS: 0.9% Normal Saline (1000mL) 1,000 ML 1000 ML IV (16:30)
[2025-04-15 16:41] LABS: Hematocrit 39.7 % (37-47); Hemoglobin 14.7 g/dL (12.0-15.0); Immature Granulocytes Count 0.030 X10^3/uL (0.0-0.0); Mean Corp Hgb Conc 37.0 g/dL (32-36); Mean Corpuscular Volume 83.8 fL (81-99); Mean Platelet Vol. 9.4 fl (6.2-12.0); NRBC Flagged by Analyzer 0 % (0-5); Platelet Count 224 K/mm3 (150-450); RBC Distribution Width CV 11.4 % (11.6-14.6); RBC Distribution Width SD 34.8 fl (35.1-43.9); Red Blood Count 4.74 M/mm3 (4.2-5.4); White Blood Count 8.2 K/mm3 (4.4-11.0)
[2025-04-15 17:15] LABS: AST(SGOT) 19 U/L (<=31); Alanine Aminotransfer ALT/SGPT 13 U/L (<=34); Albumin, Serum 4.5 g/dL (3.5-5.0); Alkaline Phosphatase 76 U/L (35-104); Anion Gap 14 (5-15); BUN 6 mg/dL (4-19); BUN/Creat Ratio 9.1 RATIO (10-20); Calcium,Total 9.6 mg/dL (7.6-11.0); Carbon Dioxide 20.3 mmol/L (21.0-32.0); Chloride 102 mmol/L (98-108); Estimated Creatinine Clearance 125.44 ml/min (50-250); Globulin 3.2 g/dL (2.2-4.2); Glucose 101 mg/dL (70-99); Lipase 24 U/L (13-75); Potassium 3.6 mmol/L (3.3-5.1)
[2025-04-15 17:47] VITALS: BP 102/67; PULSE 65; RESP 16; O2SAT 97
[2025-04-15] MEDS: 0.9% Normal Saline (1000mL) 1,000 ML 999 ML IV (17:50)
[2025-04-15 20:20] LABS: Red Blood Cells-Urine 0 SEEN /hpf (0-5)
[2025-04-15 20:21] LABS: Color, Urine Yellow (Yellow); Glucose, Dipstick Normal (Normal); Leukocyte Esterase-Dipstick Negative /ul (Negative); Nitrite-Dipstick Negative (Negative); Occult Blood-Urine Negative /ul (Negative); Protein-Dipstick Negative (Negative); Specific Gravity, Urine 1.020 (1.002-1.030); Urine Bilirubin Dipstick Negative (Negative)
[2025-04-15 20:25] LABS: Ketone-Dipstick 150 mg/dl (Negative)
[2025-04-15 20:29] LABS: Mucous, Urine 1+ /hpf (<or=2+); Squamous Epithelial Cells - UA 0-5 SEEN /hpf (5-10)
[2025-04-15 21:18] VITALS: BP 117/66; PULSE 96; RESP 18; TEMP 36.6; O2SAT 100
== END 2025-04-15 21:45 | disposition home or self-care (01) ==
PROVIDERS: Emergency Provider Emergency Medicine; PCP Family Medicine; Visit Provider Emergency Medicine
DX: O21.9 Vomiting of pregnancy, unspecified (principal); M06.9 Rheumatoid arthritis, unspecified; O99.280 Endocrine, nutritional and metabolic diseases complicating pregnancy, unspecified trimester; E86.0 Dehydration; O99.891 Other specified diseases and conditions complicating pregnancy; Z3A.00 Weeks of gestation of pregnancy not specified; Z87.891 Personal history of nicotine dependence
CPT/HCPCS: 80053; 81001; 83690; 85025; 96360; 96361; 99283; A4216

== ENCOUNTER → 2025-04-22 | Outpatient (CLI) | payer OTHER, BC, SELFPAY ==
[2025-04-25 20:08] LABS: Chlamydia By Nucleic Acid AMP Negative (Negative); Gonococcus By Nucleic Acid AMP Negative (Negative)
== END | disposition home or self-care (01) ==
LOC: LABSPEC 11:26
PROVIDERS: PCP Family Medicine; Referring Provider Registered Nurse; Visit Provider Registered Nurse
DX: O09.90 Supervision of high risk pregnancy, unspecified, unspecified trimester (principal); Z3A.00 Weeks of gestation of pregnancy not specified
CPT/HCPCS: 87086; 87088; 87491; 87591

== ENCOUNTER → 2025-04-28 | Outpatient (CLI) | payer OTHER, BC, SELFPAY ==
[2025-04-28 15:27] LABS: Hematocrit 39.5 % (37-47); Hemoglobin 13.7 g/dL (12.0-15.0); Immature Granulocytes Count 0.010 X10^3/uL (0.0-0.0); Mean Corp Hgb Conc 34.7 g/dL (32-36); Mean Corpuscular Volume 85.1 fL (81-99); Mean Platelet Vol. 9.2 fl (6.2-12.0); NRBC Flagged by Analyzer 0 % (0-5); Platelet Count 200 K/mm3 (150-450); RBC Distribution Width CV 11.4 % (11.6-14.6); RBC Distribution Width SD 35.0 fl (35.1-43.9); Red Blood Count 4.64 M/mm3 (4.2-5.4); White Blood Count 5.7 K/mm3 (4.4-11.0)
[2025-04-28 16:51] LABS: HIV Nonreactive (Nonreactive); Hepatitis B Surface Antigen Nonreactive (Nonreactive); Hepatitis C Antibody Nonreactive (Nonreactive); Syphilis Antibodies Nonreactive (Nonreactive)
== END | disposition home or self-care (01) ==
LOC: BWCLAB 14:28
PROVIDERS: PCP Family Medicine; Visit Provider Registered Nurse
DX: O99.210 Obesity complicating pregnancy, unspecified trimester (principal); Z3A.00 Weeks of gestation of pregnancy not specified
CPT/HCPCS: 36415; 83036; 85025; 86703; 86762; 86780; 86803; 86850; 86900; 86901; 87340

== ENCOUNTER 2025-05-06 09:04 | Outpatient (CLI) | payer OTHER, BC, SELFPAY ==
[2025-05-06] MEDS: 0.9% NaCl Peripheral Flush Adult IV ×2 (09:17→10:47)
[2025-05-06 09:18] VITALS: BP 116/60; PULSE 87; RESP 16; TEMP 36.2; O2SAT 98; BMI 30.4
[2025-05-06 10:48] VITALS: BP 115/64; PULSE 87; RESP 16; TEMP 36.3; O2SAT 100
== END 2025-05-06 23:59 | disposition home or self-care (01) ==
LOC: MEDOUTP 09:05
PROVIDERS: PCP Family Medicine; Referring Provider Obstetrics & Gynecology; Visit Provider Obstetrics & Gynecology
DX: E86.0 Dehydration (principal)
CPT/HCPCS: 96360; A4216; J2405

== ENCOUNTER → 2025-05-20 | Outpatient (CLI) | payer OTHER, BC, SELFPAY | END | disposition home or self-care (01) | LOC: BWCLAB 14:26 | PROVIDERS: PCP Family Medicine; Referring Provider Obstetrics & Gynecology; Visit Provider Obstetrics & Gynecology | DX: Z34.90 Encounter for supervision of normal pregnancy, unspecified, unspecified trimester (principal) ==

== ENCOUNTER → 2025-06-07 | Outpatient (CLI) | payer OTHER, BC, SELFPAY ==
[2025-06-07 16:53] LABS: Hematocrit 37.6 % (37-47); Hemoglobin 12.9 g/dL (12.0-15.0); Immature Granulocytes Count 0.020 X10^3/uL (0.0-0.0); Mean Corp Hgb Conc 34.3 g/dL (32-36); Mean Corpuscular Volume 85.1 fL (81-99); Mean Platelet Vol. 9.3 fl (6.2-12.0); NRBC Flagged by Analyzer 0 % (0-5); Platelet Count 202 K/mm3 (150-450); RBC Distribution Width CV 11.9 % (11.6-14.6); RBC Distribution Width SD 36.8 fl (35.1-43.9); Red Blood Count 4.42 M/mm3 (4.2-5.4); White Blood Count 7.5 K/mm3 (4.4-11.0)
[2025-06-07 17:14] LABS: AST(SGOT) 17 U/L (<=31); Alanine Aminotransfer ALT/SGPT 14 U/L (<=34); Albumin, Serum 4.0 g/dL (3.5-5.0); Alkaline Phosphatase 69 U/L (35-104); Anion Gap 11 (5-15); BUN 5 mg/dL (4-19); BUN/Creat Ratio 7.9 RATIO (10-20); Calcium,Total 9.2 mg/dL (7.6-11.0); Carbon Dioxide 22.1 mmol/L (21.0-32.0); Chloride 103 mmol/L (98-108); Globulin 3.0 g/dL (2.2-4.2); Glucose 95 mg/dL (70-99); Potassium 4.0 mmol/L (3.3-5.1)
== END | disposition home or self-care (01) ==
PROVIDERS: PCP Family Medicine; Referring Provider Obstetrics & Gynecology; Visit Provider Obstetrics & Gynecology
DX: O46.90 Antepartum hemorrhage, unspecified, unspecified trimester (principal); Z3A.00 Weeks of gestation of pregnancy not specified
CPT/HCPCS: 36415; 80053; 85025

== ENCOUNTER → 2025-06-14 | Outpatient (CLI) | payer OTHER, BC, SELFPAY | END | disposition home or self-care (01) | LOC: LABSPEC 09:17 | PROVIDERS: PCP Family Medicine; Referring Provider Obstetrics & Gynecology; Visit Provider Obstetrics & Gynecology | DX: O46.90 Antepartum hemorrhage, unspecified, unspecified trimester (principal); Z3A.00 Weeks of gestation of pregnancy not specified | CPT/HCPCS: 87086 ==

== ENCOUNTER 2025-07-23 07:42 | Emergency (ER) | payer OTHER, BC, SELFPAY ==
[2025-07-23 07:43] VITALS: BP 124/80; PULSE 78; RESP 16; TEMP 37.1; O2SAT 98; BMI 31.3
--- NOTE | 2025-07-23 08:14 | EKG12_ITS ---
Test Reason : CP Blood Pressure : */* mmHG Vent. Rate : 75 BPM Atrial Rate : 75 BPM P-R Int : 130 ms QRS Dur : 88 ms QT Int : 382 ms P-R-T Axes : 33 19 21 degrees QTcB Int : 426 ms Normal sinus rhythm Normal ECG bpm Confirmed by MAEVE CALLES ([id number]), offline editor SUSAN GRAYSON ([id number]) on 07/25/2025 7:10:14 AM Referred By: FAUSTO Confirmed By: MAEVE CALLES
--- NOTE | 2025-07-23 08:30 | RAD_ITS ---
PROCEDURE: CHEST 1 VIEW (PORTABLE) 07/23/2025 REASON FOR EXAM: CHEST PAIN TECHNIQUE: Frontal view of the chest. FINDINGS: The lungs are clear. The cardiomediastinal silhouette appears unremarkable. No acute osseous abnormality. RAD/Chest 1 View (Portable) IMPRESSION: As above. Reading Location: [id number]
[2025-07-23 08:51] LABS: Hematocrit 34.5 % (37-47); Hemoglobin 11.9 g/dL (12.0-15.0); Immature Granulocytes Count 0.030 X10^3/uL (0.0-0.0); Mean Corp Hgb Conc 34.5 g/dL (32-36); Mean Corpuscular Volume 85.0 fL (81-99); Mean Platelet Vol. 8.9 fl (6.2-12.0); NRBC Flagged by Analyzer 0 % (0-5); Platelet Count 169 K/mm3 (150-450); RBC Distribution Width CV 12.2 % (11.6-14.6); RBC Distribution Width SD 37.1 fl (35.1-43.9); Red Blood Count 4.06 M/mm3 (4.2-5.4); White Blood Count 9.4 K/mm3 (4.4-11.0)
--- OUTSIDE RECORDS SUMMARY | 2025-07-23 09:08 | XMS RPT_ITS | CCD ---
Author Organization [facility] Care Team Providers Care School Curriculum Developer Name Role Phone METE LARES Unavailable Unavailable MEET LARES Unavailable Unavailable MEET LARES Unavailable Unavailable AMAN DAVIS Unavailable Unavailable Nessa Crespo Unavailable Unavailable Paulina Ware Unavailable Unavailable Paulina Ware Unavailable Unavailable GALI GUZMAN Unavailable [place] PROVIDER, UNKNOWN Admitting Unavailable PROVIDER, UNKNOWN Attending Unavailable Paulina Ware MD Primary Care Provider Paulina Ware MD Primary Care Provider Paulina Ware MD Primary Care Provider PAULINA WARE Primary Care Unavailable PAULINA WARE Primary Care Unavailable PAULINA WARE Primary Care Unavailable KERON DUFF Attending Unavailable GIOVANNA DELATORRE Referring Unavailable PAULINA WARE Primary Care Unavailable PAULINA WARE Referring Unavailable PAULINA WARE Primary Care Unavailable Dr. Paulina Ware Primary Care Provider Dr. Paulina Ware Referring Provider CECILY Joseph Attending Provider CECILY Joseph Attending Provider [phone] CECILY King Attending Provider [phone] CECILY Joseph Attending Provider [phone] CECILY King Attending Provider Paulina Ware MD Primary Care Provider [phone] Dr. Paulina Ware Primary Care Provider Dr. Paulina Ware Referring Provider CECILY King Attending Provider CECILY Hopkins Attending Provider Paulina Ware MD Primary Care Provider Dr. Paulina Ware Primary Care Provider Dr. Paulina Ware Referring Provider CECILY Joseph Attending Provider PAULINA WARE Attending Unavailable RENATO, PAULINA Primary Care Unavailable PAULINA WARE Attending Unavailable RENATO PAULINA Primary Care Unavailable ELISABETH POWERS [facility] PAULINA WARE Attending Unavailable RENATO PAULINA Primary Care Unavailable Jose Ware MDa S Primary Care Provider [phone] Patel DO, Jenn Primary Care Provider Patel DO, Jenn Attending Provider Patle DO, Jenn Referring Provider Jeffry King Attending Provider Jeffry King Referring Provider Patel DO, Jenn Primary Care Provider Patel DO, Jenn Attending Provider Dr. David Oakley MD Emergency Provider Patel DO, Jenn Primary Care Provider Dr. David Oakley MD Attending Provider Dr. David Oakley MD Referring Provider Dr. aSrah Harmon DO Other Provider [phone] Dr. David Oakley MD Attending Provider Dr. Sarah Harmon DO Attending Provider Dr. Sarah Harmon DO Referring Provider Dr. Sarah Stubbs DO Emergency Provider Tiburcio CARCAMO, Inga Attending Provider Dr. Sarah Stubbs DO Attending Provider Tiburcio CARCAMO, Inga Referring Provider Alexsander ELLIOTT, Dr. Winston Attending Provider Alexsander ELLIOTT, Dr. Winston Referring Provider Wendy Cat CNM Attending Provider Patel DO, Jenn Primary Care Physician Adin ELLIOTT, Dr. Hernandez Attending Physician [phone] Adin ELLIOTT, Dr. Hernandez Emergency Department Physician Miles Fall DO, Dr. Smith Nurse Practitioner Miles Fall DO, Dr. Smith Attending Physician Patel DO, Jenn Referring Provider Evelyne ARMENTA, Dr. Smith Attending Physician Dr. Sarah Stubbs DO Emergency Department Physi gustavo Inga Dey CNM Attending Physician [phone] Alexsander ELLIOTT, Dr. Winston Attending Physician Wendy Cat CNM Attending Physician [phone] KATE TAVERAS Attending Unavailable TISH KAUFFMAN Referring Unavailabl e PITA SWEENEY Primary Care Unavailable Inga Dey Attending Unavailable Patel VS, Jenn Primary Care Unavailable Patel VS, Jenn Primary Care Unavailable Patel VS, Jenn Referring Unavailable Edward SPANISH LINGUISTAiyana Attending Unavailable Patel VS, Jenn Primary Care Unavailable Paulina Ware Referring Unavailable Cindy Angel Attending Unavailable Patel VS, Jenn Primary Care Unavailable Edward SPANISH LINGUIST, Aiyana Referring Unavailable [place] SPANISH LINGUIST, Aiyana Attending Unavailable Patel VS, Jenn Primary Care Unavailable Jeffry King Referring Unavailable Jeffry King Attending Unavailable Patel [facility], Jenn Primary Care Unavailable Patel [facility], Jenn Attending Unavailable Patel [facility], Jenn Primary Care Unavailable Patel [facility], Jenn Attending Unavailable Patel [facility], Jenn Primary Care Unavailable Jeffry King Attending Unavailable Patel [facility], Jenn Referring Unavailable Patel [facility], Jenn Primary Care Unavailable Tish Kauffman Attending Unavailable Tish Kauffman Referring Unavailable VandSarah Berg Referring Unavailabl e Vande VelSarah dietz Attending Unavailabl e Patel [facility], Jenn Primary Care Unavailable Patel [facility], Jenn Primary Care Unavailable Patel [facility], Jenn Referring Unavailable Wendy Cat Attending Unavailable Patel [facility], Jenn Primary Care Unavailable Patel [facility], Jenn Referring Unavailable Tish Kauffman Attending Unavailable Patel [facility], Jenn Referring Unavailable Patel [facility], Jenn Primary Care Unavailable Tish Kauffman Attending Unavailable Patel [facility], Jenn Referring Unavailable Vande Sarah Fall Attending Unavailabl e Patel [facility], Jenn Primary Care Unavailable Patel [facility], Jenn Referring Unavailable nIga Dey Attending Unavailable Patel [facility], Jenn Primary Care Unavailable Patel [facility], Jenn Referring Unavailable Sarah Harmon Attending Unavailabl e Patel [facility], Jenn Primary Care Unavailable Patel [facility], Jenn Primary Care Unavailable Tish Kauffman Attending Unavailable Tish Kauffman Referring Unavailable Sarah Harmon Consulting Unavailabl e Oakley, David Referring Unavailable Oakley, David Attending Unavailable Patel [facility], Jenn Primary Care Unavailable Vande Velde Sarah Referring Unavailabl e Patel [facility], Jenn Primary Care Unavailable Sarah Harmon Attending Unavailabl e Patel [facility], Jenn Primary Care Unavailable Tish Kauffman Attending Unavailable Tish Kauffman Referring Unavailable Patel [facility], Jenn Primary Care Unavailable Cindy Angel Referring Unavailable Cindy Angel Attending Unavailable Patel [facility], Jenn Primary Care Unavailable Sarah Harmon Referring UnavailSarah Segal [facility], Jenn Primary Care Unavailable David Oakley Attending Unavailable Inga Dey Referring Unavailable Inga Dey Attending Unavailable [facility], [facility] Primary Care Unavailable Sarah Stubbs Attending Unavailable [facility], [facility] Primary Care Unavailable Allergies Allergy Classification Reported Allergen(s) Allergy Type Date of Onset Reaction(s) Facility (6 sources) egg extract; Translations: [EGG] Drug Allergy 12-06-19 18 [facility] Repository (1 source) NO KNOWN ALLERGIES; Translations: [NO KNOWN ALLERGIES] Propensity to adverse reactions to drug (disorder) [facility] Repository (20 sources) Eggs Or Egg-Derived Products Propensity to adverse reactions to drug 05-13-20 16 [facility] (20 sources) Hydroxychloroquine Drug Allergy 11-05-19 24 Hives, Itching, Rash [facility] (3 sources) Egg-Derived Products Drug Intolerance 05-13-20 16 [facility] (12 sources) Adhesive agent; Translations: [adhesive] Allergy to substance 04-15-[address] [facility] (1 source) egg extract Drug Allergy 07-11-[address] [facility] Repository (1 source) Hydroxychloroquine Drug Allergy 07-11-[address] [facility] Repository Medications Current Medications Medication Drug Class(es) Dates Sig (Normalized) Sig (Original) docosahexaenoic acid 200 mg oral capsule (12 sources) Start: 04-12-2025 take 1 capsule by mouth once daily Ethinyl Estradiol / ethynodiol (20 sources) Progestin, Estrogen Start: 10-01-2023 End: 09-30-2024 take 1 tablet by mouth once daily Zovia 1/35E, 28, 1-35 MG-MCG tablet Indications: Encounter for surveillance of contraceptive pills Take 1 tablet by mouth daily. 84 tablet 3 10/01/2023 09/30/2024 Active Start: 12-18-2022 End: 12-18-2023 take 1 tablet by mouth once daily Zovia 1/35E, 28, 1-35 MG-MCG tablet Indications: Encounter for surveillance of contraceptive pills Take 1 tablet by mouth daily. 84 tablet 3 12/18/2022 12/18/2023 Active Start: 12-15-2022 End: 12-18-2022 take 1 tablet by mouth once daily Zovia 1/35E, 28, 1-35 MG-MCG tablet Take 1 tablet by mouth daily. 0 12/15/2022 12/18/2022 Discontinued (Reorder) Start: 12-05-2022 End: 04-21-2024 take 1-35 ug by mouth once daily Ethynodiol Diac-Eth Estradiol (Zovia 1-35 (28)) 1-35 mg-mcg tablet Discontinued 1 {tbl} PO DAILY December 05, 2022 1:00am April 21, 2024 2:19pm Start: 03-25-2019 take 1 tablet by андрей once daily ethynodiol-ethinyl estradiol (ZOVIA 1/35E, 28,) 1-35 MG-MCG per tablet Take 1 tablet by mouth daily 1 packet 12 03/25/2019 Active fexofenadine hydrochloride 60 mg oral tablet (17 sources) Histamine-1 Receptor Antagonist Start: 02-17-2025 take 1 tablet by mouth twice daily ondansetron 4 mg disintegrating oral tablet (12 sources) Serotonin-3 Receptor Antagonist Start: 04-15-2025 take 1 tablet by mouth every eight hours as needed for nausea Start: 01-16-2024 End: 01-23-2024 take 1 tablet by mouth every eight hours as needed for nausea and vomiting and nausea and nausea ondansetron (Zofran) 4 MG tablet Indications: Nausea Take 1 tablet (4 mg) by mouth every 8 hours as needed for nausea or vomiting for up to 7 days. 20 tablet 0 01/16/2024 01/23/2024 Active SUMAtriptan 50 mg oral tablet (5 sources) Serotonin-1b and Serotonin-1d Receptor Agonist Start: 07-22-2023 End: 07-21-2024 SUMAtriptan (Imitrex) 50 MG tablet Indications: Migraine without aura and without status migrainosus, not intractable Take 1 tablet (50 mg) by mouth Once as needed for migraine. May repeat after 2 hours. 27 tablet 3 07/22/2023 07/21/2024 Active traMADol hydrochloride 50 mg oral tablet (5 sources) Opioid Agonist Start: 10-22-2023 take 1 tablet by mouth every six hours as needed traMADol (Ultram) 50 MG tablet Take 1 tablet by mouth every 6 hours as needed. 0 10/22/2023 Active Start: 10-22-2023 take 1 tablet by андрей th three times daily traMADol (Ultram) 50 MG tablet Take 1 tablet by mouth 3 times daily. 0 10/22/2023 Active Completed/Discontinued Medications Medication Drug Class(es) Dates Sig (Normalized) Sig (Original) acetaminophen 500 mg oral tablet (17 sources) Start: 07-12-2024 End: 02-17-2025 take 1 tablet by mouth every six hours as needed Acetaminophen (Tylenol Extra Strength) 500 mg tablet Discontinued 500 mg PO EVERY 6 HOURS as needed July 12, 2024 12:00am February 17, 2025 11:47am allergy shot (17 sources) Start: 02-17-2025 End: 04-12-2025 allergy shot Discontinued IM February 17, 2025 12:00am April 12, 2025 9:17am Weekly allergy shots Start: 02-17-2025 allergy shot A ctive IM February 17, 2025 12:00am Weekly allergy shots amoxicillin 500 mg oral capsule (3 sources) Penicillin-class Antibacterial Start: 01-16-2024 End: 02-11-2024 take 1 capsule by mouth three times daily amoxicillin (Amoxil) 500 MG capsule Indications: Sore throat , Ear pain, right Take 1 capsule (500 mg) by mouth 3 times daily. 21 capsule 0 01/16/2024 02/11/2024 Discontinued (Therapy completed) Start: 03-16-2022 End: 03-23-2022 take 1 tablet by mouth twice daily amoxicillin (AMOXIL) 875 mg tablet Indications: Otitis media with effusion, left Take 1 tablet by mouth twice daily for 7 days. 14 tablet 0 03/16/2022 03/23/2022 Active Comment on above: Take 1 tablet by андрей th twice daily for 7 days. amoxicillin 875 mg / clavulanate 125 mg oral tablet (20 sources) Penicillin-class Antibacterial Start: 05-17-2023 End: 06-18-2023 Amoxicillin-Pot Clavulanate 875-125 mg tablet Discontinued 1 {tbl} PO TWICE A DAY 14 0 May 17, 2023 12:00am June 18, 2023 12:45pm Acute maxillary sinusitis Acute maxillary sinusitis, unspecified Start: 05-17-2023 End: 06-18-2023 take 1 tablet by mouth twice daily Amoxicillin-Pot Clavulanate Discontinued 1 TABLET PO TWICE A DAY 14 May 17, 2023 12:00am June 18, 2023 12:45pm Start: 03-16-2019 End: 03-16-2022 take 1 tablet by mouth twice daily amoxicillin-clavulanic acid (AUGMENTIN) 875-125 mg per tablet Indications: Bacterial sinusitis Take 1 tablet by mouth twice daily. 20 tablet 0 03/16/2019 03/16/2022 Discontinued Comment on above: Take 1 tablet by андрей twice daily. benzonatate 200 mg oral capsule (18 sources) Non-narcotic Antitussive Start: End: take 1 capsule by mouth three times daily as needed for cough Benzonatate 200 mg capsule Discontinued 200 mg PO THREE TIMES A DAY as needed for cough 20 January 19, 2024 12:00am April 21, 2024 2:19pm busPIRone hydrochloride 5 mg oral tablet (1 source) Start: 022 End: take 1 tablet by mouth twice daily as needed busPIRone (Buspar) 5 MG tablet Take 5 mg by mouth 2 times daily as needed. 0 07/11/2022 12/18/2022 Discontinued (Med list cleanup) 1 ml certolizumab pegol 200 mg/ml prefilled syringe (1 source) Start: 023 End: Cimzia 2 X 200 MG/ML Prefilled Syringe Kit injection cholecalciferol 0.05 mg oral capsule (19 sources) Vitamin D Start: 024 End: take 1 capsule by mouth once daily Cholecalciferol (Vitamin D3) 50 mcg (2,000 unit) capsule Discontinued 50 ug PO DAILY April 21, 2024 12:00am February 17, 2025 11:47am take 1 capsule by mouth once sierra ly cholecalciferol (Vitamin D-3) 50 MCG (2000 UT) capsule Take 2,000 Units by mouth daily. 0 Active cyclobenzaprine hydrochloride 10 mg oral tablet (6 sources) Muscle Relaxant Start: 09-13-2022 End: 12-18-2022 take 1 tablet by mouth every eight hours as needed cyclobenzaprine (Flexeril) 10 MG tablet Take 10 mg by mouth every 8 hours as needed. 0 09/13/2022 12/18/2022 Discontinued (Med list cleanup) Start: 11-14-2019 take 5 mg by mouth at bedtime Cyclobenzaprine Active 5 MG PO AT BEDTIME November 14, 2019 12:00am Start: 11-09-2019 End: 09-13-2022 take 1 tablet by mouth three times daily as needed cyclobenzaprine (FLEXERIL) 5 mg tablet Indications: Referred otalgia of right ear Take 1 tablet by mouth three times daily as needed. 30 tablet 0 11/09/2019 09/13/2022 Discontinued Comment on above: Take 1 tablet by андрей th three times daily as needed. Take 1 tablet by андрей th every 8 hours as needed for up to 10 days. dicyclomine hydrochloride 20 mg oral tablet (17 sources) Anticholinergic Start: 08-16-20 End: 02-18-20 take 1 tablet by mouth three times daily as needed for pain Dicyclomine 20 mg tablet Discontinued 20 mg PO THREE TIMES A DAY as needed for abdominal pain 60 1 August 16, 2024 1:00am February 17, 2025 11:47am ethynodiol d-ethinyl estradiol (ZOVIA 1/35E, 28, ORAL) (3 sources) ethynodiol d-ethinyl estradiol (ZOVIA 1/35E, 28, ORAL) Take by mouth. 0 Active Comment on above: Take by mouth. ibuprofen 200 mg oral capsule (20 sources) Nonsteroidal Anti-inflammatory Drug Start: 07-12-20 End: 02-18-20 take 1 capsule by mouth every six hours as needed Ibuprofen 200 mg capsule Discontinued 200 mg PO EVERY 6 HOURS as needed July 12, 2024 12:00am February 17, 2025 11:47am Start: 08-20-2023 take 1 tablet by андрей th three times daily ibuprofen 600 MG tablet Indications: Acute right-sided low back pain without sciatica TAKE 1 TABLET BY MOUTH THREE TIMES A DAY 90 tablet 0 08/20/2023 Active Start: 02-13-2023 End: 07-22-2023 take 1 tablet by mouth three times daily ibuprofen 600 MG tablet Indications: Acute right-sided low back pain without sciatica TAKE 1 TABLET BY MOUTH THREE TIMES A DAY 90 tablet 0 07/22/2023 Active Start: 04-29-2022 End: 01-17-2023 take 1 tablet by mouth three times daily ibuprofen 600 MG tablet Indications: Acute right-sided low back pain without sciatica Take 1 tablet (600 mg) by mouth 3 times daily. 90 tablet 1 12/18/2022 01/17/2023 Active Start: 11-09-2019 End: 09-13-2022 take 1 tablet by mouth every six hours as needed for pain ibuprofen (MOTRIN) 600 mg tablet Indications: Referred otalgia of right ear Take 1 tablet by mouth every 6 hours as needed for Pain. 30 tablet 1 11/09/2019 09/13/2022 Discontinued Start: 04-16-2019 End: 09-13-2022 take 200 mg by mouth every six hours Ibuprofen Active 200 MG PO EVERY 6 HOURS April 15, 2019 11:00pm take 1 tablet by андрей th every six hours as needed for pain ibuprofen (ADVIL;MOTRIN) 200 MG tablet Take 200 mg by mouth every 6 hours as needed for Pain 0 Active Comment on above: Take by mouth as nee ded. Take 1 tablet by андрей th every 6 hours as needed for Pain. levOCARNitine 500 mg oral tablet (12 sources) Carnitine Analog End: 01-15 levOCARNitine (L-Carnitine) 500 MG tablet Take by mouth. 0 01/16/2024 Discontinued (Med list cleanup) meclizine hydrochloride 25 mg oral tablet (20 sources) Antiemetic Start : 12-05 End: 11-05 take 1 tablet by mouth four times daily as needed for dizziness Meclizine 25 mg tablet Discontinued 25 mg PO 4 TIMES DAILY NEEDED as needed for Dizziness 20 0 December 05, 2022 1:00am November 05, 2023 3:13am medroxyPROGESTERone acetate 10 mg oral tablet (17 sources) Progestin Start : 07-28 End: 08-02 take 1 tablet by mouth once daily Medroxyprogesterone (Provera) 10 mg tablet Discontinued 10 mg PO DAILY 5 5 0 July 28, 2024 12:00am August 01, 2024 12:00am August 02, 2024 1:09am methylPREDNISolone 4 mg oral tablet (20 sources) Corticosteroid Start : 04-19 End: 04-24 take 1 tablet by mouth once Methylprednisolone (Medrol (Alex)) 4 mg tablets,dose pack Discontinued 4 mg PO per package directions 21 5 0 April 19, 2019 12:00am April 23, 2019 12:00am April 24, 2019 12:07am predniSONE 20 mg oral tablet (20 sources) Start : 05-17 End: 06-18 take 1 tablet by mouth once daily Prednisone 20 mg tablet Discontinued 20 mg PO DAILY 18 0 May 17, 2023 12:00am June 18, 2023 12:45pm Acute maxillary sinusitis Acute maxillary sinusitis, unspecified Day 1, 2, 3 60mg Day 4, 5, 6 40mg Day 7, 8, 9 20mg Start: 03-28-2021 take 20 mg by mouth twice larisa y Prednisone Active 20 MG PO TWICE A DAY 7 March 27, 2021 11:00pm sertraline 100 mg oral tablet (5 sources) Serotonin Reuptake Inhibitor Start: 03-10-2022 End: 12-18-2022 take 1 tablet by mouth once daily sertraline (Zoloft) 100 MG tablet Take 100 mg by mouth daily. 0 03/10/2022 12/18/2022 Discontinued (Med list cleanup) Start: 11-14-2019 take 50 mg by mouth once daily Sertraline Active 50 MG PO DAILY November 14, 2019 12:00am Start: 10-20-2019 End: 09-13-2022 sertraline (ZOLOFT) 50 mg ta blet Take 100 mg by mouth. 0 10/20/2019 09/13/2022 Discontinued Comment on above: Take 100 mg by mouth . tiZANidine 4 mg oral tablet (16 sources) Central alpha-2 Adrenergic Agonist Start: 3 End: take 1 tablet by mouth twice daily as needed for muscle spasms tiZANidine (Zanaflex) 4 MG tablet Indications: Acute right-sided low back pain without sciatica , Muscle spasm , Poor sleep TAKE 1 TABLET (4 MG) BY MOUTH 2 TIMES DAILY NEEDED FOR MUSCLE SPASMS. 60 tablet 0 08/20/2023 02/11/2024 Discontinued (Therapy completed) Start: 06-12-2023 End: 08-11-2023 take 1 tablet by mouth twice daily as needed for muscle spasms tiZANidine (Zanaflex) 4 MG tablet Indications: Acute right-sided low back pain without sciatica , Muscle spasm , Poor sleep Take 1 tablet (4 mg) by mouth 2 times daily as needed for muscle spasms. 60 tablet 1 06/12/2023 08/11/2023 Active Start: 12-18-2022 End: 04-13-2024 take 1 capsule by mouth twice daily tiZANidine (Zanaflex) 4 MG capsule Indications: Acute right-sided low back pain without sciatica , Muscle spasm , Poor sleep TAKE 1 CAPSULE (4 MG) BY MOUTH 2 TIMES DAILY. 60 capsule 1 04/14/2023 06/12/2023 Discontinued traZODone hydrochloride 100 mg oral tablet (17 sources) Serotonin Reuptake Inhibitor Start: 02-17-2025 End: 04-12-2025 take 50-200 mg by mouth at bedtime as needed Trazodone 100 mg tablet Discontinued 50 - 200 mg PO AT BEDTIME as needed for insomnia February 17, 2025 12:00am April 12, 2025 9:17am Problems Active Problems Problem Classification Problem Date Documented Da te Episodic/Chronic Administrative/social admission (15 sources) Patient encounter status; Translations: [Encounter for pre-employment examination] 02-08-2021 Episodic Anxiety disorders (20 sources) Generalized anxiety disorder; Translations: [Generalized anxiety disorder] Onset: 07-11-2022 12-18-2022 Chronic Asthma (20 sources) Reactive airway disease; Translations: [Unspecified asthma, uncomplicated] Onset: 06-18-2021 03-28-2021 Chronic Cardiac dysrhythmias (20 sources) Palpitations; Translations: [Sinus tachycardia] Onset: 02-11-2024 Episodic Conditions associated with dizziness or vertigo (20 sources) Dizziness; Translations: [Dizziness and giddiness] Onset: 02-11-2024 12-05-2022 Episodic E Codes: Adverse effects of medical drugs (1 source) Adverse reaction to drug; Translations: [Adverse effect of unspecified drugs, medicaments and biological substances, initial encounter] 11-11-2023 Episodic Fluid and electrolyte disorders (20 sources) Dehydration; Translations: [Dehydration] Onset: 05-12-2025 12-05-2022 Episodic Genitourinary symptoms and ill-defined conditions (1 source) Dysuria; Translations: [Dysuria] Onset: 09-21-2018 Episodic Headache; including migraine (14 sources) Migraine without aura, not refractory ; Translations: [Migraine without aura, not intractable, without status migrainosus] Onset: 06-18-2021 07-13-2022 Chronic Hemorrhage during ; abruptio placenta; placenta previa (1 source) Antepartum hemorrhage, unspecified, unspecified trimester; Translations: [Antepartum hemorrhage, unspecified, unspecified trimester] Onset: 06-22-2025 Episodic Immunizations and screening for infectious disease (14 sources) Contact with and (suspected) exposure to other viral communicable diseases; Translations: [Contact with or suspected exposure to other viral communicable disease] 10-28-2022 Episodic Lymphadenitis (20 sources) Mesenteric lymphadenitis; Translations: [Nonspecific mesenteric lymphadenitis] Onset: 06-18-2021 08-17-2020 Episodic Medical examination/evaluation (1 source) Encounter for other preprocedural examination; Translations: [Encounter for other preprocedural examination] Onset: 2018 Episodic Menstrual disorders (1 source) Irregular menstruation, unspecified; Translations: [Irregular menstruation, unspecified] Onset: 12-01-2024 Chronic Mood disorders (14 sources) Mood disorder; Translations: [Unspecified mood [affective] disorder] Onset: 02-22-2021 07-13-2022 Chronic Mycoses (1 source) Tinea corporis; Translations: [Tinea corporis] Onset: 07-11-2025 Episodic Nausea and vomiting (4 sources) Nausea; Translations: [Nausea] Onset: 01-16-2024 01-16-2024 Episodic Noninfectious gastroenteritis (17 sources) Colitis; Translations: [Noninfective gastroenteritis and colitis, unspecified] 07-02-2024 Episodic Nonspecific chest pain (20 sources) Chest pain, unspecified; Translations: [Acute chest pain] Onset: 06-22-2018 11-05-2023 Episodic Nutritional deficiencies (4 sources) Vitamin D deficiency; Translations: [Vitamin D deficiency, unspecified] Onset: 11-11-2023 11-11-2023 Chronic Other circulatory disease (16 sources) Elevated blood-pressure reading without diagnosis of hypertension; Translations: [Elevated blood-pressure reading, without diagnosis of hypertension] 03-15-2025 Episodic Other complications of (20 sources) Maternal obesity complicating , childbirth and the puerperium, antepartum; Translations: [Obesity complicating , unspecified trimester] 04-12-2025 Chronic Comment on above: BMI 30.7; HgBA1C ord ered w/NOB Other complications of (1 source) Obesity complicating , unspecified trimester; Translations: [Obesity complicating , unspecified trimester] Onset: 07-11-2025 Chronic Other complications of (20 sources) Abdominal pain in early ; Translations: [Other specified related conditions, unspecified trimester] 03-15-2025 Episodic Other complications of (20 sources) High risk ; Translations: [Supervision of high risk , unspecified, unspecified trimester] 04-12-2025 Episodic Comment on above: , KAUR 11/22/25, BF: Santy PRR , KAUR , girl Tracy BF: Santy Other complications of (11 sources) Vomiting of , unspecified; Translations: [Nausea and vomiting during ] 04-15-2025 Episodic Other complications of (20 sources) RhD negative; Translations: [Other specified related conditions, unspecified trimester] 04-12-2025 Episodic Comment on above: A-; Rhogam at 28week s & PRN Other complications of (1 source) Other specified related conditions, unspecified trimester; Translations: [Other specified related conditions, unspecified trimester] Onset: 07-11-2025 Episodic Other complications of (1 source) Supervision of high risk , unspecified, unspecified trimester; Translations: [Supervision of high risk , unspecified, unspecified trimester] Onset: 07-11-2025 Episodic Other connective tissue disease (2 sources) Pain in left arm; Translations: [Pain in left arm] Onset: 06-22-2018 Episodic Other connective tissue disease (1 source) Trochanteric bursitis of right hip; Translations: [Trochanteric bursitis, right hip] 03-13-2023 Episodic Other connective tissue disease (3 sources) Spasm; Translations: [Other muscle spasm] 04-14-2023 Episodic Other ear and sense organ disorders (1 source) Impacted cerumen in left ear; Translations: [Impacted cerumen, left ear] Episodic Other ear and sense organ disorders (4 sources) Impacted cerumen; Translations: [Impacted cerumen, unspecified ear] 06-18-2023 Episodic Other ear and sense organ disorders (1 source) Impacted cerumen, unspecified ear; Translations: [Impacted cerumen] 06-18-2023 Episodic Other ear and sense organ disorders (3 sources) Otalgia, right ear; Translations: [Otalgia, unspecified] Onset: 01-16-2024 01-16-2024 Episodic Other gastrointestinal disorders (20 sources) Irritable bowel syndrome; Translations: [Irritable bowel syndrome without diarrhea] 07-12-2024 Chronic Other gastrointestinal disorders (1 source) Mixed irritable bowel syndrome; Translations: [Mixed irritable bowel syndrome] Onset: 07-11-2025 Chronic Other gastrointestinal disorders (1 source) Irritable bowel syndrome without diarrhea; Translations: [Irritable bowel syndrome, unspecified] Onset: 03-23-2025 Chronic Other non-traumatic joint disorders (3 sources) Pain in right hip joint; Translations: [Pain in right hip] 03-13-2023 Episodic Other non-traumatic joint disorders (3 sources) Joint pain; Translations: [Pain in unspecified joint] 03-13-2023 Episodic Other and delivery including normal (20 sources) Early stage of ; Translations: [Encounter for supervision of normal , unspecified, unspecified trimester] Onset: 05-25-2025 03-30-2025 Episodic Comment on above: Discussed genetic/ca rrier testing - elects NIPT w/gender + Carrier lr nipt. Carrier neg . Other skin disorders (1 source) Disorder of sweat gland; Translations: [Eccrine sweat disorder, unspecified] 02-11-2024 Episodic Other skin disorders (2 sources) Eccrine sweat disorder, unspecified; Translations: [Eccrine sweat disorder, unspecified] Onset: 02-11-2024 Episodic Other upper respiratory disease (1 source) Acute bronchospasm; Translations: [Acute bronchospasm] Onset: 2018 Episodic Other upper respiratory disease (3 sources) Bronchospasm; Translations: [Acute bronchospasm] 2018 Episodic Other upper respiratory infections (20 sources) Upper respiratory infection; Translations: [Acute upper respiratory infection, unspecified] Onset: 01-16-2024 10-28-2022 Episodic Otitis media and related conditions (1 source) Otitis media; Translations: [Unspecified nonsuppurative otitis media, left ear] Episodic Ovarian cyst (17 sources) Cyst of ovary; Translations: [Unspecified ovarian cyst, unspecified side] 07-14-2024 Episodic Comment on above: Right side Residual codes; unclassified (3 sources) Difficulty sleeping ; Translations: [Sleep deprivation] 04-14-2023 Episodic Residual codes; unclassified (1 source) Sedentary lifestyle; Translations: [Lack of physical exercise] 11-12-2023 Episodic Residual codes; unclassified (16 sources) Family history of gene mutation; Translations: [Family history of diseases of the blood and blood-forming organs and certain disorders involving the immune mechanism] 04-12-2025 Episodic Comment on above: Father, paternal gra ndfather & paternal uncle (). 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 DISCUSS IF FOCUS NEEDS DONE, PREVIOUSY PATIENT WANTED IT. Residual codes; unclassified (8 sources) Family history of Factor V Leiden mutation; Translations: [Family history of diseases of the blood and blood-forming organs and certain disorders involving the immune mechanism] 04-12-2025 Episodic Comment on above: Father, paternal gra ndfather & paternal uncle (). Paternal aunt - carrier Residual codes; unclassified (1 source) 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 of other disease; Translations: [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 of other disease] Onset: 07-11-2025 Episodic Residual codes; unclassified (1 source) Unspecified blood type, Rh negative; Translations: [Unspecified blood type, Rh negative] Onset: 07-11-2025 Episodic Residual codes; unclassified (1 source) Family history of diseases of the blood and blood-forming organs and certain disorders involving the immune mechanism; Translations: [Family history of diseases of the blood and blood-forming organs and certain disorders involving the immune mechanism] Onset: 07-11-2025 Episodic Residual codes; unclassified (1 source) 20 weeks gestation of ; Translations: [20 weeks gestation of ] Onset: 07-11-2025 Episodic Residual codes; unclassified (1 source) 16 weeks gestation of ; Translations: [16 weeks gestation of ] Onset: 06-07-2025 Episodic Residual codes; unclassified (1 source) 13 weeks gestation of ; Translations: [13 weeks gestation of ] Onset: 05-20-2025 Episodic Rheumatoid arthritis and related disease (20 sources) Rheumatoid arthritis; Translations: [Rheumatoid arthritis, unspecified] Onset: 10-21-2023 11-13-2023 Chronic Screening and history of mental health and substance abuse codes (20 sources) Ex-tobacco user 04-12-2025 Episodic Comment on above: Quit January 2025 Spondylosis; intervertebral disc disorders; other back problems (9 sources) Cervicalgia; Translations: [Acute low back pain] Onset: 06-22-2018 Episodic Sprains and strains (20 sources) Strain of knee; Translations: [Strain of unspecified muscle(s) and tendon(s) at lower leg level, right leg, initial encounter] 04-16-2019 Episodic Unclassified (1 source) Pain, unspecified; Translations: [Pain, unspecified] Onset: 04-21-2017 Unclassified (1 source) Other specified postprocedural states; Translations: [Other specified postprocedural states] Onset: 04-07-2018 Unclassified (1 source) Encounter for screening for COVID-19; Translations: [Encounter for screening for COVID-19] Onset: 11-17-2021 Unclassified (1 source) Other specified diseases and conditions complicating ; Translations: [Other specified diseases and conditions complicating ] Onset: 03-22-2025 Past or Other Problems Problem Classification Problem Date Documented Date Episodic/Chronic Abdominal pain (20 sources) Abdominal pain; Translations: [Unspecified abdominal pain] Onset: 03-22-2025 08-17-2020 Episodic Contraceptive and procreative management (1 source) Oral contraception; Translations: [Encounter for surveillance of contraceptive pills] Episodic Joint disorders and dislocations; trauma-related (19 sources) Unspecified tear of unspecified meniscus, current injury, right knee, subsequent encounter; Translations: [Tear of meniscus of knee] Onset: 09-15-2015 01-09-2017 Episodic Other connective tissue disease (2 sources) Trochanteric bursitis, right hip; Translations: [Trochanteric bursitis, right hip] Onset: 03-13-2023 Episodic Other female genital disorders (1 source) Other specified noninflammatory disorders of vagina; Translations: [Other specified noninflammatory disorders of vagina] Onset: 11-25-2024 Episodic Other injuries and conditions due to external causes (1 source) Unspecified injury of left foot, initial encounter; Translations: [Unspecified injury of left foot, initial encounter] Onset: 02-22-2025 Episodic Other injuries and conditions due to external causes (1 source) Unspecified injury of unspecified foot, initial encounter; Translations: [Unspecified injury of unspecified foot, initial encounter] Onset: 02-17-2025 Episodic Other injuries and conditions due to external causes (1 source) Unspecified injury of unspecified ankle, initial encounter; Translations: [Unspecified injury of unspecified ankle, initial encounter] Onset: 02-17-2025 Episodic Other non-traumatic joint disorders (8 sources) Pain in right knee; Translations: [Pain in joint, lower leg] Onset: 09-15-2015 09-15-2015 Episodic Other non-traumatic joint disorders (2 sources) Pain in right hip; Translations: [Pain in right hip] Onset: 03-13-2023 Episodic Other non-traumatic joint disorders (2 sources) Pain in unspecified joint; Translations: [Pain in unspecified joint] Onset: 03-13-2023 Episodic Other screening for suspected conditions (not mental disorders or infectious disease) (1 source) Encounter for screening for malignant neoplasm of cervix; Translations: [Encounter for screening for malignant neoplasm of cervix] Onset: 12-16-2024 Episodic Results Test Name Value Interpretation Reference Range Facility Engraver Signature Office Visit Reporton 07-11-2025 Engraver Signature Office Visit Report [facility] [address], [address] [place] [address] OFFICE VISIT Date of Service: 07/11/25 MR#: [id number] Acct: [id number] Name: JUMANA HARRIS Rep #: [id number] : 2000 Provider: Dr. 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 Required: No Is patient in pain?: No Allergies Egg Derived Allergy (Intermediate, Verified 07/11/25 09:33) Hives hydroxychloroquine (From Plaquenil) Allergy (Intermediate, Verified 07/11/25 09:33) Rash adhesive Allergy (Mild, Verified 07/11/25 09:33) rash Medications ???Medication ???Instructions ???Recorded ???Confirmed ???Type fexofenadine 60 mg tablet (Liss 60 mg PO BID 02/17/25 07/11/25 H istory Allergy) docosahexaenoic acid 200 mg 200 mg PO DAILY 04/12/25 07/11/25 History capsule ( DHA) ondansetron 4 mg disintegrating 4 mg PO Q8H PRN PRN Nausea #20 tab s 04/15/25 07/11/25 Rx tablet clotrimazole 1 % topical cream 1 applic topical BID 4 weeks #45 1 07/11/25 Rx grams famotidine 20 mg tablet (Pepcid) 20 mg PO BID #60 tabs 07/11/25 Rx Last Menstrual Period: 02/13/25 Zika: Zika virus screening: Negative : No PFSH PFSH Medical History 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 Ovarian cyst Depression Anxiety Irregular heart beat Migraines Bronchial spasms Surgical History S/P wisdom tooth extraction H/O knee surgery History of tonsillectomy Family History Grandfather Cancer Paternal- skin cancer COPD (chronic obstructive pulmonary disease) Factor 5 Leiden mutation, heterozygous Grandmother Congestive heart failure Rheumatoid arthritis Father Factor 5 Leiden mutation, heterozygous Mother Gestational diabetes Hypertension Osteoarthritis Grandmother Arthritis Social History adopted: No household members: significant other number of children: 0 current occupational status: employed 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/hazards: No pets and animals: Yes pets and animals: dog(s) history of recent travel: No sexually active: Yes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 smoker quit date: 01/27/25 second hand exposure: Yes quit status: quit date established alcohol intake: current alcohol intake frequency: a few times a month Alcohol type: other details: Not while substance use type: does not use diet: other well-balanced diet: about half the time caffeine: Yes Type: carbonated beverages Number of servings: 1 eating out: 1-3 times/week during the past year weight has: increased > 10 lbs what type of physical activity do you participate in: walking frequency: 3-4 times per week duration: < 15 minutes/day jaye/yazidi: Gnosticist seatbelt use: always do you feel safe at home: Yes additional social history: (Martinez) : BF: [facility] History 1 Elective abortions 0 Hx Para 0 Spontaneous abortions 0 Hx # Term Pregnancies Ectopic pregnancies Hx # Pregnancies Multiple births # of living children HPI 20wk6d ob Details: JUMANA HARRIS is a 25 year old who presents for routine OB visit. OB Visit KAUR Calculator Estimated Delivery Date Method Current WG Current Estimate 11/22/25 Ultrasound #1 20w 6d Other Estimates 11/20/25 LMP (Certain) 21w 1d Expected Delivery Route/Plan Labor Preferences- CB/BF classes: [] labor support person: [] labor intervention preferences: [] pain management options preferred: [] cut cord/dad catch: [] : [] PP control planned: [] discussed possible routes of delivery and associated risks: [] special requests: [] Specific Issue/Plans Covid status: [] Flu vaccine: [] Tdap vaccine: [] Rhogam: [] LARC form signed: [] Problem list reviewed and updated with the most current plan of care details and appropriate orders placed. Relevant counseling for the gestational age provided. Continue routine care and follow up unless otherwise noted in visit notes/problem list details Initial Weight: 172 lb Date -???-???-???-???-???-??? -???-???-???-???-???-??? - EGA Weight BP Urine Prot -???-???-???-???-???-??? -???-???-???-???-???-??? - Glucose FHR FuHt Pres Dilation -???-???-???-???-???-??? -???-???-???-???-???-??? - Effaced (more content not included)... Normal [facility] Urine Cultureon 06-15-2025 URC Culture exhibits no growth. Normal [facility] Comment on above: Performed By: #### L 500.4050, L100.0100, L501.2450 #### [facility] [address] [place], [address] Laboratory - Chemistry and C hemistry - challengeOrdered By: Wendy Cat on 06-14-2025 Glucose Ql (U) Negative [facility] Laboratory - UrinalysisOrder ed By: Wendy Cat on 06-14-2025 Protein Ql (U) Negative [facility] Engraver Signature Office Visit Reporton 06-14-2025 Engraver Signature Office Visit Report [facility] [address], [address] [place] [address] OFFICE VISIT Date of Service: 06/14/25 MR#: [id number] Acct: [id number] Name: JMUANA HARRIS Rep #: [id number] : 2000 Provider: CARLOS ALBERTO Mahoney ams Age/Sex: 25/F Location: [facility] Status: Signed Intake Vital Signs 05/20/25 13:58 06/07/25 14:01 06/14/25 08:51 Height 5 ft 3 in 5 ft 3 in 5 ft 3 in Weight: 172 lb 3 oz BMI 30.4 BP 114/75 Intake Visit Reasons: 16 WK OB Chief Complaint: 16wk OB 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 Required: No Is patient in pain?: No Allergies Egg Derived Allergy (Intermediate, Verified 06/14/25 08:50) Hives hydroxychloroquine (From Plaquenil) Allergy (Intermediate, Verified 06/14/25 08:50) Rash adhesive Allergy (Mild, Verified 06/14/25 08:50) rash Medications ???Medication ???Instructions ???Recorded ???Confirmed ???Type fexofenadine 60 mg tablet (Liss 60 mg PO BID 02/17/25 06/14/25 H istory Allergy) docosahexaenoic acid 200 mg 200 mg PO DAILY 04/12/25 06/14/25 History capsule ( DHA) ondansetron 4 mg disintegrating 4 mg PO Q8H PRN PRN Nausea #20 tab s 04/15/25 06/14/25 Rx tablet Last Menstrual Period: 02/13/25 : No PFSH PFSH Medical History 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 Ovarian cyst Depression Anxiety Irregular heart beat Migraines Bronchial spasms Surgical History S/P wisdom tooth extraction H/O knee surgery History of tonsillectomy Family History Grandfather Cancer Paternal- skin cancer COPD (chronic obstructive pulmonary disease) Factor 5 Leiden mutation, heterozygous Grandmother Congestive heart failure Rheumatoid arthritis Father Factor 5 Leiden mutation, heterozygous Mother Gestational diabetes Hypertension Osteoarthritis Grandmother Arthritis Social History adopted: No household members: significant other number of children: 0 current occupational status: employed 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/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: No pets and animals: Yes pets and animals: dog(s) history of recent travel: No sexually active: Yes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 smoker quit date: 05/01/25 second hand exposure: Yes quit status: quit date established alcohol intake: current alcohol intake frequency: a few times a month Alcohol type: other details: Not while substance use type: does not use diet: other well-balanced diet: about half the time caffeine: Yes Type: carbonated beverages Number of servings: 1 eating out: 1-3 times/week during the past year weight has: increased > 10 lbs what type of physical activity do you participate in: walking frequency: 3-4 times per week duration: < 15 minutes/day jaye/yazidi: Gnosticist seatbelt use: always do you feel safe at home: Yes additional social history: (Martinez) : BF: [employer] History 1 Elective abortions 0 Hx Para 0 Spontaneous abortions 0 Hx # Term Pregnancies Ectopic pregnancies Hx # Pregnancies Multiple births # of living children HPI 16 WK OB Details: JUMANA HARRIS is a 25 year old who presents for routine OB visit. OB Visit KAUR Calculator Estimated Delivery Date Method Current WG Current Estimate 11/22/25 Ultrasound #1 17w 0d Other Estimates 11/20/25 LMP (Certain) 17w 2d Expected Delivery Route/Plan Labor Preferences- CB/BF classes: [] labor support person: [] labor intervention preferences: [] pain management options preferred: [] cut cord/dad catch: [] : [] PP control planned: [] discussed possible routes of delivery and associated risks: [] special requests: [] Specific Issue/Plans Covid status: [] Flu vaccine: [] Tdap vaccine: [] Rhogam: [] LARC form signed: [] Problem list reviewed and updated with the most current plan of care details and appropriate orders placed. Relevant counseling for the gestational age provided. Continue routine care and follow up unless otherwise noted in visit notes/problem list details Initial Weight: 172 lb Date -???-???-???-???-???-??? -???-???-???-???-???-??? - EGA Weight BP Urine Prot -???-???-???-???-???-??? -???-???-???-???-???-??? - Glucose FHR FuHt Pres Dilation -???-???-???-???-???-??? -???-???-???-???-???-??? - Effaced St Visit Note 04/22/ -???-???-???-???-???-??? -???-???-???-???-???-??? - 9w 3d 172 lb (+0 oz) 132/75 -???-???-???-???-???-??? -???-???-???-???-???-??? - 169 -???-???-???-???-???-??? -???-???-???-???-???-??? - Lc 2.49CRL c on with Lmp. desires (more content not included)... Normal [facility] Urine cultureOrdered By: Moshe Kauffman on 06-14-2025 Bacteria identified Cx Nom (U) Culture exhibits no growth. [facility] Absolute lymphocyte countOrd ered By: Tish Kauffman on 06-07-2025 Lymphocytes Auto (Unsp spec) [#/Vol] 1.52 10*3/uL 0.83-4.[address] [facility] Absolute neutrophil countOrd ered By: Tish Kauffman on 06-07-2025 Neutrophils (Bld) [#/Vol] 5.4 10*3/uL 2.0-7.[address] [facility] Anion gap in Serum or Plasma Ordered By: Tish Kauffman on 06-07-2025 Anion gap [Moles/Vol] 11 mmol/L 5-15 [facility] Automated lymphocyte count a s percentage of total leukocytesOrdered By: Tish Kauffman on 06-07-2025 Lymphocytes/100 WBC Auto (Unsp spec) 20.2 % 19-[address] [facility] BUN/creatinine ratioOrdered By: Tish Kauffman on 06-07-2025 Urea nitrogen/Creatinine [Mass ratio] 7.9 mg/mg Low 10-[address] [facility] Basophil percentageOrdered B y: Tish Kauffman on 06-07-2025 Basophils/100 WBC (Bld) 0.3 % 0-[address] [facility] Bilirubin, totalOrdered By: Tish Kauffman on 06-07-2025 Bilirubin [Mass/Vol] 0.47 mg/dL 0.00-1.30 [facility] CBC W/Diff, Automatedon Absolute Lymph 1.52 X10 3/uL Normal 0.83-4.[address] [facility] Comment on above: Performed By: #### L 500.4050, L100.0100 #### [facility] [address] [place], [address] Absolute Neut 5.4 X10 3/uL Normal 2.0-7.[address] [facility] Comment on above: Performed By: #### L 500.4050, L100.0100 #### [facility] [address] [place], [address] Basophils/100 WBC (Bld) 0.3 % Normal 0-[address] [facility] Comment on above: Performed By: #### L 500.4050, L100.0100 #### [facility] [address] [place], [address] Eosinophils/100 WBC (Bld) 0.7 % Normal 0-[address] [facility] Comment on above: Performed By: #### L [id number], L100.0100 #### [facility] [address] [place], [address] Erythrocyte distribution width (RBC) [Ratio] 11.9 % Normal 11.6-14.[address] [facility] Comment on above: Performed By: #### L 500.4050, L100.0100 #### [facility] [address] [place], [address] Hematocrit (Bld) [Volume fraction] 37.6 % Normal 37-[address] [facility] Comment on above: Performed By: #### L 500.4050, L100.0100 #### [facility] [address] [place], [address] Hemoglobin (Bld) [Mass/Vol] 12.9 g/dL Normal 12.0-15.[address] [facility] Comment on above: Performed By: #### L 500.4050, L100.0100 #### [facility] [address] [place], [address] IG% 0.300 Normal 0.0-0.[address] [facility] Comment on above: Result Comment: IG% - Immature Granulocytes (promyelocytes, myelocytes and metamyelocytes) > 1% indicates that a LEFT SHIFT is Present. Performed By: #### L 500.4050, L100.0100 #### [facility] [address] [place], [address] Lymphocytes/100 WBC (Bld) 20.2 % Normal 19-[address] [facility] Comment on above: Performed By: #### L 500.4050, L100.0100 #### [facility] [address] [place], [address] MCH (RBC) [Entitic mass] 29.2 pg Normal 27.0-32.[address] [facility] Comment on above: Performed By: #### L 500.4050, L100.0100 #### [facility] [address] [place], [address] MCHC (RBC) [Mass/Vol] 34.3 g/dL Normal 32-36 [facility] Comment on above: Performed By: #### L 500.4050, L100.0100 #### [facility] [address] [place], [address] MCV (RBC) [Entitic vol] 85.1 fL Normal 81-[address] [facility] Comment on above: Performed By: #### L [id number], L100.0100 #### [facility] [address] [place], [address] Monocytes/100 WBC (Bld) 7.3 % Normal 0-[address] [facility] Comment on above: Performed By: #### L [id number], L100.0100 #### [facility] [address] [place], [address] Neutrophils/100 WBC (Bld) 71.2 % High 47-[address] [facility] Comment on above: Performed By: #### L [id number], L100.0100 #### [facility] [address] [place], [address] Nucleated RBC (Bld) [#/Vol] 0 10*3/uL Normal 0-[address] [facility] Comment on above: Performed By: #### L 500.4050, L100.0100 #### [facility] [address] [place], [address] Platelet mean volume (Bld) [Entitic vol] 9.3 fL Normal 6.2-12.[address] [facility] Comment on above: Performed By: #### L 500.4050, L100.0100 #### [facility] [address] [place], [address] Platelets (Bld) [#/Vol] 202 10*3/uL Normal 150-[address] [facility] Comment on above: Performed By: #### L 500.4050, L100.0100 #### [facility] [address] [place], [address] RBC (Bld) [#/Vol] 4.42 10*6/uL Normal 4.2-5.4 [facility] Comment on above: Performed By: #### L 500.4050, L100.0100 #### [facility] [address] [place], [address] RDW SD 36.8 fl Normal 35.1-43.[address] [facility] Comment on above: Performed By: #### L 500.4050, L100.0100 #### [facility] [address] [place], [address] WBC (Bld) [#/Vol] 7.5 10*3/uL Normal 4.4-11.0 [facility] Comment on above: Performed By: #### L 500.4050, L100.0100 #### [facility] [address] [place], [address] Carbon dioxide, total [Moles /volume] in Central venous bloodOrdered By: Tish Kauffman on 06-07-2025 CO2 [Moles/Vol] 22.1 mmol/L 21.0-32.[address] [facility] Chloride assayOrdered By: Michelet Kauffman on 06-07-2025 Chloride [Moles/Vol] 103 mmol/L 98-108 [facility] Comprehensive Metabolic Prof ilon 06-07-2025 Albumin [Mass/Vol] 4.0 g/dL Normal 3.5-5.0 [facility] Comment on above: Performed By: #### L 500.4050, L100.0100 #### [facility] [address] [place], [address] Albumin/Globulin [Mass ratio] 1.3 {ratio} Normal 0.9-2.[address] [facility] Comment on above: Performed By: #### L 500.4050, L100.0100 #### [facility] [address] [place], [address] ALK PHOS 69 U/L Normal 35-[address] [facility] Comment on above: Performed By: #### L 500.4050, L100.0100 #### [facility] [address] [place], [address] ALT [Catalytic activity/Vol] 14 U/L Normal <=[address] [facility] Comment on above: Performed By: #### L 500.4050, L100.0100 #### [facility] [address] [place], [address] AST [Catalytic activity/Vol] 17 U/L Normal <=[address] [facility] Comment on above: Performed By: #### L 500.4050, L100.0100 #### [facility] [address] [place], [address] Bilirubin [Mass/Vol] 0.47 mg/dL Normal 0.00-1.30 [facility] Comment on above: Performed By: #### L 500.4050, L100.0100 #### [facility] [address] [place], [address] BUN/CRE 7.9 RATIO Low 10-[address] [facility] Comment on above: Performed By: #### L 500.4050, L100.0100 #### [facility] [address] [place], [address] Calcium [Mass/Vol] 9.2 mg/dL Normal 7.6-11.0 [facility] Comment on above: Performed By: #### L 500.4050, L100.0100 #### [facility] [address] [place], [address] Chloride [Moles/Vol] 103 mmol/L Normal 98-108 [facility] Comment on above: Performed By: #### L 500.4050, L100.0100 #### [facility] [address] [place], [address] CO2 [Moles/Vol] 22.1 mmol/L Normal 21.0-32.[address] [facility] Comment on above: Performed By: #### L 500.4050, L100.0100 #### [facility] [address] [place], [address] Creatinine [Mass/Vol] 0.60 mg/dL Low 0.70-1.20 [facility] Comment on above: Performed By: #### L 500.4050, L100.0100 #### [facility] [address] [place], [address] GAP 11 Normal 5-[address] [facility] Comment on above: Performed By: #### L 500.4050, L100.0100 #### [facility] [address] [place], [address] GFR/1.73 sq M.predicted among non-blacks MDRD (S/P/Bld) [Vol rate/Area] 128 mL/min/{1.73_m2} Normal >[address] [facility] Comment on above: Result Comment: mL/m in/1.73m2 CKD-EPI Creatinine Equation (2020) Performed By: #### L 500.4050, L100.0100 #### [facility] [address] [place], [address] Globulin (S) [Mass/Vol] 3.0 g/dL Normal 2.2-4.[address] [facility] Comment on above: Performed By: #### L 500.4050, L100.0100 #### [facility] [address] [place], [address] Glucose [Mass/Vol] 95 mg/dL Normal 70-99 [facility] Comment on above: Performed By: #### L 500.4050, L100.0100 #### [facility] [address] [place], [address] Potassium [Moles/Vol] 4.0 mmol/L Normal 3.3-5.1 [facility] Comment on above: Performed By: #### L 500.4050, L100.0100 #### [facility] [address] [place], [address] Sodium [Moles/Vol] 136 mmol/L Normal 133-145 [facility] Comment on above: Performed By: #### L 500.4050, L100.0100 #### [facility] [address] [place], [address] T PROT 7.0 g/dL Normal 5.9-8.[address] [facility] Comment on above: Performed By: #### L 500.4050, L100.0100 #### [facility] [address] [place], [address] Urea nitrogen [Mass/Vol] 5 mg/dL Normal 4-[address] [facility] Comment on above: Performed By: #### L 500.4050, L100.0100 #### [facility] [address] [place], [address] Eosinophil percentageOrdered By: Tish Kauffman on 06-07-2025 Eosinophils/100 WBC (Bld) 0.7 % 0-[address] [facility] Erythrocyte distribution wid th ratioOrdered By: Tish Kauffman on 06-07-2025 Erythrocyte distribution width (RBC) [Ratio] 11.9 % 11.6-14.[address] [facility] Erythrocyte distribution wid th standard deviationOrdered By: Tish Kauffman on 06-07-2025 Erythrocyte distribution width (RBC) [Ratio] 36.8 fl 35.1-43.[address] [facility] Glomerular filtration rate ( GFR) estimation/1.73 sq m using serum, plasma, or whole bOrdered By: Tish Kauffman on 06-07-2025 GFR/1.73 sq M.predicted among non-blacks MDRD (S/P/Bld) [Vol rate/Area] 128 mL/min/{1.73_m2} >[address] [facility] Comment on above: mL/min/1.73m2 CKD-EP I Creatinine Equation (2020) Hematocrit Auto (Bld) [Volum e fraction]Ordered By: Tish Kauffman on 06-07-2025 Hematocrit (Bld) [Volume fraction] 37.6 % 37-[address] [facility] Hemoglobin measurementOrdere d By: Tish Kauffman on 06-07-2025 Hemoglobin (Bld) [Mass/Vol] 12.9 g/dL 12.0-15.[address] [facility] Immature granulocytes/100 WB C Auto (Bld)Ordered By: Tish Kauffman on 06-07-2025 Immature granulocytes/100 WBC (Bld) 0.300 % 0.0-0.[address] [facility] Comment on above: IG% - Immature Granu locytes (promyelocytes, myelocytes and metamyelocytes) > 1% indicates that a LEFT SHIFT is Present. Laboratory - Chemistry and C hemistry - challengeOrdered By: Tish Kauffman on 06-07-2025 AST [Catalytic activity/Vol] 17 U/L <[address] [facility] MCV (mean corpuscular volume ) determinationOrdered By: Tish Kauffman on 06-07-2025 MCV (RBC) [Entitic vol] 85.1 fL 81-[address] [facility] Mean corpuscular hemoglobin (MCH) determinationOrdered By: Tish Kauffman on 06-07-2025 MCH (RBC) [Entitic mass] 29.2 pg 27.0-32.[address] [facility] Mean corpuscular hemoglobin concentration (MCHC) determinationOrdered By: Tish Kauffman on 06-07-2025 MCHC (RBC) [Mass/Vol] 34.3 g/dL 32-36 [facility] Mean platelet volume determi nationOrdered By: Tish Kauffman on 06-07-2025 Platelet mean volume (Bld) [Entitic vol] 9.3 fL 6.2-12.[address] [facility] Monocyte percentageOrdered B y: Tish Kauffman on 06-07-2025 Monocytes/100 WBC (Bld) 7.3 % 0-[address] [facility] Neutrophil percentageOrdered By: Tish Kauffman on 06-07-2025 Neutrophils/100 WBC (Bld) 71.2 % High 47-[address] [facility] Nucleated red blood cell per centageOrdered By: Tish Kauffman on 06-07-2025 Nucleated RBC/100 WBC (Bld) [Ratio] 0 % 0-[address] [facility] Office Visit Reporton 06-07-2025 [facility] Office Visit Report [facility] [address], [address] [place] [address] OFFICE VISIT Date of Service: 06/07/25 MR#: [id number] Acct: [id number] Name: JUMANA HARRIS Rep #: [id number] : 2000 Provider: Dr. Tish teixeira MD Age/Sex: 25/F Location: [facility] Status: Signed Intake Vital Signs 05/20/25 13:58 06/07/25 14:01 Height 5 ft 3 in 5 ft 3 in Weight: 170 lb 5 oz BMI 30.2 BP 112/75 Intake Visit Reasons: OB Brown spotting 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 Required: No Is patient in pain?: Yes (abdominal pain) Allergies Egg Derived Allergy (Intermediate, Verified 05/20/25 13:53) Hives hydroxychloroquine (From Plaquenil) Allergy (Intermediate, Verified 05/20/25 13:53) Rash adhesive Allergy (Mild, Verified 05/20/25 13:53) rash Medications ???Medication ???Instructions ???Recorded ???Confirmed ???Type fexofenadine 60 mg tablet (Liss 60 mg PO BID 02/17/25 06/07/25 H istory Allergy) docosahexaenoic acid 200 mg 200 mg PO DAILY 04/12/25 06/07/25 History capsule ( DHA) ondansetron 4 mg disintegrating 4 mg PO Q8H PRN PRN Nausea #20 tab s 04/15/25 06/07/25 Rx tablet Last Menstrual Period: 02/13/25 Zika: Zika virus screening: Negative : No PFSH PFSH Medical History 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 Ovarian cyst Depression Anxiety Irregular heart beat Migraines Bronchial spasms Surgical History S/P wisdom tooth extraction H/O knee surgery History of tonsillectomy Family History Grandfather Cancer Paternal- skin cancer COPD (chronic obstructive pulmonary disease) Factor 5 Leiden mutation, heterozygous Grandmother Congestive heart failure Rheumatoid arthritis Father Factor 5 Leiden mutation, heterozygous Mother Gestational diabetes Hypertension Osteoarthritis Grandmother Arthritis Social History adopted: No household members: significant other number of children: 0 current occupational status: employed 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/hazards: No pets and animals: Yes pets and animals: dog(s) history of recent travel: No sexually active: Yes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 smoker quit date: 01/27/25 second hand exposure: Yes quit status: quit date established alcohol intake: current alcohol intake frequency: a few times a month Alcohol type: other details: Not while substance use type: does not use diet: other well-balanced diet: about half the time caffeine: Yes Type: carbonated beverages Number of servings: 1 eating out: 1-3 times/week during the past year weight has: increased > 10 lbs what type of physical activity do you participate in: walking frequency: 3-4 times per week duration: < 15 minutes/day jaye/yazidi: Gnosticist seatbelt use: always do you feel safe at home: Yes additional social history: (Martinez) : BF: [facility] History 1 Elective abortions 0 Hx Para 0 Spontaneous abortions 0 Hx # Term Pregnancies Ectopic pregnancies Hx # Pregnancies Multiple births # of living children HPI OB Brown spotting Details: JUMANA HARRIS is a 25 year old who presents for routine OB visit. OB Visit KAUR Calculator Estimated Delivery Date Method Current WG Current Estimate 11/22/25 Ultrasound #1 16w 0d Other Estimates 11/20/25 LMP (Certain) 16w 2d Expected Delivery Route/Plan Labor Preferences- CB/BF classes: [] labor support person: [] labor intervention preferences: [] pain management options preferred: [] cut cord/dad catch: [] : [] PP control planned: [] discussed possible routes of delivery and associated risks: [] special requests: [] Specific Issue/Plans Covid status: [] Flu vaccine: [] Tdap vaccine: [] Rhogam: [] LARC form signed: [] Problem list reviewed and updated with the most current plan of care details and appropriate orders placed. Relevant counseling for the gestational age provided. Continue routine care and follow up unless otherwise noted in visit notes/problem list details Initial Weight: 172 lb Date -???-???-???-???-???-??? -???-???-???-???-???-??? - EGA Weight BP Urine Prot -???-???-???-???-???-??? -???-???-???-???-???-??? - Glucose FHR FuHt Pres Dilation -???-???-???-???-???-??? -???-???-???-???-???-??? - Effaced St Visit Note 04/22/ -???-???-???-???-???-??? -???-???-???-???-???-??? - 9w 3d 172 lb (+0 oz) 132/75 -???-???-???-???-???-??? -???-???-???-???-???-??? - 169 -???-???-???-???-???-??? -???-???-???-???-???-? (more content not included)... Normal [facility] Platelet countOrdered By: Michelet Kauffman on 06-07-2025 Platelets (Bld) [#/Vol] 202 10*3/uL 150-[address] [facility] Potassium measurement (mass/ volume)Ordered By: Tish Kauffman on 06-07-2025 Potassium (Unsp spec) [Mass/Vol] 4.0 mmol/L 3.3-5.[address] [facility] RBC Auto (Bld) [#/Vol]Ordere d By: Tish Kauffman on 06-07-2025 RBC (Bld) [#/Vol] 4.42 10*6/uL 4.2-5.4 [facility] Serum creatinine measurement (mass/volume)Ordered By: Tish Kauffman on 06-07-2025 Creatinine [Mass/Vol] 0.60 mg/dL Low 0.70-1.20 [facility] Serum globulin measurementOr dered By: Tish Kauffman on 06-07-2025 Globulin (S) [Mass/Vol] 3.0 g/dL 2.2-4.[address] [facility] Serum glucose measurement (m ass/volume)Ordered By: Tish Kauffman on 06-07-2025 Glucose [Mass/Vol] 95 mg/dL 70-99 [facility] Serum or plasma alanine fountain otransferase (ALT) measurementOrdered By: Tish Kauffman on 06-07-2025 ALT [Catalytic activity/Vol] 14 U/L <[address] [facility] Serum or plasma albumin lulu urement (mass/volume)Ordered By: Tish Kauffman on 06-07-2025 Albumin [Mass/Vol] 4.0 g/dL 3.5-5.0 [facility] Serum or plasma albumin/glob ulin mass ratioOrdered By: Tish Kauffman on 06-07-2025 Albumin/Globulin [Mass ratio] 1.3 {ratio} 0.9-2.[address] [facility] Serum or plasma alkaline gregorio sphatase measurementOrdered By: Tish Kauffman on 06-07-2025 ALP [Catalytic activity/Vol] 69 U/L 35-[address] [facility] Serum or plasma calcium lulu urement (mass/volume)Ordered By: Tish Kauffman on 06-07-2025 Calcium [Mass/Vol] 9.2 mg/dL 7.6-11.0 [facility] Serum or plasma urea nitroge n measurement (mass/volume)Ordered By: Tish Kauffman on 06-07-2025 Urea nitrogen [Mass/Vol] 5 mg/dL 4-[address] [facility] Sodium levelOrdered By: Marcial Kauffman on 06-07-2025 Sodium [Moles/Vol] 136 mmol/L 133-145 [facility] Total proteinOrdered By: Moshe Kauffman on 06-07-2025 Protein [Mass/Vol] 7.0 g/dL 5.9-8.4 [facility] White blood cell (WBC) count Ordered By: Tish Kauffman on 06-07-2025 WBC (Bld) [#/Vol] 7.5 10*3/uL 4.4-11.0 [facility] - Chemistry and C hemistry - challengeOrdered By: Tish Kauffman on 05-20-2025 Glucose Ql (U) Negative [facility] - UrinalysisOrder ed By: Tish Kauffman on 05-20-2025 Protein Ql (U) Negative [facility] Signature Office Visit Reporton 05-20-2025 Eng[facility] Signature Office Visit Report [facility]'[address], [address] [place] [address] OFFICE VISIT Date of Service: 05/20/25 MR#: [id number] Acct: [id number] Name: JUMANA HARRIS Rep #: [id number] : 2000 Provider: Dr. Tish teixeira MD Age/Sex: 25/F Location: [facility] Status: Signed Intake Vital Signs 04/06/25 09:15 05/06/25 09:18 05/20/25 13:54 05/20/25 13:58 Height 5 ft 3 in 5 ft 3 in 5 ft 3 in 5 ft 3 in Weight: 168 lb 4 oz BMI 29.7 BP 125/80 H Intake Visit Reasons: 12wk OB 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 Required: No Is patient in pain?: No Allergies Egg Derived Allergy (Intermediate, Verified 05/20/25 13:53) Hives hydroxychloroquine (From Plaquenil) Allergy (Intermediate, Verified 05/20/25 13:53) Rash adhesive Allergy (Mild, Verified 05/20/25 13:53) rash Medications ???Medication ???Instructions ???Recorded ???Confirmed ???Type fexofenadine 60 mg tablet (Liss 60 mg PO BID 02/17/25 05/20/25 H istory Allergy) docosahexaenoic acid 200 mg 200 mg PO DAILY 04/12/25 05/20/25 History capsule ( DHA) ondansetron 4 mg disintegrating 4 mg PO Q8H PRN PRN Nausea #20 tab s 04/15/25 05/20/25 Rx tablet Last Menstrual Period: 02/13/25 Zika: Zika virus screening: Negative : No PFSH PFSH Medical History 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 Ovarian cyst Depression Anxiety Irregular heart beat Migraines Bronchial spasms Surgical History S/P wisdom tooth extraction H/O knee surgery History of tonsillectomy Family History Grandfather Cancer Paternal- skin cancer COPD (chronic obstructive pulmonary disease) Factor 5 Leiden mutation, heterozygous Grandmother Congestive heart failure Rheumatoid arthritis Father Factor 5 Leiden mutation, heterozygous Mother Gestational diabetes Hypertension Osteoarthritis Grandmother Arthritis Social History adopted: No household members: significant other number of children: 0 current occupational status: employed 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/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: No pets and animals: Yes pets and animals: dog(s) history of recent travel: No sexually active: Yes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 smoker quit date: 01/27/25 second hand exposure: Yes quit status: quit date established alcohol intake: current alcohol intake frequency: a few times a month Alcohol type: other details: Not while substance use type: does not use diet: other well-balanced diet: about half the time caffeine: Yes Type: carbonated beverages Number of servings: 1 eating out: 1-3 times/week during the past year weight has: increased > 10 lbs what type of physical activity do you participate in: walking frequency: 3-4 times per week duration: < 15 minutes/day jaye/yazidi: Gnosticist seatbelt use: always do you feel safe at home: Yes additional social history: (Martinez) : BF: [facility] History 1 Elective abortions 0 Hx Para 0 Spontaneous abortions 0 Hx # Term Pregnancies Ectopic pregnancies Hx # Pregnancies Multiple births # of living children HPI 12wk OB Details: JUMANA HARRIS is a 25 year old who presents for routine OB visit. OB Visit KAUR Calculator Estimated Delivery Date Method Current WG Current Estimate 11/22/25 Ultrasound #1 13w 3d Other Estimates 11/20/25 LMP (Certain) 13w 5d Expected Delivery Route/Plan Labor Preferences- CB/BF classes: [] labor support person: [] labor intervention preferences: [] pain management options preferred: [] cut cord/dad catch: [] : [] PP control planned: [] discussed possible routes of delivery and associated risks: [] special requests: [] Specific Issue/Plans Covid status: [] Flu vaccine: [] Tdap vaccine: [] Rhogam: [] LARC form signed: [] Problem list reviewed and updated with the most current plan of care details and appropriate orders placed. Relevant counseling for the gestational age provided. Continue routine care and follow up unless otherwise noted in visit notes/problem list details Initial Weight: 172 lb Date -???-???-???-???-???-??? -???-???-???-???-???-??? - EGA Weight BP Urine Prot -???-???-???-???-???-??? -???-???-???-???-???-??? - Glucose FHR FuHt Pres Dilation -???-???-???-???-???-??? -???-???-???-???-???-??? - Effaced St Visit Note 04/22/25 -???-???-???-???-???-??? -???-???-???-???-???-??? - 9w 3d 172 lb (+0 oz) 132/75 -???-???-???-???-???-??? -???-???-???-???-???-??? - 169 -???-???-???-???-???-??? -??? (more content not included)... Normal [facility] Absolute lymphocyte countOrd ered By: Inga Dey on 04-28-2025 Lymphocytes Auto (Unsp spec) [#/Vol] 1.15 10*3/uL 0.83-4.[address] [facility] Absolute neutrophil countOrd ered By: Inga Dey on 04-28-2025 Neutrophils (Bld) [#/Vol] 4.2 10*3/uL 2.0-7.[address] [facility] Automated lymphocyte count a s percentage of total leukocytesOrdered By: Inga Dey on 04-28-2025 Lymphocytes/100 WBC Auto (Unsp spec) 20.3 % 19-[address] [facility] Basophil percentageOrdered B y: Inga Dey on 04-28-2025 Basophils/100 WBC (Bld) 0.2 % 0-[address] [facility] CBC W/Diff, Automatedon 03-31 Absolute Lymph 1.15 X10 3/uL Normal 0.83-4.[address] [facility] Comment on above: Performed By: #### L 500.4050, L100.0100 #### [facility] [address] [place], [address] Absolute Neut 4.2 X10 3/uL Normal 2.0-7.[address] [facility] Comment on above: Performed By: #### L 500.4050, L100.0100 #### [facility] [address] [place], [address] Basophils/100 WBC (Bld) 0.2 % Normal 0-[address] [facility] Comment on above: Performed By: #### L 500.4050, L100.0100 #### [facility] [address] [place], [address] Eosinophils/100 WBC (Bld) 0.5 % Normal 0-[address] [facility] Comment on above: Performed By: #### L 500.4050, L100.0100 #### [facility] [address] [place], [address] Erythrocyte distribution width (RBC) [Ratio] 11.4 % Low 11.6-14.[address] [facility] Comment on above: Performed By: #### L 500.4050, L100.0100 #### [facility] [address] [place], [address] Hematocrit (Bld) [Volume fraction] 39.5 % Normal 37-[address] [facility] Comment on above: Performed By: #### L 500.4050, L100.0100 #### [facility] [address] [place], [address] Hemoglobin (Bld) [Mass/Vol] 13.7 g/dL Normal 12.0-15.[address] [facility] Comment on above: Performed By: #### L 500.4050, L100.0100 #### [facility] [address] [place], [address] IG% 0.200 Normal 0.0-0.[address] [facility] Comment on above: Result Comment: IG% - Immature Granulocytes (promyelocytes, myelocytes and metamyelocytes) > 1% indicates that a LEFT SHIFT is Present. Performed By: #### L 500.4050, L100.0100 #### [facility] [address] [place], [address] Lymphocytes/100 WBC (Bld) 20.3 % Normal 19-[address] [facility] Comment on above: Performed By: #### L 500.4050, L100.0100 #### [facility] [address] [place], [address] MCH (RBC) [Entitic mass] 29.5 pg Normal 27.0-32.[address] [facility] Comment on above: Performed By: #### L 500.4050, L100.0100 #### [facility] [address] [place], [address] MCHC (RBC) [Mass/Vol] 34.7 g/dL Normal 32-36 [facility] Comment on above: Performed By: #### L 500.4050, L100.0100 #### [facility] [address] [place], [address] MCV (RBC) [Entitic vol] 85.1 fL Normal 81-[address] [facility] Comment on above: Performed By: #### L 500.4050, L100.0100 #### [facility] [address] [place], [address] Monocytes/100 WBC (Bld) 4.4 % Normal 0-[address] [facility] Comment on above: Performed By: #### L 500.4050, L100.0100 #### [facility] [address] [place], [address] Neutrophils/100 WBC (Bld) 74.4 % High 47-[address] [facility] Comment on above: Performed By: #### L 500.4050, L100.0100 #### [facility] [address] [place], [address] Nucleated RBC (Bld) [#/Vol] 0 10*3/uL Normal 0-[address] [facility] Comment on above: Performed By: #### L 500.4050, L100.0100 #### [facility] [address] [place], [address] Platelet mean volume (Bld) [Entitic vol] 9.2 fL Normal 6.2-12.[address] [facility] [facility] [address] [facility] Comment on above: Performed By: #### L 500.4050, L100.0100 #### [facility] [address] [place], [address] Platelets (Bld) [#/Vol] 200 10*3/uL Normal 150-[address] [facility] Comment on above: Performed By: #### L 500.4050, L100.0100 #### [facility] [address] [place], [address] RBC (Bld) [#/Vol] 4.64 10*6/uL Normal 4.2-5.4 [facility] Comment on above: Performed By: #### L 500.4050, L100.0100 #### [facility] [address] [place], [address] RDW SD 35.0 fl Low 35.1-43.[address] [facility] Comment on above: Performed By: #### L 500.4050, L100.0100 #### [facility] [address] [place], [address] WBC (Bld) [#/Vol] 5.7 10*3/uL Normal 4.4-11.0 [facility] Comment on above: Performed By: #### L 500.4050, L100.0100 #### [facility] [address] [place], [address] Eosinophil percentageOrdered By: Inga Dey on 04-28-2025 Eosinophils/100 WBC (Bld) 0.5 % 0-[address] [facility] Erythrocyte distribution wid th ratioOrdered By: Inga Dey on 04-28-2025 Erythrocyte distribution width (RBC) [Ratio] 11.4 % Low 11.6-14.[address] [facility] Erythrocyte distribution wid th standard deviationOrdered By: Inga Dey on 04-28-2025 Erythrocyte distribution width (RBC) [Ratio] 35.0 fl Low 35.1-43.[address] [facility] HIVon 04-28-2025 HIV Non-Reactive Normal Nonreactive [facility] Comment on above: Result Comment: Non- Reactive Reactive Repeatedly reactive samples must be confirmed according to CDC recommended confirmatory algorithms. The subresults for either HIVAG or AHIV can be used as an aid in the selection of the confirmation algorithm for reactive samples. Send out specimens with Reactive results to [facility] for confirmation. Order the HIV antibody detection and differentiation: lc#[id number] Performed By: #### L 500.4050, L100.0100 #### [facility] [address] [place], [place], [address] Hematocrit Auto (Bld) [Volum e fraction]Ordered By: Inga Tiburcio on 04-28-2025 Hematocrit (Bld) [Volume fraction] 39.5 % 37-[address] [facility] Hemoglobin A1con 04-28-2025 HbA1c (Bld) [Mass fraction] 5.0 % Normal <=5.[address] [facility] Comment on above: Result Comment: Norm al < 5.7 % Prediabetic 5.7 - 6.4 % Diabetic >or= 6.5 % Please note range changes. Performed By: #### L 500.4050, L100.0100 #### [facility] [address] [place], [address] Hemoglobin A1c percentageOrd ered By: Inga Dey on 04-28-2025 HbA1c (Bld) [Mass fraction] 5.0 % <5.[address] [facility] Comment on above: Normal < 5.7 % Predi abetic 5.7 - 6.4 % Diabetic >or= 6.5 % Please note range changes. Hemoglobin measurementOrdere d By: Inga Tiburcio on 04-28-2025 Hemoglobin (Bld) [Mass/Vol] 13.7 g/dL 12.0-15.[address] [facility] Hepatitis C Antibodyon 04-28 Hepatitis C Ab Non-Reactive Normal Nonreactive [facility] Comment on above: Result Comment: Reac tive: Presumptive evidence of antibodies to HCV. Follow CDC recommendations for supplemental testing. Non-Reactive: Antibodies to HCV were not detected; does not exclude the possibility of exposure to HCV Reactive Results are presumptive evidence of antibodies to HCV. Follow CDC recommendations for supplemental testing. Order confirmation testing: HCV Quant by PCR testing - HCVPCR #[id number] Non Reactive: < 0.8 Equivocal: >/= 0.8 to < 1.0 Reactive: >/= 1.0 The CDC requires that a reactive/equivocal HCV antibody result be sent out for confirmation. HCV Quant by PCR testing. Performed By: #### L 500.4050, L100.0100 #### [facility] [address] [place], [place], [address] Immature granulocytes/100 WB C Auto (Bld)Ordered By: Inga Dey on 04-28-2025 Immature granulocytes/100 WBC (Bld) 0.200 % 0.0-0.[address] [facility] Comment on above: IG% - Immature Granu locytes (promyelocytes, myelocytes and metamyelocytes) > 1% indicates that a LEFT SHIFT is Present. L3890.6102on 04-28-2025 HEP B Surf Ag Non-Reactive Normal Nonreactive [facility] Comment on above: Result Comment: Reac tive: Presumptive evidence of HBV. Repeatedly reactive samples must be confirmed using a neutralization test ([employer] HBsAg Confirmatory Test) Non-Reactive: HBsAg not detected; does not exclude the possibility of exposure to HBV Performed By: #### L 500.4050, L100.0100 #### [facility] [address] [place], [address] L509.4006on 04-28-2025 Rubella IgG REAC Normal Nonreactive [facility] Comment on above: Result Comment: Anti body Result: Interpretation Non-Reactive: Non-Immune Reactive: Immune The following results were obtained with the [employer] Rubella IgG assay. Results from assays of other manufacturers cannot be used interchangeably. Performed By: #### L 500.4050, L100.0100 #### [facility] [address] [place], [place], [address] Laboratory - Microbiology an d Antimicrobial susceptibilityOrdered By: Inga Dey on 04-28-2025 HBV surface Ag Ql (S) Non-Reactive Nonreactive [facility] Comment on above: Reactive: Presumptiv e evidence of HBV. Repeatedly reactive samples must be confirmed using a neutralization test ([employer] HBsAg Confirmatory Test)Non-Reactive: HBsAg not detected; does not exclude the possibility of exposure to HBV MCV (mean corpuscular volume ) determinationOrdered By: Inga Dey on 04-28-2025 MCV (RBC) [Entitic vol] 85.1 fL 81-[address] [facility] Mean corpuscular hemoglobin (MCH) determinationOrdered By: Inga Dey on 04-28-2025 MCH (RBC) [Entitic mass] 29.5 pg 27.0-32.[address] [facility] Mean corpuscular hemoglobin concentration (MCHC) determinationOrdered By: Inga Dey on 04-28-2025 MCHC (RBC) [Mass/Vol] 34.7 g/dL 32-36 [facility] Mean platelet volume determi nationOrdered By: Inga Dey on 04-28-2025 Platelet mean volume (Bld) [Entitic vol] 9.2 fL 6.2-12.[address] [facility] Monocyte percentageOrdered B y: Inga Dey on 04-28-2025 Monocytes/100 WBC (Bld) 4.4 % 0-[address] [facility] NATERAon 04-28-2025 NATURA SEE SCANNED REPORT Normal [facility] Comment on above: Order Comment: Comme nts: NIPT w/gender and Carrier Performed By: #### L 500.4050, L100.0100 #### [facility] [address] [facility] [place], [address] Neutrophil percentageOrdered By: Inga Dey on 04-28-2025 Neutrophils/100 WBC (Bld) 74.4 % High 47-[address] [facility] No Panel InformationOrdered By: Inga Dey on 04-28-2025 HIV (1&2) Antibody Non-Reactive Nonreactive [facility] Comment on above: Non-ReactiveReactive Repeatedly reactive samples must be confirmed according to CDC recommended confirmatory algorithms. The subresults for either HIVAG or AHIV can be used as an aid in the selection of the confirmation algorithm for reactive samples.Send out specimens with Reactive results to [facility] for confirmation.Order the HIV antibody detection and differentiation: #[id number] Nucleated red blood cell per centageOrdered By: Inga Dey on 04-28-2025 Nucleated RBC/100 WBC (Bld) [Ratio] 0 % 0-[address] [facility] Platelet countOrdered By: Karla Dey on 04-28-2025 Platelets (Bld) [#/Vol] 200 10*3/uL 150-[address] [facility] RBC Auto (Bld) [#/Vol]Ordere d By: Inga Dey on 04-28-2025 RBC (Bld) [#/Vol] 4.64 10*6/uL 4.2-5.4 [facility] Syphilis Antibodieson 2024 Syphilis Abs Non-Reactive Normal Nonreactive [facility] Comment on above: Performed By: #### L 500.4050, L100.0100 #### [facility] [address] [place], [address] Type AND Screenon 04-28-2025 ABO and Rh group Nom (Bld) Blood group A Rh(D) negative Normal [facility] Comment on above: Order Comment: PN Performed By: #### L 500.4050, L100.0100 #### [facility] [address] [place], [address] White blood cell (WBC) count Ordered By: Inga Dey on 04-28-2025 WBC (Bld) [#/Vol] 5.7 10*3/uL 4.4-11.0 [facility] Chlamydia/GC MARTHA aptimaon CHLAMY,NUC ACID Negative Normal Negative [facility] Comment on above: Performed By: #### L 500.4050, L100.0100, L501.2450 #### [facility] [address] [place], [address] GC BY NUC ACID Negative Normal Negative [facility] Comment on above: Result Comment: Perf ormed at: =G - [facility] [address] [id number] Clinical Documentation Consultant: Juany Chan MD, Phone: [phone] Performed By: #### L 500.4050, L100.0100, L501.2450 #### [facility] [address] [place], [address] Urine Cultureon 04-24-2025 URC Below infection leve l. GPC Poss Enterococcus sp [place] Count <[address] [facility] Comment on above: Performed By: #### L 500.4050, L100.0100, L501.2450 #### [facility] [address] [place], [address] Chlamydia trachomatis rRNA d etection by probe and target amplification methodOrdered By: Inga Dey on 04-22-2025 C. trachomatis rRNA MARTHA+probe Ql (Unsp spec) Negative Negative [facility] Neisseria gonorrhoeae nuclei c acid detection by amplified probe techniqueOrdered By: Inga Dey on 04-22-2025 N. gonorrhoeae DNA MARTHA+probe Ql (Unsp spec) Negative Negative [facility] Comment on above: Performed at: =G - L [address] [id number] Director: Juany Chan MD, Phone: [phone] [facility] Visit Reporton 04-22-2025 [facility] Visit Report [facility] [address], [address] [place] [address] OFFICE VISIT Date of Service: 04/22/25 MR#: [id number] Acct: [id number] Name: JUMANA HARRIS Rep #: [id number] : 2000 Provider: CARLOS ALBERTO finley Age/Sex: 25/F Location: [facility] Status: Signed Intake Vital Signs 03/15/25 20:44 04/15/25 15:48 04/22/25 08:55 04/22/25 08:56 Height 5 ft 3 in 5 ft 3 in 5 ft 3 in 5 ft 3 in Weight: 172 lb BMI 30.4 BP 132/75 H Intake Visit Reasons: *EST* NOB LMP 02/13, [facility] 11/20 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 Required: No Is patient in pain?: No Allergies Egg Derived Allergy (Intermediate, Verified 04/22/25 08:55) Hives hydroxychloroquine (From Plaquenil) Allergy (Intermediate, Verified 04/22/25 08:55) Rash adhesive Allergy (Mild, Verified 04/22/25 08:55) rash Medications ???Medication ???Instructions ???Recorded ???Confirmed ???Type fexofenadine 60 mg tablet (Liss 60 mg PO BID 02/17/25 04/22/25 H istory Allergy) docosahexaenoic acid 200 mg mg PO 04/12/25 04/22/25 History capsule ( DHA) ondansetron 4 mg disintegrating 4 mg PO Q8H PRN PRN Nausea #20 tab s 04/15/25 04/22/25 Rx tablet Last Menstrual Period: 02/13/25 Zika: Zika virus screening: Negative : No Have you fallen in the past year?: No PFSH PFSH Medical History Ovarian cyst Depression Anxiety Irregular heart beat Migraines Bronchial spasms Surgical History S/P wisdom tooth extraction H/O knee surgery History of tonsillectomy Family History Grandfather Cancer Paternal- skin cancer COPD (chronic obstructive pulmonary disease) Factor 5 Leiden mutation, heterozygous Grandmother Congestive heart failure Rheumatoid arthritis Father Factor 5 Leiden mutation, heterozygous Mother Gestational diabetes Hypertension Osteoarthritis Grandmother Arthritis Social History adopted: No household members: significant other number of children: 0 current occupational status: employed 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/hazards: No pets and animals: Yes pets and animals: dog(s) history of recent travel: No sexually active: Yes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 smoker quit date: 01/27/25 second hand exposure: Yes quit status: quit date established alcohol intake: current alcohol intake frequency: a few times a month Alcohol type: other details: Not while substance use type: does not use diet: other well-balanced diet: about half the time caffeine: Yes Type: carbonated beverages Number of servings: 1 eating out: 1-3 times/week during the past year weight has: increased > 10 lbs what type of physical activity do you participate in: walking frequency: 3-4 times per week duration: < 15 minutes/day jaye/yazidi: Gnosticist seatbelt use: always do you feel safe at home: Yes additional social history: (Martinez) : BF: [facility] History 1 Elective abortions 0 Hx Para 0 Spontaneous abortions 0 Hx # Term Pregnancies Ectopic pregnancies Hx # Pregnancies Multiple births # of living children HPI *EST* NOB LMP 02/13, [facility] 11/20 Details: JUMANA HARRIS is a 25 year old who presents for New OB visit. OB Visit [facility] Calculator Estimated Delivery Date Method Current WG Current Estimate 11/22/25 Ultrasound #1 9w 3d Other Estimates 11/20/25 LMP (Certain) 9w 5d Estimated Due Date: 11/22/25 Expected Delivery Route/Plan Labor Preferences- CB/BF classes: [] labor support person: [] labor intervention preferences: [] pain management options preferred: [] cut cord/dad catch: [] : [] PP control planned: [] discussed possible routes of delivery and associated risks: [] special requests: [] Specific Issue/Plans Covid status: [] Flu vaccine: [] Tdap vaccine: [] Rhogam: [] LARC form signed: [] Problem list reviewed and updated with the most current plan of care details and appropriate orders placed. Relevant counseling for the gestational age provided. Continue routine care and follow up unless otherwise noted in visit notes/problem list details Initial Weight: 172 lb Date -???-???-???-???-???-??? -???-???-???-???-???-??? - EGA Weight BP Urine Prot -???-???-???-???-???-??? -???-???-???-???-???-??? - Glucose FHR FuHt Pres Dilation -???-???-???-???-???-??? -???-???-???-???-???-??? - Effaced St Visit Note 04/22/25 -???-???-???-???-???-??? -???-???-???-???-???-??? - 9w 3d 172 lb (+0 oz) 132/75 -???-???-???-???-???-??? -???- (more content not included)... Normal [facility] Urine cultureOrdered By: Olga chance Dey on 04-22-2025 Bacteria identified Cx Nom (U) GPC Poss Enterococcus sp Abnormal [facility] Absolute lymphocyte countOrd ered By: Sarah Stubbs on 04-15-2025 Lymphocytes Auto (Unsp spec) [#/Vol] 1.60 10*3/uL 0.83-4.[address] [facility] Absolute neutrophil countOrd ered By: Sarah Stubbs on 04-15-2025 Neutrophils (Bld) [#/Vol] 6.0 10*3/uL 2.0-7.[address] [facility] Anion gap in Serum or Plasma Ordered By: Sarah Stubbs on 04-15-2025 Anion gap [Moles/Vol] 14 mmol/L 5- [facility] Automated lymphocyte count a s percentage of total leukocytesOrdered By: Sarah Stubbs on 04-15-2025 Lymphocytes/100 WBC Auto (Unsp spec) 19.4 % 19- [facility] BUN/creatinine ratioOrdered By: Sarah Stubbs on 04-15-2025 Urea nitrogen/Creatinine [Mass ratio] 9.1 mg/mg Low 10- [facility] Basophil percentageOrdered B y: Sarah Stubbs on 04-15-2025 Basophils/100 WBC (Bld) 0.4 % 0- [facility] Bilirubin Test strip Ql (U)O rdered By: Sarah Stubbs on 04-15-2025 Bilirubin Ql (U) Negative Negative [facility] Bilirubin, totalOrdered By: Sarah Stubbs on 04-15-2025 Bilirubin [Mass/Vol] 0.89 mg/dL 0.00-1.30 [facility] CBC W/Diff, Automatedon 03-29 Absolute Lymph 1.60 X10 3/uL Normal 0.83-4.[address] [facility] Comment on above: Performed By: #### L 500.4050, L100.0100, L501.2450 #### [facility] [facility] [place], [address] Absolute Neut 6.0 X10 3/uL Normal 2.0-7.[address] [facility] Comment on above: Performed By: #### L 500.4050, L100.0100, L501.2450 #### [facility] [address] [place], [address] Basophils/100 WBC (Bld) 0.4 % Normal 0-[address] [facility] Comment on above: Performed By: #### L 500.4050, L100.0100, L501.2450 #### [facility] [address] [place], [address] Eosinophils/100 WBC (Bld) 0.2 % Normal 0-[address] [facility] Comment on above: Performed By: #### L 500.4050, L100.0100, L501.2450 #### [facility] [address] [place], [address] Erythrocyte distribution width (RBC) [Ratio] 11.4 % Low 11.6-14.[address] [facility] Comment on above: Performed By: #### L 500.4050, L100.0100, L501.2450 #### [facility] [address] [place], [address] Hematocrit (Bld) [Volume fraction] 39.7 % Normal 37-[address] [facility] Comment on above: Performed By: #### L 500.4050, L100.0100, L501.2450 #### [facility] [address] [place], [address] Hemoglobin (Bld) [Mass/Vol] 14.7 g/dL Normal 12.0-15.[address] [facility] Comment on above: Performed By: #### L 500.4050, L100.0100, L501.2450 #### [facility] [address] [place], [address] IG% 0.400 Normal 0.0-0.[address] [facility] Comment on above: Result Comment: IG% - Immature Granulocytes (promyelocytes, myelocytes and metamyelocytes) > 1% indicates that a LEFT SHIFT is Present. Performed By: #### L 500.4050, L100.0100, L501.2450 #### [facility] [address] [place], [address] Lymphocytes/100 WBC (Bld) 19.4 % Normal 19-[address] [facility] Comment on above: Performed By: #### L 500.4050, L100.0100, L501.2450 #### [facility] [address] [place], [address] MCH (RBC) [Entitic mass] 31.0 pg Normal 27.0-32.[address] [facility] Comment on above: Performed By: #### L 500.4050, L100.0100, L501.2450 #### [facility] [address] [place], [address] MCHC (RBC) [Mass/Vol] 37.0 g/dL High 32-36 [facility] Comment on above: Performed By: #### L 500.4050, L100.0100, L501.2450 #### [facility] [address] [place], [address] MCV (RBC) [Entitic vol] 83.8 fL Normal 81-[address] [facility] Comment on above: Performed By: #### L 500.4050, L100.0100, L501.2450 #### [facility] [address] [place], [address] Monocytes/100 WBC (Bld) 7.2 % Normal 0-[address] [facility] Comment on above: Performed By: #### L 500.4050, L100.0100, L501.2450 #### [facility] [address] [place], [address] Neutrophils/100 WBC (Bld) 72.4 % High 47-[address] [facility] Comment on above: Performed By: #### L 500.4050, L100.0100, L501.2450 #### [facility] [address] [place], [address] Nucleated RBC (Bld) [#/Vol] 0 10*3/uL Normal 0-[address] [facility] Comment on above: Performed By: #### L 500.4050, L100.0100, L501.2450 #### [facility] [address] [place], [address] Platelet mean volume (Bld) [Entitic vol] 9.4 fL Normal 6.2-12.[address] [facility] Comment on above: Performed By: #### L 500.4050, L100.0100, L501.2450 #### [facility] [address] [place], [address] Platelets (Bld) [#/Vol] 224 10*3/uL Normal 150-[address] [facility] Comment on above: Performed By: #### L 500.4050, L100.0100, L501.2450 #### [facility] [address] [place], [address] RBC (Bld) [#/Vol] 4.74 10*6/uL Normal 4.2-5.4 [facility] Comment on above: Performed By: #### L 500.4050, L100.0100, L501.2450 #### [facility] [address] [place], [address] RDW SD 34.8 fl Low 35.1-43.[address] [facility] Comment on above: Performed By: #### L 500.4050, L100.0100, L501.2450 #### [facility] [address] [place], [address] WBC (Bld) [#/Vol] 8.2 10*3/uL Normal 4.4-11.0 [facility] Comment on above: Performed By: #### L 500.4050, L100.0100, L501.2450 #### [facility] [address] [place], [address] Carbon dioxide, total [Moles /volume] in Central venous bloodOrdered By: Sarah Stbubs on 04-15-2025 CO2 [Moles/Vol] 20.3 mmol/L Low 21.0-32.[address] [facility] Chloride assayOrdered By: Rolly Stubbs on 04-15-2025 Chloride [Moles/Vol] 102 mmol/L 98-108 [facility] Comprehensive Metabolic Prof ilon 04-15-2025 Albumin [Mass/Vol] 4.5 g/dL Normal 3.5-5.0 [facility] Comment on above: Performed By: #### L 500.4050, L100.0100, L501.2450 #### [facility] [address] [place], [address] Albumin/Globulin [Mass ratio] 1.4 {ratio} Normal 0.9-2.[address] [facility] Comment on above: Performed By: #### L 500.4050, L100.0100, L501.2450 #### [facility] [address] [place], [address] ALK PHOS 76 U/L Normal 35-[address] [facility] Comment on above: Performed By: #### L 500.4050, L100.0100, L501.2450 #### [facility] [address] [place], [address] ALT [Catalytic activity/Vol] 13 U/L Normal <=[address] [facility] Comment on above: Performed By: #### L 500.4050, L100.0100, L501.2450 #### [facility] [address] [place], [address] AST [Catalytic activity/Vol] 19 U/L Normal <=[address] [facility] Comment on above: Performed By: #### L 500.4050, L100.0100, L501.2450 #### [facility] [address] [place], [address] Bilirubin [Mass/Vol] 0.89 mg/dL Normal 0.00-1.30 [facility] Comment on above: Performed By: #### L 500.4050, L100.0100, L501.2450 #### [facility] [address] [place], [address] BUN/CRE 9.1 RATIO Low 10-[address] [facility] Comment on above: Performed By: #### L 500.4050, L100.0100, L501.2450 #### [facility] [address] [place], [address] Calcium [Mass/Vol] 9.6 mg/dL Normal 7.6-11.0 [facility] Comment on above: Performed By: #### L 500.4050, L100.0100, L501.2450 #### [facility] [address] [place], [address] Chloride [Moles/Vol] 102 mmol/L Normal 98-108 [facility] Comment on above: Performed By: #### L 500.4050, L100.0100, L501.2450 #### [facility] [address] [place], [address] CO2 [Moles/Vol] 20.3 mmol/L Low 21.0-32.[address] [facility] Comment on above: Performed By: #### L 500.4050, L100.0100, L501.2450 #### [facility] [address] [place], [address] Creatinine [Mass/Vol] 0.68 mg/dL Low 0.70-1.20 [facility] Comment on above: Performed By: #### L 500.4050, L100.0100, L501.2450 #### [facility] [address] [place], [address] ECRCL 125.44 ml/min Normal 50-[address] [facility] Comment on above: Performed By: #### L 500.4050, L100.0100, L501.2450 #### [facility] [address] [place], [address] GAP 14 Normal 5-[address] [facility] Comment on above: Performed By: #### L 500.4050, L100.0100, L501.2450 #### [facility] [address] [place], [address] GFR/1.73 sq M.predicted among non-blacks MDRD (S/P/Bld) [Vol rate/Area] 124 mL/min/{1.73_m2} Normal >[address] [facility] Comment on above: Result Comment: mL/m in/1.73m2 CKD-EPI Creatinine Equation (2020) Performed By: #### L 500.4050, L100.0100, L501.2450 #### [facility] [address] [place], [address] Globulin (S) [Mass/Vol] 3.2 g/dL Normal 2.2-4.[address] [facility] Comment on above: Performed By: #### L 500.4050, L100.0100, L501.2450 #### [facility] [address] [place], [address] Glucose [Mass/Vol] 101 mg/dL High 70-99 [facility] Comment on above: Performed By: #### L 500.4050, L100.0100, L501.2450 #### [facility] [address] [place], [address] Potassium [Moles/Vol] 3.6 mmol/L Normal 3.3-5.1 [facility] Comment on above: Performed By: #### L 500.4050, L100.0100, L501.2450 #### [facility] [address] [place], [address] Sodium [Moles/Vol] 136 mmol/L Normal 133-145 [facility] Comment on above: Performed By: #### L 500.4050, L100.0100, L501.2450 #### [facility] [address] [place], [address] T PROT 7.6 g/dL Normal 5.9-8.[address] [facility] Comment on above: Performed By: #### L 500.4050, L100.0100, L501.2450 #### [facility] [address] [place], [address] Urea nitrogen [Mass/Vol] 6 mg/dL Normal 4-[address] [facility] Comment on above: Performed By: #### L 500.4050, L100.0100, L501.2450 #### [facility] [address] [place], [address] Emergency Department Summary on 04-15-2025 Emergency Department Summary [facility] Medical Records Department [address] [place] [address] Emergency Department Summary 04/15/25 MR#: [id number] Acct: [id number] Name: JUMANA HARRIS Rep #: [id number] : 2000 25 From: Sarah Stubbs DO PCP: Jenn Sweeney DO Status:REG ER Location: ED HPI HPI - Female History of Present Illness Chief Complaint: Informant: patient Narrative Narrative: Patient is a G1, P0 25-year-old female with history of sinus tachycardia and rheumatoid arthritis presenting from home with nausea, vomiting, decreased urine output and lightheadedness. States her symptoms been particularly bad for the past 2 days is not really been able to keep anything down. She states she has not urinated since 4 AM this morning. States her urine is dark. States the nausea is intermittent. Denies any significant nausea right now. Does have some mild lower abdominal cramping and some mild discomfort in her left flank area. Denies any dysuria. Denies any abnormal vaginal discharge or bleeding. Follows Dr. Tijerina. Has had a to confirm intrauterine gestation. Has not had any vaginal bleeding. Came in for further evaluation. No other complaints or concerns reported at this time. [facility] Medical History Ovarian cyst Depression Anxiety Irregular heart beat Migraines Bronchial spasms Home Medications ???Medication ???Instructions ???Recorded ???Last Taken ???Type fexofenadine 60 mg tablet (Liss 60 mg PO BID 02/17/25 Unknown Hi story Allergy) docosahexaenoic acid 200 mg mg PO 04/12/25 Unknown History capsule ( DHA) ondansetron 4 mg disintegrating 4 mg PO Q8H PRN PRN Nausea #20 tab s 04/15/25 Unknown Rx tablet Allergy/AdvReac Type Severity Reaction Status Date / Time Egg Derived Allergy Intermediate Hives Verified 04/15/25 15:48 hydroxychloroquine (From Allergy Intermediate Rash Verified 04/15/25 15:48 Plaquenil) adhesive Allergy Mild rash Verified 04/15/25 15:48 Family History Grandfather Cancer Paternal- skin cancer COPD (chronic obstructive pulmonary disease) Factor 5 Leiden mutation, heterozygous Grandmother Congestive heart failure Rheumatoid arthritis Father Factor 5 Leiden mutation, heterozygous Mother Gestational diabetes Hypertension Osteoarthritis Grandmother Arthritis Surgical History S/P wisdom tooth extraction H/O knee surgery History of tonsillectomy Social History adopted: No household members: significant other number of children: 0 current occupational status: employed 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/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: No pets and animals: Yes pets and animals: dog(s) history of recent travel: No sexually active: Yes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 smoker quit date: 01/27/25 second hand exposure: Yes quit status: quit date established alcohol intake: current alcohol intake frequency: a few times a month Alcohol type: other details: Not while substance use type: does not use diet: other well-balanced diet: about half the time caffeine: Yes Type: carbonated beverages Number of servings: 1 eating out: 1-3 times/week during the past year weight has: increased > 10 lbs what type of physical activity do you participate in: walking frequency: 3-4 times per week duration: < 15 minutes/day jaye/yazidi: Gnosticist seatbelt use: always do you feel safe at home: Yes additional social history: (Martinez) : BF: Santy - Intake Counselor ROS ROS ED Constitutional Constitutional ED: Denies chills or fever(s) Respiratory/Chest Respiratory/Chest: Denies cough or dyspnea Gastrointestinal Gastrointestinal: Reports abdominal pain, nausea and vomiting; Denies constipation or diarrhea Genitourinary Genitourinary ED: Reports other Details: Decreased urination, darker urine ; Denies dysuria or hematuria Musculoskeletal Musculoskeletal: Reports other Details: Left-sided low back pain ; Denies arthralgias Integumentary Denies rash Neurologic Neurologic: Reports weakness and other Details: Lightheaded EXAM Physical Exam Const Vital Signs: 04/15/25 15:48 04/15/25 17:47 04/15/25 21:18 Temperature 98.2 F 98 F Temperature Source Oral Pulse Rate 106 H 65 96 Respiratory Rate 16 16 18 Blood Pressure 140/85 H 102/67 117/66 Blood Pressure Mean 103 78 83 Pulse Ox 97 97 100 Oxygen Delivery Method Room Air Room Air Positive well nourished and well developed General Appearance ED: well developed and NAD HEENT Reports moist mucous membranes Ey (more content not included)... Normal [facility] Eosinophil percentageOrdered By: Sarah Stubbs on 04-15-2025 Eosinophils/100 WBC (Bld) 0.2 % 0-[address] [facility] Erythrocyte distribution wid th ratioOrdered By: Sarah Stubbs on 04-15-2025 Erythrocyte distribution width (RBC) [Ratio] 11.4 % Low 11.6-14.[address] [facility] Erythrocyte distribution wid th standard deviationOrdered By: Sarah Stubbs on 04-15-2025 Erythrocyte distribution width (RBC) [Ratio] 34.8 fl Low 35.1-43.[address] [facility] Glomerular filtration rate ( GFR) estimation/1.73 sq m using serum, plasma, or whole bOrdered By: Sarah Stubbs on 04-15-2025 GFR/1.73 sq M.predicted among non-blacks MDRD (S/P/Bld) [Vol rate/Area] 124 mL/min/{1.73_m2} >[address] [facility] Comment on above: mL/min/1.73m2 CKD-EP I Creatinine Equation (2020) Hematocrit Auto (Bld) [Volum e fraction]Ordered By: Sarah Stubbs on 04-15-2025 Hematocrit (Bld) [Volume fraction] 39.7 % 37-[address] [facility] Hemoglobin measurementOrdere d By: Sarah Stubbs on 04-15-2025 Hemoglobin (Bld) [Mass/Vol] 14.7 g/dL 12.0-15.[address] [facility] Immature granulocytes/100 WB C Auto (Bld)Ordered By: Sarah Stubbs on 04-15-2025 Immature granulocytes/100 WBC (Bld) 0.400 % 0.0-0.[address] [facility] Comment on above: IG% - Immature Granu locytes (promyelocytes, myelocytes and metamyelocytes) > 1% indicates that a LEFT SHIFT is Present. Ketones Test strip Ql (U)Ord ered By: Sarah Stubbs on 04-15-2025 Ketones Ql (U) 150 mg/dl Negative [facility] Comment on above: CRITICAL VALUE *HCRI TICAL VALUE CALLED TO [id number] Caitlin Ramos.RESULTS READ BACK BY SAME. Laboratory - Chemistry and C hemistry - challengeOrdered By: Sarah Stubbs on 04-15-2025 AST [Catalytic activity/Vol] 19 U/L <[address] [facility] Lipaseon 04-15-2025 Lipase [Catalytic activity/Vol] 24 U/L Normal 13-[address] [facility] Comment on above: Result Comment: Shreya sadler note: LIPASE revised reference range effective 23. New Lipase methodology. Expected to produce lower values than the previous assay method. NEW Reference Range: 13 - 75 U/L Performed By: #### L 500.4050, L100.0100, L501.2450 #### [facility] [place] [address], [address] Lipase measurementOrdered By : Sarah Stubbs on 04-15-2025 Lipase [Catalytic activity/Vol] 24 U/L 13-[address] [facility] Comment on above: Please note:LIPASE r evised reference range effective 23. New Lipase methodology. Expected to produce lower values than the previous assay method. NEW Reference Range: 13 - 75 U/L MCV (mean corpuscular volume ) determinationOrdered By: Sarah Stubbs on 04-15-2025 MCV (RBC) [Entitic vol] 83.8 fL 81-[address] [facility] Mean corpuscular hemoglobin (MCH) determinationOrdered By: Sarah Stubbs on 04-15-2025 MCH (RBC) [Entitic mass] 31.0 pg 27.0-32.[address] [facility] Mean corpuscular hemoglobin concentration (MCHC) determinationOrdered By: Sarah Stubbs on 04-15-2025 MCHC (RBC) [Mass/Vol] 37.0 g/dL High 32-36 [facility] Mean platelet volume determi nationOrdered By: Sarah Stubbs on 04-15-2025 Platelet mean volume (Bld) [Entitic vol] 9.4 fL 6.2-12.[address] [facility] Microscopic analysis of urin e for red blood cells (RBC)Ordered By: Sarah Stubbs on 04-15-2025 Microscopic analysis of urine for red blood cells (RBC) 0 SEEN /hpf 0-[address] [facility] Monocyte percentageOrdered B y: Sarah Stubbs on 04-15-2025 Monocytes/100 WBC (Bld) 7.2 % 0-[address] [facility] Mucus LM Ql (Urine sed)Order ed By: Sarah Stubbs on 04-15-2025 Mucus Ql (Urine sed) 1+ /hpf [facility] Neutrophil percentageOrdered By: Sarah Stubbs on 04-15-2025 Neutrophils/100 WBC (Bld) 72.4 % High 47-[address] [facility] Nitrite Test strip Ql (U)Ord ered By: Sarah Stubbs on 04-15-2025 Nitrite Ql (U) Negative Negative [facility] Nucleated red blood cell per centageOrdered By: Sarah Stubbs on 04-15-2025 Nucleated RBC/100 WBC (Bld) [Ratio] 0 % 0-[address] [facility] Platelet countOrdered By: Rolly Stubbs on 04-15-2025 Platelets (Bld) [#/Vol] 224 10*3/uL 150-[address] [facility] Potassium measurement (mass/ volume)Ordered By: Sarah Stubbs on 04-15-2025 Potassium (Unsp spec) [Mass/Vol] 3.6 mmol/L 3.3-5.[address] [facility] Protein Test strip Ql (U)Ord ered By: Sarah Stubbs on 04-15-2025 Protein Ql (U) Negative Negative [facility] RBC Auto (Bld) [#/Vol]Ordere d By: Sarah Stubbs on 04-15-2025 RBC (Bld) [#/Vol] 4.74 10*6/uL 4.2-5.4 [facility] Serum creatinine measurement (mass/volume)Ordered By: Sarah Stubbs on 04-15-2025 Creatinine [Mass/Vol] 0.68 mg/dL Low 0.70-1.20 [facility] Serum globulin measurementOr dered By: Sarah Stubbs on 04-15-2025 Globulin (S) [Mass/Vol] 3.2 g/dL 2.2-4.[address] [facility] Serum glucose measurement (m ass/volume)Ordered By: Sarah Stubbs on 04-15-2025 Glucose [Mass/Vol] 101 mg/dL High 70-99 [facility] Serum or plasma alanine fountain otransferase (ALT) measurementOrdered By: Sarah Stubbs on 04-15-2025 ALT [Catalytic activity/Vol] 13 U/L <[address] [facility] Serum or plasma albumin lulu urement (mass/volume)Ordered By: Sarah Stubbs on 04-15-2025 Albumin [Mass/Vol] 4.5 g/dL 3.5-5.0 [facility] Serum or plasma albumin/glob ulin mass ratioOrdered By: Sarah Stubbs on 04-15-2025 Albumin/Globulin [Mass ratio] 1.4 {ratio} 0.9-2.[address] [facility] Serum or plasma alkaline gregorio sphatase measurementOrdered By: Sarah Stubbs on 04-15-2025 ALP [Catalytic activity/Vol] 76 U/L 35-[address] [facility] Serum or plasma calcium lulu urement (mass/volume)Ordered By: Sarah Stubbs on 04-15-2025 Calcium [Mass/Vol] 9.6 mg/dL 7.6-11.0 [facility] Serum or plasma urea nitroge n measurement (mass/volume)Ordered By: Sarah Stubbs on 04-15-2025 Urea nitrogen [Mass/Vol] 6 mg/dL 4-[address] [facility] Sodium levelOrdered By: Regulo Stubbs on 04-15-2025 Sodium [Moles/Vol] 136 mmol/L 133-145 [facility] Squamous epithelial cells de tection in urine sediment by light microscopyOrdered By: Sarah Stubbs on 04-15-2025 Epithelial cells.squamous LM Ql (Urine sed) 0-5 SEEN /hpf - [facility] Total proteinOrdered By: Kylah Stubbs on 04-15-2025 Protein [Mass/Vol] 7.6 g/dL 5.9-8.4 [facility] Urinalysis, Completeon 04-15 BACTERIA 1+ /hpf Normal None Seen [facility] Comment on above: Order Comment: CLEAN CATCH Performed By: #### L 500.4050, L100.0100, L501.2450 #### [facility] [address] [place], [address] EPI,SQUAMOUS 0-5 SEEN Normal 5- [facility] Comment on above: Order Comment: CLEAN CATCH Performed By: #### L 500.4050, L100.0100, L501.2450 #### [facility] [address] [place], [address] Mucus Ql (Urine sed) 1+ /hpf Normal [facility] Comment on above: Order Comment: CLEAN CATCH Performed By: #### L 500.4050, L100.0100, L501.2450 #### [facility] [address] [place], [address] WBC 0-5 SEEN Normal 0-[address] [facility] Comment on above: Order Comment: CLEAN CATCH Performed By: #### L 500.4050, L100.0100, L501.2450 #### [facility] [address] [place], [address] RBC 0 SEEN Normal 0-[address] [facility] Comment on above: Order Comment: CLEAN CATCH Performed By: #### L 500.4050, L100.0100, L501.2450 #### [facility] [address] [place], [address] Urine clarityOrdered By: Kylah Stubbs on 04-15-2025 Clarity (U) Clear Clear [facility] Urine color determinationOrd ered By: Sarah Stubbs on 04-15-2025 Color (U) Yellow Yellow [facility] Urine glucose detectionOrder ed By: Sarah Stubbs on 04-15-2025 Glucose Ql (U) Normal mg/dl Normal [facility] Urine leukocyte esterase det ection by dipstickOrdered By: Sarah Stubbs on 04-15-2025 Leukocyte esterase Test strip Ql (U) Negative Negative [facility] Urine pHOrdered By: Sarah arenas on 04-15-2025 pH (U) 6.0 [pH] 5.0 - 8.[address] [facility] Urine sediment bacteria coun t by microscopy (number/high power field)Ordered By: Sarah Stubbs on 04-15-2025 Bacteria LM.HPF (Urine sed) [#/Area] 1 /[HPF] None Seen [facility] Urine specific gravity measu rementOrdered By: Sarah Stubbs on 04-15-2025 Specific gravity (U) [Rel density] 1.020 1.002-1.[address] [facility] Urine urobilinogen measureme ntOrdered By: Sarah Stubbs on 04-15-2025 Urobilinogen Ql (U) Normal mg/dl Normal [facility] White blood cell (WBC) count Ordered By: Sarah Joseisrrael on 04-15-2025 WBC (Bld) [#/Vol] 8.2 10*3/uL 4.4-11.0 [facility] White blood cell countOrdere d By: Sarah Stubbs on 04-15-2025 White blood cell count 0-5 SEEN /hpf 0-[address] [facility] Office Visit Reporton 2024 Office Visit Report [facility] [address] [place] [address] OFFICE VISIT Date of Service: 04/12/25 MR#: [id number] Acct: [id number] Patient: JUMANA HARRIS Rep #: [id number] : 2000 Provider: Dr. Sarah Le DO Age/Sex: 25/F Location: [facility] Status: Signed Intake Vital Signs 03/15/25 20:44 04/06/25 09:15 04/12/25 10:17 Height 5 ft 3 in 5 ft 3 in 5 ft 3 in Weight: 173 lb 4 oz BMI 30.7 BP 112/64 Intake Visit Reasons: PNOB, Comfirm Preg, Vitals Chief Complaint: Inperson PNOB Allergies Egg Derived Allergy (Intermediate, Verified 04/15/25 15:48) Hives hydroxychloroquine (From Plaquenil) Allergy (Intermediate, Verified 04/15/25 15:48) Rash adhesive Allergy (Mild, Verified 04/15/25 15:48) rash Medications ???Medication ???Instructions ???Recorded ???Confirmed ???Type fexofenadine 60 mg tablet (Liss 60 mg PO BID 02/17/25 04/15/25 H istory Allergy) docosahexaenoic acid 200 mg mg PO 04/12/25 04/12/25 History capsule ( DHA) Is last menstrual period known: Yes Post menopausal: No Patient : Yes Nurse's Note: Pt here for secondary amenorrhea. Office UPT: positive. Vitals WNL. PNOB questions completed. Problem list, allergies, and medications updated. First trimester ACOG education completed. Assessment and Plan Assessment and Plan Orders: Orders CBC W/Diff, Automated 04/12/25 O09. - Supervision of high risk , unspecified, unspecified trimester Type Screen 04/12/25 O. - Supervision of high risk , unspecified, unspecified trimester Rubella IgG 04/12/25 O09.90 - Supervision of high risk , unspecified, unspecified trimester Hepatitis C Antibody 04/12/25 O09.90 - Supervision of high risk , unspecified, unspecified trimester Hepatitis B Surface Antigen 04/12/25 O09. - Supervision of high risk , unspecified, unspecified trimester Culture, Urine 04/12/25 O. - Supervision of high risk , unspecified, unspecified trimester Syphilis Antibodies 04/12/25 O.90 - Supervision of high risk , unspecified, unspecified trimester Chlamydia/GC MARTHA aptima 04/12/25 O09. - Supervision of high risk , unspecified, unspecified trimester HIV 04/12/25 O09.90 - Supervision of high risk , unspecified, unspecified trimester Hemoglobin A1c 04/12/25 O09.90 - Supervision of high risk , unspecified, unspecified trimester, O99.210 - Obesity complicating , unspecified trimester SHANAE 04/12/25 O09. - Supervision of high risk , unspecified, unspecified trimester 04/15/25 1631 Date Sarah Peace Signature: Date (if applicable) CC: Normal [facility] Transvaginal w/Preg USon Transvaginal w/Preg [facility] [address] [place], [place] [id number] Transvaginal w/Preg US MR#: [id number] Acct: [id number] Name: JUMANA HARRIS Rep #: [id number] : 2000 F 25 From: Lobo mercado MD PCP: Jenn Sweeney DO Status: REG CLI Study: Transvaginal w/Preg US Date of Exam: 04/04/25 Exam# [id number] Ordering Dr: Sarah Harmon DO PROCEDURE: TRANSVAGINAL W/PREG US 04/04/2025 REASON FOR EXAM: ER FOLLOW UP TECHNIQUE: TRANSVAGINAL W/PREG US COMPARISON: Prior study dated March 15, 2025. FINDINGS: Comments: LMP: February 13, 2025. Number of Gestational Sacs: 1 Gestational Sac Shape: Normal Number of Fetuses: 1 Heart Rate: 130 beats per minute (average) Survey of Visible Anatomic Structures: Grossly unremarkable for gestational age. Yolk Sac: Present and unremarkable. Placenta: Presently not well-visualized Amniotic Fluid Volume: Subjectively normal for gestational age. Uterine Abnormalities: Maternal uterus is unremarkable.. Questionable subchorionic hematoma. Ovaries / Adnexa: 1.9 cm 1.5 cm 1 cm corpus luteum cyst in the right ovary. DIMENSIONS: Parameter Measurement / EGA [place] Rump Length: 7 mm/6 weeks and 5 days Gestational Sac: 1.9 cm/6 weeks and 6 days Yolk Sac: 3 mm/ ESTIMATED GESTATIONAL AGE: By Ultrasound: 6 weeks and 6 days By LMP: 7 weeks and 1 day ESTIMATED DATE OF DELIVERY: By Ultrasound: November 22, 2021 By LMP: November 20, 2025 US/Transvaginal w/Preg US IMPRESSION: UNREMARKABLE FIRST TRIMESTER ULTRASOUND. Questionable small subchorionic hematoma. Reading Location: [facility] CC: Dr. Sarah Harmon DO; Jenn Sweeney DO Power House Engineer: Signed Normal [facility] Serum human chorionic gonado tropin detection for pregnancyOrdered By: Sarah Fall on 03-30-2025 HCG ( test) Ql [address] mIU/mL High <[address] [facility] Comment on above: Gestational Age0.2-1 Week: 5-50 mIU/mL1-2 Weeks: 50-500 mIU/mL2-3 Weeks: 100-5000 mIU/mL3-4 Weeks: 500-10,000 mIU/mL4-5 Weeks:1000-50,000 mIU/mL5-6 Weeks: 10,000-100,000 mIU/mL6-8 Weeks: 15,000-200,000 mIU/mL2-3 Months:10,000-100,000 mIU/mL hCG Titer Quant., Serumon HCG QUANT. 46252 mIU/mL High <9 non-preg [facility] Comment on above: Result Comment: Gest ational Age 0.2-1 Week: 5-50 mIU/mL 1-2 Weeks: 50-500 mIU/mL 2-3 Weeks: 100-5000 mIU/mL 3-4 Weeks: 500-10,000 mIU/mL 4-5 Weeks:1000-50,000 mIU/mL 5-6 Weeks: 10,000-100,000 mIU/mL 6-8 Weeks: 15,000-200,000 mIU/mL 2-3 Months:10,000-100,000 mIU/mL Performed By: #### L 700.8000 #### [facility] [address] [place], [address] Serum human chorionic gonado tropin detection for pregnancyOrdered By: David Oakley on 03-17-2025 HCG ( test) Ql 248 mIU/mL High <[address] [facility] Comment on above: Gestational Age0.2-1 Week: 5-50 mIU/mL1-2 Weeks: 50-500 mIU/mL2-3 Weeks: 100-5000 mIU/mL3-4 Weeks: 500-10,000 mIU/mL4-5 Weeks:1000-50,000 mIU/mL5-6 Weeks: 10,000-100,000 mIU/mL6-8 Weeks: 15,000-200,000 mIU/mL2-3 Months:10,000-100,000 mIU/mL hCG Titer Quant., Serumon 06 -19-2025 HCG QUANT. 248 mIU/mL High <9 non-preg [facility] Comment on above: Result Comment: Gest ational Age 0.2-1 Week: 5-50 mIU/mL 1-2 Weeks: 50-500 mIU/mL 2-3 Weeks: 100-5000 mIU/mL 3-4 Weeks: 500-10,000 mIU/mL 4-5 Weeks:1000-50,000 mIU/mL 5-6 Weeks: 10,000-100,000 mIU/mL 6-8 Weeks: 15,000-200,000 mIU/mL 2-3 Months:10,000-100,000 mIU/mL Performed By: #### L 500.4050, L100.0100, L501.2450 #### [facility] [address] [place], [address] [id number] 03-15-2025 ABO and Rh group Nom (Bld) Blood group A Rh(D) negative Normal [facility] Comment on above: Performed By: #### B 882-1, L700.8000 #### [facility] [address] [place], [address] Emergency Department Summary on 03-15-2025 Emergency Department Summary [facility] Medical Records Department [address] [place] [id number] Emergency Department Summary 03/15/25 MR#: [id number] Acct: [id number] Name: JUMANA HARRIS Rep #: [id number] : 2000 24 From: David Oakley MD PCP: Jenn Sweeney DO Status:REG ER Location: ED HPI HPI - Female History of Present Illness Chief Complaint: Detail of Chief Complaint: Sent from OB clinic for possible ectopic. Informant: patient Pain Pain: Negative for Pelvic Pain, Vulvar Pain or Vaginal Pain Current Severity: Mild Maximum Severity: Mild Worsened by: - (Nothing specific) Relieved by: - (Nothing) Bleeding Issue: Negative for Vaginal bleeding, Passing clots or Passing tissue Associated Symptoms Associated Symptoms: Positive for Frequency and Missed Period; Negative for Dysuria, Urgency or Hematuria Last known menstrual period: February 10 Test: Positive Sexually: Positive for Active Control: No control P: 0 Ab: 0 Narrative Narrative: Patient is a 24-year-old female who presents for possible ectopic. She does not use any form of control. She is sexually active. She denies history of STI, endometriosis. She does have history of ovarian cyst. She denies vaginal bleeding or vaginal discharge. Her only urologic symptom is frequency. She denies nausea or vomiting. She does report some breast fullness. She denies pain referred to her shoulder/trapezius area. Prior similar symptoms: No Recent Illness/Hospitalization: No PFSH PFSH Medical History Ovarian cyst Rheumatoid arthritis Depression Anxiety Irregular heart beat Migraines Bronchial spasms Home Medications ???Medication ???Instructions ???Recorded ???Last Taken ???Type allergy shot IM 02/17/25 Unknown History fexofenadine 60 mg tablet (Liss 60 mg PO BID 02/17/25 Unknown Hi story Allergy) trazodone 100 mg tablet 50 - 200 mg PO QHS PRN insomnia Unknown History Allergy/AdvReac Type Severity Reaction Status Date / Time Egg Derived Allergy Intermediate Hives Verified 03/15/25 20:48 hydroxychloroquine (From Allergy Intermediate Rash Verified 03/15/25 20:48 Plaquenil) Family History Grandfather Cancer Paternal- skin cancer Surgical History S/P wisdom tooth extraction H/O knee surgery History of tonsillectomy Social History household members: spouse current occupational status: employed 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[employer]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 smoker alcohol intake: current alcohol intake frequency: a few times a month Alcohol type: other substance use type: does not use seatbelt use: always do you feel safe at home: Yes additional social history: - Suhail Novakiff [facility] ROS ED Cardiovascular Cardiovascular: Denies chest pain or palpitations Respiratory/Chest Respiratory/Chest: Denies dyspnea or dyspnea on exertion Gastrointestinal Gastrointestinal: Reports abdominal pain and nausea; Denies constipation, diarrhea, melena or vomiting Genitourinary Genitourinary ED: Reports urinary frequency; Denies dysuria or hematuria Psychiatric Psychiatric: Denies anxiety Endocrine Endocrinology: Denies heat intolerance, polydipsia or polyuria Hematologic/Lymphatic Hematologic/Lymphatic: Denies easy bleeding or easy bruising EXAM Physical Exam Const Vital Signs: 03/15/25 20:44 03/15/25 22:44 Temperature 97.0 F L Temperature Source Temporal Pulse Rate 108 H 101 H Respiratory Rate 16 18 Blood Pressure 134/80 H 133/80 H Blood Pressure Mean 98 97 Pulse Ox 100 100 Oxygen Delivery Method Room Air Room Air Positive well nourished and well developed General Appearance ED: well developed and NAD HEENT Reports moist mucous membranes HEENT Narrative: Head is atraumatic normocephalic. Eyes EOMs intact bilaterally General Eye ED: Negative for pale conjunctiva or scleral icterus Neck no lymphadenopathy, supple and no JVD Chest Wall palpation of chest normal Resp normal respiratory effort and clear to auscultation bilaterally Cardio regular rate, regular rhythm, S1 normal heart sound, no murmurs and no JVD GI normal to inspection, nondistended, normoactive bowel sounds, soft to palpation, non-distended and no masses; Negative for non-tender GI Narrative: There is pain palpation near the right inguinal groove. There is no tenderness over McBurney's point or in the proximity of McBurney's point. There is no guarding or peritoneal findings. Her pain started a couple of days ago. Was worse today when she pushed on it. (more content not included)... Normal [facility] Serum human chorionic gonado tropin detection for pregnancyOrdered By: David Oakley on 03-15-2025 HCG ( test) Ql 128 mIU/mL High <[address] [facility] Comment on above: Gestational Age0.2-1 Week: 5-50 mIU/mL1-2 Weeks: 50-500 mIU/mL2-3 Weeks: 100-5000 mIU/mL3-4 Weeks: 500-10,000 mIU/mL4-5 Weeks:1000-50,000 mIU/mL5-6 Weeks: 10,000-100,000 mIU/mL6-8 Weeks: 15,000-200,000 mIU/mL2-3 Months:10,000-100,000 mIU/mL Transvaginal w/Preg USon Transvaginal w/Preg US [facility] Imaging Services [address] [place] [address] Transvaginal w/Preg US MR#: [id number] Acct: [id number] Name: JUMANA HARRIS Rep #: [id number] : 2000 F 24 From: Ernesto Dorsey MD PCP: Jenn Sweeney DO Status: REG ER Study: Transvaginal w/Preg US Date of Exam: 03/15/25 Exam# [id number] Ordering Dr: David Oakley MD PROCEDURE: TRANSVAGINAL W/PREG US 03/15/2025 REASON FOR EXAM: RIGHT LOWER QUADRANT PAIN CONCERN ECTOPIC TECHNIQUE: TRANSVAGINAL W/PREG US COMPARISON: None. FINDINGS No visualized gestational sac or pole. Uterus measures 6.7 x 4.4 x 3.7 cm. Endometrial thickness measures 18 mm. No free fluid in the cul-de-sac. The cervix is closed. Right ovary measures 4.2 x 3.0 x 2.9 cm with preserved vascular flow. Right ovarian 2.9 cm cyst. Left ovary measures 3.3 x 2.4 x 1.9 cm with preserved vascular flow. US/Transvaginal w/Preg US IMPRESSION: No visualized intrauterine . No visualized ectopic (can not be excluded). Reading Location: [id number] CC: Dr. David Oakley MD; Jenn Seweney DO Power House Engineer: Signed Normal [facility] hCG Titer Quant., Serumon HCG QUANT. 128 mIU/mL High <9 non-preg [facility] Comment on above: Result Comment: Gest ational Age 0.2-1 Week: 5-50 mIU/mL 1-2 Weeks: 50-500 mIU/mL 2-3 Weeks: 100-5000 mIU/mL 3-4 Weeks: 500-10,000 mIU/mL 4-5 Weeks:1000-50,000 mIU/mL 5-6 Weeks: 10,000-100,000 mIU/mL 6-8 Weeks: 15,000-200,000 mIU/mL 2-3 Months:10,000-100,000 mIU/mL Performed By: #### B 882-1, L700.8000 #### [facility] [address] [place], [address] Ankle min 3 Viewson 02-18-20 25 Ankle min 3 Views [facility] [address] [place] [address] Ankle min 3 Views MR#: [id number] Acct: [id number] Name: KATERIN,KLSADIQ SCOTT Rep #: [id number] : 2000 F 24 From: Shiva Newton MD PCP: Jenn Sweeney DO Status: REG CLI Study: Ankle min 3 Views Date of Exam: 02/17/25 Exam# [id number] Ordering Dr: Jeffry Benavides PA EXAM: XR Left Ankle Complete, 3 or More Views CLINICAL INDICATION: ANKLE INJURY TECHNIQUE: Frontal, lateral and oblique views of the left ankle. COMPARISON: No relevant prior studies available. FINDINGS: BONES/JOINTS: See below. SOFT TISSUES: Soft tissue swelling without acute fracture. RAD/Ankle min 3 Views IMPRESSION: 1. Soft tissue swelling without acute fracture. 2. If symptoms persist, further evaluation with CT is recommended. Reading Location[facility] CC: CECILY Irving; Jenn Sweeney DO Power House Engineer: Signed Normal [facility] Foot min 3 Viewson 5 Foot min 3 Views [facility] Imaging Services [address] [place] [address] Foot min 3 Views MR#: [id number] Acct: [id number] Name: JUMANA HARRIS Rep #: [id number] : 2000 F 24 From: Shiva Newton MD PCP: Jenn Sweeney DO Status: REG CLI Study: Foot min 3 Views Date of Exam: 02/17/25 Exam# [id number] Ordering Dr: Jeffry Benavides EXAM: XR Left Foot Complete, 3 or More Views CLINICAL INDICATION: FOOT INJURY TECHNIQUE: Frontal, lateral and oblique views of the left foot. COMPARISON: No relevant prior studies available. FINDINGS: BONES/JOINTS: Renal cortical created bony fragment inferior to the navicular, best visualized in the lateral view, likely from prior injury. Otherwise, no acute fracture. No dislocation. SOFT TISSUES: Soft tissue swelling. No radiopaque foreign body. RAD/Foot min 3 Views IMPRESSION: Renal cortical created bony fragment inferior to the navicular, best visualized in the lateral view, likely from prior injury. Otherwise, no acute fracture. Reading Location[facility] CC: CECILY Irving; Jenn Sweeney DO Power House Engineer: Signed Normal [facility] Urgent Care Visit Reporton 0 02-17-2025 Urgent Care Visit Report [facility] [address], [address] [place] [address] OFFICE VISIT Date of Service: 02/17/25 MR#: [id number] Acct: [id number] Name: JUMANA HARRIS Rep #: [id number] : 2000 Provider: CECILY Irving Age/Sex: 24/F [place] [facility] Status: Signed Intake Vital Signs 07/14/24 10:29 02/17/25 11:41 Height 5 ft 3 in BP 122/84 H Position Sitting Pulse 74 Temp 98.2 F Temp Source Oral Pulse Oximetry (%) 97 Oxygen Delivery Method room air Intake Visit Reasons: L FOOT/ANKLE INJURY Accompanied by: Other Family Is patient in pain?: Yes Pain scale (1-10): 5 Allergies Egg Derived Allergy (Intermediate, Verified 02/17/25 11:47) Hives hydroxychloroquine (From Plaquenil) Allergy (Intermediate, Verified 02/17/25 11:47) Rash Medications ???Medication ???Instructions ???Recorded ???Confirmed ???Type allergy shot IM 02/17/25 History fexofenadine 60 mg tablet (Liss 60 mg PO BID 02/17/25 02/17/25 H istory Allergy) trazodone 100 mg tablet 50 - 200 mg PO QHS PRN insomnia 02/17/25 History Nurse's Note: Patient hurt her left ankle/ foot late last night early this am. Patient was walking down the stairs and she missed the 3rd step and she fell on cement and scrapped the top of her foot and her ankle rolled. 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 Patient states that she missed a step going down the stairs and tripped causing her ankle to roll and her foot to hyperextend earlier this morning. Patient denies numbness, tingling or loss of range of motion however does state pain is made worse when her foot strikes the ground. She denies previous recent injuries. No other associated symptoms or alleviating/aggravating factors. ROS Const Constitutional: No other (as above) Exam Const General: cooperative and healthy appearing Skin General: no rashes or lesions noted Neuro General: patient alert Extrem General: full ROM Other: Pain to palpation over the left LATFL with minor ecchymosis. Appropriate range of motion both passive and active. Psych Appearance: grossly normal Mental Status: mental status grossly normal Coding Level of Care Code Off vis,est,level 4 Diagnoses Left ankle sprain S93.402A Assessment and Plan Assessment and Plan (1) Left ankle sprain: Status: Acute Plan: X-rays of the left foot and ankle read interpreted by myself and no acute osseous abnormalities, awaiting radiology interpretation at time of patient discharge. Patient placed in a walking boot. Encouraged to get plenty of rest, drink lots of clear liquids, and use Tylenol or Ibuprofen (unless contraindicated) for comfort. Patient also educated on other symptomatic management techniques. To be seen in 7-10 days if no improvement; sooner if worsening of symptoms. Orders: Orders Foot min 3 Views Today S99.929A - Unspecified injury of unspecified foot, initial encounter Ankle min 3 Views Today S99.919A - Unspecified injury of unspecified ankle, initial encounter 02/17/25 1317 Date Jeffry Pacheco Signature: Date (if applicable) CC: Normal [facility] Serum human chorionic gonado tropin detection for pregnancyOrdered By: Jenn Sweeney on 11-18-2024 HCG ( test) Ql < 1 mIU/mL <[address] [facility] Comment on above: hCG levels with Gest ational AgeGestational Age hCG mIU/mL (IU/L)0.2 - 1 week 5 - 501-2 weeks 50 - 5002-3 weeks 100 - 93620-0 weeks 500 - 578572-1 weeks 1000 - 045449-0 weeks 74154 - 100,0006-8 weeks 63417 - 200,0002-3 months 84334 - 100,000 hCG Titer Quant., Serumon HCG QUANT. < 1 Normal 1-[address] [facility] Comment on above: Result Comment: hCG levels with Gestational Age Gestational Age hCG mIU/mL (IU/L) 0.2 - 1 week 5 - 50 1-2 weeks 50 - 500 2-3 weeks 100 - 5000 3-4 weeks 500 - 40063 4-5 weeks 1000 - 06298 5-6 weeks 76781 - 100,000 6-8 weeks 51798 - 200,000 2-3 months 96230 - 100,000 Performed By: #### L 700.8000 #### [facility] [address] [place], [address] HIV - WCHon 11-16-2024 HIV Non-Reactive Normal Nonreactive [facility] Comment on above: Performed By: #### L 500.4050, L100.0100 #### [facility] [address] [place], [address] Hepatitis Panel Acuteon 10-30 COMMENT Comment Normal . [facility] Comment on above: Result Comment: Not infected with HCV unless early or acute infection is suspected (which may be delayed in an immunocompromised individual), or other evidence exists to indicate HCV infection. Performed at: [facility] [id number] Clinical Documentation Consultant: Garcia Oh PhD, Phone: [phone] Performed By: #### L 500.4050, L100.0100 #### [facility] [address] [place], [address] HEP B CORE,IgM Negative Normal Negative [facility] Comment on above: Performed By: #### L 500.4050, L100.0100 #### [facility] [address] [place], [address] HEP B SURF AG Negative Normal Negative [facility] Comment on above: Performed By: #### L 500.4050, L100.0100 #### [facility] [address] [place], [address] HEP C VIRUS AB Non-Reactive Normal Non Reactive [facility] Comment on above: Performed By: #### L 500.4050, L100.0100 #### [facility] [address] [place], [address] HEPATITIS A-IgM Negative Normal Negative [facility] Comment on above: Result Comment: A ne gative anti-HAV IgM result suggests no recent or current HAV infection. Performed By: #### L 500.4050, L100.0100 #### [facility] [address] [place], [place], [address] HIV 1 and HIV-2 antibody ass ay with HIV-1 p24 antigen detectionOrdered By: Jenn Sweeney on 11-10-2024 HIV 1+2 Ab+HIV1 p24 Ag IA Ql Non-Reactive Nonreactive [facility] L509.8000on 11-10-2024 Syphilis Abs Non-Reactive Normal [facility] Comment on above: Performed By: #### L 500.4050, L100.0100, L501.2450 #### [facility] [address] [facility] [place], [place], [address] No Panel InformationOrdered By: Jenn Sweeney on 11-10-2024 Hepatitis C Antibody Comment Comment . [facility] Comment on above: Not infected with HC V unless early or acute infection issuspected (which may be delayed in an immunocompromisedindividual), or other evidence exists to indicate HCVinfection.Performed at: - Lab[address] [id number] Director: Garcia Oh PhD, Phone: [phone] Serum Treponema species anti body detectionOrdered By: Jenn Sweeney on 11-10-2024 Treponema sp Ab Ql (S) Non-Reactive [facility] Serum or plasma hepatitis B virus surface antigen detection by immunoassayOrdered By: Jenn Sweeney on 11-10-2024 HBV surface Ag IA Ql Negative Negative [facility] PAP I-G w/rfx hrHPV-Aptimaon 07-21-2024 ADEQ Comment Normal . [facility] Comment on above: Order Comment: Speci men Comment: Source.............Cervix Specimen Comment: LMP / Prev Treat...[id number] Specimen Comment: No. of containers..01 ThinPrep Vial Specimen Comment: A duplicate report has been generated due to demographic Specimen Comment: updates. Result Comment: Sati sfactory for evaluation. Endocervical and/or squamous metaplastic cells (endocervical component) are present. Performed By: #### L 7400.0353 #### [facility] [address] [place], [place], [address] COMM . Normal . [facility] Comment on above: Order Comment: Speci men Comment: Source.............Cervix Specimen Comment: LMP / Prev Treat...[id number] Specimen Comment: No. of containers..01 ThinPrep Vial Specimen Comment: A duplicate report has been generated due to demographic Specimen Comment: updates. Performed By: #### L 7400.0353 #### [facility] [address] [place], [address] COMMENT Comment Normal . [facility] Comment on above: Order Comment: Speci men Comment: Source.............Cervix Specimen Comment: LMP / Prev Treat...[id number] Specimen Comment: No. of containers..01 ThinPrep Vial Specimen Comment: A duplicate report has been generated due to demographic Specimen Comment: updates. Result Comment: This liquid based ThinPrep(R) pap test was screened with the use of an image guided system. Performed By: #### L 7400.0353 #### [facility] [address] [place], [place], [address] DIAG Comment Normal . [facility] Comment on above: Order Comment: Speci men Comment: Source.............Cervix Specimen Comment: LMP / Prev Treat...[id number] Specimen Comment: No. of containers..01 ThinPrep Vial Specimen Comment: A duplicate report has been generated due to demographic Specimen Comment: updates. Result Comment: NEGA TIVE FOR INTRAEPITHELIAL LESION OR MALIGNANCY. Performed By: #### L 7400.0353 #### [facility] [address] [place], [place], [address] HPV RFLX Comment Normal . [facility] Comment on above: Order Comment: Speci men Comment: Source.............Cervix Specimen Comment: LMP / Prev Treat...[id number] Specimen Comment: No. of containers..01 ThinPrep Vial Specimen Comment: A duplicate report has been generated due to demographic Specimen Comment: updates. Result Comment: The HPV DNA reflex criteria were not met with this specimen result therefore, no HPV testing was performed. Performed at: [address] [id number] Clinical Documentation Consultant: Juany Chan MD, Phone: [phone] Performed By: #### L 7400.0353 #### [facility] [address] [facility] [place], [address] PAPSMR Comment Normal . [facility] Comment on above: Order Comment: Speci men Comment: Source.............Cervix Specimen Comment: LMP / Prev Treat...[id number]=[id number] Specimen Comment: No. of containers..01 ThinPrep Vial Specimen Comment: A duplicate report has been generated due to demographic Specimen Comment: updates. Result Comment: The Pap smear is a screening test designed to aid in the detection of premalignant and malignant conditions of the uterine cervix. It is not a diagnostic procedure and should not be used as the sole means of detecting cervical cancer. Both false-positive and false-negative reports do occur. Performed By: #### L 7400.0353 #### [facility] [address] [facility] [address] [place], [place], [address] PERFORM Comment Normal . [facility] Comment on above: Order Comment: Speci men Comment: Source.............Cervix Specimen Comment: LMP / Prev Treat...[id number] Specimen Comment: No. of containers..01 ThinPrep Vial Specimen Comment: A duplicate report has been generated due to demographic Specimen Comment: updates. Result Comment: Fransisca Farrell Store Shopper (ASCP) Performed By: #### L 7400.0353 #### [facility] [place], [address] MATTHEW Comprehensive Panelon MATTHEW TABLE Comment Normal . [facility] Comment on above: Result Comment: Auto antibody Disease Association Condition Frequency --------- Antinuclear Antibody, SLE, mixed connective Direct (MATTHEW-D) tissue diseases --------- dsDNA SLE 40 - 60% --------- Chromatin Drug induced SLE 90% SLE 48 - 97% --------- SSA (Ro) SLE 25 - 35% Sjogren's Syndrome 40 - 70% Lupus 100% --------- SSB (La) SLE 10% Sjogren's Syndrome 30% --------- Sm (anti-Daily) SLE 15 - 30% --------- CHEMIST FOOD Mixed Connective Tissue Disease 95% (U1 nRNP, SLE 30 - 50% anti-ribonucleoprotein) Polymyositis and/or Dermatomyositis 20% --------- Scl-70 (antiDNA Scleroderma (diffuse) 20 - 35% topoisomerase) Crest 13% --------- Odalys-1 Polymyositis and/or Dermatomyositis 20 - 40% --------- Centromere B Scleroderma - Crest variant 80% Performed By: #### L 500.4050, L100.0100 #### [facility] [address] [place], [address] ANTI-CENT B AB <0.2 Normal 0.0-0.[address] [facility] Comment on above: Performed By: #### L 500.4050, L100.0100 #### [facility] [address] [facility] [place], [place], [address] ANTI-DNA (DS)AB 1 IU/mL Normal 0-[address] [facility] Comment on above: Result Comment: Nega tive <5 Equivocal 5 - 9 Positive >9 Performed By: #### L 500.4050, L100.0100 #### [facility] [address] [place], [address] ANTI-ODALYS-1 <0.2 Normal 0.0-0.[address] [facility] Comment on above: Performed By: #### L 500.4050, L100.0100 #### [facility] [address] [place], [address] ANTI-SS-A < 0.2 Normal 0.0-0.[address] [facility] Comment on above: Performed By: #### L 500.4050, L100.0100 #### [facility] [address] [place], [address] ANTI-SS-B < 0.2 Normal 0.0-0.[address] [facility] Comment on above: Performed By: #### L 500.4050, L100.0100 #### [facility] [address] [place], [address] ANTICHROMATIN <0.2 Normal 0.0-0.[address] [facility] Comment on above: Performed By: #### L 500.4050, L100.0100 #### [facility] [address] [place], [address] ANTISCLERODERM <0.2 Normal 0.0-0.[address] [facility] Comment on above: Performed By: #### L 500.4050, L100.0100 #### [facility] [address] [place], [address] CHEMIST FOOD Ab <0.2 Normal 0.0-0.[address] [facility] Comment on above: Performed By: #### L 500.4050, L100.0100 #### [facility] [address] [place], [address] DAILY Ab <0.2 Normal 0.0-0.[address] [facility] Comment on above: Performed By: #### L 500.4050, L100.0100 #### [facility] [address] [place], [address] L5500.0550on 07-16-2024 BEEF <0.10 Normal Class [address] [facility] Comment on above: Performed By: #### L 500.4050, L100.0100 #### [facility] [address] [place], [address] CHOCOLATE <0.10 Normal Class [address] [facility] Comment on above: Performed By: #### L 500.4050, L100.0100 #### [facility] [address] [place], [address] CODFISH <0.10 Normal Class [address] [facility] Comment on above: Performed By: #### L 500.4050, L100.0100 #### [facility] [address] [place], [address] COMMENT Comment Normal . [facility] Comment on above: Result Comment: Priscilla krishnamurthy of Specific IgE Class Description of Class ----- < 0.10 0 Negative 0.10 - 0.31 0/I Equivocal/Low 0.32 - 0.55 I Low 0.56 - 1.40 II Moderate 1.41 - 3.90 III High 3.91 - 19.00 IV Very High 19.01 - 100.00 V Very High >100.00 Very High Performed By: #### L 500.4050, L100.0100 #### [facility] [address] [place], [address] CORN <0.10 Normal Class [address] [facility] Comment on above: Performed By: #### L 500.4050, L100.0100 #### [facility] [address] [place], [address] EGG, WHOLE 0.30 kU/L Abnormal Class 0/I [facility] Comment on above: Result Comment: Perf ormed at: [facility] [id number] Clinical Documentation Consultant: Garcia Oh PhD, Phone: [phone] Performed at: - [facility] [id number] Clinical Documentation Consultant: Rubens Bobby MD, Phone: [phone] Performed By: #### L 500.4050, L100.0100 #### [facility] [address] [place], [address] MILK (COW) 0.27 kU/L Abnormal Class 0/I [facility] Comment on above: Performed By: #### L 500.4050, L100.0100 #### [facility] [address] [place], [address] MUSSELS <0.10 Normal Class [address] [facility] Comment on above: Performed By: #### L 500.4050, L100.0100 #### [facility] [address] [place], [address] PEANUT 0.14 kU/L Abnormal Class 0/I [facility] Comment on above: Performed By: #### L 500.4050, L100.0100 #### [facility] [address] [place], [address] PORK <0.10 Normal Class [address] [facility] Comment on above: Performed By: #### L 500.4050, L100.0100 #### [facility] [address] [place], [address] SALMON <0.10 Normal Class [address] [facility] Comment on above: Performed By: #### L 500.4050, L100.0100 #### [facility] [address] [place], [address] SHRIMP 0.45 kU/L Abnormal Class I [facility] Comment on above: Performed By: #### L 500.4050, L100.0100 #### [facility] [facility] [address] [place], [address] SOYBEAN <0.10 Normal Class [address] [facility] Comment on above: Performed By: #### L 500.4050, L100.0100 #### [facility] [address] [place], [address] TUNA <0.10 Normal Class [address] [facility] Comment on above: Performed By: #### L 500.4050, L100.0100 #### [facility] [address] [place], [address] WHEAT 0.30 kU/L Abnormal Class 0/I [facility] Comment on above: Performed By: #### L 500.4050, L100.0100 #### [facility] [address] [place], [address] ANCAon 07-15-2024 Atypical pANCA <1:20 Normal Neg:<1:[address] [facility] Comment on above: Order Comment: NUNK Result Comment: The atypical pANCA pattern has been observed in a significant percentage of patients with ulcerative colitis, primary sclerosing cholangitis and autoimmune hepatitis. Performed at: - [facility] [id number] Clinical Documentation Consultant: Garcia Oh PhD, Phone: [phone] Performed at: - [facility] [id number] Clinical Documentation Consultant: Rubens Bobby MD, Phone: [phone] Performed By: #### L 500.4050, L100.0100 #### [facility] [address] [place], [address] Cytoplasmic Ab <1:20 Normal Neg:<1:[address] [facility] Comment on above: Order Comment: NUNK Performed By: #### L 500.4050, L100.0100 #### [facility] [address] [place], [place], [id number] Perinuclear Ab. <1:20 Normal Neg:<1:[address] [facility] Comment on above: Order Comment: NUNK Result Comment: The presence of positive fluorescence exhibiting P-ANCA or C-ANCA patterns alone is not specific for the diagnosis of Serjio's Granulomatosis (WG) or microscopic polyangiitis. Decisions about treatment should not be based solely on ANCA IFA results. The [employer] ANCA [employer] Consensus recommends follow up testing of positive sera with both SC- 3 and MPO-ANCA enzyme immunoassays. As many as 5% serum samples are positive only by EIA. Ref. AM J Clin Pathol 1999;111:507-513. Performed By: #### L 500.4050, L100.0100 #### [facility] [address] [place], [place], [address] Celiac Disease Profileon ENDOMYSIAL IGA Negative Normal Negative [facility] Comment on above: Order Comment: NUNK Performed By: #### L 500.4050, L100.0100 #### [facility] [address] [place], [place], [address] tTG IGA <2 Normal 0-[address] [facility] Comment on above: Order Comment: NUNK Result Comment: Nega tive 0 - 3 Weak Positive 4 - 10 Positive >10 Tissue Transglutaminase (tTG) has been identified as the endomysial antigen. Studies have demonstr- ated that endomysial IgA antibodies have over 99% specificity for gluten sensitive enteropathy. Performed By: #### L 500.4050, L100.0100 #### [facility] [address] [place], [address] GUIDO + Protein Elect, Serumon 07-15-2024 Albumin [Mass/Vol] 4.4 g/dL Normal 2.9-4.4 [facility] Comment on above: Order Comment: NUNK Performed By: #### L 500.4050, L100.0100 #### [facility] [address] [place], [address] Albumin/Globulin [Mass ratio] 1.5 {ratio} Normal 0.7-1.[address] [facility] Comment on above: Order Comment: NUNK Performed By: #### L 500.4050, L100.0100 #### [facility] [address] [place], [address] [id number] 0.2 g/dL Normal 0.0-0.[address] [facility] Comment on above: Order Comment: NUNK Performed By: #### L 500.4050, L100.0100 #### [facility] [address] [place], [address] [id number] 0.6 g/dL Normal 0.4-1.[address] [facility] Comment on above: Order Comment: NUNK Performed By: #### L 500.4050, L100.0100 #### [facility] [address] [place], [address] BETA GLOBULIN 0.9 g/dL Normal 0.7-1.[address] [facility] Comment on above: Order Comment: NUNK Performed By: #### L 500.4050, L100.0100 #### [facility] [address] [place], [address] GAMMA GLOBULIN 1.3 g/dL Normal 0.4-1.[address] [facility] Comment on above: Order Comment: NUNK Performed By: #### L 500.4050, L100.0100 #### [facility] [address] [place], [address] Globulin (S) [Mass/Vol] 3.0 g/dL Normal 2.2-3.[address] [facility] Comment on above: Order Comment: NUNK Performed By: #### L 500.4050, L100.0100 #### [facility] [address] [place], [address] GUIDO RESULT,S Comment Normal . [facility] Comment on above: Order Comment: NUNK Result Comment: No m onoclonality detected. Performed By: #### L 500.4050, L100.0100 #### [facility] [address] [place], [address] IMMUNOGLOB A QN 131 mg/dL Normal 87-[address] [facility] Comment on above: Order Comment: NUNK Performed By: #### L 500.4050, L100.0100 #### [facility] [address] [place], [address] IMMUNOGLOB G QN 1302 mg/dL Normal 586-[address] [facility] Comment on above: Order Comment: NUNK Performed By: #### L 500.4050, L100.0100 #### [facility] [address] [place], [address] IMMUNOGLOB M QN 152 mg/dL Normal 26-[address] [facility] Comment on above: Order Comment: NUNK Performed By: #### L 500.4050, L100.0100 #### [facility] [address] [place], [address] M-Hernandez Not Observed Normal Not Observed [facility] Comment on above: Order Comment: NUNK Performed By: #### L 500.4050, L100.0100 #### [facility] [address] [place], [address] NOTE: Comment Normal . [facility] Comment on above: Order Comment: NUNK Result Comment: Prot ein electrophoresis scan will follow via computer, mail, or lump receiver delivery. Performed By: #### L 500.4050, L100.0100 #### [facility] [address] [place], [address] Protein [Mass/Vol] 7.4 g/dL Normal 6.0-8.5 [facility] Comment on above: Order Comment: NUNK Performed By: #### L 500.4050, L100.0100 #### [facility] [address] [place], [address] Immunoglobulins G/A/M/Ferdinand IMMUNOGLOB E QN 213 IU/mL Normal 6-[address] [facility] Comment on above: Order Comment: NUNK Performed By: #### L 500.4050, L100.0100 #### [facility] [address] [place], [address] L2100.0000on 07-15-2024 ACCA 9 units Normal 0-[address] [facility] Comment on above: Order Comment: NUNK Result Comment: Nega tive: <80 Equivocal: 80-90 Positive: >90 Performed By: #### L 500.4050, L100.0100 #### [facility] [address] [place], [address] ALCA 21 units Normal 0-[address] [facility] Comment on above: Order Comment: NUNK Result Comment: Nega tive:<55 Equivocal: 55-60 Positive: >60 Performed By: #### L 500.4050, L100.0100 #### [facility] [address] [place], [address] AMCA 51 units Normal 0-[address] [facility] Comment on above: Order Comment: NUNK Result Comment: Nega tive: <90 Equivocal: 90-100 Positive: >100 This test was developed and its performance characteristics determined by [employer]. It has not been cleared or approved by the Food and Drug Administration. The FDA has determined that such clearance or approval is not necessary. Performed By: #### L 500.4050, L100.0100 #### [facility] [address] [place], [address] Atypical pANCA Negative Normal Negative [facility] Comment on above: Order Comment: NUNK Performed By: #### L 500.4050, L100.0100 #### [facility] [address] [place], [address] COMMENT Comment Abnormal . [facility] Comment on above: Order Comment: NUNK Result Comment: Sugg estive of Crohn's Disease. Pattern is not conclusive for disease behavior risk stratification. Performed By: #### L 500.4050, L100.0100 #### [facility] [address] [place], [address] Sara 51 units Abnormal 0-[address] [facility] Comment on above: Order Comment: NUNK Result Comment: Nega tive: <45 Equivocal: 45-50 Positive: >50 Performed By: #### L 500.4050, L100.0100 #### [facility] [address] [place], [address] Engraver Signature Office Visit Reporton 07-14-2024 [employer]raver Signature Office Visit Report [facility] [address], [address] [place] [address] OFFICE VISIT Date of Service: 07/14/24 MR#: [id number] Acct: [id number] Name: JUMANA HARRIS Rep #: [id number] : 2000 Provider: SHANTANU gutiérrez Age/Sex: 24/F Location: [facility] Status: Signed Intake Vital Signs 06/23/24 22:58 07/14/24 10:24 07/14/24 10:29 Height 5 ft 3 in 5 ft 3 in 5 ft 3 in Weight: 163 lb BMI 28.8 BP 110/70 Intake Visit Reasons: follow up pelvic US/pelvic pain Chief Complaint: f/u US/pelvic pain 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 Required: No Is patient in pain?: No Allergies Egg Derived Allergy (Intermediate, Verified 07/14/24 10:24) Hives hydroxychloroquine (From Plaquenil) Allergy (Intermediate, Verified 07/14/24 10:24) Rash Medications ???Medication ???Instructions ???Recorded ???Confirmed ???Type cholecalciferol (vitamin D3) 50 50 mcg PO DAILY 04/21/24 07/14/24 History mcg (2,000 unit) capsule acetaminophen 500 mg tablet 500 mg PO Q6H PRN 07/12/24 07/14/24 History (Tylenol Extra Strength) ibuprofen 200 mg capsule 200 mg PO Q6H PRN 07/12/24 07/14/24 History Is last menstrual period known: Yes Last Menstrual Period: 06/20/24 Post menopausal: No Patient : No : No PFSH Medical History (Updated 07/14/24 @ 10:37 by Aiyana Leon SPANISH LINGUIST, SPANISH LINGUIST-C) Ovarian cyst Rheumatoid arthritis Depression Anxiety Irregular heart beat Migraines Bronchial spasms Surgical History S/P wisdom tooth extraction H/O knee surgery History of tonsillectomy Family History Grandfather Cancer Paternal- skin cancer Social History household members: spouse current occupational status: employed 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 US on 07/02/24 overall normal with several small bilateral ovarian follicles. States pain completely resolved. No contraception X 4 months, wants . Cyclic menses every 4 weeks and has color change with home OPT. Taking PNV Female Reproductive History Last Menstrual Period: 06/20/24 History 0 Elective abortions Hx Para Spontaneous abortions Hx # Term Pregnancies Ectopic pregnancies Hx # Pregnancies Multiple births # of living children ROS Const Constitutional: Reports system reviewed and no additional complaints, except as documented Eyes Eyes: Reports system reviewed and no additional complaints, except as documented GI GI: Denies abdominal pain or change in bowel habits : Reports as per HPI Exam Const General: cooperative and no acute distress Orientation: oriented x3 General: bladder normal to palpation External Female Exam: normal external appearance and normal appearance of the urethra Urethra: normal appearance of the urethra Speculum Exam - Vagina: normal appearance of the vagina, normal vaginal discharge, no lesions and nontender Speculum Exam - Cervix: normal appearance of the cervix Bimanual Exam- Vagina Uterus: normal bimanual exam, uterine size normal, bladder normal to palpation, uterine shape normal, uterine mobility normal and non-tender Bimanual Exam- Adnexa, other: normal adnexae, no masses and non-tender Coding Level of Care Code Off vis,est,level 3 Diagnoses Pelvic pain R10.2 Assessment and Plan Assessment and Plan (1) Pelvic pain: Status: Acute Orders: Orders PAP I-G w/rfx hrHPV-Aptima Today Z12.4 - Encounter for screening for malignant neoplasm of cervix Plan Reviewed US thin prep pap collected Call if mense irregular, no + OPT or no by January 2025 07/14/24 1038 Date Aiyana Pacheco Signature: Date (if applicable) CC: Normal [facility] Gastroenterology Visit Repor ton 07-12-2024 Gastroenterology Visit Report [facility] Gastroenter[facility] [address] [place] [address] OFFICE VISIT Date of Service: 07/12/24 MR#: [id number] Acct: [id number] Name: KATERINCARLOSSADIQ SCOTT Rep #: [id number] : 2000 Provider: SHANTANU verdugo Age/Sex: 24/F Location: [facility] Status: Signed Intake Vital Signs 04/21/24 14:24 06/23/24 22:58 Height 5 ft 3 in 5 ft 3 in Intake Visit Reasons: Abdominal pain Chief Complaint: High risk preg. concerns Allergies Egg Derived Allergy (Intermediate, Verified 06/23/24 22:58) Hives hydroxychloroquine (From Plaquenil) Allergy (Intermediate, Verified 06/23/24 22:58) Rash Medications ???Medication ???Instructions ???Recorded ???Confirmed ???Type cholecalciferol (vitamin D3) 50 50 mcg PO DAILY 04/21/24 07/01/24 History mcg (2,000 unit) capsule acetaminophen 500 mg tablet 500 mg PO Q6H PRN 07/12/24 07/12/24 History (Tylenol Extra Strength) ibuprofen 200 mg capsule 200 mg PO Q6H PRN 07/12/24 07/12/24 History Nurse's Note: OV 07.12.24 pt reports that a month ago she went to the ER with lower abdominal pain, they did a CT and found that she had colitis. Pt reports that she is no longer having abd pain. Pt reports nausea in the morning that tapers off as she is up and eating. Pt notes gas/bloating after eating large amounts of sweets or carbs. Pt reports occasional HB after eating fatty or greasy foods; states that TUMs are helpful. 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 concerns Details: JUMANA HARRIS, is a 24 F who presents to the office today for establishment with [facility] for original complaints of RLQ abdominal pain last month that has since resolved. She reports having visited [facility] and was worked up for appendicitis 06.17.24; had a concerning abd/pelvis CT that showed ileocolitis and possibly the beginning of appendicitis, but discussion between the clinic and surgery ruled out a surgical abdomen at that time. She visited [facility] ER 06.24.24 for increasing RLQ abd pain and repeat abd/pelvis CT showed clearing of appendicitis but ileocolitis remained. She reports back-tracking her diet to find a food correlation and states that she was eating really crappy food. She states that she is more aware of what she's eating now and her abdominal pain has resolved. She reports at the time of the pain, her BMs were extremely foul- smelling and orange-yellow in color and somewhat formed. She denies difficulty chewing and swallowing. Reports occasional heartburn in the back of her throat, pointing to her parotid area bilaterally. Heartburn brought on by salty, acidic and greasy foods. She treats herself with Tums and is satisfied with that. She reports daily to every other day BM with complete evacuation, but she has to sit on the toilet for a little while. Denies hematochezia and melena. Denies rectal pressure or pain. ROS Const Constitutional: Positive for fatigue; No chills, fever(s) or weight change Eyes Eyes: No change in vision ENT ENT: No abnormal hearing or difficulty swallowing Resp Respiratory: No cough Cardio Cardiology: No chest pain at rest, chest pain with exertion or leg pain with exertion Gastro GI: Positive for bloating, heartburn, excessive flatus and nausea/dyspepsia; No abdominal pain, belching, change in bowel habits, change in stool character, coffee ground emesis, constipation, cramping, diarrhea, difficulty swallowing, feeling full early, incontinent of stools, Vomiting blood/hematemesis, Blood in stool, loose stools, Black,tarry stools, pain with swallowing, vomiting or other Genitourinary-Female: No difficulty urinating Musc Musculoskeletal: Positive for joint pain, back pain, joint swelling, stiffness and Arthritis; No abnormal gait or leg pain with exertion Skin Skin: Positive for dry skin and itchy eyes; No yellowing of the eye Neuro Neurology: No abnormal gait or abnormal hear (more content not included)... Normal [facility] LDHon 07-12-2024 LDH 259 U/L High 84-[address] [facility] Comment on above: Order Comment: UNK1 Performed By: #### L 500.4050, L100.0100 #### [facility] [address] [place], [address] Office Visiton 02-11-2024 Follow-up visit [id number] Jumana Harris 2000 F Date Provider Department Center 02/11/2024 [id number] WARE [facility] Family History Problem Relation Age of Onset Other Mother Comments: gestational DM Arthritis Mother Other Father Comments: Factor 5 Other Sister Comments: negative for factor 5 Osteoarthritis Maternal Grandmother No Known Problems Maternal Grandfather Rheum arthritis Paternal Grandmother No Known Problems Paternal Grandfather Family Status - Relation Status Age at Mother Alive Father Alive Sister Alive Maternal Grandmother Maternal Grandfather Paternal Grandmother Alive Paternal Grandfather Alive Level of Service:80650 SC OFFICE/OUTPATIENT ESTABLISHED LOW [facility] 20 MIN Reason for Visit and Comments: Anxiety [9] Panic Attack [019341] - Patient here today to discuss episodes of anxiety and panic attacks. She will have episodes even while sitting down, watching TV. She has had increased heart rate, sweating, dizziness and feeling like she is going to pass out (she was on Zoloft at one point, but took herself off of it). Normal [facility] Progress Noteon 02-11-2024 Progress Note Chronic, controlled Not on medicine Check the CRP Normal [facility] Progress Note Chronic, stable Has issues at times Does not want to take medicine at this time Normal [facility] Progress Note Subjective Patient ID: Jumana Harris is a 23 y.o. female who presents for Anxiety and Panic Attack (Patient here today to discuss episodes of anxiety and panic attacks. She will have episodes even while sitting down, watching TV. She has had increased heart rate, sweating, dizziness and feeling like she is going to pass out (she was on Zoloft at one point, but took herself off of it).). Gets dizzy at rest. Heart rate is up. Can be high even when resting. Awakens from sleep. Is on the BCP. Menses are light on that. Review of Systems Respiratory: Positive for shortness of breath. Negative for apnea, chest tightness and wheezing. No snoring Neurological: Positive for dizziness. Negative for syncope and headaches. Psychiatric/Behavioral: Positive for sleep disturbance. The patient is nervous/anxious. Stopped the Zoloft when she no longer needed it. Objective Physical Exam Vitals and nursing note reviewed. Constitutional: General: She is not in acute distress. Appearance: She is not ill-appearing or toxic-appearing. HENT: Right Ear: There is impacted cerumen. Ears: Comments: Wax on the right side Mouth/Throat: Pharynx: No oropharyngeal exudate or posterior oropharyngeal erythema. Eyes: General: No scleral icterus. Conjunctiva/sclera: Conjunctivae normal. Pupils: Pupils are equal, round, and reactive to light. Neck: Vascular: No carotid bruit. Cardiovascular: Rate and Rhythm: Normal rate and regular rhythm. Heart sounds: Normal heart sounds. Comments: Heart rate slowed down as she sat in the exam room. Pulmonary: Effort: Pulmonary effort is normal. No respiratory distress. Breath sounds: Normal breath sounds. Abdominal: Tenderness: There is no right CVA tenderness or left CVA tenderness. Musculoskeletal: Cervical back: Neck supple. Lymphadenopathy: Cervical: No cervical adenopathy. Skin: Capillary Refill: Capillary refill takes less than 2 seconds. Coloration: Skin is not jaundiced. Neurological: Mental Status: She is alert. Psychiatric: Thought Content: Thought content normal. Assessment/Plan Problem List Items Addressed This Visit GUILLAUME (generalized anxiety disorder) Chronic, stable Has issues at times Does not want to take medicine at this time Rheumatoid arthritis (HCC) Chronic, controlled Not on medicine Check the CRP Relevant Orders C-reactive protein Other Visit Diagnoses Tachycardia - Primary Acute, uncontrolled Comes and goes quickly Check the labs including the adrenal lab If elevated, may need a CT of the adrenals Relevant Orders TSH T4, free CBC Comprehensive metabolic panel Sweating abnormality Relevant Orders Comprehensive metabolic panel Metanephrines Plasma Dizziness Relevant Orders Metanephrines Plasma Normal [facility] AMB POC STREP GO A DIRECT, D NA PROBEon 01-16-2024 Interpretation and review of laboratory results Normal [facility] POC Strep DNA Probe Negative Negative [facility] Radiology Study observation (narrative) [facility] Office Visiton 01-16-2024 Follow-up visit [id number] Jumana Harris 2000 F Date Provider Department Center 01/16/2024 [id number] POWERS [facility] Family History Problem Relation Age of Onset Other Mother Comments: gestational DM Arthritis Mother Other Father Comments: Factor 5 Other Sister Comments: negative for factor 5 Osteoarthritis Maternal Grandmother No Known Problems Maternal Grandfather Rheum arthritis Paternal Grandmother No Known Problems Paternal Grandfather Family Status - Relation Status Age at Mother Alive Father Alive Sister Alive Maternal Grandmother Maternal Grandfather Paternal Grandmother Alive Paternal Grandfather Alive Level of Service:83037 SC OFFICE/OUTPATIENT ESTABLISHED LOW [facility] 20 MIN Reason for Visit and Comments: Sore Throat [82] - severe, and right ear congestion/popping, has chills/sweating but not taking temperature, neck lymph nodes are swollen, sinus congestion. Has taken liss with no relief, ibuprofen offers some relief. Vomited Friday, but Friday started with body aches, congestion etc. Headache [52] - Some coughing-at night Normal [facility] Progress Noteon 01-16-2024 Progress Note [facility] [address] [facility] [address] Dept: [phone] Dept Reason for Visit: Sore Throat ( severe, and right ear congestion/popping, has chills/sweating but not taking temperature, neck lymph nodes are swollen, sinus congestion. Has taken liss with no relief, ibuprofen offers some relief. /Vomited Friday, but Friday started with body aches, congestion etc.) and Headache (Some coughing-at night ) Assessment and Plan 1. Sore throat - AMB POC STREP GO A DIRECT, DNA PROBE - amoxicillin (Amoxil) 500 MG capsule; Take 1 capsule (500 mg) by mouth 3 times daily., Starting Fri01/16/2024, Normal 2. Ear pain, right - amoxicillin (Amoxil) 500 MG capsule; Take 1 capsule (500 mg) by mouth 3 times daily., Starting Fri01/16/2024, Normal 3. Nausea - ondansetron (Zofran) 4 MG tablet; Take 1 tablet (4 mg) by mouth every 8 hours as needed for nausea or vomiting for up to 7 days., Starting Fri01/16/2024, Until Fri01/23/2024 at 2359, Normal Follow up if symptoms worsen or fail to improve. Subjective Sore Throat This is a new problem. The current episode started in the past 7 days. The problem has been gradually worsening. The maximum temperature recorded prior to her arrival was 101 - 101.9 F. The fever has been present for 1 to 2 days. The pain is moderate. Associated symptoms include congestion, a hoarse voice, a plugged ear sensation, swollen glands and trouble swallowing. Pertinent negatives include no ear pain, headaches or shortness of breath. She has tried acetaminophen for the symptoms. The treatment provided mild relief. Review of Systems Constitutional: Positive for chills and fever. HENT: Positive for congestion, hoarse voice, sore throat and trouble swallowing. Negative for ear pain, sinus pressure and sinus pain. Respiratory: Negative for chest tightness and shortness of breath. Cardiovascular: Negative for chest pain. Neurological: Negative for headaches. Allergies Allergen Reactions Egg-Derived Products Hives Other reaction(s): AOF Hives, nausea, migraines Hydroxychloroquine Hives, Itching and Rash Outpatient Medications Prior to Visit Medication Sig Dispense Refill cholecalciferol (Vitamin D-3) 50 MCG (2000 UT) capsule Take 2,000 Units by mouth daily. ibuprofen 600 MG tablet TAKE 1 TABLET BY MOUTH THREE TIMES A DAY 90 tablet 0 SUMAtriptan (Imitrex) 50 MG tablet Take 1 tablet (50 mg) by mouth Once as needed for migraine. May repeat after 2 hours. 27 tablet 3 tiZANidine (Zanaflex) 4 MG tablet TAKE 1 TABLET (4 MG) BY MOUTH 2 TIMES DAILY NEEDED FOR MUSCLE SPASMS. 60 tablet 0 traMADol (Ultram) 50 MG tablet Take 1 tablet by mouth every 6 hours as needed. Zovia 1/35E, 28, 1-35 MG-MCG tablet Take 1 tablet by mouth daily. 84 tablet 3 levOCARNitine (L-Carnitine) 500 MG tablet Take by mouth. No facility-administered medications prior to visit. Past Medical History: Diagnosis Date Anxiety Bronchial spasm Headache Social History Tobacco Use Smoking status: Never Passive exposure: Never Smokeless tobacco: Never Substance Use Topics Alcohol use: Yes Alcohol/week: 4.0 standard drinks of alcohol Past Surgical History: Procedure Laterality Date KNEE SURGERY Right 04/07/2018 orthoscopic lateral knee release, Dr. Meet Lares TONSILLECTOMY (HISTORICAL) 03/2010 TONSILLECTOMY (HISTORICAL) 2010 WISDOM TOOTH EXTRACTION Family History Problem Relation Name Age of Onset Other (45604) Mother gestational DM Arthritis Mother Other (63527) Father Factor 5 Other (79275) Sister negative for factor 5 Osteoarthritis Maternal Grandmother No Known Problems Maternal Grandfather Rheum arthritis Paternal Grandmother No Known Problems Paternal Grandfather Objective BP 135/86 (BP Location: Right arm, Patient Position: Sitting, BP Cuff Size: Adult) Pulse 98 Temp 36.6 ?C (97.9 ?F) (Oral) SpO2 98% Physical Exam Vitals and nursing note reviewed. Constitutional: Appearance: Normal appearance. HENT: Right Ear: Tympanic membrane, ear canal and external ear normal. There is impacted cerumen. Left Ear: Ear canal and external ear normal. A middle ear effusion is present. There is no impacted cerumen. Nose: Congestion present. Mouth/Throat: Mouth: Mucous membranes are moist. Pharynx: Oropharynx is clear. Posterior oropharyngeal erythema present. Eyes: General: Right eye: No discharge. Left eye: No discharge. Conjunctiva/sclera: Conjunctivae normal. Pupils: Pupils are equal, round, and reactive to light. Cardiovascular: Rate and Rhythm: Normal rate and regular rhythm. Heart sounds: Normal heart sounds. Pulmonary: Effort: Pulmonary effort is normal. Breath sounds: Normal breath sounds. No wheezing. Skin: General: Skin is warm and dry. Neurological: General: No focal deficit present. Mental Status: She is alert and oriented to person, pl (more content not included)... Normal [facility] 36on 01-15-2024 36 S: Patient spoke wit h [facility] nurse regarding sore throat, ear congestion B: Onset of symptoms/concern Friday A: Calls with sore throat that is severe, and right ear congestion/popping, has chills/sweating but not taking temperature, neck lymph nodes are swollen, sinus congestion. Has taken liss with no relief, ibuprofen offers some relief. Denies difficulty breathing, difficulty swallowing. R: Insurance verified. Scheduled appointment for 01/15. Advised to bring ID and insurance cards and list of current medications, and arrive 15 minutes early. Given home care advice to include warm salt water gargles, increasing fluids. Patient understands care advice. No further needs at this time. Patient instructed to call back with new or worsening symptoms. sore throat, few days , red puffy throat , right ear feels like infection starting Reason for Disposition SEVERE sore throat pain Protocols used: Sore [id number] Normal [facility] Absolute lymphocyte countOrd ered By: Ebonie York on 01-15-2024 Lymphocytes Auto (Unsp spec) [#/Vol] 1.21 10*3/uL 0.83-4.[address] [facility] Automated lymphocyte count a s percentage of total leukocytesOrdered By: Ebonie York on 01-15-2024 Lymphocytes/100 WBC Auto (Unsp spec) 24.9 % 19-[address] [facility] Basophil percentageOrdered B y: Ebonie York on 01-15-2024 Basophils/100 WBC (Bld) 0.4 % 0-[address] [facility] Bilirubin [Mass/Vol] 0.40 mg/dL 0.20-1.00 [facility] Comment on above: For patients on eltr ombopag therapy, use of Dimension [place]z TBIL is not recommended. Chloride [Moles/Vol] 106 mmol/L 98-107 [facility] Eosinophils/100 WBC (Bld) 2.3 % 0-[address] [facility] Glucose [Mass/Vol] 109 mg/dL 74-106 [facility] Comment on above: Fasting Glucose resu lt from 100 to 125 mg/dL suggests IMPAIRED HOMEOSTASIS per A.D.A. criteria. Hemoglobin (Bld) [Mass/Vol] 13.9 g/dL 12.0-15.[address] [facility] Monocytes/100 WBC (Bld) 10.1 % 0-[address] [facility] Neutrophils (Bld) [#/Vol] 3.0 10*3/uL 2.0-7.[address] [facility] Neutrophils/100 WBC (Bld) 61.9 % 47-[address] [facility] Potassium [Moles/Vol] 3.8 mmol/L 3.5-5.1 [facility] Protein [Mass/Vol] 7.6 g/dL 6.4-8.2 [facility] Sodium [Moles/Vol] 137 mmol/L 136-145 [facility] WBC (Bld) [#/Vol] 4.9 10*3/uL 4.4-11.0 [facility] Determination of erythrocyte mean corpuscular volume (MCV)Ordered By: Ebonie York on 01-15-2024 MCV (RBC) [Entitic vol] 85.2 fL 81-[address] [facility] Erythrocyte distribution wid th ratioOrdered By: Ebonie York on 01-15-2024 Erythrocyte distribution width (RBC) [Ratio] 11.6 % 11.6-14.[address] [facility] Erythrocyte distribution wid th standard deviationOrdered By: Ebonie York on 01-15-2024 Erythrocyte distribution width (RBC) [Entitic vol] 35.3 fL 35.1-43.[address] [facility] Hematocrit Auto (Bld) [Volum e fraction]Ordered By: Ebonie York on 01-15-2024 Hematocrit (Bld) [Volume fraction] 42.5 % 37-[address] [facility] Immature granulocytes/100 WB C Auto (Bld)Ordered By: Ebonie York on 01-15-2024 Immature granulocytes/100 WBC (Bld) 0.400 % 0.0-0.[address] [facility] Comment on above: IG% - Immature Granu locytes (promyelocytes, myelocytes and metamyelocytes) > 1% indicates that a LEFT SHIFT is Present. Laboratory - Chemistry and C hemistry - challengeOrdered By: Ebonie York on 01-15-2024 Albumin/Globulin [Mass ratio] 0.9 {ratio} 0.9-2.[address] [facility] ALP [Catalytic activity/Vol] 77 U/L 45-[address] [facility] ALT [Catalytic activity/Vol] 30 U/L 13-[address] [facility] CO2 [Moles/Vol] 26.0 mmol/L 21.0-32.[address] [facility] Globulin (S) [Mass/Vol] 4.1 g/dL 2.2-4.[address] [facility] Urea nitrogen/Creatinine [Mass ratio] 8.0 mg/mg 10-[address] [facility] Laboratory - Hematology and Cell countsOrdered By: Ebonie York on 01-15-2024 MCH (RBC) [Entitic mass] 27.9 pg 27.0-32.[address] [facility] MCHC (RBC) [Mass/Vol] 32.7 g/dL 32-36 [facility] Nucleated RBC/100 WBC (Bld) [Ratio] 0 % 0-[address] [facility] Platelet mean volume (Bld) [Entitic vol] 9.3 fL 6.2-12.[address] [facility] Platelets (Bld) [#/Vol] 227 10*3/uL 150-[address] [facility] No Panel InformationOrdered By: Ebonie York on 01-15-2024 Estimated GFR (MDRD) Amer 103 mL/min >[address] [facility] Comment on above: GFR Calc Estimated GFR (MDRD) Non-Af Amer 85 mL/min >[address] [facility] Comment on above: Non- GFR Calc RBC Auto (Bld) [#/Vol]Ordere d By: Ebonie York on 01-15-2024 RBC (Bld) [#/Vol] 4.99 10*6/uL 4.2-5.4 [facility] Serum or plasma calcium lulu urement (mass/volume)Ordered By: Ebonie York on 01-15-2024 Calcium [Mass/Vol] 8.9 mg/dL 8.5-10.1 [facility] Serum or plasma creatinine m easurement (mass/volume)Ordered By: Ebonie York on 01-15-2024 Creatinine [Mass/Vol] 0.87 mg/dL 0.55-1.02 [facility] Comment on above: The validity of the calculated GFR & GFRAA in patients over 70 years has not been determined. Clinical correlation is essential. Serum or plasma urea nitroge n measurement (mass/volume)Ordered By: Ebonie York on 01-15-2024 Urea nitrogen [Mass/Vol] 7 mg/dL 7-[address] [facility] Thin prep Papanicolaou smear with manual screeningOrdered By: Ebonie York on 01-15-2024 Thin prep Papanicolaou smear with manual screening 3.5 g/dL 3.2-5.[address] [facility] Thin prep Papanicolaou smear with manual screening 20 U/L 15-[address] [facility] Thin prep Papanicolaou smear with manual screening 5 5-[address] [facility] Office Visiton 11-11-2023 Follow-up visit [id number] Jumana Harris 2000 F Date Provider Department Center 11/11/2023 [id number] WARE [facility] Family History Problem Relation Age of Onset Other Mother Comments: gestational DM Arthritis Mother Other Father Comments: Factor 5 Other Sister Comments: negative for factor 5 Osteoarthritis Maternal Grandmother No Known Problems Maternal Grandfather Rheum arthritis Paternal Grandmother No Known Problems Paternal Grandfather Family Status - Relation Status Age at Mother Alive Father Alive Sister Alive Maternal Grandmother Maternal Grandfather Paternal Grandmother Alive Paternal Grandfather Alive Level of Service:76581 [facility] OFFICE/OUTPATIENT ESTABLISHED MDM 10 MIN Reason for Visit and Comments: ER Follow-up [831] - Patient here today for ER follow up appointment. She was seen at [place] [facility] for chest discomfort, SOB and elevated heart rate last week. No diagnosis was given. Normal [facility] Progress Noteon 11-11-2023 Progress Note Chronic, stable Uses Albuterol as needed Very infrequent episodes Has never been on an ICS Normal [facility] Progress Note Subjective Patient ID: Jumana Harris is a 23 y.o. female who presents for ER Follow-up (Patient here today for ER follow up appointment. She was seen at [place] [facility] for chest discomfort, SOB and elevated heart rate last week. No diagnosis was given.). Has rheumatoid arthritis. Started on Cimzia. [place] lousy on it. Woke up with chest pain and hives. Had trouble breathing. Friday, Friday and Friday out of breath. Went to [place]. D dimer was elevated. Had a CT for PE. Had some wheezing. Tried albuterol at home. Feels fatigued. Chart reviewed Review of Systems Constitutional: Positive for fatigue. Negative for activity change. Respiratory: Positive for shortness of breath and wheezing. Negative for cough. Cardiovascular: Positive for palpitations. Musculoskeletal: Positive for arthralgias and myalgias. Objective Physical Exam Vitals and nursing note reviewed. Constitutional: General: She is not in acute distress. Appearance: She is not ill-appearing or toxic-appearing. Eyes: General: No scleral icterus. Conjunctiva/sclera: Conjunctivae normal. Pupils: Pupils are equal, round, and reactive to light. Cardiovascular: Rate and Rhythm: Normal rate and regular rhythm. Heart sounds: Normal heart sounds. No murmur heard. Pulmonary: Effort: Pulmonary effort is normal. Breath sounds: Normal breath sounds. No wheezing. Abdominal: General: Bowel sounds are normal. There is no distension. Tenderness: There is no abdominal tenderness. There is no right CVA tenderness or left CVA tenderness. Musculoskeletal: Right lower leg: No edema. Left lower leg: No edema. Comments: NO palpable cords in the legs Skin: Coloration: Skin is not jaundiced. Neurological: Mental Status: She is alert. Assessment/Plan Problem List Items Addressed This Visit Respiratory Reactive airway disease Chronic, stable Uses Albuterol as needed Very infrequent episodes Has never been on an ICS Other Visit Diagnoses Adverse effect of drug, initial encounter - Primary Acute, uncontrolled This sounds like a reaction to Cimzia Hives, rapid heart rate Has stopped the drug Monitor the symptoms Resolved at this time Vitamin D deficiency Chronic, unknown Has felt bad for a while This has been low in the past Not on a supplement Check the labs Relevant Orders Vitamin D Deficiency Screening (Vit D 25) Normal [facility] Absolute lymphocyte countOrd ered By: Justice Alberto on 11-05-2023 Lymphocytes Auto (Unsp spec) [#/Vol] 2.37 10*3/uL 0.83-4.[address] [facility] Activated partial thrombopla stin time (aPTT) in platelet poor plasma by coagulation aOrdered By: Justice Alberto on 11-05-2023 aPTT Coag (PPP) [Time] 25.3 s 24.1-36.2 [facility] Automated lymphocyte count a s percentage of total leukocytesOrdered By: Justice Alberto on 11-05-2023 Lymphocytes/100 WBC Auto (Unsp spec) 23.4 % 19-[address] [facility] Basophil percentageOrdered B y: Justice Alberto on 11-05-2023 Basophils/100 WBC (Bld) 0.2 % 0-[address] [facility] Chloride [Moles/Vol] 105 mmol/L 98-107 [facility] Eosinophils/100 WBC (Bld) 0.3 % 0-[address] [facility] Glucose [Mass/Vol] 95 mg/dL 74-106 [facility] Hemoglobin (Bld) [Mass/Vol] 14.3 g/dL 12.0-15.[address] [facility] Monocytes/100 WBC (Bld) 6.8 % 0-[address] [facility] Neutrophils (Bld) [#/Vol] 7.0 10*3/uL 2.0-7.[address] [facility] Neutrophils/100 WBC (Bld) 69.1 % 47-[address] [facility] Potassium [Moles/Vol] 3.1 mmol/L 3.5-5.1 [facility] Sodium [Moles/Vol] 134 mmol/L 136-145 [facility] WBC (Bld) [#/Vol] 10.1 10*3/uL 4.4-11.0 [facility] Blood manual differential co mment interpretation (narrative result)Ordered By: Justice Alberto on 11-05-2023 Manual differential comment Eyal (Bld) [Interp] SCANNED [facility] Determination of erythrocyte mean corpuscular volume (MCV)Ordered By: Justice Alberto on 11-05-2023 MCV (RBC) [Entitic vol] 84.7 fL 81-[address] [facility] Erythrocyte distribution wid th ratioOrdered By: Justice Alberto on 11-05-2023 Erythrocyte distribution width (RBC) [Ratio] 11.7 % 11.6-14.[address] [facility] Erythrocyte distribution wid th standard deviationOrdered By: Justice Alberto on 11-05-2023 Erythrocyte distribution width (RBC) [Entitic vol] 35.5 fL 35.1-43.[address] [facility] Hematocrit Auto (Bld) [Volum e fraction]Ordered By: Justice Alberto on 11-05-2023 Hematocrit (Bld) [Volume fraction] 41.4 % 37-[address] [facility] Immature granulocytes/100 WB C Auto (Bld)Ordered By: Justice Alberto on 11-05-2023 Immature granulocytes/100 WBC (Bld) 0.200 % 0.0-0.[address] [facility] Comment on above: IG% - Immature Granu locytes (promyelocytes, myelocytes and metamyelocytes) > 1% indicates that a LEFT SHIFT is Present. Laboratory - Chemistry and C hemistry - challengeOrdered By: Justice Alberto on 11-05-2023 CO2 [Moles/Vol] 23.0 mmol/L 21.0-32.[address] [facility] Magnesium [Mass/Vol] 1.9 mg/dL 1.6-2.6 [facility] Urea nitrogen/Creatinine [Mass ratio] 6.8 mg/mg 10-[address] [facility] Laboratory - CoagulationOrde red By: Justice Alberto on 11-05-2023 INR Coag (Bld) [Relative time] 1.1 {INR} [facility] PT Coag (PPP) [Time] 14.0 s 11.7-14.9 [facility] Laboratory - Hematology and Cell countsOrdered By: Justice Alberto on 11-05-2023 MCH (RBC) [Entitic mass] 29.2 pg 27.0-32.[address] [facility] MCHC (RBC) [Mass/Vol] 34.5 g/dL 32-36 [facility] Nucleated RBC/100 WBC (Bld) [Ratio] 0 % 0-[address] [facility] Platelet mean volume (Bld) [Entitic vol] 9.8 fL 6.2-12.[address] [facility] Platelets (Bld) [#/Vol] 197 10*3/uL 150-[address] [facility] No Panel InformationOrdered By: Justice Alberto on 11-05-2023 Troponin I High Sensitivity 15 pg/mL 3.0-54.[address] [facility] Comment on above: Please Note: New Casie t Units and Gender Specific Reference Ranges. For more information see Policy Stat Procedure [place] High Sensitivity Troponin (TNIH) and attachments. D-Dimer Quantitative (PE/DVT) 1.16 FEU/ug/m 0.27-0.[address] [facility] Comment on above: D-Dimer ELEVATED (>0 .49): Additional studies and clinicalassessments are indicated to conclude diagnosis of:Deep Vein Thrombosis (DVT) or Pulmonary Embolism (PE) Estimated Creatinine Clearance Calc 116.47 ml/min [facility] Estimated GFR (MDRD) Amer 124 mL/min >[address] [facility] Comment on above: GFR Calc Estimated GFR (MDRD) Non-Af Amer 103 mL/min >[address] [facility] Comment on above: Non- GFR Calc RBC Auto (Bld) [#/Vol]Ordere d By: Justice Alberto on 11-05-2023 RBC (Bld) [#/Vol] 4.89 10*6/uL 4.2-5.4 [facility] Serum or plasma calcium lulu urement (mass/volume)Ordered By: Justice Alberto on 11-05-2023 Calcium [Mass/Vol] 9.3 mg/dL 8.5-10.1 [facility] Serum or plasma choriogonado tropin detectionOrdered By: Justice Alberto on 11-05-2023 HCG ( test) Ql Negative [facility] Serum or plasma creatinine m easurement (mass/volume)Ordered By: Jusitce Alberto on 11-05-2023 Creatinine [Mass/Vol] 0.74 mg/dL 0.55-1.02 [facility] Comment on above: The validity of the calculated GFR & GFRAA in patients over 70 years has not been determined. Clinical correlation is essential. Serum or plasma thyroid stim ulating hormone (TSH) measurement (units/volume)Ordered By: Justice Alberto on 11-05-2023 TSH Qn 2.04 uIU/mL 0.358-3.[address] [facility] Serum or plasma urea nitroge n measurement (mass/volume)Ordered By: Justice Alberto on 11-05-2023 Urea nitrogen [Mass/Vol] 5 mg/dL 7-[address] [facility] Thin prep Papanicolaou smear with manual screeningOrdered By: Justice Alberto on 11-05-2023 Thin prep Papanicolaou smear with manual screening 6 5-[address] [facility] Absolute lymphocyte countOrd ered By: Ebonie York on 10-16-2023 Lymphocytes Auto (Unsp spec) [#/Vol] 2.07 10*3/uL 0.83-4.[address] [facility] Automated lymphocyte count a s percentage of total leukocytesOrdered By: Ebonie York on 10-16-2023 Lymphocytes/100 WBC Auto (Unsp spec) 32.5 % 19-[address] [facility] Basophil percentageOrdered B y: Ebonie York on 10-16-2023 Basophils/100 WBC (Bld) 0.5 % 0-[address] [facility] Bilirubin [Mass/Vol] 0.40 mg/dL 0.20-1.00 [facility] Comment on above: For patients on eltr ombopag therapy, use of Dimension [place] TBIL is not recommended. Chloride [Moles/Vol] 109 mmol/L 98-107 [facility] Eosinophils/100 WBC (Bld) 1.3 % 0-[address] [facility] Glucose [Mass/Vol] 91 mg/dL 74-106 [facility] Hemoglobin (Bld) [Mass/Vol] 13.9 g/dL 12.0-15.[address] [facility] Monocytes/100 WBC (Bld) 9.4 % 0-[address] [facility] Neutrophils (Bld) [#/Vol] 3.6 10*3/uL 2.0-7.[address] [facility] Neutrophils/100 WBC (Bld) 56.1 % 47-[address] [facility] Potassium [Moles/Vol] 3.9 mmol/L 3.5-5.1 [facility] Protein [Mass/Vol] 7.3 g/dL 6.4-8.2 [facility] Sodium [Moles/Vol] 140 mmol/L 136-145 [facility] WBC (Bld) [#/Vol] 6.4 10*3/uL 4.4-11.0 [facility] Determination of erythrocyte mean corpuscular volume (MCV)Ordered By: Ebonie York on 10-16-2023 MCV (RBC) [Entitic vol] 88.5 fL 81-[address] [facility] Erythrocyte distribution wid th ratioOrdered By: Ebonie York on 10-16-2023 Erythrocyte distribution width (RBC) [Ratio] 11.9 % 11.6-14.[address] [facility] Erythrocyte distribution wid th standard deviationOrdered By: Ebonie York on 10-16-2023 Erythrocyte distribution width (RBC) [Entitic vol] 38.6 fL 35.1-43.[address] [facility] Hematocrit Auto (Bld) [Volum e fraction]Ordered By: Ebonie York on 10-16-2023 Hematocrit (Bld) [Volume fraction] 43.0 % 37-[address] [facility] Immature granulocytes/100 WB C Auto (Bld)Ordered By: Ebonie York on 10-16-2023 Immature granulocytes/100 WBC (Bld) 0.200 % 0.0-0.[address] [facility] Comment on above: IG% - Immature Granu locytes (promyelocytes, myelocytes and metamyelocytes) > 1% indicates that a LEFT SHIFT is Present. Laboratory - Chemistry and C hemistry - challengeOrdered By: Ebonie York on 10-16-2023 Albumin/Globulin [Mass ratio] 0.9 {ratio} 0.9-2.[address] [facility] ALP [Catalytic activity/Vol] 58 U/L 45-[address] [facility] ALT [Catalytic activity/Vol] 18 U/L 13-[address] [facility] CO2 [Moles/Vol] 26.0 mmol/L 21.0-32.[address] [facility] Globulin (S) [Mass/Vol] 3.9 g/dL 2.2-4.[address] [facility] Urea nitrogen/Creatinine [Mass ratio] 10.1 mg/mg 10-[address] [facility] Laboratory - Hematology and Cell countsOrdered By: Ebonie York on 10-16-2023 MCH (RBC) [Entitic mass] 28.6 pg 27.0-32.[address] [facility] MCHC (RBC) [Mass/Vol] 32.3 g/dL 32-36 [facility] Nucleated RBC/100 WBC (Bld) [Ratio] 0 % 0-[address] [facility] Platelets (Bld) [#/Vol] 229 10*3/uL 150-[address] [facility] No Panel InformationOrdered By: Ebonie York on 10-16-2023 Estimated GFR (MDRD) Amer 114 mL/min >[address] [facility] Comment on above: GFR Calc Estimated GFR (MDRD) Non-Af Amer 95 mL/min >[address] [facility] Comment on above: Non- GFR Calc Platelet mean volume Ramesh-Ec ker (Bld) [Entitic vol]Ordered By: Ebonie York on 10-16-2023 Platelet mean volume (Bld) [Entitic vol] 9.1 fL 6.2-12.[address] [facility] RBC Auto (Bld) [#/Vol]Ordere d By: Ebonie York on 10-16-2023 RBC (Bld) [#/Vol] 4.86 10*6/uL 4.2-5.4 [facility] Serum or plasma calcium lulu urement (mass/volume)Ordered By: Ebonie York on 10-16-2023 Calcium [Mass/Vol] 8.9 mg/dL 8.5-10.1 [facility] Serum or plasma creatinine m easurement (mass/volume)Ordered By: Ebonie York on 10-16-2023 Creatinine [Mass/Vol] 0.80 mg/dL 0.55-1.02 [facility] Comment on above: The validity of the calculated GFR & GFRAA in patients over 70 years has not been determined. Clinical correlation is essential. Serum or plasma urea nitroge n measurement (mass/volume)Ordered By: Ebonie York on 10-16-2023 Urea nitrogen [Mass/Vol] 8 mg/dL 04-[address] [facility] Thin prep Papanicolaou smear with manual screeningOrdered By: Ebonie York on 10-16-2023 Thin prep Papanicolaou smear with manual screening 3.4 g/dL 3.2-5.[address] [facility] Thin prep Papanicolaou smear with manual screening 17 U/L 15-[address] [facility] Thin prep Papanicolaou smear with manual screening 5 5-[address] [facility] Qualitative QuantiFERON-TB g old in tube testOrdered By: Ebonie York on 06-18-2023 M. tuberculosis tuberculin stim IFN-g Ql (Bld) 0.03 IU/mL . [facility] Thin prep Papanicolaou smear with manual screeningOrdered By: Ebonie York on 06-18-2023 Thin prep Papanicolaou smear with manual screening Comment . [facility] Comment on above: QuantiFERON-TB Gold Plus is a qualitative indirect test forM tuberculosis infection (including disease) and isintended for use in conjunction with risk assessment,radiography, and other medical and diagnostic evaluations.The QuantiFERON-TB Gold Plus result is determined bysubtracting the Nil value from either TB antigen (Ag)value. The Mitogen tube serves as a control for the test. Thin prep Papanicolaou smear with manual screening 0.03 IU/mL . [facility] Thin prep Papanicolaou smear with manual screening 0.04 IU/mL . [facility] Thin prep Papanicolaou smear with manual screening > 10.00 IU/mL . [facility] Thin prep Papanicolaou smear with manual screening Negative Negative [facility] Comment on above: No response to M tub erculosis antigens detected.Infection with M tuberculosis is unlikely, but high riskindividuals should be considered for additional testing(ATS/IDSA/CDC Clinical Practice Guidelines, 2017). Thereference range is an Antigen minus Nil result of <0.35IU/mL.The specimen received for QuantiFERON testing was incubatedby the ordering institution. Specific procedures outlinedin our Directory of Services and in the package insert forthe QuantiFERON Gold (In Tube) test must be followed toenable for proper stimulation of cells for the productionof interferon gamma. Chemiluminescence immunoassaymethodologyPerformed at: [facility] [id number] Director: Gacria Oh PhD, Phone: [phone] 36on 06-12-2023 36 Last appointment 03/13/2023 , Next appointment is Visit date not found Last filled 04/15/23 1 month 1 refill Normal [facility] 36 Last appointment 03/13/2023 , Next appointment is 06/12/2023 Last filled 04/14/23 1 month 1 refill Normal [facility] Laboratory - Microbiology an d Antimicrobial susceptibilityon 05-14-2023 S. pyogenes Ag IA Ql (Unsp spec) Negative [facility] 36on 04-15-2023 36 Last appointment 03/13/2023 , Next appointment is Visit date not found Last filled 02/13/23 1 month 1 refill Normal [facility] Absolute lymphocyte countOrd ered By: Ebonie York on 04-15-2023 Lymphocytes Auto (Unsp spec) [#/Vol] 1.95 10*3/uL 0.83-4.[address] [facility] Basophil percentageOrdered B y: Ebonie York on 04-15-2023 Basophils/100 WBC (Bld) 0.2 % 0-[address] [facility] Bilirubin [Mass/Vol] 0.50 mg/dL 0.20-1.00 [facility] Comment on above: For patients on eltr ombopag therapy, use of Dimension Schurz TBIL is not recommended. Chloride [Moles/Vol] 103 mmol/L 98-107 [facility] Eosinophils/100 WBC (Bld) 0.6 % 0-[address] [facility] Glucose [Mass/Vol] 95 mg/dL 74-106 [facility] Neutrophils (Bld) [#/Vol] 6.0 10*3/uL 2.0-7.[address] [facility] Neutrophils/100 WBC (Bld) 70.7 % 47-[address] [facility] Potassium [Moles/Vol] 4.0 mmol/L 3.5-5.1 [facility] Protein [Mass/Vol] 8.1 g/dL 6.4-8.2 [facility] Sodium [Moles/Vol] 137 mmol/L 136-145 [facility] WBC (Bld) [#/Vol] 8.5 10*3/uL 4.4-11.0 [facility] Bilirubin Test strip Ql (U)O rdered By: Ebonie York on 04-15-2023 Bilirubin Ql (U) Negative Negative [facility] Blood erythrocytes count (nu mber/volume)Ordered By: Ebonie York on 04-15-2023 RBC (Bld) [#/Vol] 5.16 10*6/uL 4.2-5.4 [facility] Blood hemoglobin measurement (mass/volume)Ordered By: Ebonie York on 04-15-2023 Hemoglobin (Bld) [Mass/Vol] 14.9 g/dL 12.0-15.[address] [facility] Blood lymphocytes/100 leukoc ytesOrdered By: Ebonie York on 04-15-2023 Lymphocytes/100 WBC (Bld) 22.9 % 19-[address] [facility] Blood monocytes/100 leukocyt esOrdered By: Ebonie York on 04-15-2023 Monocytes/100 WBC (Bld) 5.5 % 0-[address] [facility] Blood platelet mean volumeOr dered By: Ebonie York on 04-15-2023 Platelet mean volume (Bld) [Entitic vol] 9.3 fL 6.2-12.[address] [facility] Determination of erythrocyte mean corpuscular volume (MCV)Ordered By: Ebonie York on 04-15-2023 MCV (RBC) [Entitic vol] 86.8 fL 81-[address] [facility] Dilute Greyson's viper venom timeOrdered By: Ebonie York on 04-15-2023 dRVVT Coag (PPP) [Time] 48.1 s 0.0-47.[address] [facility] Comment on above: TEST RESULTS LIMITSd RVVT Mix 41.6 High sec 0.0-40.4dRVVT Confirm 1.3 High ratio 0.8-1.2 TESTING PERFORMED AT [facility]. ORIGINAL REPORT ON FILE IN LAB CONTAINS ADDITIONAL TEST SITE INFORMATION. Previous reported result: 48.1 secEdited by: RAY on 04/22/23:1436 AMENDED REPORT 04/22/23 1436 DRVVT previously reported as: 48.1 H sec Hematocrit Auto (Bld) [Volum e fraction]Ordered By: Ebonie York on 04-15-2023 Hematocrit (Bld) [Volume fraction] 44.8 % 37-[address] [facility] Ketones Test strip Ql (U)Ord ered By: Ebonie York on 04-15-2023 Ketones Ql (U) Negative Negative [facility] Laboratory - Chemistry and C hemistry - challengeOrdered By: Ebonie York on 04-15-2023 ALP [Catalytic activity/Vol] 65 U/L 45-[address] [facility] ALT [Catalytic activity/Vol] 19 U/L 13-[address] [facility] CO2 [Moles/Vol] 27.0 mmol/L 21.0-32.[address] [facility] Globulin (S) [Mass/Vol] 4.0 g/dL 2.2-4.[address] [facility] Urea nitrogen/Creatinine [Mass ratio] 12.0 mg/mg 10-[address] [facility] Laboratory - Hematology and Cell countsOrdered By: Ebonie York on 04-15-2023 Erythrocyte distribution width (RBC) [Entitic vol] 37.9 fL 35.1-43.[address] [facility] Erythrocyte distribution width (RBC) [Ratio] 11.8 % 11.6-14.[address] [facility] Immature granulocytes/100 WBC (Bld) 0.100 % 0.0-0.[address] [facility] Comment on above: IG% - Immature Granu locytes (promyelocytes, myelocytes and metamyelocytes) > 1% indicates that a LEFT SHIFT is Present. MCH (RBC) [Entitic mass] 28.9 pg 27.0-32.[address] [facility] Nucleated RBC/100 WBC (Bld) [Ratio] 0 % 0-[address] [facility] Laboratory - Miscellaneous t estsOrdered By: Ebonie York on 04-15-2023 Service comment (Unsp spec) [Interp] Comment . [facility] Comment on above: Results do not indic ate the presence of a LupusAnticoagulant: abnormal high screening results (PTT-LA,dRVVT, mixing studies), may be due to medication (heparin,warfarin, aspirin), Factor inhibitors, anticardiolipinantibodies, or poor specimen integrity.Performed at: [address] [id number] Director: Rubens Bobby MD, Phone: [phone] MCHC Auto (RBC) [Mass/Vol]Or dered By: Ebonie York on 04-15-2023 MCHC (RBC) [Mass/Vol] 33.3 g/dL 32-36 [facility] Nitrite Test strip Ql (U)Ord ered By: Ebonie York on 04-15-2023 Nitrite Ql (U) Negative Negative [facility] No Panel InformationOrdered By: Ebonie York on 04-15-2023 Estimated GFR (MDRD) Amer 98 mL/min >[address] [facility] Comment on above: GFR Calc Estimated GFR (MDRD) Non-Af Amer 81 mL/min >[address] [facility] Comment on above: Non- GFR Calc Hepatitis B Surface Antigen Non-Reactive Nonreactive [facility] Hepatitis C Antibody Non-Reactive Nonreactive [facility] Comment on above: Non Reactive: < 0.8 Equivocal: >/= 0.8 to < 1.0 Reactive: >/= 1.0The [facility] recommends that a reactive/equivocal HCV antibody result be followed up by the HCV Nucleic Acid Amplificationtest (540035) Hexagonal Phase Phospholipid 3 sec 0-[address] [facility] Miscellaneous Test Comment MAILED SPECIMEN [facility] Platelets bldOrdered By: Jarrett York on 04-15-2023 Platelets (Bld) [#/Vol] 235 10*3/uL 150-[address] [facility] Protein Test strip Ql (U)Ord ered By: Ebonie York on 04-15-2023 Protein Ql (U) Negative Negative [facility] Serum hepatitis B virus surf rasta antibody IgG detectionOrdered By: Ebonie York on 04-15-2023 HBV surface IgG Ql (S) Reactive [facility] Comment on above: Non Reactive: Incons istent with immunity less than <10 mIU/mL Reactive: Consistent with immunity greater than or equal to 10 mIU/mL Serum or plasma albumin lulu urement (mass/volume)Ordered By: Ebonie York on 04-15-2023 Albumin [Mass/Vol] 4.1 g/dL 3.2-5.0 [facility] Serum or plasma albumin/glob ulin mass ratioOrdered By: Ebonie York on 04-15-2023 Albumin/Globulin [Mass ratio] 1.0 {ratio} 0.9-2.[address] [facility] Serum or plasma calcium lulu urement (mass/volume)Ordered By: Ebonie York on 04-15-2023 Calcium [Mass/Vol] 9.4 mg/dL 8.5-10.1 [facility] Serum or plasma creatinine m easurement (mass/volume)Ordered By: Ebonie York on 04-15-2023 Creatinine [Mass/Vol] 0.91 mg/dL 0.55-1.02 [facility] Comment on above: The validity of the calculated GFR & GFRAA in patients over 70 years has not been determined. Clinical correlation is essential. Serum or plasma urea nitroge n measurement (mass/volume)Ordered By: Ebonie York on 04-15-2023 Urea nitrogen [Mass/Vol] 11 mg/dL 7-[address] [facility] Thin prep Papanicolaou smear with manual screeningOrdered By: Ebonie York on 04-15-2023 Thin prep Papanicolaou smear with manual screening 17 U/L 15-[address] [facility] Thin prep Papanicolaou smear with manual screening 7 5-[address] [facility] Thin prep Papanicolaou smear with manual screening 40.6 sec 0.0-47.[address] [facility] Thin prep Papanicolaou smear with manual screening 1.03 Ratio 0.00-1.[address] [facility] Thin prep Papanicolaou smear with manual screening 45.0 sec 0.0-43.[address] [facility] Thin prep Papanicolaou smear with manual screening 41.1 sec 0.0-40.[address] [facility] Thin prep Papanicolaou smear with manual screening Comment: . [facility] Comment on above: Results are consiste nt with the presence of a lupus anticoagulant. As onlypersistent lupus anticoagulant (LA) positivity meets laboratory diagnosticcriteria for antiphospholipid syndrome, repeat testing in 12 or more weeksis recommended, ideally in the absence of anticoagulant therapy.Important Note: The results of LA testing are not valid for patientsreceiving heparin, direct Xa inhibitor (e.g., rivaroxaban, apixaban) ordirect thrombin inhibitor (e.g., dabigatran) therapy. These drugs may causefalse positive LA results but will not interfere with anticardiolipin andbeta-2 glycoprotein 1 antibody testing. Thrombin time in platelet po or plasmaOrdered By: Ebonie York on 04-15-2023 Thrombin time Coag (PPP) [Time] 17.2 sec 0.0-23.[address] [facility] Urine blood detectionOrdered By: Ebonie York on 04-15-2023 RBC Ql (U) Negative Negative [facility] Urine clarityOrdered By: Jarrett York on 04-15-2023 Clarity (U) Clear Clear [facility] Urine color determinationOrd ered By: Ebonie York on 04-15-2023 Color (U) Yellow Yellow [facility] Urine creatinine measurement (mass/volume)Ordered By: Ebonie York on 04-15-2023 Creatinine (U) [Mass/Vol] 160.00 mg/dL NO RANGE EST. [facility] Urine glucose detectionOrder ed By: Ebonie York on 04-15-2023 Glucose Ql (U) Normal mg/dl Normal [facility] Urine leukocyte esterase det ection by dipstickOrdered By: Ebonie York on 04-15-2023 Leukocyte esterase Test strip Ql (U) Negative Negative [facility] Urine pHOrdered By: Ebonie meyer on 04-15-2023 pH (U) 7.0 [pH] 5.0 - 8.[address] [facility] Urine protein measurement (m ass/volume)Ordered By: Ebonie York on 04-15-2023 Protein (U) [Mass/Vol] 13.2 mg/dL 0.0-11.8 [facility] Urine protein/creatinine mas s ratioOrdered By: Ebonie York on 04-15-2023 Protein/Creatinine (U) [Mass ratio] 83 mg/g CRE 0-[address] [facility] Urine specific gravity measu rementOrdered By: Ebonie York on 04-15-2023 Specific gravity (U) [Rel density] 1.010 1.002-1.[address] [facility] Urobilinogen Auto test strip Ql (U)Ordered By: Ebonie York on 04-15-2023 Urobilinogen Ql (U) Normal mg/dl Normal [facility] 36on 04-13-2023 36 Last appointment 03/13/2023 , Next appointment is Visit date not found Last filled 02/13/23 1 month 1 refill Normal [facility] 36on 03-21-2023 36 General 03/21/2023 1 0:55 AM Marisabel Ojeda - Not sent with CE - Note: Faxed referral,demo, ID, labs and summary of care to: Ebonie York MD Physician (Active) [facility] [address] [facility] [address] (W) [phone] (F) [phone] [employer] message sent . Type Date User Summary Sent Status Attachment Provider Comments 03/19/2023 7:03 AM Paulina Ware MD Provider Comments Not sent with CE - Note: See Dr Ebonie York Looks like Marisabel sent that info today. [facility] 36on 03-19-2023 36 Name of caller: Zach kebede Contact phone number: [phone] Relationship to Patient: Patient Provider: Dr. Ware Practice: [facility] Chief Complaint/Reason for Call: Patient says the other office hasn't received the fax yet and wanted it resent over. Confirmed fax # is [phone]. They are also requesting a copy of patients insurance card which was put in her chart in November 2021. Please advise. [facility] 36 Faxed to rheumatolog ist, and patient notified. [facility] 36 In the fax folder [facility] 36on 03-18-2023 36 Name of caller: Zach Acosta Contact phone number: [phone] Relationship to Patient: patient Provider: Dr Ware Practice: [facility] Chief Complaint/Reason for Call: Pt requesting referral for Rheumatology to be sent to Dr Chela Loomis in [place] [phone]. Please fax referral, labs and OV notes to [phone] Best time of day caller can be reached: Any Patient advised that office/PCP has 24-48 business hours to return their call: Yes [facility] Office Visiton 03-13-2023 Follow-up visit [id number] Zach Acosta Priya 2000 F Date Provider Department Center 03/13/2023 [id number] WARE [facility] Family History Problem Relation Age of Onset Other Mother Comments: gestational DM Arthritis Mother Other Father Comments: Factor 5 Other Sister Comments: negative for factor 5 Osteoarthritis Maternal Grandmother Rheum arthritis Paternal Grandmother Family Status - Relation Status Age at Mother Alive Father Alive Sister Alive Maternal Grandmother Maternal Grandfather Paternal Grandmother Alive Paternal Grandfather Alive Level of Service:03333 [facility] OFFICE/OUTPATIENT ESTABLISHED LOW MDM 20-29 MIN Reason for Visit and Comments: Hip Pain [[id number]] - Right hip pain, since haroldo time. Seeing chiropractor who wants blood work done to check inflammatory markers. MRI was normal. Pt is fasting Normal [facility] Progress Noteon 03-13-2023 Progress Note Subjective Patient ID: Jumana Acosta is a 22 y.o. female who [...] to see Dr Lares for an injection Normal [facility] COVID-19 virus antigen assay Ordered By: Randell Zuñiga on 01-01-2023 SARS-CoV-2 (COVID-19) Ag IA.rapid Ql (Resp) [facility] COVID-19 virus antigen assay Ordered By: Dr. Zuñiga on 01-01-2023 SARS-CoV-2 (COVID-19) Ag IA.rapid Ql (Resp) [facility] COVID-19 virus antigen assay Ordered By: Randell Zuñiga on 12-25-2022 SARS-CoV-2 (COVID-19) Ag IA.rapid Ql (Resp) [facility] COVID-19 virus antigen assay Ordered By: Dr. Zuñiga on 12-25-2022 SARS-CoV-2 (COVID-19) Ag IA.rapid Ql (Resp) [facility] Absolute lymphocyte countOrd ered By: Dr. Fabian on 12-05-2022 Lymphocytes Auto (Unsp spec) [#/Vol] 2.19 10*3/uL 0.83-4.[address] [facility] Basophil percentageOrdered B y: Dr. Fabian on 12-05-2022 Basophils/100 WBC (Bld) 0.1 % 0-[address] [facility] Bilirubin [Mass/Vol] 0.40 mg/dL 0.20-1.00 [facility] Comment on above: For patients on eltr ombopag therapy, use of Dimension Schurz TBIL is not recommended. Chloride [Moles/Vol] 109 mmol/L 98-107 [facility] Eosinophils/100 WBC (Bld) 0.5 % 0-[address] [facility] Glucose [Mass/Vol] 102 mg/dL 74-106 [facility] Comment on above: Fasting Glucose resu lt from 100 to 125 mg/dL suggests IMPAIRED HOMEOSTASIS per A.D.A. criteria. Neutrophils (Bld) [#/Vol] 4.6 10*3/uL 2.0-7.[address] [facility] Neutrophils/100 WBC (Bld) 62.3 % 47-[address] [facility] Potassium [Moles/Vol] 3.7 mmol/L 3.5-5.1 [facility] Protein [Mass/Vol] 7.5 g/dL 6.4-8.2 [facility] Sodium [Moles/Vol] 140 mmol/L 136-145 [facility] WBC (Bld) [#/Vol] 7.5 10*3/uL 4.4-11.0 [facility] Blood erythrocytes count (nu mber/volume)Ordered By: Dr. Fabian on 12-05-2022 RBC (Bld) [#/Vol] 4.94 10*6/uL 4.2-5.4 [facility] Blood hemoglobin measurement (mass/volume)Ordered By: Dr. Fabian on 12-05-2022 Hemoglobin (Bld) [Mass/Vol] 14.5 g/dL 12.0-15.[address] [facility] Blood lymphocytes/100 leukoc ytesOrdered By: Dr. Fabian on 12-05-2022 Lymphocytes/100 WBC (Bld) 29.4 % 19-[address] [facility] Blood monocytes/100 leukocyt esOrdered By: Dr. Fabian on 12-05-2022 Monocytes/100 WBC (Bld) 7.4 % 0-[address] [facility] Blood platelet mean volumeOr dered By: Dr. Fabian on 12-05-2022 Platelet mean volume (Bld) [Entitic vol] 9.2 fL 6.2-12.[address] [facility] Determination of erythrocyte mean corpuscular volume (MCV)Ordered By: Dr. Fabian on 12-05-2022 MCV (RBC) [Entitic vol] 86.8 fL 81-[address] [facility] Hematocrit Auto (Bld) [Volum e fraction]Ordered By: Dr. Fabian on 12-05-2022 Hematocrit (Bld) [Volume fraction] 42.9 % 37-[address] [facility] Laboratory - Chemistry and C hemistry - challengeOrdered By: Dr. Fabian on 12-05-2022 ALP [Catalytic activity/Vol] 49 U/L 45-[address] [facility] ALT [Catalytic activity/Vol] 14 U/L 13-[address] [facility] CO2 [Moles/Vol] 23.0 mmol/L 21.0-32.[address] [facility] Globulin (S) [Mass/Vol] 3.8 g/dL 2.2-4.[address] [facility] Urea nitrogen/Creatinine [Mass ratio] 10.0 mg/mg 10-[address] [facility] Laboratory - Hematology and Cell countsOrdered By: Dr. Fabian on 12-05-2022 Erythrocyte distribution width (RBC) [Entitic vol] 38.0 fL 35.1-43.[address] [facility] Erythrocyte distribution width (RBC) [Ratio] 11.9 % 11.6-14.[address] [facility] Immature granulocytes/100 WBC (Bld) 0.300 % 0.0-0.[address] [facility] Comment on above: IG% - Immature Granu locytes (promyelocytes, myelocytes and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 OROR LOCATION: [address] PHYSICIAN: MEET LARES M.D.DATE OF PROCEDURE: 04/07/2018SURGEON: Meet Lares M.D.MARKETING PLANNER: NONEANESTHESIA: General.PREOPERATIVE DIAGNOSIS(ES): 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 Conservative measures including physicaltherapy, anti-inflammatory agents, failed to provide significant relief.She would have the sensation of catching over the lateral side. MRI wasread as negative for meniscal or ligamentous pathology. As the pain haspersisted and become severe, interfering with her daily activities andall other conservative measures were exhausted, she was offered anarthroscopic evaluation and possible excision of plica and possiblelateral release. Risks, goals, complications of procedure includinganesthetic complications, infection, DVT, and the possibility ofpersistent knee pain, were all explained. The patient understood andwished to proceed.ESTIMATED BLOOD LOSS: Zero.INCISION TIME: 0828.CLOSURE TIME: 0905.INTRAOPERATIVE FINDINGS:1. Chondromalacia of lateral facet of patella. 2. Patellofemoral plica inthe lateral retinaculum. 3. Tight lateral retinaculum.PROCEDURE: The patient was taken to the operating room. A sign-inprocedure was performed. She then underwent a general anesthetic by theUtpartment of Anesthesia. A pneumatic tourniquet was placed on theright proximal thigh. The right leg was then placed into an arthroscopicleg lozada and then prepped and draped in the usual sterile fashion. Atthat point, a time-out was performed, confirming that the leg had beenmarked appropriately. Preop, the shiva was visible in the surgical fieldand that the patient's antibiotics had been infused within one hour ofsurgical incision prior to inflation of the tourniquet.After completion of the time-out, the leg was exsanguinated and thetourniquet inflated. A superior medial portal was created. The outflowcannula inserted in the suprapatellar pouch and inferior lateral portalwas then created. The arthroscope inserted in the knee and a diagnosticarthroscopy beginning with the medial compartment was performed. Itshowed an intact articular cartilage of the medial femoral condyle andproximal tibia and no evidence of meniscal pathology. A medial guttervisualized showing no loose bodies. The patellofemoral joint wasvisualized showing chondromalacia of the lateral facet of the patella aswell as what appeared to be a lateral patellofemoral plica. The lateralgutter showed no loose bodies. The lateral compartment was entered. Thearticular meniscal cartilages were noted to be intact. The intercondylarnotch was visualized showing an intact anterior cruciate ligament.Next, an inferior medial portal was created and the hook probe wasinserted in the knee. The medial and lateral compartments were thenre-visualized the meniscal tissue was probed showing no obvious tears.The shaver was inserted in the knee and an excision of the plica andhypertrophic synovium in the lateral retinaculum were removed. Thearticular cartilage was then probed to the lateral facet of the patellashowing no loose bodies and it was felt though that given the fact thatshe was unable to tilt the lateral facet of the patella that theretinaculum was in the tight and a lateral release was performed usingthe ArthroWand electrocautery. First, an 18-gauge needle was placed atthe superior border of the patella and the retinaculum was released usingelectrocautery, carefully extending down to the level of the inferiorpole of the patella. The release did not extend proximal or distal tothis. When the release was completed, hemostasis was achieved withlimited use of the cautery and the knee was drained through the outflowcannula. The 20 cc of 0.5% lidocaine with epinephrine were injected inthe knee and the portals were closed with nylon suture. A steriledressing was applied. The tourniquet deflated. The patient was thenallowed to spontaneously reverse from her anesthetic. She was extubatedon the table and taken to recovery room. Upon arrival, was found to beawake with vital signs stable. She tolerated the procedure well. Therewere no intraoperative complications.Meet Lares M.D.Orthopedic SurgeryPES:[id number]: 04/08/2018 17:25:49T: 04/09/2018 03:59:44Job #: [id number] [facility] PLAN OF CAREon 04-07-2018 PLAN OF CARE HNO ID: [id number]: Kaycee Maurer (Threader Operator)Service: (none)Author Type: (none)Type: Plan of CareFiled: 04/07/2018 11:21 AMNote Text:COUNTER INTELLIGENCE TECHNICIAN BEDSIDE DELIVERY SURVEY1. Patient to use [facility] Bedside Delivery - YES2. If fax, patient would like us to fax prescriptions to Pharmacy [facility]choice a. Pharmacy: b. Location: c. Phone:3. Insurance card on file - YES4. Credit card for payment - YESPHARMACY BEDSIDE DELIVERY SERVICEPatient Name: Jumana AcostaMRN: [id number] marked outpatient medications were Filled at: [facility] and delivered tothe patient's bedside to pharm p/uMedication ListSTART taking these medicationsHYDROcodone-a cetaminophen 5-325 mg per tabletCommonly known as: NORCOTake 1 tablet by mouth every 6 hours as needed for Pain for up to 7 days.XCONTINUE taking these medicationsIbuprofen 200 mg CapYou might also be taking other medications not listed above. If you havequestions about any of your other medications, talk to the person whoprescribed them or your Primary Care Provider.Kaycee Maurer (Threader Operator)PAGER: [phone] 2017 11:21 AM [facility] PT EDon 04-07-2018 PT ED HNO ID: [id number]: Kady PinotRn) BENJI Arthurervice: NursingAuthor Type: Registered NurseType: Patient EducationFiled: 04/07/2018 7:24 AMNote Text:PRE OP LEARNING ASSESSMENTPROCEDURE/SURG MAIK: SURGERY: R knee arthorscopyREADINESS TO LEARNCOGNITIVE ABILITY: Alert and orientedMOTIVATION TO LEARN: EagerFAMILY SUPPORT: High - Very involved in pt carePATIENT LEARNS BEST BY: Written Instruction - Hand-outsVerbal InstructionFACTORS AFFECTING LEARNING: NonePHYSICAL LIMITATIONS AFFECTING LEARNING: NoneElectronically Signed By: Kady Arthur RN In Department: [facility] NURSING PROGon 04-03-2018 NURSING PROG HNO ID: [id number]: Arielle PintoRnBENJI Goldbergervice: (none)Author Type: Registered NurseType: Nursing Progress NoteFiled: 04/03/2018 12:28 PMNote Text:PACC Nurse Progress NoteHistory AND Physical:PACC Visit Date: 03/31/18Original HANDP Date: 03/31/18ED visit Date: N/AOutside HANDP Scanned Date: N/ALabs Within Last 6 Months:All labs found in care everywhere.CBC 5.1918 within acceptable limits for planned procedureChemistry 3. WNLLFP and TSH 3/26/18 WNLImaging Within Last 12 Months:Bilaeral knee XR 04/21/17Cardiac Testing:EKG in last 12 Months: Yes: Date: 12/22/17, Comment: Normal EKG, scannedin EPICLast Menstrual Period:LMP Date: 03/16/18Postmenopausal >1yr: No,S/P Hysterectomy: NoBMI Percentile (PEDS):N/ARisk Assessment:N/AAnesthesia Review:N/ANarrative:N/AP re-op Considerations:LMP 03/16/18Chart Check:Zulma Quinones 2017 12:20 PM Normal [facility] HISTORY PHYSICALon HISTORY PHYSICAL HNO ID: [id number]: Meliza Rogers) Charles: (none)Author Type: Physician AssistantType: HANDPFiled: 2018 9:14 AMNote Text:HISTORY AND PHYSICAL EXAMINATIONSERVICE DATE: 2018SERVICE TIME: 8:45 [facility] PH[facility]IAN: JADEN Villegas FOR VISIT:Jumana Acosta is a 18 year old female who is scheduled for right kneearthroscopy at the request of Dr. Meet Lares for consultation. Myfinal recommendation will be communicated back to the requesting physicianby way of shared medical record or letter.The patient has the following:ACTIVE PROBLEM LISTTear of Meniscus of Right KneePain in Right KneeRight Knee PainBronchial SpasmSubjectiveCHIEF COMPLAINT: right knee painHPI:Jumana Acosta is a 18 year old female that presents c/o a 3 yearhistory of right knee pain that has worsened with time. No specific injuryand no previous surgery on right knee.Pain is constant and described as aching and sharp in nature. Pain doesnot radiate. +locking, but no giving out of knee.Aggravating factors include running long distances, squatting andkneeling. Works at [employer] AND knee bothers her at work.Alleviated by Ibuprofen, rest, and ice.Previous treatments include PT, Mobic and steroid injx.Scheduled right knee arthroscopy on 04/07.Denies recent fever or chills.PAST MEDICAL HISTORYDiagnosis Date- Tear of meniscus of right knee 09/15/2015PAST SURGICAL HISTORYProcedure Laterality Date- TONSILLECTOMY HX 2010FAMILY HISTORYProblem Relation Age of Onset- Hypertension Mother- Diabetes Mother- Leiden Factor 5 [OTHER] FatherSOCIAL HISTORY:Social History Marital status: Single Spouse name: Years of education: Number of children:Social History Main Topics Smoking status: Never Smoker Smokeless tobacco: Never Used Alcohol use: No Drug use: NoPrior to Admission medications as of 03/31/18 0859Medication Sig Last Dose TakingIbuprofen 200 mg cap Take by mouth as needed. YesNo medication comments found.ALLERGIESAllergen Reactions- Eggs [Egg] HivesREVIEW OF SYSTEMS:PAIN ASSESSMENT: PainPain Score: 4/10Pain Location: Knee-RightFrequency: ContinuousIntervention: Reposition;Relaxation;Me dicationGeneral: No weight loss, malaise or fevers.Neuro: No history of TIA's, stroke, GAS DESULFURIZER tumor, impaired sensorium,hemiplegia, paraplegia or quadraplegia. No neurological symptoms orproblems.Respiratory: H/o bronchial spasms-uses inhaler prn-has not used in a longtime; No history of current cough, dyspnea, bronchitis or pneumonia in thelast 6 weeks.Cardiovascular: Negative for chest pain, orthopnea, PND, dizziness,lightheadednes s or syncope. Negative for heart murmur. Negative forpalpitations or arrhythmia. Negative for h/o DVT/PE. Negative for LEedema. No MS or heart surgery.GI: No history of GI symptoms or problems. No history of esophagealvarices, recent ascites, or ETOH greater than 2 drinks per day.: No history of dysuria, frequency or incontinence,, stones or chronickidney diseaseGYN: Negative for abnormal vaginal bleeding, abnormal vaginal discharge. : Denies, Patient's last menstrual period was 03/16/2018(approximate). Endocrine: No history of diabetes. Has not taken steroids within the past30 days. No history of endocrinological symptoms or problems.Hematology: +easy bruising; No bleeding or clotting d/oOncology: No history of CA metastasis, chemo within 30 days, orradiotherapy within 90 days. Has not lost 10% of body wt in 6 months. Nohistory of oncological symptoms or problems.Psych: No history of psychiatric symptoms or problems.Musculoskeletal : See HPI; +back painSkin: Negative for lesions, rash and itching.ObjectivePHYSICA L EXAM:VITALS:BP 125/61 Temp (Src) 97.8 (Tympanic) Resp 16 Ht 5' 4 (1.63m) Wt134 lb (60.8kg) SpO2 99% LMP 03/16/2018 BMI 22.99 kg/(m2).General: Alert and oriented, No acute distress, Healthy appearanceSkin: Normal color, no rash, no lesions.HEENT: EOM, pupils equal, round and reactive., No carotid bruitsCardiovascular: Normal S1 AND S2, no rubs, murmurs or gallops. No JVD. Pulseregular.Lungs: Normal breath sounds, no wheezes or crackles., No chest deformitiesor chest wall tenderness.Abdomen: Soft, non-tender, no rigidity., No masses or organomegaly.Extremities : No deformity, no edema or tenderness, no joint swelling orclubbing.Neurological: Normal cognition and motor skills. Gait normal. Noweakness or sensory deficit.Pulses: Carotid and radial pulses normal +2.Diagnostic tests reviewed for today's visit: Lab Value Units Date High Low HB No results within date range. HCT No results within date range. WBC No results within date range. PLT No results within date range. NA No results within date range. K No results within date range. GLUC No results within date range. BUN No results within date range. CREAT No results within date range. PTSEC No results within date range. INR No results within date range. APTT No results within date range. ALT No results within date range. AST No results within date range. TBILI No results within date range. TSH No results within date range. Lab Value Units Date High Low HCGQT No results within date range. UHCG No results within date range. HCG, BODY* No results within date range. Lab Value Units Date High Low ABORHD No results within date range. ABSCREEN No results within date range.No results found for: ADO3WIqcl recent labsMost recent imagingAll in [facility] HospitalAssessmentASSESSMENT Patient has the following medical conditions:No intubation since 10 y/oFather with Leiden Factor 5-pt has never been testedH/o bronchial spasm-has used inhaler in past-no issues for a long timeMETS:Run a short distance (8.00 METs)Patient denies any chest pain or undue shortness of breath with the abovephysical activity.ASA Class: 2ANESTHESIA FINDINGS:Intubation History: no anesthesia since 10 y/oSignificant Anesthesia Considerations: None and Difficult IV/Vein Access:NOAirway Exam: General: Normal appearance Mallampati Score is CLASS I ULBT: Class I - Lower incisors can bite the upper lip above thevermillion line Neck: Normal appearance and function, Distance from hyoid to mentumduring neck extension is at least 3 finger breaths Mouth: Normal tongue size and Mouth opening greater than 2 finge breaths Dentition: Caps/crownsAirway History: No intubation since 10 y/oSTOP BANG Score:Criteria:NoneScore = 0PLANThis patient is optimally prepared for surgery pending EKG.Requesting from PCP office.CONSULTS:Patient does not require consults for optimization at this time.see plan aboveThe Following Tests/Procedures Have Been Initiated:Labs not indicated per PACC protocol, EKG not indicated per PACC protocolPlanned Anesthetic: GeneralInstructions Given to Patient:Patient given verbal and written preop instructions and voicescomprehension and compliance.SIGNATURE: Meliza Morel PA-C PATIENT NAME: Jumana AcostaDATE: 2018 : 8:50 AM PAGER/CONTACT #: [facility] HOSPon 03-17-2018 Weight Patient:Igor Acosta jerald CMRN: Height:5' 4(1.626 m)Weight:134 lb (60.782 kg)Outpatient Medications as of 04/07/18:Ibuprofen 200 mg capAdmission/Clinic Administered Medications as of 04/07/18:lidocaine 10 mg/mL (1 %) 1-2 mg injection (XYLOCAINE)lactated ringers infusionceFAZolin iv piggyback 2 g in D5W (iso-osmotic) 100 mL (ANCEF)scopolamine 1 mg over 3 days 1 Patch (TRANSDERM-SCOP)scopolam ine - REMOVE PATCHscopolamine - VERIFY patchProblem List:Tear of meniscus of right knee [S83.206A]Pain in right knee [M25.561]Right knee pain [M25.561]Bronchial spasm [J98.01]Allergies:Eggs [Egg]Date Verified: 04/07/18Lab ValuesNo results within the last 30 days for the following basenames: K,HCTNo progress notes entered within the past 30 days [facility] PROGRESSon 04-21-2017 Protein HNO ID: [id number]: Niru (Ct) Sindi, CTService: (none)Author Type: Clinical TechnicianType: Progress NotesFiled: 04/21/2017 3:54 PMNote Text:NAME:Jumana LuiTE: April 21, 2017CCF#: [id number] Extremity X-Ray(s): Knee, AP / Lat / Tunne / Merchant Right and Wt.Bearing COMPLETEDTECH ID SIGN: NIRU HAIR [facility] XR KNEE AP/LAT/TUNNEL/MERCHA NTon 04-21-2017 XR KNEE AP/LAT/TUNNEL/MERCHANT * * *Final Report* * *DATE OF EXAM: Apr 21 2017 3:40PM YASIR 1432 - XR KNEE AP/LAT/TUNNEL/MERCHANT - RIGHT / REASON: R52 Pain weight bearing if possible * * * * Physician Interpretation * * * * TECHNIQUE: XR KNEE AP/LAT/TUNNEL/MERCHANT -EXAM DATE: 04/21/2017 3:40 PMCLINICAL HISTORY: R52 Pain weight bearing if possibleCOMPARISON: 06/24/2015RESULT:No evidence of acute fracture or dislocation is seen. There is no appreciable suprapatellar effusion. Knee alignment is normal. No subchondral defect is detected.IMPRESSION: No abnormality identified.Ladle Mechanic ist: PSCB Transcribe Date/Time: Apr 21 2017 3:53PDictated by : SAMANTHA VALERIO MDThisidra examination was interpreted and the report reviewed and electronically signed by: SAMANTHA VALERIO MD on Apr 21 2017 3:54PM [facility] Vital Signs Date Time Vital Sign Value Performing Clinician Facility 06-14-2025 08:51-0400 Body height 160.02 cm Jenn Sweeney DO Work Phone: [facility] 06-14-2025 08:51-0400 Body mass index (BMI) [Ratio] 30.4 kg/m2 Jenn Patel DO Work Phone: 5(534)632-636713 [place] [address] 06-14-2025 08:51-0400 Body weight 78.1 kg Jenn Patel DO Work Phone: 3(633)441-653113 [place] [address] 06-14-2025 08:51-0400 Diastolic blood pressure 75 mm[Hg] Jenn Patel DO Work Phone: 7(580)502-797113 [place] [address] 06-14-2025 08:51-0400 Systolic blood pressure 114 mm[Hg] Jenn Patel DO Work Phone: 0(865)032-822613 [place] [address] 06-07-2025 14:01-0400 Body height 160.02 cm Jenn Patel DO Work Phone: 6(750)401-011613 [place] [address] 06-07-2025 14:01-0400 Body mass index (BMI) [Ratio] 30.2 kg/m2 Jenn Patel DO Work Phone: 9(598)323-752813 [place] [address] 06-07-2025 14:01-0400 Body weight 77.25 kg Jenn Patel DO Work Phone: 1(664)522-783913 [place] [address] 06-07-2025 14:01-0400 Diastolic blood pressure 75 mm[Hg] Jenn Patel DO Work Phone: 1(875)804-460413 [place] [address] 06-07-2025 14:01-0400 Systolic blood pressure 112 mm[Hg] Jenn Patel DO Work Phone: 7(948)304-239713 [place] [address] 05-20-2025 13:58-0400 Body height 160.02 cm Jenn Patel DO Work Phone: 3(080)419-438713 [place] [address] 05-20-2025 13:54-0400 Body mass index (BMI) [Ratio] 29.7 kg/m2 Jenn Patel DO Work Phone: 9(362)424-272213 [place] [address] 05-20-2025 13:54-0400 Body weight 76.31 kg Jenn Patel DO Work Phone: 3(985)477-555313 [place] [address] 05-20-2025 13:54-0400 Diastolic blood pressure 80 mm[Hg] Jenn Patel DO Work Phone: 9(904)656-012780 [place] [address] 05-20-2025 13:54-0400 Systolic blood pressure 125 mm[Hg] Jenn Patel DO Work Phone: 8(575)896-395913 [place] [address] 05-06-2025 10:48-0400 Body temperature 97.3 [degF] Jenn Patel DO Work Phone: 5(602)348-707013 [place] [address] 05-06-2025 10:48-0400 Diastolic blood pressure 64 mm[Hg] Jenn Patel DO Work Phone: 1(992)369-726113 [place] [address] 05-06-2025 10:48-0400 Heart rate 87 /min Jenn Patel DO Work Phone: 2(795)133-511813 [place] [address] 05-06-2025 10:48-0400 Respiratory rate 16 /min Jenn Patel DO Work Phone: 6(858)150-840813 [place] [address] 05-06-2025 10:48-0400 SaO2% (BldA) [Mass fraction] 100 % Jenn Patel DO Work Phone: 1(785)828-677513 [place] [address] 05-06-2025 10:48-0400 Systolic blood pressure 115 mm[Hg] Jenn Patel DO Work Phone: 5(050)600-621413 [place] [address] 05-06-2025 09:18-0400 Body height 160.02 cm Jenn Patel DO Work Phone: 7(451)184-441213 [place] [address] 05-06-2025 09:18-0400 Body mass index (BMI) [Ratio] 30.4 kg/m2 Jenn Patel DO Work Phone: 8(349)187-461213 [place] [address] 05-06-2025 09:18-0400 Body weight 78.01 kg Jenn Patel DO Work Phone: 5(042)731-850213 [place] [address] 04-22-2025 08:56-0400 Body height 160.02 cm Jenn Patel DO Work Phone: 7(589)253-302813 [place] [address] 04-22-2025 08:55-0400 Body mass index (BMI) [Ratio] 30.4 kg/m2 Jenn Patel DO Work Phone: 6(929)109-342980 [place] [address] 04-22-2025 08:55-0400 Body weight 78.01 kg Jenn Patel DO Work Phone: 7(383)563-716980 [place] [address] 04-22-2025 08:55-0400 Diastolic blood pressure 75 mm[Hg] Jenn Patel DO Work Phone: 3(856)002-830080 [place] [address] 04-22-2025 08:55-0400 Systolic blood pressure 132 mm[Hg] Jenn Patel DO Work Phone: 8(887)346-456580 [place] [address] 04-15-2025 21:18-0400 Body temperature 98 [degF] Jenn Patel DO Work Phone: 4(894)659-082613 [place] [address] 04-15-2025 21:18-0400 Diastolic blood pressure 66 mm[Hg] Jenn Patel DO Work Phone: 3(754)591-400263 [address] 04-15-2025 21:18-0400 Heart rate 96 /min Jenn Patel DO Work Phone: 8(024)864-874580 [place] [address] 04-15-2025 21:18-0400 Respiratory rate 18 /min Jenn Patel DO Work Phone: 5(065)786-138213 [place] [address] 04-15-2025 21:18-0400 SaO2% (BldA) [Mass fraction] 100 % Jenn Patel DO Work Phone: 6(990)027-011380 [place] [address] 04-15-2025 21:18-0400 Systolic blood pressure 117 mm[Hg] Jenn Patel DO Work Phone: 3(342)172-823563 [address] 04-15-2025 15:48-0400 Body height 160.02 cm Jenn Patel DO Work Phone: 4(550)869-359413 [place] [address] 04-15-2025 15:48-0400 Body mass index (BMI) [Ratio] 30.6 kg/m2 Jenn Patel DO Work Phone: 8(988)561-917863 [address] 04-15-2025 15:48-0400 Body weight 78.47 kg Jenn Patel DO Work Phone: 5(309)156-086313 [place] [address] 04-12-2025 10:17-0400 Body mass index (BMI) [Ratio] 30.7 kg/m2 Jenn Patel DO Work Phone: 9(937)666-202813 [place] [address] 04-12-2025 10:17-0400 Body weight 78.58 kg Jenn Patel DO Work Phone: 6(456)387-430913 [place] [address] 04-12-2025 10:17-0400 Diastolic blood pressure 64 mm[Hg] Jenn Patel DO Work Phone: 8(013)804-283913 [place] [address] 04-12-2025 10:17-0400 Systolic blood pressure 112 mm[Hg] Jenn Patel DO Work Phone: 9(401)537-316813 [place] [address] 04-06-2025 09:15-0400 Body height 160.02 cm Jenn Patel DO Work Phone: 3(119)665-308513 [place] [address] 03-16-2025 00:15-0400 Body temperature 98 [degF] Jenn Patel DO Work Phone: 9(716)355-568913 [place] [address] 03-16-2025 00:15-0400 Diastolic blood pressure 74 mm[Hg] Jenn Patel DO Work Phone: 3(268)919-962613 [place] [address] 03-16-2025 00:15-0400 Heart rate 78 /min Jenn Patel DO Work Phone: 8(139)964-994613 [place] [address] 03-16-2025 00:15-0400 Respiratory rate 16 /min Jenn Patel DO Work Phone: 0(917)115-585213 [place] [address] 03-16-2025 00:15-0400 SaO2% (BldA) [Mass fraction] 99 % Jenn Patel DO Work Phone: 6(587)093-704913 [place] [address] 03-16-2025 00:15-0400 Systolic blood pressure 123 mm[Hg] Jenn Patel DO Work Phone: 7(246)386-155313 [place] [address] 03-15-2025 20:44-0400 Body height 160.02 cm Jenn Patel DO Work Phone: 2(132)533-679813 [place] [address] 03-15-2025 20:44-0400 Body mass index (BMI) [Ratio] 30.8 kg/m2 Jenn Patel DO Work Phone: 2(709)953-196813 [place] [address] 03-15-2025 20:44-0400 Body weight 78.97 kg Jenn Patel DO Work Phone: 7(421)250-755713 [place] [address] 02-17-2025 11:41-0400 Body temperature 98.2 [degF] Jenn Patel DO Work Phone: 2(144)291-443613 [place] [address] 02-17-2025 11:41-0400 Diastolic blood pressure 84 mm[Hg] Jenn Patel DO Work Phone: 2(943)828-163113 [place] [address] 02-17-2025 11:41-0400 Heart rate 74 /min Jenn Patel DO Work Phone: 7(633)387-189413 [place] [address] 02-17-2025 11:41-0400 SaO2% (BldA) [Mass fraction] 97 % Jenn Patel DO Work Phone: 8(795)980-236013 [place] [address] 02-17-2025 11:41-0400 Systolic blood pressure 122 mm[Hg] Jenn Patel DO Work Phone: 9(139)629-287413 [place] [address] 02-11-2024 08:25-0400 Diastolic blood pressure 60 mm[Hg] Paulina Ware MD Work Phone: [facility] 02-11-2024 08:25-0400 Systolic blood pressure 118 mm[Hg] Paulina Ware MD Work Phone: [facility] 02-11-2024 08:06-0400 Body height 161.3 cm Paulina Ware MD Work Phone: [facility] 02-11-2024 08:06-0400 Body mass index (BMI) [Ratio] 28.42 kg/m2 Paulina Ware MD Work Phone: [facility] 02-11-2024 08:06-0400 Body weight 73.94 kg Paulina Ware MD Work Phone: [facility] 02-11-2024 08:06-0400 Heart rate 111 /min Paulina Ware MD Work Phone: [facility] 02-11-2024 08:06-0400 SaO2% (BldA) [Mass fraction] 98 % Paulina Ware MD Work Phone: [facility] 01-19-2024 07:23-0400 Body temperature 98 [degF] Dr. Paulina Ware Work Phone: [facility] 01-19-2024 07:23-0400 Diastolic blood pressure 72 mm[Hg] Dr. Paulina Ware Work Phone: [facility] 01-19-2024 07:23-0400 Heart rate 126 /min Dr. Paulina Ware Work Phone: [facility] 01-19-2024 07:23-0400 Respiratory rate 14 /min Dr. Paulina Ware Work Phone: [facility] 01-19-2024 07:23-0400 SaO2% (BldA) [Mass fraction] 100 % Dr. Paulina Ware Work Phone: [facility] 01-19-2024 07:23-0400 Systolic blood pressure 118 mm[Hg] Dr. Paulina Ware Work Phone: [facility] 01-16-2024 11:01-0400 Body temperature 97.9 [degF] Elisabeth Powers PA-C Work Phone: [facility] 01-16-2024 11:01-0400 Diastolic blood pressure 86 mm[Hg] Elisabeth Powers PA-C Work Phone: [facility] 01-16-2024 11:01-0400 Heart rate 98 /min Elisabeth Powers PA-C Work Phone: [facility] 01-16-2024 11:01-0400 SaO2% (BldA) [Mass fraction] 98 % Elisabeth Powers PA-C Work Phone: [facility] 01-16-2024 11:01-0400 Systolic blood pressure 135 mm[Hg] Elisabeth Powers PA-C Work Phone: [facility] 11-11-2023 09:09-0500 Body height 161.3 cm Paulina Ware MD Work Phone: [facility] 11-11-2023 09:09-0500 Body mass index (BMI) [Ratio] 28.94 kg/m2 Paulina Ware MD Work Phone: [facility] 11-11-2023 09:09-0500 Body weight 75.3 kg Paulina Ware MD Work Phone: [facility] 11-11-2023 09:09-0500 Diastolic blood pressure 78 mm[Hg] Paulina Ware MD Work Phone: [facility] 11-11-2023 09:09-0500 Heart rate 80 /min Paulina Ware MD Work Phone: [facility] 11-11-2023 09:09-0500 SaO2% (BldA) [Mass fraction] 99 % Paulina Ware MD Work Phone: [facility] 11-11-2023 09:09-0500 Systolic blood pressure 126 mm[Hg] Paulina Ware MD Work Phone: [facility] 11-05-2023 05:46-0500 Diastolic blood pressure 80 mm[Hg] [facility] 11-05-2023 05:46-0500 Heart rate 104 /min [facility] 11-05-2023 05:46-0500 Respiratory rate 16 /min [facility] 11-05-2023 05:46-0500 SaO2% (BldA) [Mass fraction] 100 % [facility] 11-05-2023 05:46-0500 Systolic blood pressure 153 mm[Hg] [facility] 11-05-2023 02:04-0500 Body height 160.02 cm [facility] 11-05-2023 02:04-0500 Body mass index (BMI) [Ratio] 30.2 kg/m2 [facility] 11-05-2023 02:04-0500 Body temperature 97.6 [degF] [facility] 11-05-2023 02:04-0500 Body weight 77.4 kg [facility] 06-18-2023 12:44-0400 Body temperature 98.7 [degF] Dr. Paulina Ware Work Phone: [facility] 06-18-2023 12:44-0400 Diastolic blood pressure 72 mm[Hg] Dr. Paulina Ware Work Phone: [facility] 06-18-2023 12:44-0400 Heart rate 76 /min Dr. Paulina Ware Work Phone: [facility] 06-18-2023 12:44-0400 Respiratory rate 14 /min Dr. Paulina Ware Work Phone: [facility] 06-18-2023 12:44-0400 SaO2% (BldA) [Mass fraction] 96 % Dr. Paulina Ware Work Phone: [facility] 06-18-2023 12:44-0400 Systolic blood pressure 126 mm[Hg] Dr. Paulina Ware Work Phone: [facility] 05-17-2023 12:20-0400 Body height 160.[address] Paulina Ware Work Phone: [facility] 05-17-2023 12:20-0400 Body mass index (BMI) [Ratio] 29.5 kg/m2 Dr. Paulina Ware Work Phone: [facility] 05-17-2023 12:20-0400 Body temperature 98.7 [degF] Dr. Paulina Ware Work Phone: [facility] 05-17-2023 12:20-0400 Body weight 75.[address] Paulina Ware Work Phone: [facility] 05-17-2023 12:20-0400 Diastolic blood pressure 86 mm[Hg] Dr. Paulina Ware Work Phone: [facility] 05-17-2023 12:20-0400 Heart rate 113 /min Dr. Paulina Ware Work Phone: [facility] 05-17-2023 12:20-0400 Respiratory rate 17 /min Dr. Paulina Ware Work Phone: [facility] 05-17-2023 12:20-0400 SaO2% (BldA) [Mass fraction] 97 % Dr. Paulina Ware Work Phone: [facility] 05-17-2023 12:20-0400 Systolic blood pressure 132 mm[Hg] Dr. Paulina Ware Work Phone: [facility] 05-14-2023 10:23-0400 Body temperature 98.2 [degF] Dr. Paulina Ware Work Phone: [facility] 05-14-2023 10:23-0400 Diastolic blood pressure 82 mm[Hg] Dr. Paulina Ware Work Phone: [facility] 05-14-2023 10:23-0400 Heart rate 82 /min Dr. Paulina Ware Work Phone: [facility] 05-14-2023 10:23-0400 Respiratory rate 16 /min Dr. Paulina Ware Work Phone: [facility] 05-14-2023 10:23-0400 Systolic blood pressure 122 mm[Hg] Dr. Paulina Ware Work Phone: [facility] 03-13-2023 10:24-0400 Body height 162.6 cm Paulina Ware MD Work Phone: [facility] 03-13-2023 10:24-0400 Body mass index (BMI) [Ratio] 28.43 kg/m2 Paulina Ware MD Work Phone: [facility] 03-13-2023 10:24-0400 Body temperature 97.9 [degF] Paulina Ware MD Work Phone: [facility] 03-13-2023 10:24-0400 Body weight 75.12 kg Paulina Ware MD Work Phone: [facility] 03-13-2023 10:24-0400 Diastolic blood pressure 74 mm[Hg] Paulina Ware MD Work Phone: [facility] 03-13-2023 10:24-0400 Heart rate 71 /min Paulina Ware MD Work Phone: [facility] 03-13-2023 10:24-0400 SaO2% (BldA) [Mass fraction] 98 % Paulina Ware MD Work Phone: [facility] 03-13-2023 10:24-0400 Systolic blood pressure 113 mm[Hg] Paulina Ware MD Work Phone: [facility] 12-18-2022 10:25-0400 Body height 162.6 cm Paulina Ware MD Work Phone: [facility] 12-18-2022 10:25-0400 Body mass index (BMI) [Ratio] 28.29 kg/m2 Paulina Ware MD Work Phone: [facility] 12-18-2022 10:25-0400 Body temperature 98.1 [degF] Paulina Ware MD Work Phone: [facility] 12-18-2022 10:25-0400 Body weight 74.75 kg Paulina Ware MD Work Phone: [facility] 12-18-2022 10:25-0400 Diastolic blood pressure 70 mm[Hg] Paulina Ware MD Work Phone: [facility] 12-18-2022 10:25-0400 Heart rate 68 /min Paulina Ware MD Work Phone: [facility] 12-18-2022 10:25-0400 SaO2% (BldA) [Mass fraction] 98 % Paulina Ware MD Work Phone: [facility] 12-18-2022 10:25-0400 Systolic blood pressure 104 mm[Hg] Paulina Ware MD Work Phone: [facility] 12-05-2022 21:49-0500 Diastolic blood pressure 81 mm[Hg] PA Lyle Guardado PA Work Phone: [facility] 12-05-2022 21:49-0500 Heart rate 80 /min PA Lyle Guardado PA Work Phone: [facility] 12-05-2022 21:49-0500 Respiratory rate 20 /min PA Lyle Guardado PA Work Phone: [facility] 12-05-2022 21:49-0500 SaO2% (BldA) [Mass fraction] 100 % PA Lyle Guardado PA Work Phone: [facility] 12-05-2022 21:49-0500 Systolic blood pressure 128 mm[Hg] PA Lyle Guardado PA Work Phone: [facility] 12-05-2022 19:58-0500 Body height 160.02 cm PA Lyle Guardado PA Work Phone: [facility] 12-05-2022 19:58-0500 Body mass index (BMI) [Ratio] 29.5 kg/m2 PA Lyle Guardado PA Work Phone: [facility] 12-05-2022 19:58-0500 Body temperature 98.3 [degF] PA Lyle Guardado PA Work Phone: [facility] 12-05-2022 19:58-0500 Body weight 75.43 kg PA Lyle Guardado PA Work Phone: [facility] 10-28-2022 09:24-0500 Body temperature 98.6 [degF] PA Lyle Guardado PA Work Phone: [facility] 10-28-2022 09:24-0500 Diastolic blood pressure 76 mm[Hg] PA Lyle Guardado PA Work Phone: [facility] 10-28-2022 09:24-0500 Heart rate 96 /min PA Lyle Guardado PA Work Phone: [facility] 10-28-2022 09:24-0500 Respiratory rate 14 /min PA Lyle Guardado PA Work Phone: [facility] 10-28-2022 09:24-0500 SaO2% (BldA) [Mass fraction] 99 % PA Lyle Guardado PA Work Phone: [facility] 10-28-2022 09:24-0500 Systolic blood pressure 122 mm[Hg] PA Lyle Guardado PA Work Phone: [facility] 09-13-2022 15:42-0500 Body temperature 98.71 [degF] Jimmy Do MD Work Phone: [facility] 09-13-2022 15:42-0500 Body weight 76.75 kg Jimmy Do MD Work Phone: [facility] 09-13-2022 15:42-0500 Diastolic blood pressure 74 mm[Hg] Jimmy Do MD Work Phone: [facility] 09-13-2022 15:42-0500 Heart rate 84 /min Jimmy Do MD Work Phone: [facility] 09-13-2022 15:42-0500 Respiratory rate 16 /min Jimmy Do MD Work Phone: [facility] 09-13-2022 15:42-0500 SaO2% (BldA) [Mass fraction] 97 % Jimmy Do MD Work Phone: [facility] 09-13-2022 15:42-0500 Systolic blood pressure 126 mm[Hg] Jimmy Do MD Work Phone: [facility] 03-25-2022 11:23-0400 Body height 160 cm Keron Duff MD Work Phone: [facility] 03-25-2022 11:23-0400 Body weight 75.75 kg Keron Duff MD Work Phone: [facility] 03-16-2022 13:47-0400 Body temperature 97.9 [degF] Zuleyka Praisler-Wood AUTOBODY TECHNICIAN.INDUCTION BRAZER Work Phone: [facility] 03-16-2022 13:47-0400 Body weight 74.84 kg Zuleyka Praisler-Wood AUTOBODY TECHNICIAN.INDUCTION BRAZER Work Phone: [facility] 03-16-2022 13:47-0400 Diastolic blood pressure 70 mm[Hg] Zuleyka Praisler-Wood AUTOBODY TECHNICIAN.INDUCTION BRAZER Work Phone: [facility] 03-16-2022 13:47-0400 Heart rate 77 /min Zuleyka Praisler-Wood AUTOBODY TECHNICIAN.INDUCTION BRAZER Work Phone: [facility] 03-16-2022 13:47-0400 Respiratory rate 18 /min Zuleyka Praisler-Wood AUTOBODY TECHNICIAN.INDUCTION BRAZER Work Phone: [facility] 03-16-2022 13:47-0400 SaO2% (BldA) [Mass fraction] 98 % Zuleyka Praisler-Wood AUTOBODY TECHNICIAN.INDUCTION BRAZER Work Phone: [facility] 03-16-2022 13:47-0400 Systolic blood pressure 116 mm[Hg] Zuleyka Praisler-Wood AUTOBODY TECHNICIAN.INDUCTION BRAZER Work Phone: [facility] Encounters Encounter Date Encounter Type Care Provider Facility Start: 07-11-2025 End: 07-11-2025 ambulatory Jenn Sweeney VSC [place] [place] Start: 06-27-2025 End: 06-27-2025 [facility] Start: 06-14-2025 End: 06-14-2025 Patient encounter procedure Wendy Cat [facility] Work Phone: Start: 06-14-2025 End: 06-14-2025 ambulatory Jenn Sweeney DO Work Phone: -[facility] Start: 06-14-2025 End: 06-14-2025 ambulatory Jenn Patel VSC Facility:[facility] Start: 06-07-2025 End: 06-07-[address] Tish Kauffman MD -[facility] Work Phone: Start: 06-07-2025 End: 06-07-2025 ambulatory Jenn Patel DO Work Phone: -[facility] Start: 06-07-2025 End: 06-07-2025 ambulatory Jenn Patel VSC Facility:[facility] Start: 05-20-2025 End: 05-20-[address] Tish Kauffman MD -[facility] Work Phone: Start: 05-20-2025 End: 05-20-2025 ambulatory Jenn Patel DO Work Phone: -[facility] Start: 05-20-2025 End: 05-20-2025 ambulatory Jenn Patel VSC Facility:[facility] Start: 05-06-2025 End: 05-06-[address] Sarah Harmon DO -Medical Out Work Phone: Start: 05-06-2025 End: 05-06-2025 ambulatory Jenn Patel DO Work Phone: -Medical Out Start: 04-28-2025 End: 04-28-2025 ambulatory Jenn Patel DO Work Phone: -Lab [facility] Start: 04-28-2025 End: 04-28-2025 Patient encounter procedure Inga Dey CNM -Lab [facility] Start: 04-28-2025 End: 04-28-2025 ambulatory Inga Dey Facility:[facility] Start: 04-22-2025 End: 04-22-2025 ambulatory Jenn Patel DO Work Phone: -Laboratory Specimen Start: 04-22-2025 End: 04-22-2025 Patient encounter procedure Inga Dey CNM -Laboratory Specimen Work Phone: Start: 04-22-2025 End: 04-22-2025 Patient encounter procedure Inga Dey CNM -[facility] Work Phone: Start: 04-22-2025 End: 04-22-2025 ambulatory Jenn Patel DO Work Phone: -[facility] Start: 04-22-2025 End: 04-22-2025 ambulatory Inga Dey Facility:[facility] Start: 04-15-2025 End: 04-15-2025 Emergency department patient visit Jenn Patel DO Work Phone: -Emergency Department Work Phone: Start: 04-12-2025 End: 04-12-[address] Sarah Harmon DO -[facility] Work Phone: Start: 04-12-2025 End: 04-12-2025 ambulatory Jenn Patel DO Work Phone: -[facility] Start: 04-04-2025 End: 04-04-2025 ambulatory Jenn Patel DO Work Phone: -Ultrasound [facility] Start: 04-04-2025 End: 04-04-[address] Sarah Harmon DO -Ultrasound [facility] Work Phone: Start: 04-04-2025 End: 04-04-2025 ambulatory Sarah Harmon Facility:[facility] Start: 03-30-2025 End: 03-30-2025 ambulatory Jenn Patel DO Work Phone: -Laboratory Start: 03-30-2025 End: 03-30-[address] Sarah Harmon DO -Laboratory Work Phone: Start: 03-30-2025 End: 03-30-2025 ambulatory Sarah Harmon Facility:[facility] Start: 03-17-2025 End: 03-17-2025 ambulatory Jenn Patel DO Work Phone: [facility] Work Phone: Start: 03-17-2025 End: 03-17-[address] David Oakley MD -Laboratory Work Phone: Start: 03-17-2025 End: 03-17-2025 ambulatory Sarah Aquino Eufemia Facility:[facility] Start: 03-15-2025 End: 03-16-2025 Emergency department patient visit Jenn Patel DO Work Phone: -Emergency Department Work Phone: Start: 02-17-2025 End: 02-17-2025 Patient encounter procedure Jeffry TONY [facility] Work Phone: Start: 02-17-2025 End: 02-17-2025 ambulatory Jenn Patel DO Work Phone: [facility] Work Phone: Start: 02-17-2025 End: 02-17-2025 ambulatory Jenn Patel VSC Facility:[facility] Start: 11-18-2024 End: 11-18-2024 Patient encounter procedure Jenn Patel DO -Laboratory [facility] Start: 11-18-2024 End: 11-18-2024 ambulatory Jenn Patel VSC Facility:[facility] Start: 11-10-2024 End: 11-10-2024 Patient encounter procedure Jenn Patel DO -Laboratory [place] [facility] Start: 11-10-2024 End: 11-10-2024 ambulatory Jenn Patel VSC Facility:[facility] Start: 07-14-2024 End: 07-14-2024 ambulatory Jenn Patel VSC [place] [place] Start: 07-14-2024 End: 07-14-2024 ambulatory Jenn Patel VSC Facility:[facility] Start: 07-12-2024 End: 07-12-2024 ambulatory Jenn Patel VSC [place] [place] Start: 07-12-2024 End: 07-12-2024 ambulatory Jenn Patel VSC Facility:[facility] Start: 02-11-2024 End: [facility] Start: 02-11-2024 End: 02-11-2024 Office outpatient visit 15 minutes Paulina Ware MD Work Phone: [facility] Comment on above: Tachycardia (Primary Dx); Sweating abnormality; GUILLAUME (generalized anxiety disorder); Rheumatoid arthritis, involving unspecified site, unspecified whether rheumatoid factor present (HCC); Dizziness Start: 01-19-2024 End: 01-19-[address] Paulina Ware Work Phone: [facility] Work Phone: Start: 01-16-2024 End: 01-16-2024 ambulatory ELISABETH POWERS [facility] Start: 01-16-2024 End: 01-16-2024 Office outpatient visit 15 minutes Elisabeth Powers PA-C Work Phone: [facility] Comment on above: Sore throat (Primary Dx); Ear pain, right; Nausea Start: 01-15-2024 End: 01-15-2024 [facility] Start: 01-15-2024 End: 01-15-2024 Patient encounter procedure Lisa Manriquez Clinical Communication Start: 11-12-2023 Orders Only Paulina ga MD Work Phone: [facility] Comment on above: Lack of physical act ivity (Primary Dx); Vitamin D deficiency Start: 11-11-2023 End: 11-11-2023 ambulatory [facility] Start: 11-11-2023 End: 11-11-2023 Office outpatient visit 10 minutes Paulina Ware MD Work Phone: [facility] Comment on above: Adverse effect of dr fletcher, initial encounter (Primary Dx); Mild intermittent reactive airway disease without complication; Vitamin D deficiency Start: 11-05-2023 End: 11-05-2023 Emergency department patient visit [facility]-Emergency Department Work Phone: Start: 10-16-2023 End: 10-16-[address] [facility] Work Phone: Start: 10-16-2023 End: 10-16-2023 Patient encounter procedure [facility] Work Phone: Start: 07-21-2023 Refill Paulina Oliva on Work Phone: [facility] Comment on above: Acute right-sided lo w back pain without sciatica Start: 06-18-2023 End: 06-18-[address] Paulina Ware Work Phone: [facility] Work Phone: Start: 06-18-2023 End: 06-18-[address] Paulina Ware Work Phone: [facility] Work Phone: Start: 06-12-2023 Refill Paulina Oliva on Work Phone: [facility] Comment on above: Acute right-sided lo w back pain without sciatica Acute right-sided lo w back pain without sciatica; Muscle spasm; Poor sleep Start: 05-17-2023 End: 05-17-[address] Paulina Ware Work Phone: [facility] Work Phone: Start: 05-14-2023 End: 05-14-[address] Paulina Ware Work Phone: [facility] Work Phone: Start: 04-15-2023 End: 04-15-[address] [facility] Work Phone: Start: 04-15-2023 End: 04-15-2023 Patient encounter procedure [facility] Work Phone: Start: 04-15-2023 Refill Paulina ga MD Work Phone: [facility] Comment on above: Acute right-sided lo w back pain without sciatica Start: 04-11-2023 Refill Paulina ga MD Work Phone: [facility] Comment on above: Acute right-sided lo w back pain without sciatica; Muscle spasm; Poor sleep Start: 03-18-2023 Telephone encounter Paulina roque MD Work Phone: [facility] Comment on above: Referral (Rheumatolo gy in [place]) Start: 03-13-2023 End: 03-13-2023 ambulatory PAULINA RENATO [facility] Start: 03-13-2023 End: 03-13-2023 Office outpatient visit 15 minutes Paulina Ware MD Work Phone: [facility] Comment on above: Right hip pain (Prim marcial Dx); Arthralgia, unspecified joint; Trochanteric bursitis of right hip Start: 02-26-2023 End: 02-26-[address] [facility] Work Phone: Start: 02-26-2023 End: 02-26-2023 Patient encounter [facility] Work Phone: Start: 01-01-2023 End: 01-26-2023 ambulatory CECILY TONY Work Phone: [facility] Work Phone: Start: 01-01-2023 End: 01-26-2023 Discharged Recurring CECILY TONY Work Phone: [facility] Start: 12-25-2022 End: 12-27-2022 ambulatory CECILY TONY Work Phone: [facility] Work Phone: Start: 12-25-2022 End: 12-27-2022 Discharged Recurring PA Lyle TONY Work Phone: [facility] Start: 12-25-2022 Registered Recurring CECILY TONY Work Phone: [facility] Start: 12-21-2022 End: 12-21-2022 ambulatory CECILY TONY Work Phone: [facility] Work Phone: Start: 12-21-2022 End: 12-21-2022 Patient encounter procedure CECILY TONY Work Phone: [facility] Start: 12-18-2022 End: 12-18-2022 Office outpatient visit 15 minutes Paulina Ware MD Work Phone: [facility] Comment on above: Acute right-sided lo w back pain without sciatica (Primary Dx); Muscle spasm; Poor sleep; Encounter for surveillance of contraceptive pills Start: 12-05-2022 End: 12-05-2022 Emergency department patient visit CECILY TONY Work Phone: [facility]-Emergency Department Start: 11-05-2022 End: 11-05-2022 Patient encounter procedure CECILY TONY Work Phone: [facility] Start: 11-05-2022 Registered Referred CECILY TONY Work Phone: [facility] Start: 11-05-2022 Registered Recurring CECILY TONY Work Phone: [facility] Start: 10-28-2022 End: 10-28-2022 Patient encounter procedure CECILY TONY Work Phone: [facility] Start: 10-16-2022 End: 10-16-[address] Paulina Ware Work Phone: [facility] Work Phone: Start: 10-16-2022 End: 10-16-[address] Paulina Ware Work Phone: [facility]-Radiology, [facility] Start: 09-13-2022 End: 09-13-2022 ambulatory [facility] Facility:[facility] Start: 09-13-2022 End: 09-13-2022 Patient encounter procedure Jimmy Do MD Work Phone: [place] [facility] Comment on above: Acute bilateral low back pain without sciatica (Primary Dx) Start: 07-15-2022 End: 07-15-[address] Paulina Ware Work Phone: [facility] Start: 03-25-2022 End: 03-25-2022 [facility] Facility:[facility] Start: 03-25-2022 End: 03-25-2022 Patient encounter procedure Keron Duff MD Work Phone: Orthopaedics Comment on above: Chronic pain of righ t knee (Primary Dx) Start: 03-16-2022 End: 03-16-2022 ambulatory [facility] Facility:[facility] Start: 03-16-2022 End: 03-16-2022 Patient encounter procedure Zuleyka Hatfield APRN.INDUCTION BRAZER Work Phone: [place] [facility] Comment on above: Impacted cerumen of left ear (Primary Dx); Otitis media with effusion, left Start: 11-17-2021 End: 11-17-2021 [facility] Facility:[facility] Start: 03-21-2020 Patient encounter procedure UNKNOWN PROVIDER Facility:[facility] Start: 09-20-2019 End: 09-20-2019 Subsequent hospital visit by physician Nessa Crespo APRN - [employer] Work Phone: [facility] EKG Comment on above: Heart palpitations Start: 09-21-2018 End: 09-21-2018 Emergency department patient visit GALIFredy BURRIS [facility] Start: 06-22-2018 Patient encounter procedure Nessa Crespo [facility] Start: 04-07-2018 End: 04-07-2018 Patient encounter MEET LARES [facility] Start: 2018 End: 2018 Patient encounter MEET E SZIRAKY [facility] Start: 04-21-2017 End: 04-21-2017 Patient encounter AMAN DAVIS [facility] Procedures Date Procedure Procedure Detail Performing Clinician Start: 06-14-2025 Urine culture Jenn benoit DO Work Phone: Start: 04-28-2025 Hepatitis C antibody measurement Jenn Sweeney [place] Work Phone: Comment on above: Reactive: Presumptiv e evidence of antibodies to HCV. Follow CDC recommendations for supplemental testing.Non-Reactive: Antibodies to HCV were not detected; does not exclude the possibility of exposure to HCVReactive Results are presumptive evidence of antibodies to HCV. Follow CDC recommendations for supplemental testing.Order confirmation testing: HCV Quant by PCR testing - HCVPCR #[id number] Non Reactive: < 0.8 Equivocal: >/= 0.8 to < 1.0 Reactive: >/= 1.0The [facility] requires that a reactive/equivocal HCV antibody result be sent out for confirmation. HCV Quant by PCR testing. Start: 04-28-2025 Procedure Jenn ramirez DO Work Phone: Start: 04-28-2025 Rubella IgG measurement Jenn Sweeney [place] Work Phone: Comment on above: Antibody Result: Int erpretationNon-Reactive: Non- ImmuneReactive: ImmuneThe following results were obtained with the [employer] Rubella IgG assay. Results from assays of other manufacturers cannot be used interchangeably. Start: 04-28-2025 Serologic test for syphilis Jenn Sweeney [place] Work Phone: Start: 04-22-2025 Urine culture Jenn benoit DO Work Phone: Start: 04-15-2025 Urnls dip stick/tabl et reagent auto microscopy Jenn Sweeney [place] Work Phone: Start: 04-15-2025 Estimated creatinine clearance Jenn Sweeney DO Work Phone: Start: 04-04-2025 Transvaginal obstetr ic ultrasonography Jenn Sweeney [place] Work Phone: Start: 03-15-2025 Transvaginal obstetr ic ultrasonography Jenn Sweeney [place] Work Phone: Start: 02-17-2025 X-ray of ankle, thre e or more views Jenn Sweeney [place] Work Phone: Start: 02-17-2025 X-ray of foot, three or more views Jenn Sweeney DO Work Phone: Start: 11-10-2024 Hepatitis A virus an tibody, IgM type Jenn Sweeney [place] Work Phone: Comment on above: A negative anti-HAV IgM result suggests no recent orcurrent HAV infection. Start: 11-10-2024 Hepatitis B core ant ibody measurement, IgM type Jenn Sweeney [place] Work Phone: Start: 11-10-2024 Hepatitis C antibody measurement Jnen Sweeney [place] Work Phone: Start: 01-16-2024 Iadna streptococcus group a amplified probe tq Elisabeth Powers PA-C Work Phone: Start: 11-11-2023 Adult depression scr eening assessment Paulina Ware MD Work Phone: Start: 11-05-2023 CT angiography of ch est with contrast Start: 11-05-2023 Plain chest X-ray Start: 06-18-2023 Plain chest X-ray Dr. Perez Ware Work Phone: Start: 02-26-2023 MRI of lumbar spine Start: 01-01-2023 Viral antigen assay CECILY TONY Work Phone: Start: 12-25-2022 Viral antigen assay CECILY TONY Work Phone: Start: 12-21-2022 MRI of joint of lowe r extremity CECILY TONY Work Phone: Start: 10-16-2022 Plain x-ray of pelvi s and lower extremity Dr. Paulina Ware Work Phone: Start: 10-16-2022 X-ray of lumbosacral spine Dr. Paulina Ware Work Phone: Start: 07-11-2022 Microscopic observat ion [Identifier] in Cervix by Cyto stain Paulina Ware MD Work Phone: Plan of Treatment Date Care Activity Detail Author Start: 2060 RSV Immunization age d 60 or older (1 - 1-dose 60+ series) RSV Immunization aged 60 or older (1 - 1-dose 60+ series) [facility] Start: 2050 Zoster Vaccines (1 of 2) Zoste r Vaccines (1 of 2) [facility] Start: 11-12-2032 DTaP/Tdap/Td Vaccine s (8 - Td or Tdap) DTaP/Tdap/Td Vaccines (8 - Td or Tdap) [facility] Start: 07-11-2025 Screening for malign ant neoplasm of cervix Pap Smear [facility] Start: 06-14-2025 Bacteria identified in Urine by Culture Urine Culture [facility] Start: 06-14-2025 [facility] Start: 06-07-2025 CBC W Auto Different ial panel - Blood [facility] Start: 06-07-2025 Comprehensive metabo lic 2000 panel - Serum or Plasma [facility] Start: 06-07-2025 [facility] Start: 05-06-2025 Administration of intravenous fluids HYDRATION IV INFUSION [facility] Start: 05-06-2025 Iv infusion hydratio n initial 31 min-1 hour HYDRATION IV INFUSION [facility] Start: 04-15-2025 [facility] Start: 03-15-2025 End: 03-15-[address] [facility] Start: 11-11-2024 Depression Screening Depression Scre ening [facility] Start: 05-30-2024 Influenza vaccination Influenz a Vaccine (Season Ended) [facility] Start: 02-11-2024 End: 02-10-2025 C reactive protein [Mass/volume] in Serum or Plasma C-reactive protein Lab Routine Rheumatoid arthritis, involving unspecified site, unspecified whether rheumatoid factor present (HCC) Expected: 02/11/2024 (Approximate), Expires: 02/10/2025 [facility] Comment on above: Expected: 02/11/2024 (Approximate), Expires: 02/10/2025 Start: 02-11-2024 End: 02-10-2025 CBC panel - Blood by Automated count CBC Lab Routine Tachycardia Expected: 02/11/2024 (Approximate), Expires: 02/10/2025 [facility] Comment on above: Expected: 02/11/2024 (Approximate), Expires: 02/10/2025 Start: 02-11-2024 End: 02-10-2025 Comprehensive metabolic 1998 panel - Serum or Plasma Comprehensive metabolic panel Lab Routine Tachycardia Sweating abnormality Expected: 02/11/2024 (Approximate), Expires: 02/10/2025 [facility] Comment on above: Expected: 02/11/2024 (Approximate), Expires: 02/10/2025 Start: 02-11-2024 End: 02-10-2025 Metanephrines Plasma Metanephrines Plasma Lab Routine Sweating abnormality Dizziness Expected: 02/11/2024 (Approximate), Expires: 02/10/2025 [facility] Comment on above: Expected: 02/11/2024 (Approximate), Expires: 02/10/2025 Start: 02-11-2024 End: 02-10-2025 Thyrotropin [Units/volume] in Serum or Plasma TSH Lab Routine Tachycardia Expected: 02/11/2024 (Approximate), Expires: 02/10/2025 [facility] [employer] Work Phone: Comment on above: Expected: 02/11/2024 (Approximate), Expires: 02/10/2025 Start: 02-11-2024 End: 02-10-2025 Thyroxine (T4) free [Mass/volume] in Serum or Plasma T4, free Lab Routine Tachycardia Expected: 02/11/2024 (Approximate), Expires: 02/10/2025 [facility] Comment on above: Expected: 02/11/2024 (Approximate), Expires: 02/10/2025 Start: 01-16-2024 End: 01-16-2024 Patient encounter procedure 01/16/2024 11:00 AM EDT Office Visit [facility] [address] [place] [id number] Elisabeth Powers PA-C [address] [address] [facility] Start: 01-12-2024 End: 11-12-2024 25-hydroxyvitamin D3 [Mass/volume] in Serum or Plasma Vitamin D Deficiency Screening (Vit D 25) Lab Routine Vitamin D deficiency Expected: 01/12/2024 (Approximate), Expires: 11/12/2024 [facility] [employer] Work Phone: Comment on above: Expected: 01/12/2024 (Approximate), Expires: 11/12/2024 Start: 11-11-2023 End: 11-11-2024 25-hydroxyvitamin D3 [Mass/volume] in Serum or Plasma Vitamin D Deficiency Screening (Vit D 25) Lab Routine Vitamin D deficiency Expected: 11/11/2023 (Approximate), Expires: 11/11/2024 [facility] [employer] Work Phone: Comment on above: Expected: 11/11/2023 (Approximate), Expires: 11/11/2024 Start: 11-05-2023 [facility] Start: 05-30-2023 COVID-19 Vaccine ( season) COVID-19 Vaccine ( season) [facility] Start: 05-30-2023 Influenza vaccination Influenza Vacc ine (#1) [facility] Start: 03-13-2023 End: 03-13-2024 C reactive protein [Mass/volume] in Serum or Plasma C-reactive protein Lab Routine Right hip pain Arthralgia, unspecified joint Expected: 03/13/2023 (Approximate), Expires: 03/13/2024 [facility] [employer] Work Phone: Comment on above: Expected: 03/13/2023 (Approximate), Expires: 03/13/2024 Start: 03-13-2023 End: 03-13-2024 Erythrocyte sedimentation rate Sedimentation rate, automated Lab Routine Right hip pain Arthralgia, unspecified joint Expected: 03/13/2023 (Approximate), Expires: 03/13/2024 [facility] [employer] Comment on above: Expected: 03/13/2023 (Approximate), Expires: 03/13/2024 Start: 03-13-2023 End: 03-13-2024 Nuclear Ab [Titer] in Serum by Immunofluorescence MATTHEW Lab Routine Arthralgia, unspecified joint Expected: 03/13/2023 (Approximate), Expires: 03/13/2024 [facility] [employer] Comment on above: Expected: 03/13/2023 (Approximate), Expires: 03/13/2024 Start: 03-13-2023 End: 03-13-2024 Rheumatoid factor [Units/volume] in Serum or Plasma Rheumatoid factor Lab Routine Arthralgia, unspecified joint Expected: 03/13/2023 (Approximate), Expires: 03/13/2024 [facility] [employer] Comment on above: Expected: 03/13/2023 (Approximate), Expires: 03/13/2024 Start: 03-13-2023 End: 03-13-2024 Urate [Mass/volume] in Serum or Plasma Uric acid Lab Routine Right hip pain Expected: 03/13/2023 (Approximate), Expires: 03/13/2024 [facility] Comment on above: Expected: 03/13/2023 (Approximate), Expires: 03/13/2024 Start: 05-30-2022 Influenza vaccination C [facility] Start: 05-23-2022 COVID-19 VACCINE (3 - Booster for Pfizer series) COVID-19 VACCINE (3 - Booster for Pfizer series) [facility] Start: 05-06-2022 DTaP/Tdap/Td vaccine (7 - Td) DTaP/Tdap/Td vaccine (7 - Td) [facility] Work Phone: Start: 02-15-2022 COVID-19 VACCINE (3 - Booster for Pfizer series) COVID-19 VACCINE (3 - Booster for Pfizer series) [facility] Start: 02-15-2022 COVID-19 Vaccine (3 - Pfizer series) COVID-19 Vaccine (3 - Pfizer series) [facility] Start: 10-18-2021 HPV Vaccines (3 - 3- dose series) HPV Vaccines (3 - 3-dose series) [facility] Start: 09-29-2021 DEPRESSION ASSESSMENT DEPRESSION ASS ESSMENT [facility] Start: 09-10-2021 HPV Vaccines (3 - 3- dose series) HPV Vaccines (3 - 3-dose series) [facility] Start: 2021 PAP TESTING PAP TESTING [facility] Start: 03-25-2020 Chlamydia screen Chlamydia screen [employer] Work Phone: Start: 2019 Urine microalbumin profile DTA P,TDAP,TD (1 - Tdap) [facility] Start: 2018 CHLAMYDIA SCREENING (18-24) CH LAMYDIA SCREENING (18-24) [facility] Start: 2018 GC (GONORRHEA) SCREE JUAN PABLO (18-24) GC (GONORRHEA) SCREENING (18-24) [facility] Start: 2018 HEPATITIS C SCREENING HEPATITIS C SC REENING [facility] Start: 2018 HIV SCREENING HIV SCREENING [facility] Start: 2014 PEDS TO ADULT TRANSI TION ANNUAL ASSESSMENT PEDS TO ADULT TRANSITION ANNUAL ASSESSMENT [facility] Start: 2012 Adult depression scr eening assessment DEPRESSION SCREENING [facility] Start: 2012 PEDS TO ADULT TRANSI TION INITIAL DISCUSSION PEDS TO ADULT TRANSITION INITIAL DISCUSSION [facility] Start: 2011 HPV VACCINE (1 - 2-d ose series) HPV VACCINE (1 - 2-dose series) [facility] Start: 2011 HPV vaccine (1 - Fem delmer 2-dose series) HPV vaccine (1 - Female 2-dose series) [facility] Work Phone: Start: 2010 MENINGOCOCCAL B: Con vision rehabilitation therapist based on risk (1 of 2 - Risk Bexsero 2-dose series) MENINGOCOCCAL B: Consider based on risk (1 of 2 - Risk Bexsero 2-dose series) [facility] Start: 2006 Pneumococcal Vaccine : Pediatrics (0 to 5 Years) and At-Risk Patients (6 to 64 Years) (1 of 1 - PPSV23 or PCV20) Pneumococcal Vaccine: Pediatrics (0 to 5 Years) and At-Risk Patients (6 to 64 Years) (1 of 1 - PPSV23 or PCV20) [facility] Start: 05-02-2005 Varicella vaccination Varicell a Vaccines (2 of 2 - 2-dose childhood series) [facility] Start: 2000 HEPATITIS B (1 of 3 - 3-dose series) HEPATITIS B (1 of 3 - 3-dose series) [facility] Alanine aminotransfe rase [Enzymatic activity/volume] in Serum or Plasma [facility] Albumin [Mass/volume ] in Serum or Plasma [facility] Alkaline phosphatase [Enzymatic activity/volume] in Serum or Plasma [facility] Anion gap in Serum o r Plasma [facility] Bilirubin, total measurement [facility] BUN/Creatinine ratio [facility] Calcium [Mass/volume ] in Serum or Plasma [facility] Carbon dioxide, tota l [Moles/volume] in Central venous blood [facility] CBC W Auto Different ial panel - Blood [facility] Chlamydia deoxyribon ucleic acid detection [facility] Chlamydia deoxyribon uclei acid detection [facility] Creatinine [Mass/vol ume] in Serum or Plasma [facility] Erythrocyte mean corpuscular volume determination [facility] Glucose [Mass/volume ] in Serum or Plasma [facility] Hematocrit [Volume Fraction] of Blood [facility] Hemoglobin [Mass/vol ume] in Blood [facility] Hemoglobin A1c/Hemoglobin.total in Blood [facility] Hepatitis C antibody measurement [facility] Leukocytes [#/volume ] in Blood [facility] Mean corpuscular hem oglobin concentration determination [facility] Mean corpuscular hem oglobin determination [facility] Measurement of renal function [facility] Neutrophil count [facility] Neutrophil percent differential count [facility] Patient Education [facility] Work Phone: Patient referral [facility] Work Phone: Platelets [#/volume] in Blood [facility] Potassium measurement [facility] Procedure [facility] Red blood cell count [facility] Red cell distributio n width determination [facility] Removal impacted cer umen instrumentation unilat [facility] EAR WAX REMOVA Procedures Routine Impacted cerumen of left ear Ordered: 03/16/2022 [facility] Work Phone: Comment on above: Ordered: 03/16/[address] [facility] Serologic test for syphilis [facility] Serum chloride measurement [facility] Sodium measurement [facility] Total protein measurement [facility] Urea nitrogen [Mass/ volume] in Serum or Plasma [facility] Urine culture [facility] Immunizations Immunization Date Immunization Notes Care Provider Skip soriano 11-12-2022 tetanus toxoid, redu sachin diphtheria toxoid, and acellular pertussis vaccine, adsorbed CECILY TONY Work Phone: [facility] 11-05-2022 influenza, injectabl e, quadrivalent, preservative free Dr. Paulina Ware Work Phone: [facility] 11-05-2022 influenza, seasonal, injectable CECILY TONY Work Phone: [facility] 11-05-2022 influenza virus vacc ine, unspecified formulation Paulina Ware MD Work Phone: [facility] 12-21-2021 Covid (Pfizer) CECILY TONY Work Phone: [facility] 11-30-2021 Covid (Pfizer) CECILY TONY Work Phone: [facility] 06-18-2021 Human Papillomavirus 9-valent vaccine Paulina Ware MD Work Phone: [facility] 06-18-2021 HPV, unspecified formulation Paulina Ware MD Work Phone: [facility] 05-31-2020 Human Papillomavirus 9-valent vaccine Paulina Ware MD Work Phone: [facility] 07-30-2019 Seasonal, quadrivale nt, recombinant, injectable influenza vaccine, preservative free Nessa Crespo AUTOBODY TECHNICIAN - INDUCTION BRAZER Work Phone: [facility] 05-13-2016 meningococcal oligosaccharide (groups A, C, Y and W-135) diphtheria toxoid conjugate vaccine (MCV4O) Nessa Crespo AUTOBODY TECHNICIAN - INDUCTION BRAZER Work Phone: [facility] 05-13-2016 meningococcal polysaccharide (groups A, C, Y and W-135) diphtheria toxoid conjugate vaccine (MCV4P) CECILY TONY Work Phone: [facility] 05-06-2012 meningococcal polysaccharide (groups A, C, Y and W-135) diphtheria toxoid conjugate vaccine (MCV4P) Nessa Crespo AUTOBODY TECHNICIAN - INDUCTION BRAZER Work Phone: [facility] 05-06-2012 tetanus toxoid, redu sachin diphtheria toxoid, and acellular pertussis vaccine, adsorbed Nessa Crespo AUTOBODY TECHNICIAN - INDUCTION BRAZER Work Phone: [facility] 04-04-2005 diphtheria, tetanus toxoids and acellular pertussis vaccine Nessa Crespo AUTOBODY TECHNICIAN - INDUCTION BRAZER Work Phone: [facility] Work Phone: 04-04-2005 measles, mumps and rubella virus vaccine Nessameliza Crespo AUTOBODY TECHNICIAN - INDUCTION BRAZER Work Phone: [facility] 04-04-2005 poliovirus vaccine, inactivated Nessa Rogersgerapatrick AUTOBODY TECHNICIAN - INDUCTION BRAZER Work Phone: [facility] 04-07-2002 diphtheria, tetanus toxoids and acellular pertussis vaccine Nessa Crespo AUTOBODY TECHNICIAN - INDUCTION BRAZER Work Phone: [facility] Work Phone: 04-07-2002 haemophilus influenz ae type b vaccine, PRP-T conjugate Nessa Crespo AUTOBODY TECHNICIAN - INDUCTION BRAZER Work Phone: [facility] 04-07-2002 measles, mumps and rubella virus vaccine Nessa Crespo AUTOBODY TECHNICIAN - INDUCTION BRAZER Work Phone: [facility] 2001 poliovirus vaccine, inactivated Nessa Rogersgerapatrick AUTOBODY TECHNICIAN - INDUCTION BRAZER Work Phone: [facility] 2001 varicella virus vaccine Kale Rogersgerapatrick AUTOBODY TECHNICIAN - INDUCTION BRAZER Work Phone: [facility] 2000 hepatitis B vaccine, unspecified formulation Nessa Rogersgerapatrick AUTOBODY TECHNICIAN - INDUCTION BRAZER Work Phone: [facility] Work Phone: 2000 pneumococcal conjuga te vaccine, 13 valent Nessa Lalley AUTOBODY TECHNICIAN - INDUCTION BRAZER Work Phone: [facility] 2000 diphtheria, tetanus toxoids and acellular pertussis vaccine Nessa Lalley AUTOBODY TECHNICIAN - INDUCTION BRAZER Work Phone: [facility] Work Phone: 2000 haemophilus influenz ae type b vaccine, PRP-T conjugate Nessa Lalley AUTOBODY TECHNICIAN - INDUCTION BRAZER Work Phone: [facility] 2000 pneumococcal conjuga te vaccine, 13 valent Nessa Suelley AUTOBODY TECHNICIAN - INDUCTION BRAZER Work Phone: [facility] 2000 diphtheria, tetanus toxoids and acellular pertussis vaccine Nessa Lalley AUTOBODY TECHNICIAN - INDUCTION BRAZER Work Phone: [facility] Work Phone: 2000 haemophilus influenz ae type b vaccine, PRP-T conjugate Nessa Lalley AUTOBODY TECHNICIAN - INDUCTION BRAZER Work Phone: [facility] 2000 pneumococcal conjuga te vaccine, 13 valent Nessa Lalley AUTOBODY TECHNICIAN - INDUCTION BRAZER Work Phone: [facility] 2000 poliovirus vaccine, inactivated Nessa Lalley AUTOBODY TECHNICIAN - INDUCTION BRAZER Work Phone: [facility] 2000 diphtheria, tetanus toxoids and acellular pertussis vaccine Nessa Lalley AUTOBODY TECHNICIAN - INDUCTION BRAZER Work Phone: [facility] Work Phone: 2000 haemophilus influenz ae type b vaccine, PRP-T conjugate Nessa Lalley AUTOBODY TECHNICIAN - INDUCTION BRAZER Work Phone: [facility] 2000 poliovirus vaccine, inactivated Nessa Lalley AUTOBODY TECHNICIAN - INDUCTION BRAZER Work Phone: [facility] 2000 hepatitis B vaccine, unspecified formulation Nessa Lalley AUTOBODY TECHNICIAN - INDUCTION BRAZER Work Phone: [facility] Work Phone: 2000 hepatitis B vaccine, unspecified formulation Nessa Crespo AUTOBODY TECHNICIAN - INDUCTION BRAZER Work Phone: [facility] Work Phone: Payers Date Payer Category Payer Unknown [id number] 2024 Self-pay [id number] 2024 Private Health Insurance [id number] 2022 Unknown 2022 Unknown [id number] 2015 Unknown [id number] 2015 Unknown MMO MMO [employer] [id number] 2015-Present [phone] [address] [place] [address] PPO [id number] 2014 Unknown [employer] [address] xxxxxxxxxxxx 2014-Present [phone] [address] [place] [address] xxxxxxxxxxxx [id number] 2000 Unknown [id number] [id number] .668 2000 Unknown [id number] 2.16.840.1.814434.3.579.2 .732 2000 Unknown [id number] 2.16.840.1.997130.3.579.2 .479 Unknown [id number] 2.840.1.092934.3.579.2 .462 Unknown [id number] .840.1.840981.3.579.2 .462 Unknown [id number] 2..840.1.275785.3.579.2 .462 Unknown [id number] 2.840.1.121446.3.579.2 .462 Unknown [id number] 2.840.1.249065.3.579.2 .462 Unknown [id number] .840.1.144893.3.579.2 .462 Unknown [id number] 2.840.1.817577.3.579.2 .462 Unknown [id number] 2.840.1.466865.3.579.2 .462 Unknown [id number] .840.1.762177.3.579.2 .462 Unknown [id number] 2.840.1.534137.3.579.2 .462 Unknown [id number] .840.1.251640.3.579.2 .462 Unknown [id number] .840.1.037219.3.579.2 .462 Unknown [id number] .840.1.145463.3.579.2 .462 Unknown [id number] .840.1.419979.3.579.2 .462 Unknown [id number] .840.1.776378.3.579.2 .462 Unknown [id number] 2.840.1.884035.3.579.2 .462 Unknown [id number] 2.840.1.904003.3.579.2 .462 Unknown [id number] 2.840.1.861614.3.579.2 .462 Unknown [id number] 2.840.1.464311.3.579.2 .462 Unknown [id number] 2.16.840.1.748019.3.579.2 .462 Unknown [id number] 2.16.840.1.618986.3.579.2 .462 Unknown [id number] 2.16.840.1.566503.3.579.2 .462 Unknown [id number] 2.16.840.1.969496.3.579.2 .462 Unknown [id number] 2.16.840.1.663035.3.579.2 .462 Unknown [id number] 2.16.840.1.353652.3.579.2 .462 Social History Date Type Detail Facility Start: 09-16-2019 End: 07-12-2024 Tobacco smoking status NHIS Never smoker [facility] Start: 09-16-2019 Alcohol intake 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 Work Phone: Start: 2000 Sex Assigned At Not on file [facility] Work Phone: Start: 12-30-2012 End: 12-18-2022 Tobacco use and exposure Smokeless tobacco non-user [facility] Start: 03-16-2022 End: 12-18-2022 Alcohol intake Current drinker of alcohol (finding) [facility] Start: 03-06-2022 End: 12-18-2022 Exposure to SARS-CoV-2 (event) Not sure [facility] Start: 03-25-2022 End: 12-18-2022 Alcohol intake [facility] Start: 03-25-2022 History SDOH Alcohol Comment 2 [employer] per week [facility] Start: 07-15-2022 End: 06-18-2023 Tobacco smoking status NHIS Unknown if ever smoked [facility] Start: 2000 Sex Assigned At Female W [facility] Start: 12-18-2022 End: 11-11-2023 Humiliation, Afraid, Rape, and Kick questionnaire [HARK] [facility] [employer] Within the last year , have you been afraid of your partner or ex-partner? Patient refused [facility] Are you now , , , , never or living with a partner? Living with partner [facility] How often to you hav e a drink containing alcohol? 2-4 times a month [facility] How many standard dr inks containing alcohol do you have on a typical day? 1 or 2 [facility] How often do you hav e 6 or more drinks on 1 occasion? Never [facility] How hard is it for y ou to pay for the very basics like food, housing, medical care, and heating Not very hard [facility] Do you feel stress - tense, restless, nervous, or anxious, or unable to sleep at night because your mind is troubled all the time - these days [OSQ] Only a little [facility] (I/We) worried wheth er (my/our) food would run out before (I/we) got money to buy more. Never true [facility] In the past 12 month s, was there a time when you were not able to pay the mortgage or rent on time? No [facility] Start: 12-18-2022 History SDOH Alcohol Frequency 3 [facility] Start: 12-18-2022 History SDOH Alcohol Std Drinks 1 [facility] Start: 12-18-2022 History SDOH Social Connections Yarsani 98 [facility] Start: 12-18-2022 History SDOH Social Connections Living 8 [facility] Start: 12-18-2022 History SDOH Physica l Activity DPW 2 [facility] Start: 12-18-2022 History SDOH Financial 4 [facility] Start: 03-15-2025 End: 04-15-2025 Tobacco smoking status NHIS Ex-smoker (finding) [facility] NEGATED: Highlighted row [facility] NEGATED: Highlighted rowStart: NINF History of tobacco use Passive smoker [facility] Goals Date Patient Goal Desired Activity /State Comment on above: Patient states no cu rrent health goals. Comment on above: Pt would like to eat healthier Barriers: time constraints Plan for overcoming my barriers: meal prep Confidence: 04/07 Anticipated Goal Completion Date: 09/16/20 Mental Status Date Assessment Result Facility 05-06-2025 Cognitive function Voice/Name [facility] Work Phone: 12-05-2022 Cognitive function Voice/Name [facility] Work Phone: Clinical Notes 11-17-2021 to 06-07-2025 Note Date & Type Note Facility 06-07-2025 Progress note [facility] 06-07-2025 Progress note Note Date/Time June 07, 2025 2:26pm [facility] [address], [address] [place] [address] OFFICE VISIT Date of Service: 06/07/25 MR#: [id number] Acct: [id number] Name: JUMANA HARRIS Rep #: [id number] : 2000 Provider: Dr. Marcial Kauffman MD Age/Sex: 25/F Location: [facility] Status: Signed Intake Vital Signs 05/20/25 13:58 06/07/25 14:01 Height 5 ft 3 in 5 ft 3 in Weight: 170 lb 5 oz BMI 30.2 BP 112/75 Intake Visit Reasons: OB Brown spotting 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 Required: No Is patient in pain?: Yes (abdominal pain) Allergies Egg Derived Allergy (Intermediate, Verified 05/20/25 13:53) Hives hydroxychloroquine (From Plaquenil) Allergy (Intermediate, Verified 05/20/25 13:53) Rash adhesive Allergy (Mild, Verified 05/20/25 13:53) rash Medications ?Medication ?Instructions ?Recorded ?Confirmed ?Type fexofenadine 60 mg tablet (Liss 60 mg PO BID 06/07/25 History Allergy) docosahexaenoic acid 200 mg 200 mg PO DAILY 04/12/25 0 06/07/25 History capsule ( DHA) ondansetron 4 mg disintegrating 4 mg PO Q8H PRN PRN Na usea #20 tabs 04/15/25 06/07/25 Rx tablet Last Menstrual Period: 02/13/25 Zika: Zika virus screening: Negative : No PFSH PFSH Medical History 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 Ovarian cyst Depression Anxiety Irregular heart beat Migraines Bronchial spasms Surgical History S/P wisdom tooth extraction H/O knee surgery History of tonsillectomy Family History Grandfather Cancer Paternal- skin cancer COPD (chronic obstructive pulmonary disease) Factor 5 Leiden mutation, heterozygous Grandmother Congestive heart failure Rheumatoid arthritis Father Factor 5 Leiden mutation, heterozygous Mother Gestational diabetes Hypertension Osteoarthritis Grandmother Arthritis Social History adopted: No household members: significant other number of children: 0 current occupational status: employed 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[employer] 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/hazards: No pets and animals: Yes pets and animals: dog(s) history of recent travel: No sexually active: Yes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 smoker quit date: 01/27/25 second hand exposure: Yes quit status: quit date established alcohol intake: current alcohol intake frequency: a few times a month Alcohol type: other details: Not while substance use type: does not use diet: other well-balanced diet: about half the time caffeine: Yes Type: carbonated beverages Number of servings: 1 eating out: 1-3 times/week during the past year weight has: increased > 10 lbs what type of physical activity do you participate in: walking frequency: 3-4 times per week duration: < 15 minutes/day jaye/yazidi: Gnosticist seatbelt use: always do you feel safe at home: Yes additional social history: (Martinez) : BF: [facility] History 1 Elective abortions 0 Hx Para 0 Spontaneous abortions 0 Hx # Term Pregnancies Ectopic pregnancies Hx # Pregnancies Multiple births # of living children HPI OB [facility] Details: JUMANA HARRIS is a 25 year old who presents for routine OB visit. OB Visit KAUR Calculator Estimated Delivery Date Method Current WG Current Estimate 11/22/25 Ultrasound #1 16w 0d Other Estimates 11/20/25 LMP (Certain) 16w 2d Expected Delivery Route/Plan Labor Preferences- CB/BF classes: [] labor support person: [] labor intervention preferences: [] pain management options preferred: [] cut cord/dad catch: [] : [] PP control planned: [] discussed possible routes of delivery and associated risks: [] special requests: [] Specific Issue/Plans Covid status: [] Flu vaccine: [] Tdap vaccine: [] Rhogam: [] LARC form signed: [] Problem list reviewed and updated with the most current plan of care details and appropriate orders placed. Relevant counseling for the gestational age provided. Continue routine care and follow up unless otherwise noted in visit notes/problem list details Initial Weight: 172 lb Date -?-?-?-?-?-?-?-?-?-?-?-?- EGA Weight BP Urine Prot -?-?-?-?-?-?-?-?-?-?-?-?- Glucose FHR FuHt Pres Dilation -?-?-?-?-?-?-?-?-?-?-?-?- Effaced St Visit Note 04/22/25 -?-?-?-?-?-?-?-?-?-?-?-?- 9w 3d 172 lb (+0 oz) 132/75 -?-?-?-?-?-?-?-?-?-?-?-?- 169 -?-?-?-?-?-?-?-?-?-?-?-?- Lc 2.49CRL con w ith Lmp. desires nipt. hbga1c added for obesity. 05/20/25 -?-?-?-?-?-?-?-?-?-?-?-?- 13w 3d 168 lb 4 oz (-3 lb 12 oz) 125/80 Negative -?-?-?-?-?-?-?-?-?-?-?-?- Negative 150 -?-?-?-?-?-?--?-?-?-?-?-?- SM- no vb some c ramping. labs drawn on and patient for SMA status of fetus and FOB 06/07/25 -?-?-?-?-?-?-?-?-?-?-?-?- 16w 0d 170 lb 5 oz (-1 lb 11 oz) 112/75 -?-?-?-?-?-?-?-?-?-?-?-?- 150 -?-?-?-?-?-?-?-?-?-?-?-?- SM- co headache feeling malaise, check cbc cmp and reviewed supportive care ACOG First Trimester First Trimester: Desire for , Alcohol, Tobacco Cessation, Illicit/Recreational Drug/Substance Use, Intimate Partner Violence, Barriers to care, Unstable Housing, Communication Barriers, Environmental/Work Hazards, Anticipated Course of Care, Toxoplasmosis Precations, Use of Any medications, Sexual activity, Exercise, Dental Care, Sauna/Hot tub use, Seat Belt use, Childbirth classes/Hospital facilities, Travel, Indications for Ultrasound and Screening for Aneuploidy; Discussed Coding Level of Care Code OB Routine Diagnoses 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 Z14.8 Obesity affecting O99.210 Rh negative status during O26.899; Z67.91 Supervision of high-risk O09.90 16 weeks gestation of Z3A.16 Weeks of gestation: 16 weeks Cessation of tobacco use prior to Family history of factor V Leiden mutation Z83.2 Irritable bowel syndrome with both constipation and diarrhea K58.2 Irritable bowel syndrome type: with both diarrhea and constipation Rheumatoid arthritis, involving unspecified site, unspecified whether rheumatoid factor present M06.9 Rheumatoid arthritis location: unspecified site Rheumatoid factor presence: unspecified presence Assessment and Plan Assessment and Plan (1) 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 Carrier neg. (6) Cessation of tobacco use prior to : Status: Acute Comment: Quit January 2025 (7) Family history of factor V Leiden mutation: Status: Acute Comment: Father, paternal grandfather & paternal uncle (). Paternal aunt - carrier (8) IBS (irritable bowel syndrome): Status: Acute Qualifiers: Irritable bowel syndrome type: with both diarrhea and constipation Qualified Code(s): K58.2 - Mixed irritable bowel syndrome (9) Rheumatoid arthritis: Status: Acute Qualifiers: Rheumatoid arthritis location: unspecified site Rheumatoid factor presence: unspecified presence Qualified Code(s): M06.9 - Rheumatoid arthritis, unspecified 06/07/25 1426 <Electronically signed by Tish mak MD> Date _ Tish Kauffman MD Cosigner Signature: Date (if applicable) CC: ~ [facility] [employer] Work Phone: 1(579) 697-849508-22-2025 Evaluation note* Diagnosis Onset Date Resolution Status Admit Date Cessation of tobacco use prior to acute May 20, 2025 1:49pm Family history of factor V Leiden mutation acute May 20 1:49pm 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 acute May 202024 1:49pm IBS (irritable bowel syndrome) acute May 20 1:49pm Obesity affecting acute May 20, 2025 1:49pm acute May 20 1:49pm Rh negative status during acute May 20 1:49pm Rheumatoid arthritis acute 2024 1:49pm Supervision of high-risk acute May 20 1:49pm Cessation of tobacco use prior to acute May 1:46pm Family history of factor V Leiden mutation acute June 07 025 1:46pm 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 acute June 07, 2025 1:46pm IBS (irritable bowel syndrome) acute June 07 025 1:46pm Obesity affecting acute June 07, 2025 1:46pm acute June 07, 2025 1:46pm Rh negative status during acute June 07 025 1:46pm Rheumatoid arthritis acute May 1:46pm Supervision of high-risk acute June 07 025 1:46pm Cessation of tobacco use prior to acute May 8:42am Family history of factor V Leiden mutation acute June 14, 2025 8:42am 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 acute June 14, 2025 8:42am IBS (irritable bowel syndrome) acute June 14, 2025 8:42am Obesity affecting acute June 14, 2025 8:42am acute May 8:42am Rh negative status during acute June 14, 2025 8:42am Rheumatoid arthritis acute May 8:42am Supervision of high-risk acute June 14, 2025 8:42am [facility] Work Phone: 1(313) 602-329408-22-2025 Progress [facility] [address] [place] [address], [address] [place] [address] OFFICE VISIT Date of Service: 05/20/25 MR#: [id number] Acct: [id number] Name: JUMANA HARRIS Rep #: [id number] : 2000 Provider: Dr. Marcial Kauffman MD Age/Sex: 25/F Location: [facility] Status: Signed Intake Vital Signs 04/06/25 09:15 05/06/25 09:18 05/20/25 13:54 05/20/25 13:58 Height 5 ft 3 in 5 ft 3 in 5 ft 3 in 5 ft 3 in Weight: 168 lb 4 oz BMI 29.7 BP 125/80 H Intake Visit Reasons: 12wk OB 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 Required: No Is patient in pain?: No Allergies Egg Derived Allergy (Intermediate, Verified 05/20/25 13:53) Hives hydroxychloroquine (From Plaquenil) Allergy (Intermediate, Verified 05/20/25 13:53) Rash adhesive Allergy (Mild, Verified 05/20/25 13:53) rash Medications ?Medication ?Instructions ?Recorded ?Confirmed ?Type fexofenadine 60 mg tablet (Liss 60 mg PO BID 05/20/25 History Allergy) docosahexaenoic acid 200 mg 200 mg PO DAILY 04/12/25 0 05/20/25 History capsule ( DHA) ondansetron 4 mg disintegrating 4 mg PO Q8H PRN PRN Na usea #20 tabs 04/15/25 05/20/25 Rx tablet Last Menstrual Period: 02/13/25 Zika: Zika virus screening: Negative : No PFSH PFSH Medical History 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 Ovarian cyst Depression Anxiety Irregular heart beat Migraines Bronchial spasms Surgical History S/P wisdom tooth extraction H/O knee surgery History of tonsillectomy Family History Grandfather Cancer Paternal- skin cancer COPD (chronic obstructive pulmonary disease) Factor 5 Leiden mutation, heterozygous Grandmother Congestive heart failure Rheumatoid arthritis Father Factor 5 Leiden mutation, heterozygous Mother Gestational diabetes Hypertension Osteoarthritis Grandmother Arthritis Social History adopted: No household members: significant other number of children: 0 current occupational status: employed 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/hazards: No pets and animals: Yes pets and animals: dog(s) history of recent travel: No sexually active: Yes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 smoker quit date: 01/27/25 second hand exposure: Yes quit status: quit date established alcohol intake: current alcohol intake frequency: a few times a month Alcohol type: other details: Not while substance use type: does not use diet: other well-balanced diet: about half the time caffeine: Yes Type: carbonated beverages Number of servings: 1 eating out: 1-3 times/week during the past year weight has: increased > 10 lbs what type of physical activity do you participate in: walking frequency: 3-4 times per week duration: < 15 minutes/day jaye/yazidi: Gnosticist seatbelt use: always do you feel safe at home: Yes additional social history: (Martinez) : BF: Santy - [facility] History 1 Elective abortions 0 Hx Para 0 Spontaneous abortions 0 Hx # Term Pregnancies Ectopic pregnancies Hx # Pregnancies Multiple births # of living children HPI 12wk OB Details: JUMANA HARRIS is a 25 year old who presents for routine OB visit. OB Visit KAUR Calculator Estimated Delivery Date Method Current WG Current Estimate 11/22/25 Ultrasound #1 13w 3d Other Estimates 11/20/25 LMP (Certain) 13w 5d Expected Delivery Route/Plan Labor Preferences- CB/BF classes: [] labor support person: [] labor intervention preferences: [] pain management options preferred: [] cut cord/dad catch: [] : [] PP control planned: [] discussed possible routes of delivery and associated risks: [] special requests: [] Specific Issue/Plans Covid status: [] Flu vaccine: [] Tdap vaccine: [] Rhogam: [] LARC form signed: [] Problem list reviewed and updated with the most current plan of care details and appropriate ordersplaced. Relevant counseling for the gestational age provided. Continue routine care and follow up unless otherwise noted in visit notes/problem list details Initial Weight: 172 lb Date -?-?-?-?-?-?-?-?-?-?-?-?- EGA Weight BP Urine Prot -?-?-?-?-?-?-?-?-?-?-?-?- Glucose FHR FuHt Pres Dilation -?-?-?-?-?-?-?-?-?-?-?-?- Effaced St Visit Note 04/22/25 -?-?-?-?-?-?-?-?-?-?-?-?- 9w 3d 172 lb (+0 oz) 132/75 -?-?-?-?-?-?-?-?-?-?-?-?- 169 -?-?-?-?-?-?-?-?-?-?-?-?- Lc 2.49CRL con w ith Lmp. desires nipt. hbga1c added for obesity. 05/20/25 -?-?-?-?-?-?-?-?-?-?-?-?- 13w 3d 168 lb 4 oz (-3 lb 12 oz) 125/80 Negative -?-?-?-?-?-?-?-?-?-?-?-?- Negative 150 -?-?-?-?-?-?-?-?-?-?-?-?- SM- no vb some c ramping. labs drawn on and patient for SMA status of fetus and FOB ACOG First Trimester First Trimester: Desire for , Alcohol, Tobacco Cessation, Illicit/Recreational Drug/Substance Use, Intimate Partner Violence, Barriers to care, Unstable Housing, Communication Barriers, Environmental/Work Hazards, Anticipated Course of Care, Toxoplasmosis Precations, Use of Any med ications, Sexual activity, Exercise, Dental Care, Sauna/Hot tub use, Seat Belt use, Childbirth classes/Hospital facilities, Travel, Indications for Ultrasound and Screening for Aneuploidy; Discussed Results POC Urinalysis 2 Dip (Clinic) Office Urine Glucose Negative Last Edit by Aiyana Jimenez on 05/20/25 13:59 Office Urine Protein Negative Last Edit by Aiyana Jimenez on 05/20/25 13:59 Coding Level of Care Code OB Routine Diagnoses 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 Z14.8 Obesity affecting O99.210 Rh negative status during O26.899; Z67.91 Supervision of high-risk O09.90 13 weeks gestation of Z3A.13 Weeks of gestation: 13 weeks Cessation of tobacco use prior to Family history of factor V Leiden mutation Z83.2 Irritable bowel syndrome with both constipation and diarrhea K58.2 Irritable bowel syndrome type: with both diarrhea and constipation Rheumatoid arthritis, involving unspecified site, unspecified whether rheumatoid factor present M06.9 Rheumatoid arthritis location: unspecified site Rheumatoid factor presence: unspecified presence Assessment and Plan Assessment and Plan (1) 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 Carrier neg. (6) Cessation of tobacco use prior to : Status: Acute Comment: Quit January 2025 (7) Family history of factor V Leiden mutation: Status: Acute Comment: Father, paternal grandfather & paternal uncle (). Paternal aunt - carrier (8) IBS (irritable bowel syndrome): Status: Acute Qualifiers: Irritable bowel syndrome type: with both diarrhea and constipation Qualified Code(s): K58.2 - Mixedirritable bowel syndrome (9) Rheumatoid arthritis: Status: Acute Qualifiers: Rheumatoid arthritis location: unspecified site Rheumatoid factor presence: unspecified presence Qualified Code(s): M06.9 - Rheumatoid arthritis, unspecified Orders: Orders POC Urinalysis 2 Dip (Clinic) Today 05/20/25 1416 obdulio ELLIOTT> Date _ Tish Kauffman MD Cosigner Signature: Date (if applicable) CC: ~ [facility]08-22-2025 Progress note Author Tish Kauffman [facility] Note Date/Time May 20, 2025 2: 16pm [facility] [address], [address] [place] [address] OFFICE VISIT Date of Service: 05/20/25 MR#: [id number] Acct: [id number] Name: JUMANA HARRIS SONIA Rep #: [id number] : 2000 Provider: Dr. Marcial Kauffman MD Age/Sex: 25/F Location: [facility] Status: Signed Intake Vital Signs 04/06/25 09:15 05/06/25 09:18 05/20/25 13:54 05/20/25 13:58 Height 5 ft 3 in 5 ft 3 in 5 ft 3 in 5 ft 3 in Weight: 168 lb 4 oz BMI 29.7 BP 125/80 H Intake Visit Reasons: 12wk OB 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 Required: No Is patient in pain?: No Allergies Egg Derived Allergy (Intermediate, Verified 05/20/25 13:53) Hives hydroxychloroquine (From Plaquenil) Allergy (Intermediate, Verified 05/20/25 13:53) Rash adhesive Allergy (Mild, Verified 05/20/25 13:53) rash Medications ?Medication ?Instructions ?Recorded ?Confirmed ?Type fexofenadine 60 mg tablet (Liss 60 mg PO BID 05/20/25 History Allergy) docosahexaenoic acid 200 mg 200 mg PO DAILY 04/12/25 0 05/20/25 History capsule ( DHA) ondansetron 4 mg disintegrating 4 mg PO Q8H PRN PRN Na usea #20 tabs 04/15/25 05/20/25 Rx tablet Last Menstrual Period: 02/13/25 Zika: Zika virus screening: Negative : No PFSH PFSH Medical History 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 Ovarian cyst Depression Anxiety Irregular heart beat Migraines Bronchial spasms Surgical History S/P wisdom tooth extraction H/O knee surgery History of tonsillectomy Family History Grandfather Cancer Paternal- skin cancer COPD (chronic obstructive pulmonary disease) Factor 5 Leiden mutation, heterozygous Grandmother Congestive heart failure Rheumatoid arthritis Father Factor 5 Leiden mutation, heterozygous Mother Gestational diabetes Hypertension Osteoarthritis Grandmother Arthritis Social History adopted: No household members: significant other number of children: 0 current occupational status: employed 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/hazards: No pets and animals: Yes pets and animals: dog(s) history of recent travel: No sexually active: Yes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 smoker quit date: 01/27/25 second hand exposure: Yes quit status: quit date established alcohol intake: current alcohol intake frequency: a few times a month Alcohol type: other details: Not while substance use type: does not use diet: other well-balanced diet: about half the time caffeine: Yes Type: carbonated beverages Number of servings: 1 eating out: 1-3 times/week during the past year weight has: increased > 10 lbs what type of physical activity do you participate in: walking frequency: 3-4 times per week duration: < 15 minutes/day jaye/yazidi: Gnosticist seatbelt use: always do you feel safe at home: Yes additional social history: (Martinez) : BF: Santy - [facility] History 1 Elective abortions 0 Hx Para 0 Spontaneous abortions 0 Hx # Term Pregnancies Ectopic pregnancies Hx # Pregnancies Multiple births # of living children HPI 12wk OB Details: JUMANA HARRIS is a 25 year old who presents for routine OB visit. OB Visit KAUR Calculator Estimated Delivery Date Method Current WG Current Estimate 11/22/25 Ultrasound #1 13w 3d Other Estimates 11/20/25 LMP (Certain) 13w 5d Expected Delivery Route/Plan Labor Preferences- CB/BF classes: [] labor support person: [] labor intervention preferences: [] pain management options preferred: [] cut cord/dad catch: [] : [] PP control planned: [] discussed possible routes of delivery and associated risks: [] special requests: [] Specific Issue/Plans Covid status: [] Flu vaccine: [] Tdap vaccine: [] Rhogam: [] LARC form signed: [] Problem list reviewed and updated with the most current plan of care details and appropriate orders placed. Relevant counseling for the gestational age provided. Continue routine care and follow up unless otherwise noted in visit notes/problem list details Initial Weight: 172 lb Date -?-?-?-?-?-?-?-?-?-?-?-?- EGA Weight BP Urine Prot -?-?-?-?-?-?-?-?-?-?-?-?- Glucose FHR FuHt Pres Dilation -?-?-?-?-?-?-?-?-?-?-?-?- Effaced St Visit Note 04/22/25 -?-?-?-?-?-?-?-?-?-?-?-?- 9w 3d 172 lb (+0 oz) 132/75 -?-?-?-?-?-?-?-?-?-?-?-?- 169 -?-?-?-?-?-?-?-?-?-?-?-?- Lc 2.49CRL con w ith Lmp. desires nipt. hbga1c added for obesity. 05/20/25 -?-?-?-?-?-?-?-?-?-?-?-?- 13w 3d 168 lb 4 oz (-3 lb 12 oz) 125/80 Negative -?-?-?-?-?-?-?-?-?-?-?-?- Negative 150 -?-?-?-?-?-?-?-?-?-?-?-?- SM- no vb some c ramping. labs drawn on and patient for SMA status of fetus and FOB ACOG First Trimester First Trimester: Desire for , Alcohol, Tobacco Cessation, Illicit/Recreational Drug/Substance Use, Intimate Partner Violence, Barriers to care, Unstable Housing, Communication Barriers, Environmental/Work Hazards, Anticipated Course of Care, Toxoplasmosis Precations, Use of Any medications, Sexual activity, Exercise, Dental Care, Sauna/Hot tub use, Seat Belt use, Childbirth classes/Hospital facilities, Travel, Indications for Ultrasound and Screening for Aneuploidy; Discussed Results POC Urinalysis 2 Dip (Clinic) Office Urine Glucose Negative Last Edit by Aiyana Jimenez on 05/20/25 13:59 Office Urine Protein Negative Last Edit by Aiyana Jimenez on 05/20/25 13:59 Coding Level of Care Code OB Routine Diagnoses 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 Z14.8 Obesity affecting O99.210 Rh negative status during O26.899; Z67.91 Supervision of high-risk O09.90 13 weeks gestation of Z3A.13 Weeks of gestation: 13 weeks Cessation of tobacco use prior to Family history of factor V Leiden mutation Z83.2 Irritable bowel syndrome with both constipation and diarrhea K58.2 Irritable bowel syndrome type: with both diarrhea and constipation Rheumatoid arthritis, involving unspecified site, unspecified whether rheumatoid factor present M06.9 Rheumatoid arthritis location: unspecified site Rheumatoid factor presence: unspecified presence Assessment and Plan Assessment and Plan (1) 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 Carrier neg. (6) Cessation of tobacco use prior to : Status: Acute Comment: Quit January 2025 (7) Family history of factor V Leiden mutation: Status: Acute Comment: Father, paternal grandfather & paternal uncle (). Paternal aunt - carrier (8) IBS (irritable bowel syndrome): Status: Acute Qualifiers: Irritable bowel syndrome type: with both diarrhea and constipation Qualified Code(s): K58.2 - Mixed irritable bowel syndrome (9) Rheumatoid arthritis: Status: Acute Qualifiers: Rheumatoid arthritis location: unspecified site Rheumatoid factor presence: unspecified presence Qualified Code(s): M06.9 - Rheumatoid arthritis, unspecified Orders: Orders POC Urinalysis 2 Dip (Clinic) Today 05/20/25 1416 <Electronically signed by Tish mak MD> Date _ Tish Kauffman MD Cosigner Signature: Date (if applicable) CC: ~ [facility] Work Phone: [phone]) [phone] Discharge summary [facility] Medical Records Department [address] [place] [address] Emergency Department Summary 04/15/25 MR#: [id number] Acct: [id number] Name: JUMANA HARRIS Rep #:[id number] : 2000 25 From: Sarah Cornelius PCP: Jenn Sweeney DO Status:REG ER Location: ED HPI HPI - Female History of Present Illness Chief Complaint: Informant: patient Narrative Narrative: Patient is a G1, P0 25-year-old female with history of sinus tachycardia and rheumatoid arthritis presenting from home with nausea, vomiting, decreased urineoutput and lightheadedness. States her symptoms been particularly bad for the past 2 days is not really been able to keep anything down. She states she has not urinated since 4 AM this morning. States her urine is dark. States the nausea is intermittent. Denies any significant nausea right now. Does have some mild lower abdominal cramping and some mild discomfort in her left flank area. Denies any dysuria. Denies any abnormal vaginal discharge or bleeding. Follows Dr. Tijerina. Has had a to confirm intrauterine gestation. Has not had any vaginal bleeding. Came in for further evaluation. No other complaints or concerns reported at this time. PFSH PFS Medical History Ovarian cyst Depression Anxiety Irregular heart beat Migraines Bronchial spasms Home Medications ?Medication ?Instructions ?Recorded ?Last Taken ?Type fexofenadine 60 mg tablet (Liss 60 mg PO BID Unknown History Allergy) docosahexaenoic acid 200 mg mg PO 04/12/25 Unknown His tory capsule ( DHA) ondansetron 4 mg disintegrating 4 mg PO Q8H PRN PRN Na usea #20 tabs 04/15/25 Unknown Rx tablet Allergy/AdvReac Type Severity Reaction Status Date / Time Egg Derived Allergy Intermediate Hives Verified 04/15/25 15:48 hydroxychloroquine (From Allergy Intermediate Rash Verified 04/15/25 15:48 Plaquenil) adhesive Allergy Mild rash Verified 04/15/25 15:48 Family History Grandfather Cancer Paternal- skin cancer COPD (chronic obstructive pulmonary disease) Factor 5 Leiden mutation, heterozygous Grandmother Congestive heart failure Rheumatoid arthritis Father Factor 5 Leiden mutation, heterozygous Mother Gestational diabetes Hypertension Osteoarthritis Grandmother Arthritis Surgical History S/P wisdom tooth extraction H/O knee surgery History of tonsillectomy Social History adopted: No household members: significant other number of children: 0 current occupational status: employed 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/hazards: No pets and animals: Yes pets and animals: dog(s) history of recent travel: No sexually active: Yes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 smoker quit date: 01/27/25 second hand exposure: Yes quit status: quit date established alcohol intake: current alcohol intake frequency: a few times a month Alcohol type: other details: Not while substance use type: does not use diet: other well-balanced diet: about half the time caffeine: Yes Type: carbonated beverages Number of servings: 1 eating out: 1-3 times/week during the past year weight has: increased > 10 lbs what type of physical activity do you participate in: walking frequency: 3-4 times per week duration: < 15 minutes/day jaye/yazidi: Gnosticist seatbelt use: always do you feel safe at home: Yes additional social history: (Martinez) : BF: Santy - Intake Counselor ROS ROS ED Constitutional Constitutional ED: Denies chills or fever(s) Respiratory/Chest Respiratory/Chest: Denies cough or dyspnea Gastrointestinal Gastrointestinal: Reports abdominal pain, nausea and vomiting; Denies constipation or diarrhea Genitourinary Genitourinary ED: Reports other Details: Decreased urination, darker urine ; Denies dysuria or hematuria Musculoskeletal Musculoskeletal: Reports other Details: Left-sided low back pain ; Denies arthralgias Integumentary Denies rash Neurologic Neurologic: Reports weakness and other Details: Lightheaded EXAM Physical Exam Const Vital Signs: 04/15/25 15:48 04/15/25 17:47 04/15/25 21:18 Temperature 98.2 F 98 F Temperature Source Oral Pulse Rate 106 H 65 96 Respiratory Rate 16 16 18 Blood Pressure 140/85 H 102/67 117/66 Blood Pressure Mean 103 78 83 Pulse Ox 97 97 100 Oxygen Delivery Method Room Air Room Air Positive well nourished and well developed General Appearance ED: well developed and NAD HEENT Reports moist mucous membranes Eyes PERRL Neck supple Chest Wall inspection of chest normal and palpation of chest normal Resp normal respiratory effort and clear to auscultation bilaterally Cardio regular rhythm Rate: tachycardic GI normal to inspection, nondistended, normoactive bowel sounds, soft to palpation and non-tender Auscultation: normoactive bowel sounds Palpation: Negative for tender or guarding Back/Spine no CVA tenderness Extremity normal to inspection and full ROM Neuro oriented x3 Sensorium / Orientation: alert Psych mental status grossly normal Skin no rashes or lesions noted and no wounds MDM MDM MDM Narrative Medical decision making narrative: Patient evaluated for nausea and vomiting associate with early . Is also having some cramping. Has had decreased urine output. Differential includes gastritis, hyperemesis gravidarum, infection, urinary tract infection, DENAE and dehydration. She is already had confirmed IUP so low suspicion for ectopic . She denies any vaginal bleeding. Bedside ultrasound performed by myself which shows normal cardiac activity. Patient is reassured with this. Patient is given IV fluids. She declines nausea medicine in the emergency room. CBC normal. CMP shows normal creatinine but she does have a low bicarb of 20.3. Laboratory work otherwise normal. She gets a second liter of fluid she still not able to produce urine. She finally is able to give a urine sample and she is of 150 ketones. Urinalysis most consistent otherwise with contamination. Patient is able to tolerate liquids in the emergency room and states she is feeling hungry would like to go home. Patient will be discharged home with a prescription for Zofran. Discussed risk and benefits. Patient verbalized agreement or stands this plan. Discharged home in stable condition. Will follow-up withher LAST INSERTER. Given return precautions. Discussed small frequent meals to help with morning sickness as well. Lab Data Attestation: I reviewed the patient's lab results. Labs: Laboratory Results - last 24 hr 04/15/25 04/15/25 15:56 19:59 WBC 8.2 RBC 4.74 Hgb 14.7 Hct 39.7 MCV 83.8 MCH 31.0 MCHC 37.0 H RDW Std Deviation 34.8 L RDW Coeff of Breonna 11.4 L Plt Count 224 MPV 9.4 Immature Gran % (Auto) 0.400 Neut % (Auto) 72.4 H Lymph % (Auto) 19.4 [place] % (Auto) 7.2 Eos % (Auto) 0.2 Baso % (Auto) 0.4 Absolute Neuts (auto) 6.0 Absolute Lymphs (auto) 1.60 Nucleated RBC % 0 Sodium 136 Potassium 3.6 Chloride 102 Carbon Dioxide 20.3 L Anion Gap 14 BUN 6 Creatinine 0.68 L Estim Creat Clear Calc 125.44 Est GFR (MDRD) Non-Af 124 BUN/Creatinine Ratio 9.1 L Glucose 101 H Calcium 9.6 Total Bilirubin 0.89 AST 19 ALT 13 Alkaline Phosphatase 76 Total Protein 7.6 Albumin 4.5 Globulin 3.2 Albumin/Globulin Ratio 1.4 Lipase 24 Urine Color Yellow Urine Clarity Clear Urine pH 6.0 Ur Specific [place] 1.020 Urine Protein Negative Urine Glucose (UA) Normal Urine Ketones 150 A* Urine Occult Blood Negative Urine Nitrite Negative Urine Bilirubin Negative Urine Urobilinogen Normal Ur Leukocyte Esterase Negative Urine RBC 0 SEEN Urine WBC 0-5 SEEN Ur Squamous Epith Cells 0-5 SEEN Urine Bacteria 1+ Urine Mucus 1+ Discharge Plan Triage Chief Complaint: ED Provider: Sarah Stubbs Dx/Rx/DC Orders Clinical Impression: Acute dehydration, Nausea and vomiting during Instructions: ED Dehydration (Adult), ED Hyperemesis Gravidarum Prescriptions: New ondansetron 4 mg tablet,disintegrating 4 mg PO Q8H PRN PRN (Reason: Nausea) Qty: 20 0RF No Action fexofenadine [Liss Allergy] 60 mg tablet 60 mg PO BID DHA 200 mg capsule PO Primary Care Provider: Jenn Sweeney Referrals: Jenn Sweeney, [Primary Care Provider] - Activity Restrictions/Additional Instructions: Continue to try to push fluids and eat small frequent meals. Return if you haveprogression worsening your symptoms or further concerns. Print Language: Citizen Of [place] Disposition Disposition: Home, Self Care What to do if you have Problems For any increased pain, shortness of breath, bleeding, nausea or vomiting, chestpain, or any unexpected problems, contact your Primary Care Provider. Call [facility] ([phone]) or report tothe closest Emergency Room. Call 911 if necessary. 04/15/252130 Cosigner Signature (if applicable): CC: Jenn Sweeney DO ~ Signed [facility]07-18-2025 Discharge summary Author Sarah Stubbs [facility] Note Date/Time April 15, 2025 9:31 pm [facility] Medical Records Department [address] [place] [address] Emergency Department Summary 04/15/25 MR#: [id number] Acct: [id number] Name: JUMANA HARRIS Rep #:[id number] : 2000 From: Sarah Cornelius PCP: Jenn Sweeney DO Status:REG ER Location: ED HPI HPI - Female History of Present Illness Chief Complaint: Informant: patient Narrative Narrative: Patient is a G1, P0 25-year-old female with history of sinus tachycardia and rheumatoid arthritis presenting from home with nausea, vomiting, decreased urineoutput and lightheadedness. States her symptoms been particularly bad for the past 2 days is not really been able to keep anything down. She states she has not urinated since 4 AM this morning. States her urine is dark. States the nausea is intermittent. Denies any significant nausea right now. Does have some mild lower abdominal cramping and some mild discomfort in her left flank area. Denies any dysuria. Denies any abnormal vaginal discharge or bleeding. Follows Dr. Tijerina. Has had a to confirm intrauterine gestation. Has not had any vaginal bleeding. Came in for further evaluation. No other complaints or concerns reported at this time. [facility] Medical History Ovarian cyst Depression Anxiety Irregular heart beat Migraines Bronchial spasms Home Medications ?Medication ?Instructions ?Recorded ?Last Taken ?Type fexofenadine 60 mg tablet (Liss 60 mg PO BID Unknown History Allergy) docosahexaenoic acid 200 mg mg PO 04/12/25 Unknown His tory capsule ( DHA) ondansetron 4 mg disintegrating 4 mg PO Q8H PRN PRN Na usea #20 tabs 04/15/25 Unknown Rx tablet Allergy/AdvReac Type Severity Reaction Status Date / Time Egg Derived Allergy Intermediate Hives Verified 04/15/25 15:48 hydroxychloroquine (From Allergy Intermediate Rash Verified 04/15/25 15:48 Plaquenil) adhesive Allergy Mild rash Verified 04/15/25 15:48 Family History Grandfather Cancer Paternal- skin cancer COPD (chronic obstructive pulmonary disease) Factor 5 Leiden mutation, heterozygous Grandmother Congestive heart failure Rheumatoid arthritis Father Factor 5 Leiden mutation, heterozygous Mother Gestational diabetes Hypertension Osteoarthritis Grandmother Arthritis Surgical History S/P wisdom tooth extraction H/O knee surgery History of tonsillectomy Social History adopted: No household members: significant other number of children: 0 current occupational status: employed 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/hazards: No pets and animals: Yes pets and animals: dog(s) history of recent travel: No sexually active: Yes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 smoker quit date: 01/27/25 second hand exposure: Yes quit status: quit date established alcohol intake: current alcohol intake frequency: a few times a month Alcohol type: other details: Not while substance use type: does not use diet: other well-balanced diet: about half the time caffeine: Yes Type: carbonated beverages Number of servings: 1 eating out: 1-3 times/week during the past year weight has: increased > 10 lbs what type of physical activity do you participate in: walking frequency: 3-4 times per week duration: < 15 minutes/day jaye/yazidi: Gnosticist seatbelt use: always do you feel safe at home: Yes additional social history: (Martinez) : BF: Santy - Intake Counselor ROS ROS ED Constitutional Constitutional ED: Denies chills or fever(s) Respiratory/Chest Respiratory/Chest: Denies cough or dyspnea Gastrointestinal Gastrointestinal: Reports abdominal pain, nausea and vomiting; Denies constipation or diarrhea Genitourinary Genitourinary ED: Reports other Details: Decreased urination, darker urine ; Denies dysuria or hematuria Musculoskeletal Musculoskeletal: Reports other Details: Left-sided low back pain ; Denies arthralgias Integumentary Denies rash Neurologic Neurologic: Reports weakness and other Details: Lightheaded EXAM Physical Exam Const Vital Signs: 04/15/25 15:48 04/15/25 17:47 04/15/25 21:18 Temperature 98.2 F 98 F Temperature Source Oral Pulse Rate 106 H 65 96 Respiratory Rate 16 16 18 Blood Pressure 140/85 H 102/67 117/66 Blood Pressure Mean 103 78 83 Pulse Ox 97 97 100 Oxygen Delivery Method Room Air Room Air Positive well nourished and well developed General Appearance ED: well developed and NAD HEENT Reports moist mucous membranes Eyes PERRL Neck supple Chest Wall inspection of chest normal and palpation of chest normal Resp normal respiratory effort and clear to auscultation bilaterally Cardio regular rhythm Rate: tachycardic GI normal to inspection, nondistended, normoactive bowel sounds, soft to palpation and non-tender Auscultation: normoactive bowel sounds Palpation: Negative for tender or guarding Back/Spine no CVA tenderness Extremity normal to inspection and full ROM Neuro oriented x3 Sensorium / Orientation: alert Psych mental status grossly normal Skin no rashes or lesions noted and no wounds MDM MDM MDM Narrative Medical decision making narrative: Patient evaluated for nausea and vomiting associate with early . Is also having some cramping. Has had decreased urine output. Differential includes gastritis, hyperemesis gravidarum, infection, urinary tract infection, DENAE and dehydration. She is already had confirmed IUP so low suspicion for ectopic . She denies any vaginal bleeding. Bedside ultrasound performed by myself which shows normal cardiac activity. Patient is reassured with this. Patient is given IV fluids. She declines nausea medicine in the emergency room. CBC normal. CMP shows normal creatinine but she does have a low bicarb of 20.3. Laboratory work otherwise normal. She gets a second liter of fluid she still not able to produce urine. She finally is able to give a urine sample and she is of 150 ketones. Urinalysis most consistent otherwise with contamination. Patient is able to tolerate liquids in the emergency room and states she is feeling hungry would like to go home. Patient will be discharged home with a prescription for Zofran. Discussed risk and benefits. Patient verbalized agreement or stands this plan. Discharged home in stable condition. Will follow-up with her LAST INSERTER. Given return precautions. Discussed small frequent meals to help with morning sickness as well. Lab Data Attestation: I reviewed the patient's lab results. Labs: Laboratory Results - last 24 hr 04/15/25 04/15/25 15:56 19:59 WBC 8.2 RBC 4.74 Hgb 14.7 Hct 39.7 MCV 83.8 MCH 31.0 MCHC 37.0 H RDW Std Deviation 34.8 L RDW Coeff of Breonna 11.4 L Plt Count 224 MPV 9.4 Immature Gran % (Auto) 0.400 Neut % (Auto) 72.4 H Lymph % (Auto) 19.4 [place] % (Auto) 7.2 Eos % (Auto) 0.2 Baso % (Auto) 0.4 Absolute Neuts (auto) 6.0 Absolute Lymphs (auto) 1.60 Nucleated RBC % 0 Sodium 136 Potassium 3.6 Chloride 102 Carbon Dioxide 20.3 L Anion Gap 14 BUN 6 Creatinine 0.68 L Estim Creat Clear Calc 125.44 Est GFR (MDRD) Non-Af 124 BUN/Creatinine Ratio 9.1 L Glucose 101 H Calcium 9.6 Total Bilirubin 0.89 AST 19 ALT 13 Alkaline Phosphatase 76 Total Protein 7.6 Albumin 4.5 Globulin 3.2 Albumin/Globulin Ratio 1.4 Lipase 24 Urine Color Yellow Urine Clarity Clear Urine pH 6.0 Ur Specific [place] 1.020 Urine Protein Negative Urine Glucose (UA) Normal Urine Ketones 150 A* Urine Occult Blood Negative Urine Nitrite Negative Urine Bilirubin Negative Urine Urobilinogen Normal Ur Leukocyte Esterase Negative Urine RBC 0 SEEN Urine WBC 0-5 SEEN Ur Squamous Epith Cells 0-5 SEEN Urine Bacteria 1+ Urine Mucus 1+ Discharge Plan Triage Chief Complaint: ED Provider: Sarah Stubbs Dx/Rx/DC Orders Clinical Impression: Acute dehydration, Nausea and vomiting during Instructions: ED Dehydration (Adult), ED Hyperemesis Gravidarum Prescriptions: New ondansetron 4 mg tablet,disintegrating 4 mg PO Q8H PRN PRN (Reason: Nausea) Qty: 20 0RF No Action fexofenadine [Liss Allergy] 60 mg tablet 60 mg PO BID DHA 200 mg capsule PO Primary Care Provider: Jenn Sweeney Priya Referrals: Jenn Sweeney Priya, DO [Primary Care Provider] - Activity Restrictions/Additional Instructions: Continue to try to push fluids and eat small frequent meals. Return if you haveprogression worsening your symptoms or further concerns. Print Language: Citizen Of [place] Disposition Disposition: Home, Self Care What to do if you have Problems For any increased pain, shortness of breath, bleeding, nausea or vomiting, chestpain, or any unexpected problems, contact your Primary Care Provider. Call [facility] ([phone]) or report to the closest Emergency Room. Call 911 if necessary. 04/15/25 1289 <Electronically signed by Sarah Stubbs DO> Cosigner Signature (if applicable): CC: Jenn Sweeney DO ~ Signed [facility] Work Phone: [phone]) 958-552207-08-2025 Radiology Diagnostic study note [facility] Imaging Services [address] [place] [address] Transvaginal w/Preg US MR#: [id number] Acct: [id number] Name: JUMANA HARRIS Rep #: [id number] : 2000 F 25 From: Lefty Holloway MD PCP: Jenn Sweeney DO Status: REG CLI Study:Transvaginal w/Preg US Date of Exam: 04/04/25 Exam# [id number] Ordering Dr: Sarah Ceja DO PROCEDURE: TRANSVAGINAL W/PREG US 04/04/2025 REASON FOR EXAM: ER FOLLOW UP TECHNIQUE: TRANSVAGINAL W/PREG US COMPARISON: Prior study dated March 15, 2025. FINDINGS: Comments: LMP: February 13, 2025. Number of Gestational Sacs: 1 Gestational Sac Shape: Normal Number of Fetuses: 1 Heart Rate: 130 beats per minute (average) Survey of Visible Anatomic Structures: Grossly unremarkable for gestational age. Yolk Sac: Present and unremarkable. Placenta: Presently not well-visualized Amniotic Fluid Volume: Subjectively normal for gestational age. Uterine Abnormalities: Maternal uterus is unremarkable.. Questionable subchorionic hematoma. Ovaries / Adnexa: 1.9 cm 1.5 cm 1 cm corpus luteum cyst in the right ovary. DIMENSIONS: Parameter Measurement / EGA [place] Rump Length: 7 mm/6 weeks and 5 days Gestational Sac: 1.9 cm/6 weeks and 6 days Yolk Sac: 3 mm/ ESTIMATED GESTATIONAL AGE: By Ultrasound: 6 weeks and 6 days By LMP: 7 weeks and 1 day ESTIMATED DATE OF DELIVERY: By Ultrasound: November 22, 2021 By LMP: November 20, 2025 US/Transvaginal w/Preg US IMPRESSION: UNREMARKABLE FIRST TRIMESTER ULTRASOUND. Questionable small subchorionic hematoma. Reading Location: [facility] CC: Dr. Sarah Harmon DO; Jenn Sweeney DO ~ Power House Engineer: Signed [facility]06-17-2025 Discharge summary [facility] Medical Records Department [address] [place] [address] Emergency Department Summary 03/15/25 MR#: [id number] Acct: [id number] Name: JUMANA HARRIS Rep #:[id number] : 2000 24 From: David Oakley MD PCP: Jenn Sweeney DO Status:REG ER Location: ED HPI HPI - Female History of Present Illness Chief Complaint: Detail of Chief Complaint: Sent from OB clinic for possible ectopic. Informant: patient Pain Pain: Negative for Pelvic Pain, Vulvar Pain or Vaginal Pain Current Severity: Mild Maximum Severity: Mild Worsened by: - (Nothing specific) Relieved by: - (Nothing) Bleeding Issue: Negative for Vaginal bleeding, Passing clots or Passing tissue Associated Symptoms Associated Symptoms: Positive for Frequency and Missed Period; Negative for Dysuria, Urgency or Hematuria Last known menstrual period: February 10 Test: Positive Sexually: Positive for Active Control: No control P: 0 Ab: 0 Narrative Narrative: Patient is a 24-year-old female who presents for possible ectopic. She does notuse any form of control. She is sexually active. She denies history of STI, endometriosis. She does have history of ovarian cyst. She denies vaginal bleeding or vaginal discharge. Her only urologic symptom is frequency. She denies nausea or vomiting. She does report some breast fullness. She denies pain referred to her shoulder/trapezius area. Prior similar symptoms: No Recent Illness/Hospitalization: No PFSH PFSH Medical History Ovarian cyst Rheumatoid arthritis Depression Anxiety Irregular heart beat Migraines Bronchial spasms Home Medications ?Medication ?Instructions ?Recorded ?Last Taken ?Type allergy shot IM 02/17/25 Unknown History fexofenadine 60 mg tablet (Liss 60 mg PO BID Unknown History Allergy) trazodone 100 mg tablet 50 - 200 mg PO QHS PRN insom naga 02/17/25 Unknown History Allergy/AdvReac Type Severity Reaction Status Date / Time Egg Derived Allergy Intermediate Hives Verified 03/15/25 20:48 hydroxychloroquine (From Allergy Intermediate Rash Verified 03/15/25 20:48 Plaquenil) Family History Grandfather Cancer Paternal- skin cancer Surgical History S/P wisdom tooth extraction H/O knee surgery History of tonsillectomy Social History household members: spouse current occupational status: employed 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[employer]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 smoker alcohol intake: current alcohol intake frequency: a few times a month Alcohol type: other substance use type: does not use seatbelt use: always do you feel safe at home: Yes additional social history: - Suhail [employer] [facility] ED Cardiovascular Cardiovascular: Denies chest pain or palpitations Respiratory/Chest Respiratory/Chest: Denies dyspnea or dyspnea on exertion Gastrointestinal Gastrointestinal: Reports abdominal pain and nausea; Denies constipation, diarrhea, melena or vomiting Genitourinary Genitourinary ED: Reports urinary frequency; Denies dysuria or hematuria Psychiatric Psychiatric: Denies anxiety Endocrine Endocrinology: Denies heat intolerance, polydipsia or polyuria Hematologic/Lymphatic Hematologic/Lymphatic: Denies easy bleeding or easy bruising EXAM Physical Exam Const Vital Signs: 03/15/25 20:44 03/15/25 22:44 Temperature 97.0 F L Temperature Source Temporal Pulse Rate 108 H 101 H Respiratory Rate 16 18 Blood Pressure 134/80 H 133/80 H Blood Pressure Mean 98 97 Pulse Ox 100 100 Oxygen Delivery Method Room Air Room Air Positive well nourished and well developed General Appearance ED: well developed and NAD HEENT Reports moist mucous membranes HEENT Narrative: Head is atraumatic normocephalic. Eyes EOMs intact bilaterally General Eye ED: Negative for pale conjunctiva or scleral icterus Neck no lymphadenopathy, supple and no JVD Chest Wall palpation of chest normal Resp normal respiratory effort and clear to auscultation bilaterally Cardio regular rate, regular rhythm, S1 normal heart sound, no murmurs and no JVD GI normal to inspection, nondistended, normoactive bowel sounds, soft to palpation,non-distended and no masses; Negative for non-tender GI Narrative: There is pain palpation near the right inguinal groove. There is no tenderness over McBurney's point or in the proximity of McBurney's point. There is no guarding or peritoneal findings. Her pain started a couple of days ago. Was worse today when she pushed on it. Extremity normal to inspection and full ROM General Extremety ED: Negative for edema or tenderness General Extremity: Negative for edema Neuro oriented x3 and CN's II-XII intact bilaterally Sensorium / Orientation: alert Psych mental status grossly normal Skin no rashes or lesions noted and no wounds MDM MDM MDM Narrative Medical decision making narrative: With positive test and concern for ectopic and unable to view films pelvic ultrasound wasordered here. Patient informed that the person to performthe pelvic is an RN and not a radiologist.Since she does not know her blood type we will obtain ABO Rh as well. Also in consideration is ovarian cyst, torsion versus early . Lab Data Attestation: I reviewed the patient's lab results. Lab results narrative: hCG quant is 128. Patient has a negative blood. Labs: Laboratory Results - last 24 hr 03/15/25 21:04 HCG, Quant 128 H Blood Type A NEGATIVE Radiography Diagnostic Testing: Clinical Impression(s) from Imaging Studies Obstetrics Ultrasound 03/15/25 21:03 IMPRESSION: No visualized intrauterine . No visualized ectopic (can not be excluded). Reading Location: [place] [address] Reviewed radiologist interpretation. [facility] group page was placed to Dr. Tijerina. Plan repeat hCG in 48 hours andclose follow-up. Suspect this is an earlypregnancy. Management Discussion w/another healthcare provider: Scientific Advisor (Spoke with Dr. Sarah Tijerina. Plan is repeat quant in 48 hours and follow-up in the LAST INSERTER office.) Discharge Plan Triage Chief Complaint: ED Provider: AdinDavid Dx/Rx/DC Orders Clinical Impression: Abdominal pain in early , Sinus tachycardia, Elevated blood-pressure reading without diagnosis of hypertension Instructions: ED Abdominal Pain, Early Prescriptions: No Action trazodone 100 mg tablet 50 - 200 mg PO QHS PRN (Reason: insomnia) fexofenadine [Liss Allergy] 60 mg tablet 60 mg PO BID allergy shot IM Rx Instructions: Weekly allergy shots Primary Care Provider: Jenn Sweeney Referrals: Sarah Harmon DO [Med Staff - Active Staff] - 3-5 Days Jenn Sweeney, [Primary Care Provider] - Activity Restrictions/Additional Instructions: Need to repeat blood test on , March 17. You will need to go to outpatient lab. Call Dr. Tijerina's office for follow-up in 3 to 5 days Print Language: Citizen Of [place] Disposition Disposition: Home, Self Care What to do if you have Problems For any increased pain, shortness of breath, bleeding, nausea or vomiting, chestpain, or any unexpected problems, contact your Primary Care Provider. Call Doctors [facility] ([phone]) or report tothe closest Emergency Room. Call 911 if necessary. 03/15/25 2331 Cosigner Signature (if applicable): CC: Jenn Sweeney DO ~ Signed [facility]06-17-2025 Radiology Diagnostic study note [facility] Imaging Services [address] [place], [place] [id number] Transvaginal w/Preg US MR#: [id number] Acct: [id number] Name: JUMANA HARRIS Rep #: [id number] : 2000 F 24 From: Dilan Dorsey MD PCP: Jenn Sweeney DO Status: REG ER Study:Transvaginal w/Preg US Date of Exam: 03/15/25 Exam# [id number] Ordering Dr: Sandy Oakley MD PROCEDURE: TRANSVAGINAL W/PREG US 03/15/2025 REASON FOR EXAM: RIGHT LOWER QUADRANT PAIN CONCERN ECTOPIC TECHNIQUE: TRANSVAGINAL W/PREG US COMPARISON: None. FINDINGS No visualized gestational sac or pole. Uterus measures 6.7 x 4.4 x 3.7 cm. Endometrial thickness measures 18 mm. No free fluid in the cul-de-sac. The cervix is closed. Right ovary measures 4.2 x 3.0 x 2.9 cm with preserved vascular flow. Right ovarian 2.9 cm cyst. Left ovary measures 3.3 x 2.4 x 1.9 cm with preserved vascular flow. US/Transvaginal w/Preg US IMPRESSION: No visualized intrauterine . No visualized ectopic (can not be excluded). Reading Location: [id number] CC: Dr. David Oakley MD; Jenn Sweeney DO ~ Power House Engineer: Signed [facility]06-17-2025 Discharge summary Author David Oakley [facility] Note Date/Time March 15, 2025 11:[address] [facility] Medical Records Department [address] [place] [address] Emergency Department Summary 03/15/25 MR#: [id number] Acct: [id number] Name: JUMANA HARRIS Rep #:[id number] : 2000 24 From: David Oakley MD PCP: Jenn Sweeney DO Status:REG ER Location: ED HPI HPI - Female History of Present Illness Chief Complaint: Detail of Chief Complaint: Sent from OB clinic for possible ectopic. Informant: patient Pain Pain: Negative for Pelvic Pain, Vulvar Pain or Vaginal Pain Current Severity: Mild Maximum Severity: Mild Worsened by: - (Nothing specific) Relieved by: - (Nothing) Bleeding Issue: Negative for Vaginal bleeding, Passing clots or Passing tissue Associated Symptoms Associated Symptoms: Positive for Frequency and Missed Period; Negative for Dysuria, Urgency or Hematuria Last known menstrual period: February 10 Test: Positive Sexually: Positive for Active Control: No control P: 0 Ab: 0 Narrative Narrative: Patient is a 24-year-old female who presents for possible ectopic. She does notuse any form of control. She is sexually active. She denies history of STI, endometriosis. She does have history of ovarian cyst. She denies vaginal bleeding or vaginal discharge. Her only urologic symptom is frequency. She denies nausea or vomiting. She does report some breast fullness. She denies pain referred to her shoulder/trapezius area. Prior similar symptoms: No Recent Illness/Hospitalization: No PFSH PFSH Medical History Ovarian cyst Rheumatoid arthritis Depression Anxiety Irregular heart beat Migraines Bronchial spasms Home Medications ?Medication ?Instructions ?Recorded ?Last Taken ?Type allergy shot IM 02/17/25 Unknown History fexofenadine 60 mg tablet (Liss 60 mg PO BID Unknown History Allergy) trazodone 100 mg tablet 50 - 200 mg PO QHS PRN insom naga 02/17/25 Unknown History Allergy/AdvReac Type Severity Reaction Status Date / Time Egg Derived Allergy Intermediate Hives Verified 03/15/25 20:48 hydroxychloroquine (From Allergy Intermediate Rash Verified 03/15/25 20:48 Plaquenil) Family History Grandfather Cancer Paternal- skin cancer Surgical History S/P wisdom tooth extraction H/O knee surgery History of tonsillectomy Social History household members: spouse current occupational status: employed 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 alcohol intake: current alcohol intake frequency: a few times a month Alcohol type: other substance use type: does not use seatbelt use: always do you feel safe at home: Yes additional social history: - Suhail Parsons [facility] ED Cardiovascular Cardiovascular: Denies chest pain or palpitations Respiratory/Chest Respiratory/Chest: Denies dyspnea or dyspnea on exertion Gastrointestinal Gastrointestinal: Reports abdominal pain and nausea; Denies constipation, diarrhea, melena or vomiting Genitourinary Genitourinary ED: Reports urinary frequency; Denies dysuria or hematuria Psychiatric Psychiatric: Denies anxiety Endocrine Endocrinology: Denies heat intolerance, polydipsia or polyuria Hematologic/Lymphatic Hematologic/Lymphatic: Denies easy bleeding or easy bruising EXAM Physical Exam Const Vital Signs: 03/15/25 20:44 03/15/25 22:44 Temperature 97.0 F L Temperature Source Temporal Pulse Rate 108 H 101 H Respiratory Rate 16 18 Blood Pressure 134/80 H 133/80 H Blood Pressure Mean 98 97 Pulse Ox 100 100 Oxygen Delivery Method Room Air Room Air Positive well nourished and well developed General Appearance ED: well developed and NAD HEENT Reports moist mucous membranes HEENT Narrative: Head is atraumatic normocephalic. Eyes EOMs intact bilaterally General Eye ED: Negative for pale conjunctiva or scleral icterus Neck no lymphadenopathy, supple and no JVD Chest Wall palpation of chest normal Resp normal respiratory effort and clear to auscultation bilaterally Cardio regular rate, regular rhythm, S1 normal heart sound, no murmurs and no JVD GI normal to inspection, nondistended, normoactive bowel sounds, soft to palpation,non-distended and no masses; Negative for non-tender GI Narrative: There is pain palpation near the right inguinal groove. There is no tenderness over McBurney's point or in the proximity of McBurney's point. There is no guarding or peritoneal findings. Her pain started a couple of days ago. Was worse today when she pushed on it. Extremity normal to inspection and full ROM General Extremety ED: Negative for edema or tenderness General Extremity: Negative for edema Neuro oriented x3 and CN's II-XII intact bilaterally Sensorium / Orientation: alert Psych mental status grossly normal Skin no rashes or lesions noted and no wounds MDM MDM MDM Narrative Medical decision making narrative: With positive test and concern for ectopic and unable to view films pelvic ultrasound was ordered here. Patient informed that the person to performthe pelvic is an RN and not a radiologist. Since she does not know her blood type we will obtain ABO Rh as well. Also in consideration is ovarian cyst, torsion versus early . Lab Data Attestation: I reviewed the patient's lab results. Lab results narrative: hCG quant is 128. Patient has a negative blood. Labs: Laboratory Results - last 24 hr 03/15/25 21:04 HCG, Quant 128 H Blood Type A NEGATIVE Radiography Diagnostic Testing: Clinical Impression(s) from Imaging Studies Obstetrics Ultrasound 03/15/25 21:03 IMPRESSION: No visualized intrauterine . No visualized ectopic (can not be excluded). Reading Location: [id number] Reviewed radiologist interpretation. Since [facility] page was placed to Dr. Tijerina. Plan repeat hCG in 48 hours andclose follow-up. Suspect this is an early . Management Discussion w/another healthcare provider: Scientific Advisor (Spoke with Dr. Sarah Tijerina. Plan is repeat quant in 48 hours and follow-up in the [facility] office.) Discharge Plan Triage Chief Complaint: ED Provider: David Oakley Dx/Rx/DC Orders Clinical Impression: Abdominal pain in early , Sinus tachycardia, Elevated blood-pressure reading without diagnosis of hypertension Instructions: ED Abdominal Pain, Early Prescriptions: No Action trazodone 100 mg tablet 50 - 200 mg PO QHS PRN (Reason: insomnia) fexofenadine [Liss Allergy] 60 mg tablet 60 mg PO BID allergy shot IM Rx Instructions: Weekly allergy shots Primary Care Provider: Jenn Sweeney Referrals: Sarah Harmon DO [Med Staff - Active Staff] - 3-5 Days Jenn Sweeney DO [Primary Care Provider] - Activity Restrictions/Additional Instructions: Need to repeat blood test on , March 17. You will need to go to outpatient lab. Call Dr. Tijerina's office for follow-up in 3 to 5 days Print Language: Citizen Of [place] Disposition Disposition: Home, Self Care What to do if you have Problems For any increased pain, shortness of breath, bleeding, nausea or vomiting, chestpain, or any unexpected problems, contact your Primary Care Provider. Call [facility] ([phone]) or report to the closest Emergency Room. Call 911 if necessary. 03/15/25 2331 <Electronically signed by David Oakley MD> Cosigner Signature (if applicable): CC: Jenn Sweeney DO ~ Signed [facility] Work Phone: 1(578) 515-595705-22-2025 Evaluation note* Diagnosis Onset Date Resolution Status Admit Date Left ankle sprain acute January 11:25am [facility] Work Phone: 1(321) 369-994305-22-2025 Evaluation note* Diagnosis Onset Date Resolution Status Admit Date Left ankle sprain inactive January 11:25am [facility] Work Phone: 1(255) 123-964805-22-2025 Evaluation note* Diagnosis Onset Date Resolution Status Admit Date Left ankle sprain inactive January 11:25am Cessation of tobacco use summer or to acute May 20 1:49pm Family history of factor V Leiden mutation acute May 20 1:49pm 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 acute May 202024 1:49pm IBS (irritable bowel syndrome) acute May 20, 2025 1:49pm Obesity affecting acute May 20, 2025 1:49pm acute May 20, 2 025 1:49pm Rh negative status during acute May 20 1:49pm Rheumatoid arthritis acute 2024 1:49pm Supervision of high-risk acute May 20 1:49pm [facility] [employer] Work Phone: 1([phone]) 126-967705-22-2025 Evaluation note* Diagnosis Onset Date Resolution Status Admit Date Left ankle sprain inactive January 11:25am Cessation of tobacco use prior to acute May 20, 2025 1:49pm Family history of factor V Leiden mutation acute May 20 1:49pm 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 acute May 202024 1:49pm IBS (irritable bowel syndrome) acute May 20 1:49pm Obesity affecting acute May 20, 2025 1:49pm acute May 20 025 1:49pm Rh negative status during acute May 20 1:49pm Rheumatoid arthritis acute 2024 1:49pm Supervision of high-risk acute May 20 1:49pm Cessation of tobacco use prior to acute May 1:46pm Family history of factor V Leiden mutation acute June 07, 2 025 1:46pm 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 acute June 07, 2025 1:46pm IBS (irritable bowel syndrome) acute June 07, 2 025 1:46pm Obesity affecting acute June 07, 2025 1:46pm acute June 07, 2025 1:46pm Rh negative status during acute June 07, 2 025 1:46pm Rheumatoid arthritis acute May 1:46pm Supervision of high-risk acute June 07, 2 025 1:46pm [facility] [employer] Work Phone: [phone]) 604-215805-22-2025 Evaluation note* Diagnosis Onset Date Resolution Status Admit Date Left ankle sprain inactive January 11:25am Cessation of tobacco use prior to acute May 20, 2025 1:49pm Family history of factor V Leiden mutation acute May 20 1:49pm 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 acute May 202024 1:49pm IBS (irritable bowel syndrome) acute May 20 1:49pm Obesity affecting acute May 20, 2025 1:49pm acute May 20 2 025 1:49pm Rh negative status during acute May 20 1:49pm Rheumatoid arthritis acute 2024 1:49pm Supervision of high-risk acute May 20 1:49pm Cessation of tobacco use prior to acute May 1:46pm Family history of factor V Leiden mutation acute June 07, 025 1:46pm 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 acute June 07, 2025 1:46pm IBS (irritable bowel syndrome) acute June 07 025 1:46pm Obesity affecting acute June 07, 2025 1:46pm acute June 07, 2025 1:46pm Rh negative status during acute June 07 025 1:46pm Rheumatoid arthritis acute May 1:46pm Supervision of high-risk acute June 07 2 025 1:46pm Cessation of tobacco use prior to acute May 8:42am Family history of factor V Leiden mutation acute June 14, 2025 8:42am 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 acute June 14, 2025 8:42am IBS (irritable bowel syndrome) acute June 14, 2025 8:42am Obesity affecting acute June 14, 2025 8:42am acute May 8:42am Rh negative status during acute June 14, 2025 8:42am Rheumatoid arthritis acute May 8:42am Supervision of high-risk acute June 14, 2025 8:42am [facility] Work Phone: 1(276) 807-255105-22-2025 Radiology Diagnostic study note [facility] Imaging Services [address] [place] [address] Foot min 3 Views MR#: [id number] Acct: [id number] Name: JUMANA HARRIS Rep #: [id number] : 2000 F 24 From: Devora Newton MD PCP: Jenn Sweeney DO Status: REG CLI Study:Foot min 3 Views Date of Exam: Exam# [id number] Ordering Dr: Priya Benavides EXAM: XR Left Foot Complete, 3 or More Views CLINICAL INDICATION: FOOT INJURY TECHNIQUE: Frontal, lateral and oblique views of the left foot. COMPARISON: No relevant prior studies available. FINDINGS: BONES/JOINTS: Renal cortical created bony fragment inferior to the navicular, best visualized in the lateral view, likely from prior injury. Otherwise, no acute fracture. No dislocation. SOFT TISSUES: Soft tissue swelling. No radiopaque foreign body. RAD/Foot min 3 Views IMPRESSION: Renal cortical created bony fragment inferior to the navicular, best visualized in the lateral view, likely from prior injury. Otherwise, no acute fracture. Reading [facility] CC: CECILY Irving; Jenn Sweeney DO ~ Power House Engineer: Signed [facility]05-22-2025 Radiology Diagnostic study note [facility] Imaging Services [address] [place] [id number] Ankle min 3 Views MR#: [id number] Acct: [id number] Name: JUMANA HARRIS Rep #: [id number] : 2000 F 24 From: Devora Newton MD PCP: Jenn Sweeney DO Status: REG CLI Study:Ankle min 3 Views Date of Exam: Exam# [id number] Ordering Dr: Priya Benavides EXAM: XR Left Ankle Complete, 3 or More Views CLINICAL INDICATION: ANKLE INJURY TECHNIQUE: Frontal, lateral and oblique views of the left ankle. COMPARISON: No relevant prior studies available. FINDINGS: BONES/JOINTS: See below. SOFT TISSUES: Soft tissue swelling without acute fracture. RAD/Ankle min 3 Views IMPRESSION: 1. Soft tissue swelling without acute fracture. 2. If symptoms persist, further evaluation with CT is recommended. Reading Location: [facility] CC: CECILY Irving; Jenn Sweeney DO ~ Power House Engineer: Signed [facility]05-15-2024 Evaluation + Plan note* Assessment & Plan Note - Paulina Ware MD - 02/11/2024 8:59 AM EDTAssociated Problem(s): Rheumatoid arthritis (HCC) Chronic, controlled Not on medicine Check the CRP [id number] Miscellaneous Notes* Assessment & Plan Note - Paulina Ware MD - 02/11/2024 8:59 AM EDTAssociated Problem(s): Rheumatoid arthritis (HCC) Chronic, controlled Not on medicine Check the CRP * Assessment & Plan Note - Paulina Ware MD - 02/11/2024 8:58 AM EDT Associated Problem(s): GUILLAUME (generalized anxiety disorder) Chronic, stable Has issues at times Does not want to take medicine at this time documented in this [facility]05-15-2024 Evaluation + Plan note* Assessment & Plan Note - Paulina Ware MD - 02/11/2024 8:58 AM EDT Associated Problem(s): GUILLAUME (generalized anxiety disorder) Chronic, stable Has issues at times Does not want to take medicine at this time [id number] History of Present illness Narrative* Paulina Ware MD - 02/11/2024 8:00 AM EDT Subjective Patient ID: Jumana Harris is a 23 y.o. female who presents for Anxiety and Panic Attack (Patient here today to discuss episodes of anxiety and panic attacks. She will have episodes even while sitting down, watching TV. She has had increased heart rate, sweating, dizziness and feeling like she is going to pass out (she was on Zoloft at one point, but took herself off of it).). Gets dizzy at rest. Heart rate is up. Can be high even when resting. Awakens from sleep. Is on the BCP. Menses are light on that. Review of Systems Respiratory: Positive for shortness of breath. Negative for apnea, chest tightness and wheezing. No snoring Neurological: Positive for dizziness. Negative for syncope and headaches. Psychiatric/Behavioral: Positive for sleep disturbance. The patient is nervous/anxious. Stopped the Zoloft when she no longer needed it. Objective Physical Exam Vitals and nursing note reviewed. Constitutional: General: She is not in acute distress. Appearance: She is not ill-appearing or toxic-appearing. HENT: Right Ear: There is impacted cerumen. Ears: Comments: Wax on the right side Mouth/Throat: Pharynx: No oropharyngeal exudate or posterior oropharyngeal erythema. Eyes: General: No scleral icterus. Conjunctiva/sclera: Conjunctivae normal. Pupils: Pupils are equal, round, and reactive to light. Neck: Vascular: No carotid bruit. Cardiovascular: Rate and Rhythm: Normal rate and regular rhythm. Heart sounds: Normal heart sounds. Comments: Heart rate slowed down as she sat in the exam room. Pulmonary: Effort: Pulmonary effort is normal. No respiratory distress. Breath sounds: Normal breath sounds. Abdominal: Tenderness: There is no right CVA tenderness or left CVA tenderness. Musculoskeletal: Cervical back: Neck supple. Lymphadenopathy: Cervical: No cervical adenopathy. Skin: Capillary Refill: Capillary refill takes less than 2 seconds. Coloration: Skin is not jaundiced. Neurological: Mental Status: She is alert. Psychiatric: Thought Content: Thought content normal. Assessment/Plan Problem List Items Addressed This Visit GUILLAUME (generalized anxiety disorder) Chronic, stable Has issues at times Does not want to take medicine at this time Rheumatoid arthritis (HCC) Chronic, controlled Not on medicine Check the CRP Relevant Orders C-reactive protein Other Visit Diagnoses Tachycardia - Primary Acute, uncontrolled Comes and goes quickly Check the labs including the adrenal lab If elevated, may need a CT of the adrenals Relevant Orders TSH T4, free CBC Comprehensive metabolic panel Sweating abnormality Relevant Orders Comprehensive metabolic panel Metanephrines Plasma Dizziness Relevant Orders Metanephrines Plasma documented in this [facility]04-19-2024 History of Present illness Narrative* Elisabeth Powers PA-C - 01/16/2024 11:00 AM EDT Images from the original note were not included. [facility] [address] [facility] [address] Dept: [phone] Dept Reason for Visit: Sore Throat ( severe, and right ear congestion/popping, has chills/sweating but not taking temperature, neck lymph nodes are swollen, sinus congestion. Has taken liss with no relief, ibuprofen offers some relief. /Vomited Friday, but Friday started with body aches, congestionetc.) and Headache (Some coughing-at night ) Assessment and Plan 1. Sore throat - AMB POC STREP GO A DIRECT, DNA PROBE - amoxicillin (Amoxil) 500 MG capsule; Take 1 capsule (500 mg) by mouth 3 times daily., Starting Fri01/16/2024, Normal 2. Ear pain, right - amoxicillin (Amoxil) 500 MG capsule; Take 1 capsule (500 mg) by mouth 3 times daily., Starting Fri01/16/2024, Normal 3. Nausea - ondansetron (Zofran) 4 MG tablet; Take 1 tablet (4 mg) by mouth every 8 hours as needed for nausea or vomiting for up to 7 days., Starting Fri01/16/2024, Until Fri01/23/2024 at 2359, Normal Follow up if symptoms worsen or fail to improve. Subjective Sore Throat This is a new problem. The current episode started in the past 7 days. The problem has been gradually worsening. The maximum temperature recorded prior to her arrival was 101 - 101.9 F. The fever hasbeen present for 1 to 2 days. The pain is moderate. Associated symptoms include congestion, a hoarse voice, a plugged ear sensation, swollen glands and trouble swallowing. Pertinent negatives includeno ear pain, headaches or shortness of breath. She has tried acetaminophen for the symptoms. The treatment provided mild relief. Review of Systems Constitutional: Positive for chills and fever. HENT: Positive for congestion, hoarse voice, sore throat and trouble swallowing. Negative for ear pain, sinus pressure and sinus pain. Respiratory: Negative for chest tightness and shortness of breath. Cardiovascular: Negative for chest pain. Neurological: Negative for headaches. Allergies Allergen Reactions Egg-Derived Products Hives Other reaction(s): AOF Hives, nausea, migraines Hydroxychloroquine Hives, Itching and Rash Outpatient Medications Prior to Visit Medication Sig Dispense Refill cholecalciferol (Vitamin D-3) 50 MCG (2000 UT) capsule Take 2,000 Units by mouth daily. ibuprofen 600 MG tablet TAKE 1 TABLET BY MOUTH THREE TIMES A DAY 90 tablet 0 SUMAtriptan (Imitrex) 50 MG tablet Take 1 tablet (50 mg) by mouth Once as needed for migraine. May repeat after 2 hours. 27 tablet 3 tiZANidine (Zanaflex) 4 MG tablet TAKE 1 TABLET (4 MG) BY MOUTH 2 TIMES DAILY NEEDED FOR MUSCLE SPASMS. 60 tablet 0 traMADol (Ultram) 50 MG tablet Take 1 tablet by mouth every 6 hours as needed. Zovia 1/35E, 28, 1-35 MG-MCG tablet Take 1 tablet by mouth daily. 84 tablet 3 levOCARNitine (L-Carnitine) 500 MG tablet Take by mouth. No facility-administered medications prior to visit. Past Medical History: Diagnosis Date Anxiety Bronchial spasm Headache Social History Tobacco Use Smoking status: Never Passive exposure: Never Smokeless tobacco: Never Substance Use Topics Alcohol use: Yes Alcohol/week: 4.0 standard drinks of alcohol Past Surgical History: Procedure Laterality Date KNEE SURGERY Right 04/07/2018 orthoscopic lateral knee release, Dr. Meet Lares TONSILLECTOMY (HISTORICAL) 03/2010 TONSILLECTOMY (HISTORICAL) 2010 WISDOM TOOTH EXTRACTION Family History Problem Relation Name Age of Onset Other (39299) Mother gestational DM Arthritis Mother Other (33350) Father Factor 5 Other (36450) Sister negative for factor 5 Osteoarthritis Maternal Grandmother No Known Problems Maternal Grandfather Rheum arthritis Paternal Grandmother No Known Problems Paternal Grandfather Objective BP 135/86 (BP Location: Right arm, Patient Position: Sitting, BP Cuff Size: Adult) Pulse 98 Temp 36.6 C (97.9 F) (Oral) SpO2 98% Physical Exam Vitals and nursing note reviewed. Constitutional: Appearance: Normal appearance. HENT: Right Ear: Tympanic membrane, ear canal and external ear normal. There is impacted cerumen. Left Ear: Ear canal and external ear normal. A middle ear effusion is present. There is no impactedcerumen. Nose: Congestion present. Mouth/Throat: Mouth: Mucous membranes are moist. Pharynx: Oropharynx is clear. Posterior oropharyngeal erythema present. Eyes: General: Right eye: No discharge. Left eye: No discharge. Conjunctiva/sclera: Conjunctivae normal. Pupils: Pupils are equal, round, and reactive to light. Cardiovascular: Rate and Rhythm: Normal rate and regular rhythm. Heart sounds: Normal heart sounds. Pulmonary: Effort: Pulmonary effort is normal. Breath sounds: Normal breath sounds. No wheezing. Skin: General: Skin is warm and dry. Neurological: General: No focal deficit present. Mental Status: She is alert and oriented to person, place, and time. Data Reviewed and Summarized Labs: Imaging/Testing: Elisabeth Powers PA-C documented in this [place] [id number] Telephone encounter Note* Telephone Encounter - Lisa Padron RN - 01/15/2024 12:17 PM EDT S: Patient spoke with [facility] nurse regarding sore throat, ear congestion B: Onset of symptoms/concern Friday A: Calls with sore throat that is severe, and right ear congestion/popping, has chills/sweating butnot taking temperature, neck lymph nodes are swollen, sinus congestion. Has taken liss with no relief, ibuprofen offers some relief. Denies difficulty breathing, difficulty swallowing. R: Insurance verified. Scheduled appointment for 01/15. Advised to bring ID and insurance cards and list of current medications, and arrive 15 minutes early. Given home care advice to include warm salt water gargles, increasing fluids. Patient understands care advice. No further needs at this time. Patient instructed to call back with new or worsening symptoms. sore throat, few days , red puffy throat , right ear feels like infection starting Reason for Disposition SEVERE sore throat pain Protocols used: Sore [id number] [id number] Miscellaneous Notes* Telephone Encounter - Lisa Padron RN - 01/15/2024 12:17 PM EDT S: Patient spoke with [facility] nurse regarding sore throat, ear congestion B: Onset of symptoms/concern Friday A: Calls with sore throat that is severe, and right ear congestion/popping, has chills/sweating butnot taking temperature, neck lymph nodes are swollen, sinus congestion. Has taken liss with no relief, ibuprofen offers some relief. Denies difficulty breathing, difficulty swallowing. R: Insurance verified. Scheduled appointment for 01/15. Advised to bring ID and insurance cards and list of current medications, and arrive 15 minutes early. Given home care advice to include warm salt water gargles, increasing fluids. Patient understands care advice. No further needs at this time. Patient instructed to call back with new or worsening symptoms. sore throat, few days , red puffy throat , right ear feels like infection starting Reason for Disposition SEVERE sore throat pain Protocols used: Sore Nrhspa-[id number] documented in this encounterSPeoples [id number] Evaluation + Plan note* Assessment & Plan Note - Paulina Ware MD - 11/11/2023 9:41 AM EST Associated Problem(s): Reactive airway disease Chronic, stable Uses Albuterol as needed Very infrequent episodes Has never been on an ICS [facility] [id number] Miscellaneous Notes* Assessment & Plan Note - Paulina Ware MD - 11/11/2023 9:41 AM ESTAssociated Problem(s): Reactive airway disease Chronic, stable Uses Albuterol as needed Very infrequent episodes Has never been on an ICS documented in this [facility]02-13-2024 History of Present illness Narrative* Paulina Ware MD - 11/11/2023 9:00 AM EST Subjective Patient ID: Jumana Harris is a 23 y.o. female who presents for ER Follow-up (Patient here today for ER follow up appointment. She was seen at [place] ER for chest discomfort, SOB and elevated heart rate last week. No diagnosis was given.). Has rheumatoid arthritis. Started on Cimzia. [place] lousy on it. Woke up with chest pain and hives. Had trouble breathing. Friday, Friday and Friday out of breath. Went to [place]. D dimer was elevated. Had a CT for PE. Had some wheezing. Tried albuterol at home. Feels fatigued. Chart reviewed Review of Systems Constitutional: Positive for fatigue. Negative for activity change. Respiratory: Positive for shortness of breath and wheezing. Negative for cough. Cardiovascular: Positive for palpitations. Musculoskeletal: Positive for arthralgias and myalgias. Objective Physical Exam Vitals and nursing note reviewed. Constitutional: General: She is not in acute distress. Appearance: She is not ill-appearing or toxic-appearing. Eyes: General: No scleral icterus. Conjunctiva/sclera: Conjunctivae normal. Pupils: Pupils are equal, round, and reactive to light. Cardiovascular: Rate and Rhythm: Normal rate and regular rhythm. Heart sounds: Normal heart sounds. No murmur heard. Pulmonary: Effort: Pulmonary effort is normal. Breath sounds: Normal breath sounds. No wheezing. Abdominal: General: Bowel sounds are normal. There is no distension. Tenderness: There is no abdominal tenderness. There is no right CVA tenderness or left CVA tenderness. Musculoskeletal: Right lower leg: No edema. Left lower leg: No edema. Comments: NO palpable cords in the legs Skin: Coloration: Skin is not jaundiced. Neurological: Mental Status: She is alert. Assessment/Plan Problem List Items Addressed This Visit Respiratory Reactive airway disease Chronic, stable Uses Albuterol as needed Very infrequent episodes Has never been on an ICS Other Visit Diagnoses Adverse effect of drug, initial encounter - Primary Acute, uncontrolled This sounds like a reaction to Cimzia Hives, rapid heart rate Has stopped the drug Monitor the symptoms Resolved at this time Vitamin D deficiency Chronic, unknown Has felt bad for a while This has been low in the past Not on a supplement Check the labs Relevant Orders Vitamin D Deficiency Screening (Vit D 25) documented in this [facility]09-14-2023 Telephone encounter Note* Telephone Encounter - Emerald Savage LPN - 06/12/2023 6:33 AM EDT Last appointment 03/13/2023 , Next appointment is Visit date not found Last filled 04/15/23 1 month 1 refill [place] [id number] Miscellaneous Notes* Telephone Encounter - Emerald Savage LPN - 06/12/2023 6:33 AM EDT Last appointment 03/13/2023 , Next appointment is Visit date not found Last filled 04/15/23 1 month 1 refill documented in this [facility]09-14-2023 Telephone encounter Note* Telephone Encounter - Emerald Savage LPN - 06/12/2023 6:32 AM EDT Last appointment 03/13/2023 , Next appointment is 06/12/2023 Last filled 04/14/23 1 month 1 [address]ill [id number] Miscellaneous Notes* Telephone Encounter - Emerald Savage LPN - 06/12/2023 6:32 AM EDT Last appointment 03/13/2023 , Next appointment is 06/12/2023 Last filled 04/14/23 1 month 1 refill documented in this [facility]07-18-2023 Telephone encounter Note* Telephone Encounter - Emerald Savage LPN - 04/15/2023 7:57 AM EDT Last appointment 03/13/2023 , Next appointment is Visit date not found Last filled 02/13/23 1 month 1 refill [id number] Miscellaneous Notes* Telephone Encounter - Emerald Savage LPN - 04/15/2023 7:57 AM EDT Last appointment 03/13/2023 , Next appointment is Visit date not found Last filled 02/13/23 1 month 1 refill documented in this [facility]07-16-2023 Telephone encounter Note* Telephone Encounter - Emerald Savage LPN - 04/13/2023 8:16 AM EDT Last appointment 03/13/2023 , Next appointment is Visit date not found Last filled 02/13/23 1 month 1 refill [id number] Miscellaneous Notes* Telephone Encounter - Emerald Savage LPN - 04/13/2023 8:16 AM EDT Last appointment 03/13/2023 , Next appointment is Visit date not found Last filled 02/13/23 1 month 1 refill documented in this [facility]06-21-2023 Telephone encounter Note* Telephone Encounter - Nalini Francis - 03/19/2023 4:38 PM EDT Name of caller: Jumana Contact phone number: [phone] Relationship to Patient: Patient Provider: Dr. aWre Practice: [facility] Chief Complaint/Reason for Call: Patient says the other office hasn't received the fax yet and wanted it resent over. Confirmed fax # is [phone]. They are also requesting a copy of patients insurance card which was put in her chart in November 2021. Please advise. [facility] [id number] Miscellaneous Notes* Telephone Encounter - Nalini Francis - 03/19/2023 4:38 PM EDT Name of caller: Igorjerald Contact phone number: [phone] Relationship to Patient: Patient Provider: Dr. Ware Practice: [facility] Chief Complaint/Reason for Call: Patient says the other office hasn't received the fax yet and wanted it resent over. Confirmed fax # is [phone]. They are also requesting a copy of patients insurance card which was put in her chart in November 2021. Please advise. * Telephone Encounter - Louann Smith LPN - 03/19/2023 12:43 PM EDT Faxed to senior radiation therapist, and patient notified. * Telephone Encounter - Paulina Ware MD - 03/19/2023 7:03 AM EDT In the fax folder * Telephone Encounter - Jackie Horton - 03/18/2023 2:53 PM EDT Name of caller: Igorjerald Acosta Contact phone number: [phone] Relationship to Patient: patient Provider: Dr Ware Practice: [facility] Chief Complaint/Reason for Call: Pt requesting referral for Rheumatology to be sent to Dr Chela Loomis in [place] [phone]. Please fax referral, labs and OV notes to [phone] Best time of day caller can be reached: Any Patient advised that office/PCP has 24-48 business hours to return their call: Yes documented in this encounterSPeoples [id number] Telephone encounter Note* Telephone Encounter - Louann Smith LPN - 03/19/2023 12:43 PM EDT Faxed to senior radiation therapist, and patient notified. [facility] [id number] Telephone encounter Note* Telephone Encounter - Paulina Ware MD - 03/19/2023 7:03 AM EDT In the fax folder [facility] [id number] Telephone encounter Note* Telephone Encounter - Jackie Horton - 03/18/2023 2:53 PM EDT Name of caller: Jumana Acosta Contact phone number: [phone] Relationship to Patient: patient Provider: Dr Ware Practice: [facility] Chief Complaint/Reason for Call: Pt requesting referral for Rheumatology to be sent to Dr Chela Loomis in [place] [phone]. Please fax referral, labs and OV notes to [phone] Best time of day caller can be reached: Any Patient advised that office/PCP has 24-48 business hours to return their call: Yes [facility] [id number] History of Present illness Narrative* Paulina Ware MD - 03/13/2023 10:20 AM EDT Subjective Patient ID: Jumana Acosta is a 22 y.o. female who presents for Hip Pain (Right hip pain, since haroldo time. Seeing chiropractor who wants blood work done to check inflammatory markers. MRI wasnormal./Pt is fasting). No specific injury. Played soccer [...] Lares for an injection documented in this [facility]03-22-2023 History of Present illness Narrative* Paulina Ware MD - 12/18/2022 10:20 AM EDT Subjective Patient ID: Jumana Acosta is a 22 y.o. female who presents for Back Pain (Started before xmas, seeing a chiro. Has MRI this Thursday 12/21. Chiro thinks may be herniated disc. Pt would like musclerelaxer or pain pill. Urgent care gave her Flexeril but did not help, predisone did though. Chiro will not rx./Refill pending.). Had an x ray. Seeing the chiropractor. Has an MRI scheduled for Friday. Flexeril was no help. Hasa new mattress. 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 Muscle stimulation. Doing the topicals. Chart revewed Review of Systems Constitutional: Positive for activity change. Musculoskeletal: Positive for back pain and gait problem. Right hip hurts too. Pain in the front. X ray of the hip was also normal. Objective Physical Exam Vitals and nursing note reviewed. Constitutional: General: She is not in acute distress. Appearance: She is not ill-appearing or toxic-appearing. Eyes: Conjunctiva/sclera: Conjunctivae normal. Pupils: Pupils are equal, round, and reactive to light. Cardiovascular: Rate and Rhythm: Normal rate and regular rhythm. Musculoskeletal: General: Tenderness present. No swelling. Cervical back: Neck supple. Comments: Mild right hip tenderness with ROM. More with external rotation Reflexes are intact. SLR is normal Lymphadenopathy: Cervical: No cervical adenopathy. Neurological: Mental Status: She is alert. Assessment/Plan Problem List Items Addressed This Visit None Visit Diagnoses Acute right-sided low back pain without sciatica - Primary Acute, uncontrolled Get the MRI ordered by the chiropractor Continue the medicine Relevant Medications ibuprofen 600 MG tablet tiZANidine (Zanaflex) 4 MG capsule Muscle spasm Acute, uncontrolled The spasm is counter productive to the massage Relevant Medications tiZANidine (Zanaflex) 4 MG capsule Poor sleep Acute, due to pain The muscle relaxer may help in both areas Relevant Medications tiZANidine (Zanaflex) 4 MG capsule Encounter for surveillance of contraceptive pills Relevant Medications Zovia 1/35E, 28, 1-35 MG-MCG tablet documented in this [facility]03-09-[address] Fabian [facility] December 05, 2022 9:36pm Note Date/Time December 05, 2022 8:36 pm [facility] Medical Records Department [address] [place] [address] Emergency Department Summary 12/05/22 MR#: [id number] Acct: [id number] Name: JUMANA ACOSTA #:[id number] : 2000 22 From: Jose Fabian MD PCP: Dr. Paulina Ware MD Status:REG ER Location: ED HPI History of Present Illness Chief Complaint: Palpitations Narrative Narrative: Patient presents with palpitations and lightheadedness especially when she stands up. She felt somewhat weak all day and very lightheaded. She has no urinary symptoms she has no back pain, she is denying any, chest pain. No tearing sensation no pleuritic component. She does not have any vertigo or neurological symptoms [facility] Medical History Bronchial spasms Contact with and (suspected) exposure to other viral communicable diseases Physical exam, pre-employment URI (upper respiratory infection) Home Medications ethynodiol diacetate-ethinyl estradiol 1 mg-35 mcg tablet (Zovia) 1 tab PO DAILY12/05/22 [History Last Taken Unknown] meclizine 25 mg tablet 25 mg PO 4X/DAY PRN PRN Dizziness #20 tabs 12/05/22 [Rx Last Taken Unknown] Allergy/AdvReac Type Severity Reaction Status Date / Time Egg Derived Allergy Intermediate Hives Verified 12/05/22 20:00 Social History Smoking Status: Never smoker ROS ROS ED ROS Narrative Past medical history: Reviewed Medications: Reviewed Social history: Noncontributory Review of systems: All systems negative except as indicated General: No fever Eyes: No visual changes ENT: No upper airway congestion, normal voice Neck: No neck pain Cardiovascular: No chest pain. Palpitations as in HPI Respiratory: No shortness of breath or cough Gastrointestinal: No abdominal pain, nausea vomiting or diarrhea Genitourinary: No dysuria Musculoskeletal: Denies myalgias no difficulty with ambulation Skin: No rash Neurological: No memory loss, confusion or any focal weakness Psych: No recent behavioral changes Hematologic: No easy bleeding or easy bruising EXAM Physical Exam Narrative Exam Narrative: Physical exam General: She appears relatively comfortable in the bed Head: Normocephalic, Atraumatic Eyes: Conjunctiva not pale ENT: Dry mucous membranes Neck: Supple, Nontender, No lymphadenopathy Cardiovascular: Regular rate, Regular rhythm Respiratory: No distress, CTA bilaterally Abdomen: Soft, Nontender, Nondistended Back: Nontender, Normal Inspection. Negative for: CVA tenderness Extremities: Nontender, No edema Skin: Normal color, No rash Neurological: Alert, Normal Strength, Normal Sensation Psychological: Normal affect Const Vital Signs: 12/05/22 19:58 12/05/22 20:12 Temperature 98.3 F Temperature Source Temporal Pulse Rate 107 H Respiratory Rate 18 Respiratory Effort Short of Breath Respiratory Pattern Normal Blood Pressure 148/89 H Blood Pressure Mean 108 Pulse Ox 99 Oxygen Delivery Method Room Air MDM MDM MDM Narrative Medical decision making narrative: A. Problems addressed As I walk into the room her heart rate is in the 90s on the monitor. However when I stand her up her heart rate goes into the 130s and she is quite lightheaded. However after I gave her IV fluids, I reassessed her heart rate improved however she still felt dizzy I talked to her again and she said that there may be an element of spinning sensation. I reexamined her, she has bilateral TM bulging. However neurological exam is normal including a Romberg including cerebellar and there is no weakness or focalizing signs. I gave her meclizine and Valium. She is significantly improved I will discharge her. I donot believe she has a central etiology for her symptoms, I think it correlates with her allergies. B. Amount and/or complexity of the data 1. CBC and CMP were interpreted by me I discussed the patient with who was in the room 2. Independent interpretation of test Telemetry: Sinus rhythm with rate in the 90s without ectopy C. Risk of complications and/or morbidity Differential diagnosis: See above Lab Data Labs: Laboratory Results - last 24 hr 12/05/22 12/05/22 20:23 20:23 WBC 7.5 RBC 4.94 Hgb 14.5 Hct 42.9 MCV 86.8 MCH 29.4 MCHC 33.8 RDW Std Deviation 38.0 RDW Coeff of Breonna 11.9 Plt Count 222 MPV 9.2 Immature Gran % (Auto) 0.300 Neut % (Auto) 62.3 Lymph % (Auto) 29.4 [place] % (Auto) 7.4 Eos % (Auto) 0.5 Baso % (Auto) 0.1 Absolute Neuts (auto) 4.6 Absolute Lymphs (auto) 2.19 Nucleated RBC % 0 Sodium 140 Potassium 3.7 Chloride 109 H Carbon Dioxide 23.0 Anion Gap 8 BUN 9 Creatinine 0.90 Estim Creat Clear Calc 81.11 Est GFR (MDRD) Af Amer 100 Est GFR (MDRD) Non-Af 83 BUN/Creatinine Ratio 10.0 Glucose 102 Calcium 8.8 Total Bilirubin 0.40 AST 15 ALT 14 Alkaline Phosphatase 49 Total Protein 7.5 Albumin 3.7 Globulin 3.8 Albumin/Globulin Ratio 1.0 EKG Initial EKG: Comments: Sinus rhythm with a rate of 90. Normal SC and QTc intervals. No ischemic changes. Interpreted by emergency doctor Discharge Plan Triage Chief Complaint: Palpitations ED Provider: Jose Fabian Dx/Rx/DC Orders Clinical Impression: Dizziness, Acute dehydration Instructions: ED Dizziness, Uncertain Cause Prescriptions: New meclizine 25 mg tablet 25 mg PO 4X/DAY PRN PRN (Reason: Dizziness) Qty: 20 0RF No Action ethynodiol diac-eth estradiol [Zovia 1-35 (28)] 1-35 mg-mcg tablet 1 tab PO DAILY Label Comments: Take 1 tablet by mouth daily Primary Care Provider: Paulina Ware Referrals: Paulina Ware MD [Primary Care Provider] - Activity Restrictions/Additional Instructions: Follow-up with your doctor in 2 to 3 days Disposition Disposition: Home, Self Care What to do if you have Problems For any increased pain, shortness of breath, bleeding, nausea or vomiting, chestpain, or any unexpected problems, contact your Primary Care Provider. Call [facility] ([phone]) or report to the closest Emergency Room. Call 911 if necessary. 12/05/222135 <Electronically signed by Jose Fabian MD> Cosigner Signature (if applicable): CC: Dr. Paulina Ware MD ~ Signed [facility] Work Phone: 1(954) 957-816203-09-2023 Hospital Discharge instructions Additional Instructions Follow-up with your doctor in 2 to 3 daysWSelect [facility] Work Phone: 1(446) 773-968012-16-2022 NoteHNO ID: [id number] Author: Jimym Do MD Service: ? Author Type: Physician Type: [...] twice a day anti-inflammatory. 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 Discussed physical therapy for core strengthening. Narcotic pain relievers would need prescribed through PCP appropriate. Seek immediate evaluation for loss of bladder or bowel control, unexplained fever, or progressive weakness or numbness. Jimmy Do, [facility]12-16-2022 History of Present illness Narrative* Jimmy Do MD - 09/13/2022 3:55 PM EST Patient presents with: Pain: Pt denied injury, [...] fever, loss of bladder or bowel control, dysuria,blood in urine, urinary frequency. Imaging: none Physical Therapy: not for back. Has been to chiropractor this week it is suggested she get prescribed an anti-inflammatory and muscle relaxer. PAST MEDICAL HISTORY Diagnosis Date Bronchial spasm Tear of meniscus of right knee 09/15/2015 See OR report 04-07-[address] Lares MEDICATIONS: ethynodiol d-ethinyl estradiol (ZOVIA /35E, 28, ORAL) Take by mouth. ALLERGIES: ALLERGIES [...] midline tenderness. No paraspinal tenderness. Straight leg testnegative. Deep tendon reflexes 2+/4 at patellas. Normal [...] twice a day anti-inflammatory. 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 Discussed physical therapy for core strengthening. Narcotic pain relievers would need prescribed through PCP appropriate. Seek immediate evaluation for loss of bladder or bowel control, unexplained fever, or progressive weakness or numbness. Jimmy Do MD documented in this encounterKettering Health Miamisburg06-27-2022 NoteHNO ID: [id number] Author: Keron Duff MD Service: ? Author Type: Physician Type: Progress Notes Filed: 04/15/2022 7:03 AM Note Text: Keron Duff MD Department of Orthopaedics Orthopaedics [address] [facility] [address] Dept: [phone] Dept March 25, 2022 CHIEF COMPLAINT: New and Knee Pain of the Right Knee and REF: [place] ([facility] films) HPI Pt initially injured knee in high school playing football. She had right knee scope by Dr. Lares on 04-07-18 after MRI and xrays. She has continued to have intermittent knee pain and swelling since. 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 She sought second opinion by Dr. Delatorre and he ordered PT and another xray and MRI, and she is no better and he does not feel surgery would benefit her. She denies locking, but knee feels unstable. She states PT made worse. She is here for another opinion. CD from [facility] downloaded by [place] in radiology, but not [...] exercises. FOLLOW UP INSTRUCTIONS: As needed Ms. Jumana Acosta was advised as to contrast therapies and/or to take analgesics/anti-inflammatories as needed and all contraindications were reviewed. OBJECTIVE: Ms. Jumana Acosta is a pleasant 21 year old in no apparent distress. Gen:Ht 5' 3[stated[ (1.60m) Wt 167 lb (75.8kg) LMP 03/08/2022 [...] by mouth. - ethynodiol d-ethinyl estradiol (ZOVIA E, 28, ORAL) Take by mouth. - Ibuprofen [...] HPI) Psych (no depres (more content not included)...[facility] 03-25-2022 History of Present illness Narrative* Keron Duff MD - 03/25/2022 11:17 AM EDT Keron Duff MD Department of Orthopaedics Orthopaedics [address] [facility] [address] Dept: [phone] Dept March 25, 2022 CHIEF COMPLAINT: New and Knee Pain of the Right Knee and REF: [place] ([facility] films) HPI Pt initially injured knee in high school playing football. She had right knee scope by Dr. Lares on 04-07-18 after MRI and xrays. 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 She sought second opinion by Dr. Delatorre and he ordered PT and another xray and MRI, and she is no better and he does not feel surgery would benefit her. She denies locking, but knee feels unstable. She states PT made worse. She is here for another opinion. CD from [employer] downloaded by [place] in radiology, but not [...] exercises. FOLLOW UP INSTRUCTIONS: As needed Ms. Jumana Acosta was advised as to contrast therapies and/or to take analgesics/anti-inflammatories as needed and all contraindications were reviewed. OBJECTIVE: Ms. Jumana Acosta is a pleasant 21 year old in no apparent distress. Gen:Ht 5' 3[stated[ (1.60m) Wt 167 lb (75.8kg) LMP 03/08/2022 [...] by mouth three times daily as needed. (Patientnot taking: Reported on 11/17/2021 ) No current facility-administered medications for this visit. Allergies: Eggs [Egg] ROS: General (negative for fatigue, malaise, weight loss/gain) HEENT (negative for headache, earache, recent vision changes, sinus pain, sore throat) Respiratory (no recent shortness of breath, hemoptysis) CV (negative for chest tightness, palpitations) Musculoskeletal (see HPI) Psych (no depression, anxiety) REFERRING PHYSICIAN: Ms. Jumana Acosta was referred to me for consultation by the following physician. This consultation note will be sent to the following physician by either mail or electronic medical record. Giovanna Delatorre MD [address] [address] Paulina Ware MD [address] [facility] [address] Keron Duff MD documented in this encounterKettering Health Miamisburg06-18-2022 NoteHNO ID: [id number] Author: Zuleyka Hatfield APRN.[employer]UCTION BRA[employer]ER Service: ? Author Type: Nurse Practitioner Type: Progress Notes Filed: 03/16/2022 2:24 PM Note Text: Subjective HPI Jumana Acosta is a 21 year old female [...] - AMOXICILLIN 875 MG TABLET Zuleyka Hatfield APRN.CNPThe Surgical Hospital At Southwoods06-18-2022 Instructions* Patient Instructions* Zuleyka Hatfield APRN.CNP - 03/16/2022 2:04 PM EDT ASSESSMENT/PLAN: 1. Impacted cerumen of left ear - ICD9: 380.4, ICD10: H61.22 - PERS HLTH MGMT EAR WAX REMOVAL - Cerumen removed from left ear via irrigation by MA, patient tolerated procedure well. Post procedure ear canal is clear and TM is well visualized with bony landmarks intact. The left ear drum is injected and bulging with cloudy fluid behind TM. 2. Otitis media with effusion, left - ICD9: 381.4, ICD10: H65.92 - Will begin treatment with Amoxicillin for 7 days - AMOXICILLIN 875 MG TABLET Zuleyka Hatfield APRN.CNP documented in this encounterKettering Health [facility]burg06-18-2022 History of Present illness Narrative* Zuleyka Hatfield APRN.CNP - 03/16/2022 2:01 PM EDT Subjective HPI Jumana Acosta is a 21 year old female [...] Wt 74.8 kg (165 lb) LMP 03/08/2022 VtJ044% BMI 29.23 kg/m PAST MEDICAL HISTORY Diagnosis [...] - AMOXICILLIN 875 MG TABLET Zuleyka Hatfield APRN.INDUCTION BRAZER documented in this [facility]22 NoteHNO ID: [id number] Author: Kj Rojas PA-C Service: ? Author Type: Physician Inker Type: Progress Notes Filed: 11/17/2021 10:21 AM Note Text: This note was created using [employer]. Subjective Jumana Acosta is a 21 year old female. HPI Patient presents with congestion sore throat fever and fatigue with a cough for 1 day. She had a temp of 101 that had broke this morning around 6 AM. 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 She did have Covid September 29. She [...] Patient agreeable. - COVID WITH FLUA+B, ROUTINE [facility]* Diagnosis Heart palpitations Palpitations documented in this encounter [facility] Work Phone: Evaluation note* Diagnosis Impacted cerumen of left ear- Primary Impacted cerumen Otitis media with effusion, left documented in this encounter [facility] note* Diagnosis Chronic pain of right knee- Primary documented in this encounter [facility] note* Diagnosis Acute bilateral low back pain without sciatica- Primary documented in this [facility] noteNo assessment information availableWSelect [facility] Work Phone: Evaluation note* Diagnosis Onset Date Resolution Status Contact with and (suspected) exposure to other viral communicable diseases acute URI (upper respiratory infection) acute Physical exam, pre-employment [facility] Work Phone: Evaluation note* Diagnosis Right hip pain- Primary Pain in joint, pelvic region and thigh Arthralgia, unspecified joint Trochanteric bursitis of right hip [facility] Diagnosis Arthralgia, unspecified joint- Primary Right hip pain Pain in joint, pelvic region and thigh documented in this encounter [facility]* Diagnosis Acute right-sided low back pain without sciatica Muscle spasm Spasm of muscle Poor sleep documented in this encounter [facility] note* Diagnosis Acute right-sided low back pain without sciatica documented in this encounter [facility] note* Diagnosis Onset Date Resolution Status Acute pharyngitis acute Maxillary sinusitis, acute a cute Cerumen impaction acute [facility] Work Phone: Evaluation note* Diagnosis Acute right-sided low back pain without sciatica documented in this encounter [facility] note* Diagnosis Adverse effect of drug, initial encounter- Primary Mild intermittent reactive airway disease without complication Vitamin D deficiency [facility] Diagnosis Lack of physical activity- Primary Vitamin D deficiency [facility]* Diagnosis Sore throat- Primary Acute pharyngitis Ear pain, right Nausea Nausea alone [facility]* Diagnosis Tachycardia- Primary Unspecified tachycardia Sweating abnormality GUILLAUME (generalized anxiety disorder) Generalized anxiety disorder Rheumatoid arthritis, involving unspecified site, unspecified whether rheumatoid factor present ([facility]) Dizziness Dizziness and giddiness documented in this [facility]* Diagnosis Acute right-sided low back pain without sciatica- Primary Muscle spasm Spasm of muscle Poor sleep Encounter for surveillance of contraceptive pills [facility] Additional Instructions Your workup today showed no sign of pneumonia or pulmonary embolus/blood clot and we did not have an abnormal heart rhythm or signs of heart damage. Your potassium was slightly low so therefore eat potassium rich foods. Follow-up with your family doctor for repeat evaluation and return to the ER should you have any further concernsWSelect [facility] Work Phone: Hospital Discharge instructions Additional Instructions Need to repeat blood test on , March 17. You will need to go to outpatient lab. Call Dr. Tijerina's office for follow-up in 3 to 5 daysWSelect [facility] Work Phone: Hospital Discharge instructionsAdditional Instructions Continue to try to push fluids and eat small frequent meals. Return if you have progression worsening your symptoms or further concerns.[facility] Work Phone: Reason for referral (narrative)* Consultation (Routine) - Pending Review Specialty Diagnoses / Procedures Referred By Michela roldan Referred To Contact Rheumatology Diagnoses Arthralgia, unspecified joint Right hip pain Procedures SC OFFICE/OUTPATIENT [facility] 60-74 MINUTES Paulina Ware MD [address] [place] [address], [address] [place] [address] Referral ID Status Reason Start Date Expiration Date Visits Requested Visits Authorized [id number] Pending Review Specialty Services Required 03/19/2023 03/18/2024 1 1 Declan Zuñiga for referral (narrative)No reason for referral information availableWSelect [facility] Work Phone: Summary Purpose Family History No Family History Records Found Relationship Condition Age at Onset Recorded Date/T nick grandfather Malignant neoplasm Unknown Relationship Condition Age at Onset Recorded Date/T nick grandfather Malignant neoplasm Unknown Chronic obstructive pulmonary disease Unk nown Heterozygous factor V Leiden mutation Unk nown grandmother Congestive heart failure Unknown Rheumatoid arthritis Unknown father Heterozygous factor V Leiden mutation Unk nown mother Gestational diabetes mellitus (GDM) Unkno wn Hypertension Unknown Osteoarthritis Unknown grandmother Arthritis Unknown Advance Directives No Advanced Directives Records FoundDocuments on File Type Date Recorded 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 Advance Directives and Living Will Power of Mainspring Former [employer] Documents on File Type Date Recorded 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 Advance Directive(s) 12/20/2020 11:42 PM Advance Directive(s) 09/21/2018 6:51 PM Advance Directive(s) 04/07/2018 6:37 AM Advance Directive Response Recorded Date/ Time Living Will No March 28, 2021 12:12pm Power of Mainspring Former [employer] No March 28 12:12pm Advance Directive Response Recorded Date/ Time Living Will No December 05, 2022 8:12pm Power of Mainspring Former [employer] No December 05 8:12pm Advance Directive Response Recorded Date/ Time Living Will No December 05, 2022 9:12pm Power of Mainspring Former [place] [employer] No December 05 9:12pm Advance Directive Response Recorded Date/ Time Living Will No November 05 2:17am Power of Mainspring Former [place] [employer] No November 05, 2023 2:17am Advance Directive Response Recorded Date/ Time Living Will No November 05 3:17am Power of Mainspring Former [place] [employer] No November 05, 2023 3:17am Advance Directive Response Recorded Date/ Time Do you have a Healthcare Power of Mainspring Former [employer]? No March 15, 2025 8:54pm Advance Directive Response Recorded Date/ Time Do you have a Healthcare Power of Mainspring Former [place] [employer]? No April 15, 2025 3:58pm Do you have a Healthcare Power of Mainspring Former [place]? No March 15, 2025 8:54pm Reason for Referral Status Reason Specialty Diagnoses / Procedures Referre d By Contact Referred To Contact Open Diagnoses Heart palpitations Procedures Cardiac event monitor Nessa Crespo, AUTOBODY TECHNICIAN - INDUCTION BRAZER [address] [place] [address] Chief Complaint and Reason for Visit Chief Complaint PE WORK PHYSICAL/[employer] Chief Complaint CONCERN FOR SINUS IN FECTION NEW EMPLOYEE PHYSICAL [facility] PHYSICAL/[facility] HIGH HEART RATE Reason for Visit Contact with and (tapia spected) exposure to other viral communicable diseases URI (upper respiratory infection) Physical exam, pre-employment Chief Complaint CONCERN FOR SINUS IN FECTION 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 EMPLOYEE PHYSICAL [facility] PHYSICAL/[facility] HIGH HEART RATE RIGHT HIP, LUMBAR SPONDYLOPATHY Reason for Visit Contact with and (tapia spected) exposure to other viral communicable diseases URI (upper respiratory infection) Physical exam, pre-employment Chief Complaint HIGH HEART RATE RIGHT HIP, LUMBAR SPONDYLOPATHY Unspecified inflammatory spondylopathy, lumbar reg Chief Complaint RIGHT HIP, LUMBAR SP ONDYLOPATHY Unspecified inflammatory spondylopathy, lumbar reg PAIN- COPY PCP Chief Complaint Unspecified inflamma tory spondylopathy, lumbar reg PAIN- COPY PCP SORE THROAT LEFT EAR ACHE LT EAR ACHE Reason for Visit Acute pharyngitis Maxillary sinusitis, acute Cerumen impaction Chief Complaint PAIN- COPY PCP SOB Chief Complaint PAIN- COPY PCP SOB PAIN- COPY PCP URI Chief Complaint PAIN- COPY PCP Chief Complaint Admit Date L FOOT/ANKLE INJURY February 17, 2025 11:25 am E-ORDER February 17, 2025 11:30 am Reason for Visit Admit Date Left ankle sprain February 17, 2025 11:25 am Chief Complaint Admit Date L FOOT/ANKLE INJURY February 17, 2025 11:25 am E-ORDER February 17, 2025 11:30 am March 15, 2025 8:44 pm Chief Complaint Admit Date L FOOT/ANKLE INJURY February 17, 2025 11:25 am E-ORDER February 17, 2025 11:30 am March 15, 2025 8:44 pm ABD PAIN IN EARLY PREG March 17, 2025 1 1:58am Chief Complaint Admit Date L FOOT/ANKLE INJURY February 17, 2025 11:25 am E-ORDER February 17, 2025 11:30 am March 15, 2025 8:44 pm ABD PAIN IN EARLY PREG March 17, 2025 1 1:58am INT LAB ORDER March 30, 2025 2:37p m spotting in early April 04 4:24pm Chief Complaint Admit Date L FOOT/ANKLE INJURY February 17, 2025 11:25 am E-ORDER February 17, 2025 11:30 am March 15, 2025 8:44 pm ABD PAIN IN EARLY PREG March 17, 2025 1 1:58am INT LAB ORDER March 30, 2025 2:37p m spotting in early April 04 4:24pm PNOB, Comfirm Preg, Vitals April 12 8:53am Chief Complaint Admit Date L FOOT/ANKLE INJURY February 17, 2025 11:25 am E-ORDER February 17, 2025 11:30 am March 15, 2025 8:44 pm ABD PAIN IN EARLY PREG March 17, 2025 1 1:58am INT LAB ORDER March 30, 2025 2:37p m spotting in early April 04 4:24pm PNOB, Comfirm Preg, Vitals April 12 8:53am preg April 15, 2025 3:47 pm Chief Complaint Admit Date L FOOT/ANKLE INJURY February 17, 2025 11:25 am E-ORDER February 17, 2025 11:30 am March 15, 2025 8:44 pm ABD PAIN IN EARLY PREG March 17, 2025 1 1:58am INT LAB ORDER March 30, 2025 2:37p m spotting in early April 04 4:24pm PNOB, Comfirm Preg, Vitals April 12 8:53am preg April 15, 2025 3:47 pm *EST* NOB LMP 02/13, KAUR 11/20April 22, 2025 8:52am Chief Complaint Admit Date L FOOT/ANKLE INJURY February 17, 2025 11:25 am E-ORDER February 17, 2025 11:30 am March 15, 2025 8:44 pm ABD PAIN IN EARLY PREG March 17, 2025 1 1:58am INT LAB ORDER March 30, 2025 2:37p m spotting in early April 04 4:24pm PNOB, Comfirm Preg, Vitals April 12 8:53am preg April 15, 2025 3:47 pm *EST* NOB LMP 02/13, KAUR 11/20April 22, 2025 8:52am hydration May 06, 2025 9:0 4am Chief Complaint Admit Date L FOOT/ANKLE INJURY February 17, 2025 11:25 am E-ORDER February 17, 2025 11:30 am March 15, 2025 8:44 pm ABD PAIN IN EARLY PREG March 17, 2025 1 1:58am INT LAB ORDER March 30, 2025 2:37p m spotting in early April 04 4:24pm PNOB, Comfirm Preg, Vitals April 12 8:53am preg April 15, 2025 3:47 pm *EST* NOB LMP 02/13, KAUR 11/20April 22, 2025 8:52am hydration May 06, 2025 9:0 4am 12wk OB May 20, 2025 1: 49pm Reason for Visit Admit Date Left ankle sprain February 17, 2025 11:25 am Cessation of tobacco use prior to pregna ncy May 20, 2025 1:49pm Family history of factor V Leiden mutati on May 20, 2025 1:49pm 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 May 20, 2025 1: 49pm IBS (irritable bowel syndrome) May 202024 1:49pm Obesity affecting May 20, 2025 1:49pm May 20, 2025 1: 49pm Rh negative status during Augu st 2024 1:49pm Rheumatoid arthritis May 20, 2025 1 :49pm Supervision of high-risk Augus t 2024 1:49pm Chief Complaint Admit Date L FOOT/ANKLE INJURY February 17, 2025 11:25 am E-ORDER February 17, 2025 11:30 am March 15, 2025 8:44 pm ABD PAIN IN EARLY PREG March 17, 2025 1 1:58am INT LAB ORDER March 30, 2025 2:37p m spotting in early April 04 4:24pm PNOB, Comfirm Preg, Vitals April 12 8:53am preg April 15, 2025 3:47 pm *EST* NOB LMP 02/13, KAUR 11/20April 22, 2025 8:52am hydration May 06, 2025 9:0 4am 12wk OB May 20, 2025 1: 49pm OB Brown spotting June 07, 2025 1:46pm Reason for Visit Admit Date Left ankle sprain February 17, 2025 11:25 am Cessation of tobacco use prior to pregna ncy May 20, 2025 1:49pm Family history of factor V Leiden mutati on May 20, 2025 1:49pm 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 May 20, 2025 1: 49pm IBS (irritable bowel syndrome) May 202024 1:49pm Obesity affecting May 20, 2025 1:49pm May 20, 2025 1: 49pm Rh negative status during Augu st 2024 1:49pm Rheumatoid arthritis May 20, 2025 1 :49pm Supervision of high-risk Augus t 2024 1:49pm Cessation of tobacco use prior to pregna ncy June 07, 2025 1:46pm Family history of factor V Leiden mutati on June 07, 2025 1:46pm 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 June 07, 2025 1:46pm IBS (irritable bowel syndrome) June 07, 2025 1:46pm Obesity affecting May 1:46pm June 07, 2025 1:46pm [facility] 1:46[facility] Rheumatoid arthritis June 07, 2025 1:46pm Supervision of high-risk [facility] 2024 1:46pm Chief Complaint Admit Date L FOOT/ANKLE INJURY February 17, 2025 11:25 am E-ORDER February 17, 2025 11:30 am March 15, 2025 8:44 pm ABD PAIN IN EARLY PREG March 17, 2025 1 1:58am INT LAB ORDER March 30, 2025 2:37p m spotting in early April 04 4:24pm PNOB, Comfirm Preg, Vitals April 12 8:53am preg April 15, 2025 3:47 pm *EST* NOB LMP 02/13, KAUR 11/20April 22, 2025 8:52am hydration May 06, 2025 9:0 4am 12wk OB May 20, 2025 1: 49pm OB Brown spotting June 07, 2025 1:46pm 17wk ob June 14, 2025 8:42am Reason for Visit Admit Date Left ankle sprain February 17, 2025 11:25 am Cessation of tobacco use prior to pregna ncy May 20, 2025 1:49pm Family history of factor V Leiden mutati on May 20, 2025 1:49pm 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 May 20, 2025 1: 49pm IBS (irritable bowel syndrome) May 202024 1:49pm Obesity affecting May 20, 2025 1:49pm May 20, 2025 1: 49pm Rh negative status during Augu st 2024 1:49pm Rheumatoid arthritis May 20, 2025 1 :49pm Supervision of high-risk Aug t 2024 1:49pm Cessation of tobacco use prior to pregna ncy June 07, 2025 1:46pm Family history of factor V Leiden mutati on June 07, 2025 1:46pm 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 June 07, 2025 1:46pm IBS (irritable bowel syndrome) June 07, 2025 1:46pm Obesity affecting May 1:46pm June 07, 2025 1:46pm Rh negative status during [facility] 2024 1:46pm Rheumatoid arthritis June 07, 2025 1:46pm Supervision of high-risk [facility] 2024 1:46pm Cessation of tobacco use prior to pregna ncy June 14, 2025 8:42am Family history of factor V Leiden mutati on June 14, 2025 8:42am 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 June 14, 2025 8:42am IBS (irritable bowel syndrome) June 14, 2025 8:42am Obesity affecting June 142024 8:42am June 14, 2025 8:42am Rh negative status during [facility] 2024 8:42am Rheumatoid arthritis June 14 8:42am Supervision of high-risk [facility] 2024 8:42am Chief Complaint Admit Date March 15, 2025 8:44 pm ABD PAIN IN EARLY PREG March 17, 2025 1 1:58am INT LAB ORDER March 30, 2025 2:37p m spotting in early April 04 4:24pm PNOB, Comfirm Preg, Vitals April 12 8:53am preg April 15, 2025 3:47 pm *EST* NOB LMP 02/13, KAUR 11/20April 22, 2025 8:52am hydration May 06, 2025 9:0 4am 12wk OB May 20, 2025 1: 49pm OB Brown spotting June 07, 2025 1:46pm 17wk ob June 14, 2025 8:42am Reason for Visit Admit Date Cessation of tobacco use prior to pregna ncy May 20, 2025 1:49pm Family history of factor V Leiden mutati on May 20, 2025 1:49pm 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 May 20, 2025 1: 49pm IBS (irritable bowel syndrome) May 202024 1:49pm Obesity affecting May 20, 2025 1:49pm May 20, 2025 1: 49pm Rh negative status during Augu st 2024 1:49pm Rheumatoid arthritis May 20, 2025 1 :49pm Supervision of high-risk Augus t 2024 1:49pm Cessation of tobacco use prior to pregna ncy June 07, 2025 1:46pm Family history of factor V Leiden mutati on June 07, 2025 1:46pm 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 June 07, 2025 1:46pm IBS (irritable bowel syndrome) June 07, 2025 1:46pm Obesity affecting May 1:46pm June 07, 2025 1:46pm Rh negative status during Sept ember 2024 1:46pm Rheumatoid arthritis June 07, 2025 1:46pm Supervision of high-risk Septe [id number] 1:46pm Cessation of tobacco use prior to pregna ncy June 14, 2025 8:42am Family history of factor V Leiden mutati on June 14, 2025 8:42am 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 June 14, 2025 8:42am IBS (irritable bowel syndrome) June 14, 2025 8:42am Obesity affecting June 142024 8:42am June 14, 2025 8:42am Rh negative status during Sept [email or web address] 8:42am Rheumatoid arthritis June 14 8:42am Supervision of high-risk [id number] 8:42am Additional Source Comments INFORMATION SOURCE (unrecogn ized section and content) DATE CREATED AUTHOR 04/09/2018 [facility] DATE CREATED AUTHOR AUTHOR'S ORGANIZ ATION 09/07/2018 [facility] DATE CREATED AUTHOR AUTHOR'S ORGANIZ ATION 09/23/2018 [facility] DATE CREATED AUTHOR AUTHOR'S ORGANIZ ATION 04/17/2020 [facility] DATE CREATED AUTHOR AUTHOR'S ORGANIZ ATION 12/22/2020 [facility] DATE CREATED AUTHOR AUTHOR'S ORGANIZ ATION 09/20/2022 [facility] DATE CREATED AUTHOR AUTHOR'S ORGANIZ ATION 02/13/2024 [facility] DATE CREATED AUTHOR AUTHOR'S ORGANIZ ATION 07/02/2025 [facility] DATE CREATED AUTHOR AUTHOR'S ORGANIZ ATION 07/12/2025 [facility] Source Comments (unrecognize d section and content) In the event this informatio n is protected by the Federal Confidentiality of Alcohol and Drug Abuse Patient Records regulations: The Federal rules restrict any use of the information to criminally investigate or prosecute any alcohol or drug abuse patient.[facility] the event this information is protected by the Federal Confidentiality of Alcohol and Drug Abuse Patient Records regulations: The Federal rules restrict any use of the information to criminally investigate or prosecute any alcohol or drug abuse patient.[facility] the event this information is protected by the Federal Confidentiality of Alcohol and Drug Abuse Patient Records regulations: The Federal rules restrict any use of the information to criminally investigate or prosecute any alcohol or drug abuse patient.[facility] Reason for Visit (unrecogniz ed section and content) Reason Comments Ear Pain Pt reported (LT) ear pain, dizziness, rated 4, unable to hear x3 days Reason Comments REF: [facility] films New [...] Onset Date Comments Referral 03/18/2023 Rheumatology in [place] Reason Comments Med Refill Reason Comments ER Follow-up Patient here today f or ER follow up appointment. She was seen at [place] ER for chest discomfort, SOB and elevated heart rate last week. No diagnosis was given. Reason Onset Date Comments Sore Throat 01/15/2024 Reason Comments Sore Throat severe, and right ea r congestion/popping, has chills/sweating but not taking temperature, neck lymph nodes are swollen, sinus congestion. Has taken liss with no relief, ibuprofen offers some relief. Vomited Friday, but Friday started with body aches, congestion etc. Headache Some coughing-at nig ht Reason Comments Anxiety Panic Attack Patient here today t o discuss episodes of anxiety and panic attacks. She will have episodes even while sitting down, watching TV. She has had increased heart rate, sweating, dizziness and feeling like she is going to pass out (she was on Zoloft at one point, but took herself off of it). Reason Comments Back Pain Started before xmas, seeing a chiro. Has MRI this Thursday 12/21. Chiro thinks may be herniated disc. Pt would like muscle relaxer or pain pill. Urgent care gave her Flexeril but did not help, predisone did though. Chiro will not rx.Refill pending. Care Teams (unrecognized sec tion and content) School Curriculum Developer Relationship Specialty Start Date End Date Paulina Ware MD [address] [place] [address] [place], [place] [id number] PCP - General Family Practice 12/17/12 School Curriculum Developer Relationship Specialty Start Date End Date Paulina Ware MD [address] [address] [place], [place] [id number] PCP - General Family Practice 12/17/12 School Curriculum Developer Relationship Specialty Start Date End Date Paulina Ware MD [address] [place], [place] [id number] PCP - General Family Medicine 12/17/12 Team Status: Active Member Role Status Dates AZRA PEÑA Primary Care Provider Active Team Status: Inactive Member Role Status Dates Dr. Paulina Ware MD Primary Care Provider, Referri ng Provider Active Lyle TONY, PA Attending Provider Active Team Status: Inactive Member Role Status Dates CODIE OQUENDO Primary Care Provi rahel, Attending Provider, Referring Provider Active Team Status: Active Member Role Status Dates Dr. Paulina Ware MD Primary Care Provider Active Team Status: Inactive Member Role Status Dates Lyle Guardado PA, PA Attending Provider Active Team Status: Inactive Member Role Status Dates Jeffry TONY, PA Attending Provider Active Team Status: Active Member Role Status Dates Employee Health Attending Provider Active Team Status: Active Member Role Status Dates Health Risk Assessment Attending Provider, Referring P joshua Active Team Status: Inactive Member Role Status Dates Dr. Jose Fabian MD Emergency Provider Active Dr. Paulina Ware MD Primary Care Provider Active Team Status: Inactive Member Role Status Dates CASEY FLORES Attending Provider Active Dr. Paulina Ware MD Primary Care Provider Active Team Status: Inactive Member Role Status Dates Dr. Jose Fabian MD Attending Provider, Emergency Pr ovider Active Dr. Paulina Ware MD Primary Care Provider Active Team Status: Active Member Role Status Dates Dr. Paulina Ware MD Primary Care Provider Active Dr. Randell Zuñiga MD Attending Provider Active Team Status: Inactive Member Role Status Dates Dr. Paulina Ware MD Primary Care Provider Active Dr. Randell Zuñiga MD Attending Provider Active School Curriculum Developer Relationship Specialty Start Date End Date Paulina Ware MD [address] [place] [address] [place] [address] PCP - General 06/24/15 School Curriculum Developer Relationship Specialty Start Date End Date Paulina Ware MD [address] [place] [address] [place] [address] PCP - General 06/24/15 Team Status: Inactive Member Role Status Dates Dr. Paulina Ware MD Primary Care Provider Active CASEY FLORES Attending Provider, Referring Provider A ctive School Curriculum Developer Relationship Specialty Start Date End Date Paulina Ware MD [address] [place] [address], [address] [place] [address] PCP - General 06/24/15 School Curriculum Developer Relationship Specialty Start Date End Date Paulina Ware MD [address] [place] [address], [address] [place] [address] PCP - General 06/24/15 Team Status: Inactive Member Role Status Dates Dr. Paulina Ware MD Primary Care Provider Active Dr. Ebonie York MD Attending Provider, Referring Provider Active Team Status: Inactive Member Role Status Dates Dr. Paulina Ware MD Primary Care Provider, Referri ng Provider Active Jeffry Benavides PA, PA Attending Provider Active Team Status: Inactive Member Role Status Dates Dr. Paulina Ware MD Primary Care Provider, Referri ng Provider Active Desire TONY PA Attending Provider Active School Curriculum Developer Relationship Specialty Start Date End Date Paulina Ware MD [address] [place] [address] [place] [address] PCP - General 06/24/15 Team Status: Inactive Member Role Status Dates Dr. Paulina Ware MD Primary Care Provider Active Dr. Justice Alberto DO Emergency Provider Active School Curriculum Developer Relationship Specialty Start Date End Date Paulina Ware MD [address] [place] [address] [place] [address] PCP - General 06/24/15 [employer] Curriculum Developer Relationship Specialty Start Date End Date Paulina Ware MD [address] [place] [address] PCP - General 06/24/15 School Curriculum Developer Relationship Specialty Start Date End Date Paulina Ware MD [address] [place] [address] PCP - General 06/24/15 School Curriculum Developer Relationship Specialty Start Date End Date Paulina Ware MD [address] [place] [address] PCP - General 06/24/15 Team Status: Inactive Member Role Status Dates Dr. Paulina Ware MD Primary Care Provider Active Dr. Justice Alberto DO Attending Provider, Emergency Pr ovider Active School Curriculum Developer Relationship Specialty Start Date End Date Paulina Ware MD [address] [place] [address] [place] [address] PCP - General 06/24/15 School Curriculum Developer Relationship Specialty Start Date End Date Paulina Ware MD [address] [facility], [address] [place] [address] PCP - General 06/24/15 Team Status: Active Member Role Status Dates Jenn Patel VSC, DO Primary Care Provider Active Team Status: Inactive Member Role Status Dates Jenn Patel VSC, DO Primary Care Provider Active Start: November 10, 2024 End: November 10, 2024 Jenn Sweeney VSC, DO Attending Provider Active Start: November 10, 2024 End: November 10, 2024 Team Status: Inactive Member Role Status Dates Jenn Sweeney VSC, DO Primary Care Provider Active Start: November 18, 2024 End: November 18, 2024 Jenn Sweeney VSC, DO Attending Provider Active Start: November 18, 2024 End: November 18, 2024 Team Status: Inactive Member Role Status Dates Jenn Sweeney VSC, DO Primary Care Provider Active Start: February 17, 2025 End: February 17, 2025 Jenn Sweeney VSC, DO Referring Provider Active Start: February 17, 2025 End: February 17, 2025 CECILY Bender Attending Provider Active Sta rt: February 17, 2025 End: February 17, 2025 Team Status: Inactive Member Role Status Dates Jenn Patel VSC, DO Primary Care Provider Active Start: February 17, 2025 End: February 17, 2025 CECILY Bender Attending Provider Active Sta rt: February 17, 2025 End: February 17, 2025 CECILY Bender Referring Provider Active Sta rt: February 17, 2025 End: February 17, 2025 Team Status: Inactive Member Role Status Dates Jenn Sweeney VSC, DO Primary Care Provider Active Start: March 15, 2025 End: March 16, 2025 Dr. David Oakley MD Emergency Provider Active Sta rt: March 15, 2025 End: March 16, 2025 Team Status: Inactive Member Role Status Dates Jenn Sweeney VSC, DO Primary Care Provider Active Start: March 17, 2025 End: March 17, 2025 Dr. David Oakley MD Attending Provider Active Sta rt: March 17, 2025 End: March 17, 2025 Dr. David Oakley MD Referring Provider Active Sta rt: March 17, 2025 End: March 17, 2025 Dr. Sarah Harmon , Other Provider Active Start: March 17, 2025 End: March 17, 2025 Team Status: Active Member Role/Relationship Status Dates Jenn Garcianger VSC, DO Primary Care Provider Active Team Status: Inactive Member Role/Relationship Status Dates Jenn Garcianger VSC, DO Primary Care Provider Active Start: February 17, 2025 End: February 17, 2025 Jenn Garcianger VSC, DO Referring Provider Active Start: February 17, 2025 End: February 17, 2025 CECILY Bender Attending Provider Active Sta rt: February 17, 2025 End: February 17, 2025 Team Status: Inactive Member Role/Relationship Status Dates Jenn Garcianger VSC, DO Primary Care Provider Active Start: February 17, 2025 End: February 17, 2025 CECILY Bender Attending Provider Active Sta rt: February 17, 2025 End: February 17, 2025 CECILY Bender Referring Provider Active Sta rt: February 17, 2025 End: February 17, 2025 Team Status: Inactive Member Role/Relationship Status Dates Jenn Garcianger VSC, DO Primary Care Provider Active Start: March 15, 2025 End: March 16, 2025 Dr. David Oakley MD Attending Provider Active Sta rt: March 15, 2025 End: March 16, 2025 Dr. David Oakley MD Emergency Provider Active Sta rt: March 15, 2025 End: March 16, 2025 Team Status: Inactive Member Role/Relationship Status Dates Jenn Patel VSC, DO Primary Care Provider Active Start: March 17, 2025 End: March 17, 2025 Dr. David Oakley MD Attending Provider Active Sta rt: March 17, 2025 End: March 17, 2025 Dr. David Oakley MD Referring Provider Active Sta rt: March 17, 2025 End: March 17, 2025 Dr. Sarah Harmon , Other Provider Active Start: March 17, 2025 End: March 17, 2025 Team Status: Inactive Member Role/Relationship Status Dates Jenn Sweeney VSC, DO Primary Care Provider Active Start: March 30, 2025 End: March 30, 2025 Dr. Sarah Harmon , DO Attending Provider Activ e Start: March 30, 2025 End: March 30, 2025 Dr. Sarah Harmon , DO Referring Provider Activ e Start: March 30, 2025 End: March 30, 2025 Team Status: Active Member Role/Relationship Status Dates Jenn Sweeney VSC, DO Primary Care Provider Active Start: April 04, 2025 Dr. Sarah Harmon , DO Attending Provider Activ e Start: April 04, 2025 Dr. Sarah Harmon , DO Referring Provider Activ e Start: April 04, 2025 Team Status: Inactive Member Role/Relationship Status Dates Jenn Sweeney VSC, DO Primary Care Provider Active Start: April 04, 2025 End: April 04, 2025 Dr. Sarah Harmon , DO Attending Provider Activ e Start: April 04, 2025 End: April 04, 2025 Dr. Sarah Hamron , DO Referring Provider Activ e Start: April 04, 2025 End: April 04, 2025 Team Status: Inactive Member Role/Relationship Status Dates Jenn Sweeney VSC, DO Primary Care Provider Active Start: April 12, 2025 End: April 12, 2025 Jennsimeon Sweeney VSC, DO Referring Provider Active Start: April 12, 2025 End: April 12, 2025 Dr. Sarah Harmon , DO Attending Provider Activ e Start: April 12, 2025 End: April 12, 2025 Team Status: Inactive Member Role/Relationship Status Dates Jennsiemon Sweeney VSC, DO Primary Care Provider Active Start: April 15, 2025 End: April 15, 2025 Dr. Sarah Stubbs , DO Emergency Provider Active Start: April 15, 2025 End: April 15, 2025 Team Status: Inactive Member Role/Relationship Status Dates Jenn Sweeney VSC, DO Primary Care Provider Active Start: April 22, 2025 End: April 22, 2025 Jennsimeon Sweeney VSC, DO Referring Provider Active Start: April 22, 2025 End: April 22, 2025 Inga Dey CNM Attending Provider Active Start: April 22, 2025 End: April 22, 2025 Team Status: Inactive Member Role/Relationship Status Dates Jenn VIVARC, DO Primary Care Provider Active Start: April 15, 2025 End: April 15, 2025 Dr. Sarah Stubbs DO Attending Provider Active Start: April 15, 2025 End: April 15, 2025 Dr. Sarah Stubbs , Emergency Provider Active Start: April 15, 2025 End: April 15, 2025 Team Status: Inactive Member Role/Relationship Status Dates Jenn VIVARC, DO Primary Care Provider Active Start: April 22, 2025 End: April 22, 2025 Inga Dey CNM Attending Provider Active Start: April 22, 2025 End: April 22, 2025 Inga Dey CNM Referring Provider Active Start: April 22, 2025 End: April 22, 2025 Team Status: Inactive Member Role/Relationship Status Dates Jenn Sweeney VSC, DO Primary Care Provider Active Start: April 28, 2025 End: April 28, 2025 Inga Dey CNM Attending Provider Active Start: April 28, 2025 End: April 28, 2025 Team Status: Inactive Member Role/Relationship Status Dates Jenn Sweeney VSC, DO Primary Care Provider Active Start: May 06, 2025 End: May 06, 2025 Dr. Sarah Harmon DO Attending Provider Activ e Start: May 06, 2025 End: May 06, 2025 Dr. Sarah Harmon DO Referring Provider Activ e Start: May 06, 2025 End: May 06, 2025 Team Status: Inactive Member Role/Relationship Status Dates Jenn Sweeney VSC, DO Primary Care Provider Active Start: May 20, 2025 End: May 20, 2025 Jenn Sweeney VSC, DO Referring Provider Active Start: May 20, 2025 End: May 20, 2025 Dr. Tish Kauffman MD Attending Provider Active Start: May 20, 2025 End: May 20, 2025 Team Status: Active Member Role/Relationship Status Dates Jenn VIVARC, DO Primary Care Provider Active Start: May 20, 2025 Dr. Tish Kauffman MD Attending Provider Active Start: May 20, 2025 Dr. Tish Kauffman MD Referring Provider Active Start: May 20, 2025 Team Status: Inactive Member Role/Relationship Status Dates Jenn Sweeney VSC, DO Primary Care Provider Active Start: May 20, 2025 End: May 20, 2025 Dr. Tish Kauffman MD Attending Provider Active Start: May 20, 2025 End: May 20, 2025 Dr. Tish Kauffman MD Referring Provider Active Start: May 20, 2025 End: May 20, 2025 Team Status: Inactive Member Role/Relationship Status Dates Jenn Sweeney VSC, DO Primary Care Provider Active Start: June 07, 2025 End: June 07, 2025 Jenn Sweeney VSC, DO Referring Provider Active Start: June 07, 2025 End: June 07, 2025 Dr. Tish Kauffman MD Attending Provider Active Start: June 07, 2025 End: June 07, 2025 Team Status: Active Member Role/Relationship Status Dates Jenn Sweeney VSC, DO Primary Care Provider Active Start: June 07, 2025 Dr. Tish Kauffman MD Attending Provider Active Start: June 07, 2025 Dr. Tish Kauffman MD Referring Provider Active Start: June 07, 2025 Team Status: Inactive Member Role/Relationship Status Dates Jenngilberto Sweeney VSC, DO Primary Care Provider Active Start: June 14, 2025 End: June 14, 2025 Jenn Patel VSC, DO Referring Provider Active Start: June 14, 2025 End: June 14, 2025 Wendy Cat CNM Attending Provider Active S tart: June 14, 2025 End: June 14, 2025 Team Status: Active Member Role/Relationship Status Dates Jenn Sweeney VSC, DO Primary Care Provider Active Start: June 14, 2025 Dr. Tish Kauffman MD Attending Provider Active Start: June 14, 2025 Dr. Tish Kauffman MD Referring Provider Active Start: June 14, 2025 Team Status: Active Member Role/Relationship Status Dates Jenn Sweeney VSC, DO Primary care physician Active Team Status: Inactive Member Role/Relationship Status Dates Jenn COOPER, DO Primary care physician Active Start: March 15, 2025 End: March 16, 2025 Dr. David Oakley MD Attending physician Active St art: March 15, 2025 End: March 16, 2025 Dr. David Oakley MD Emergency Department Physician Acti ve Start: March 15, 2025 End: March 16, 2025 Team Status: Inactive Member Role/Relationship Status Dates Jenn VIVARC, DO Primary care physician Active Start: March 17, 2025 End: March 17, 2025 Dr. David Oakley MD Attending physician Active St art: March 17, 2025 End: March 17, 2025 Dr. David Oakley MD Referring Provider Active Sta rt: March 17, 2025 End: March 17, 2025 Dr. Sarah Harmon , DO Nurse Practitioner Activ e Start: March 17, 2025 End: March 17, 2025 Team Status: Inactive Member Role/Relationship Status Dates Jenn VIVARC, DO Primary care physician Active Start: March 30, 2025 End: March 30, 2025 Dr. Sarah Harmon , DO Attending physician Acti ve Start: March 30, 2025 End: March 30, 2025 Dr. Sarah Harmon , DO Referring Provider Activ e Start: March 30, 2025 End: March 30, 2025 Team Status: Inactive Member Role/Relationship Status Dates Jenn VIVARC, DO Primary care physician Active Start: April 04, 2025 End: April 04, 2025 Dr. Sarah Harmon , DO Attending physician Acti ve Start: April 04, 2025 End: April 04, 2025 Dr. Sarah Harmon , DO Referring Provider Activ e Start: April 04, 2025 End: April 04, 2025 Team Status: Inactive Member Role/Relationship Status Dates Jenn VIVARC, DO Primary care physician Active Start: April 12, 2025 End: April 12, 2025 Jenn VIVARC, DO Referring Provider Active Start: April 12, 2025 End: April 12, 2025 Dr. Sarah Harmon , DO Attending physician Acti ve Start: April 12, 2025 End: April 12, 2025 Team Status: Inactive Member Role/Relationship Status Dates Jenn COOPER, DO Primary care physician Active Start: April 15, 2025 End: April 15, 2025 Dr. Sarah Stubbs , Attending physician Active Start: April 15, 2025 End: April 15, 2025 Dr. Sarah Stubbs , DO Emergency Department Physician Active Start: April 15, 2025 End: April 15, 2025 Team Status: Inactive Member Role/Relationship Status Dates Jenn VIVARC, DO Primary care physician Active Start: April 22, 2025 End: April 22, 2025 Jenn COOPER, DO Referring Provider Active Start: April 22, 2025 End: April 22, 2025 Inga Dey CNM Attending physician Active Start: April 22, 2025 End: April 22, 2025 Team Status: Inactive Member Role/Relationship Status Dates Jenn COOPER, DO Primary care physician Active Start: April 22, 2025 End: April 22, 2025 Inga Dey CNM Attending physician Active Start: April 22, 2025 End: April 22, 2025 Inga Dey CNM Referring Provider Active Start: April 22, 2025 End: April 22, 2025 Team Status: Inactive Member Role/Relationship Status Dates Jenn COOPER, DO Primary care physician Active Start: April 28, 2025 End: April 28, 2025 Inga Dey CNM Attending physician Active Start: April 28, 2025 End: April 28, 2025 Team Status: Inactive Member Role/Relationship Status Dates Jenn COOPER, DO Primary care physician Active Start: May 06, 2025 End: May 06, 2025 Dr. Sarah Harmon , DO Attending physician Acti ve Start: May 06, 2025 End: May 06, 2025 Dr. Sarah Harmon , DO Referring Provider Activ e Start: May 06, 2025 End: May 06, 2025 Team Status: Inactive Member Role/Relationship Status Dates Jenn COOPER, DO Primary care physician Active Start: May 20, 2025 End: May 20, 2025 Jenn COOPER, DO Referring Provider Active Start: May 20, 2025 End: May 20, 2025 Dr. Tish Kauffman MD Attending physician Active Start: May 20, 2025 End: May 20, 2025 Team Status: Inactive Member Role/Relationship Status Dates Jenn Patel VSC, DO Primary care physician Active Start: May 20, 2025 End: May 20, 2025 Dr. Tish Kauffman MD Attending physician Active Start: May 20, 2025 End: May 20, 2025 Dr. Tish Kauffman MD Referring Provider Active Start: May 20, 2025 End: May 20, 2025 Team Status: Inactive Member Role/Relationship Status Dates Jenn Patel VSC, DO Primary care physician Active Start: June 07, 2025 End: June 07, 2025 Jenn Patel VSC, DO Referring Provider Active Start: June 07, 2025 End: June 07, 2025 Dr. Tish Kauffman MD Attending physician Active Start: June 07, 2025 End: June 07, 2025 Team Status: Inactive Member Role/Relationship Status Dates Jenn Patel VSC, DO Primary care physician Active Start: June 07, 2025 End: June 07, 2025 Dr. Tish Kauffman MD Attending physician Active Start: June 07, 2025 End: June 07, 2025 Dr. Tish Kauffman MD Referring Provider Active Start: June 07, 2025 End: June 07, 2025 Team Status: Inactive Member Role/Relationship Status Dates Jenn Patel VSC, DO Primary care physician Active Start: June 14, 2025 End: June 14, 2025 Jenn Patel VSC, DO Referring Provider Active Start: June 14, 2025 End: June 14, 2025 Wendy Cat CNM Attending physician Active Start: June 14, 2025 End: June 14, 2025 Team Status: Inactive Member Role/Relationship Status Dates Jenn Sweeney VSC, DO Primary care physician Active Start: June 14, 2025 End: June 14, 2025 Dr. Tish Kauffman MD Attending physician Active Start: June 14, 2025 End: June 14, 2025 Dr. Tish Kauffman MD Referring Provider Active Start: June 14, 2025 End: June 14, 2025 Goals (unrecognized section and content) Type Care Experience Labor Preferences-CB /BF classes: []labor support person: []labor intervention preferences: []pain management options preferred: []cut cord/dad catch: []: []PP control planned: []discussed possible routes of delivery and associated risks: []special requests: [] FOR RECORDS PERTAINING TO PATIENTS WHO ARE [...] BE BASED ON THE PRIMARY CLINICAL RECORDS. [facility] [employer] [facility]. provides no warranty or guarantee of the accuracy or completeness of information in this document.
[2025-07-23 09:09] LABS: D-Dimer Quantitative (DVT/PE) 4.91 FEU/ug/m (0.27-0.49)
[2025-07-23 09:18] LABS: Troponin T High Sensitivity < 6 ng/L (<=14)
--- NOTE | 2025-07-23 09:27 | CT_ITS ---
PROCEDURE: CTA CHEST W/WO CONTRAST 07/23/2025 REASON FOR EXAM: ELEVATED D-DIMER TECHNIQUE: Procedure Code: [id number] Modality: CT Procedure: CTA CHEST W/WO CONTRAST Multiplanar Sagittal and Coronal images were obtained. CONTRAST: Isovue 370 VOLUME: 100 mL One or more dose reduction techniques were used (e.g., Automated exposure control, adjustment of the mA and/or kV according to patient size, use of iterative reconstruction technique). RADIATION DOSE SUMMARY: CTDlvol: 7.49 mGy DLP: 161.8 mGycm COMPARISON: None FINDINGS: Thoracic Aorta: Nonaneurysmal. No evidence of dissection. Heart: Normal Pulmonary Vessels: There is no evidence of pulmonary embolus. Lymph nodes: No abnormal lymph nodes in the thorax. Lungs and Airways: No consolidation or mass. Pleura: Unremarkable Upper Abdomen: Unremarkable Bones: Unremarkable CT/CTA Chest W/WO Contrast IMPRESSION: 1. There is no evidence of pulmonary embolus. 2. There is no acute process in the thorax. Reading Location: [id number]
[2025-07-23 09:46] VITALS: BP 97/73; PULSE 69; RESP 25; TEMP 36.9; O2SAT 100
[2025-07-23 10:45] LABS: Troponin T High Sens 2 HR < 6 ng/L (<=14)
[2025-07-23 10:53] LABS: AST(SGOT) 17 U/L (<=31); Alanine Aminotransfer ALT/SGPT 10 U/L (<=34); Albumin, Serum 4.0 g/dL (3.5-5.0); Alkaline Phosphatase 77 U/L (35-104); Anion Gap 8 (5-15); BUN 13 mg/dL (4-19); BUN/Creat Ratio 16.8 RATIO (10-20); Calcium,Total 9.3 mg/dL (7.6-11.0); Carbon Dioxide 35.0 mmol/L (21.0-32.0); Chloride 96 mmol/L (98-108); Estimated Creatinine Clearance 110.62 ml/min (50-250); Globulin 3.2 g/dL (2.2-4.2); Glucose 98 mg/dL (70-99); Lipase 26 U/L (13-75); Potassium 3.3 mmol/L (3.3-5.1)
[2025-07-23 11:00] VITALS: BP 98/55; PULSE 89; RESP 15; TEMP 36.9; O2SAT 98
--- NOTE | 2025-07-23 11:07 | ED.VIS.CHEST ---
HPI History of Present Illness Chief Complaint: Chest Pain Narrative Narrative: 25-year-old female, G1, P0 at approximately 22 weeks gestation presents with chest pain that started yesterday evening/early this morning. She has history of GERD. She states she took her Pepcid, but had a few episodes of nausea and vomiting. Now she feels as if someone had inserted air into her chest. She describes a pressure sensation and back spasming throughout the evening. She vomited twice without any blood in her emesis, denies any pelvic pain or bleeding, no problems with the . No exacerbating or alleviating factors. [facility] Medical History 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 Ovarian cyst Depression Anxiety Irregular heart beat Migraines Bronchial spasms Home Medications ?Medication ?Instructions ?Recorded ?Last Taken ?Type fexofenadine 60 mg tablet (Liss 60 mg PO BID 02/17/25 07/20/25 History Allergy) docosahexaenoic acid 200 mg 200 mg PO DAILY 04/12/25 07/21/25 History capsule ( DHA) ondansetron 4 mg disintegrating 4 mg PO Q8H PRN PRN Nausea #20 tabs 04/15/25 Unknown Rx tablet clotrimazole 1 % topical cream 1 applic topical BID 4 weeks #45 07/11/25 07/22/25 Rx grams famotidine 20 mg tablet (Pepcid) 20 mg PO BID #60 tabs 07/11/25 07/23/25 Rx acetaminophen 500 mg capsule 1,000 mg PO Q6H PRN fever or pain 07/23/25 Unknown History calcium carbonate (Calcium 500) 500 mg PO TID PRN dyspepsia 07/23/25 Unknown History omeprazole 20 mg capsule,delayed 20 mg PO DAILY #30 CAPSULES 07/23/25 Unknown Rx release Allergy/AdvReac Type Severity Reaction Status Date / Time Egg Derived Allergy Intermediate Hives Verified 07/23/25 07:43 hydroxychloroquine (From Allergy Intermediate Rash Verified 07/23/25 07:43 Plaquenil) adhesive Allergy Mild rash Verified 07/23/25 07:43 Family History Grandfather Cancer Paternal- skin cancer COPD (chronic obstructive pulmonary disease) Factor 5 Leiden mutation, heterozygous Grandmother Congestive heart failure Rheumatoid arthritis Father Factor 5 Leiden mutation, heterozygous Mother Gestational diabetes Hypertension Osteoarthritis Grandmother Arthritis Surgical History S/P wisdom tooth extraction H/O knee surgery History of tonsillectomy Social History adopted: No household members: significant other number of children: 0 current occupational status: employed 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[employer] 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/hazards: No pets and animals: Yes pets and animals: dog(s) history of recent travel: No sexually active: Yes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 smoker quit date: 01/27/25 second hand exposure: Yes quit status: quit date established alcohol intake: current alcohol intake frequency: a few times a month Alcohol type: other details: Not while substance use type: does not use diet: other well-balanced diet: about half the time caffeine: Yes Type: carbonated beverages Number of servings: 1 eating out: 1-3 times/week during the past year weight has: increased > 10 lbs what type of physical activity do you participate in: walking frequency: 3-4 times per week duration: < 15 minutes/day jaye/pentecostal: Temple seatbelt use: always do you feel safe at home: Yes additional social history: (Martinez) : BF: Santy - Telemarketing Manager ROS ROS ED ROS Narrative Review of systems is positive for chest pain and pressure as well as nausea and vomiting. No fevers or chills, no diaphoresis. No leg swelling. No exacerbating or alleviating factors. No pelvic pain or vaginal bleeding. EXAM Physical Exam Narrative Exam Narrative: Afebrile. Vital signs noted. Nontoxic-appearing. Cardiovascular examination regular rate and rhythm. Lungs are clear to auscultation bilaterally. Abdomen soft and nontender without guarding or rebound. Neurological examination nonfocal, nonlateralizing. No pedal edema appreciated bilaterally. Const Vital Signs: 07/23/25 07:43 07/23/25 08:00 07/23/25 08:14 Temperature 98.7 F Temperature Source Oral Pulse Rate 78 Respiratory Rate 16 Respiratory Effort Normal Blood Pressure 124/80 H Blood Pressure Mean 94 Pulse Ox 98 Oxygen Delivery Method Room Air Room Air 07/23/25 09:46 07/23/25 11:00 07/23/25 11:38 Temperature 98.4 F 98.4 F 98.4 F Temperature Source Oral Oral Pulse Rate 69 89 81 Respiratory Rate 25 H 15 20 H Respiratory Effort Blood Pressure 97/73 98/55 L 98/48 L Blood Pressure Mean 81 69 64 Pulse Ox 100 98 100 Oxygen Delivery Method Room Air Room Air MDM MDM MDM Narrative Medical decision making narrative: Differential diagnosis includes but not limited to pulmonary embolism versus pneumonia versus pneumothorax versus esophageal rupture/Boerhaave syndrome. EKG was obtained and interpreted by myself independently as sinus rhythm at 75 bpm without ectopy or acute ST changes. No STEMI. Blood pressure appears normal currently at 124/80. No history of PIH. I reviewed her laboratory work and she has normal white count of 9.4 with hemoglobin stable at 11.9, hematocrit 34.5, platelet count 169. CMP is significant for chloride of 96 with CO2 of 35, BUN of 13 and creatinine 0.78, glucose 98, LFTs are normal. Initial high-sensitivity troponin is less than 6 with repeat being normal at less than 6 at 2 hours. I feel she has been ruled out for ACS with biomarkers. D-dimer is elevated at 4.91 which I think is nonspecific and could be secondary to . In review of her prior labs she had elevated D-dimer as well. I discussed risk-benefit ratio with her regarding CTA of the chest and she is agreeable. She had already a chest x-ray with anticipation of a negative D-dimer. Chest x-ray and 1 view interpreted by myself independently shows no evidence of pneumonia or pneumothorax. I reviewed the radiology report which confirms my independent interpretation. While awaiting CTA, she states she had a back spasm which lasted about a minute, and subsided. She was offered Tylenol but declined. I reviewed the radiology report of the CTA of the chest which shows no evidence of a pulmonary embolism, no acute process in the thorax. Upon repeat examination she is resting comfortably on the cot with the lights out. heart rate obtained by RN and is 138 bpm. I discussed patient with Dr. Sarah Tijerina with [facility]. It was thought that she was having GERD that was causing her chest pain so she will stop the famotidine and start omeprazole 20 mg by mouth daily instead. While it is category C, she was told that it was unknown risk to the fetus, however it is prescribed by [facility] frequently. At this point in time, I do feel she can be discharged to follow-up with [facility] next week as directed by Dr. Sarah Tijerina. Return instructions to the emergency department were reviewed. Disposition is discharged home in stable condition. History & Record Review Discussion w/independent historian: Patient Additional record(s) reviewed:: Prior labs Lab Data Attestation: I reviewed the patient's lab results. Labs: Laboratory Results - last 24 hr 07/23/25 07/23/25 07/23/25 07:59 10:05 10:30 WBC 9.4 RBC 4.06 L Hgb 11.9 L Hct 34.5 L MCV 85.0 MCH 29.3 MCHC 34.5 RDW Std Deviation 37.1 RDW Coeff of Breonna 12.2 Plt Count 169 MPV 8.9 Immature Gran % (Auto) 0.300 Neut % (Auto) 69.5 Lymph % (Auto) 21.5 Door % (Auto) 7.9 Eos % (Auto) 0.7 Baso % (Auto) 0.1 Absolute Neuts (auto) 6.5 Absolute Lymphs (auto) 2.01 Nucleated RBC % 0 D-Dimer Quant (PE/DVT) 4.91 H* Sodium 139 Potassium 3.3 Chloride 96 L Carbon Dioxide 35.0 H Anion Gap 8 BUN 13 Creatinine 0.78 Estim Creat Clear Calc 110.62 Est GFR (MDRD) Non-Af 109 BUN/Creatinine Ratio 16.8 Glucose 98 Calcium 9.3 Total Bilirubin 0.28 AST 17 ALT 10 Alkaline Phosphatase 77 Troponin T High Sens < 6 Troponin T Hi Sens 2 Hr < 6 Total Protein 7.2 Albumin 4.0 Globulin 3.2 Albumin/Globulin Ratio 1.2 Lipase 26 Radiography Chest X-Ray - ED: 1 View, Read by ED Physician, Read by Radiologist and No Acute Disease CTA PE Study: No Evidence of PE and No Evidence of Dissection Diagnostic Testing: Clinical Impression(s) from Imaging Studies Chest X-Ray 07/23/25 08:30 IMPRESSION: As above. Reading Location: [id number] Chest CTA 07/23/25 09:27 IMPRESSION: 1. There is no evidence of pulmonary embolus. 2. There is no acute process in the thorax. Reading Location: [id number] Management Discussion w/another healthcare provider: Associate Faculty (Dr. Sarah Tijerina, [facility]) Discharge Plan Triage Chief Complaint: Chest Pain ED Provider: Oumar Mccracken Dx/Rx/DC Orders Clinical Impression: Chest pain, , GERD (gastroesophageal reflux disease) Instructions: : Weeks 22 to 26, ED Chest Pain, Uncertain Cause, ED GERD (Adult) Prescriptions: New omeprazole 20 mg capsule,delayed release(DR/EC) 20 mg PO DAILY Qty: 30 0RF No Action fexofenadine [Liss Allergy] 60 mg tablet 60 mg PO BID DHA 200 mg capsule 200 mg PO DAILY famotidine [Pepcid] 20 mg tablet 20 mg PO BID Qty: 60 6RF clotrimazole 1 % cream 1 applic topical BID 28 Days Qty: 45 2RF ondansetron 4 mg tablet,disintegrating 4 mg PO Q8H PRN PRN (Reason: Nausea) Qty: 20 0RF acetaminophen 500 mg capsule 1,000 mg PO Q6H PRN (Reason: fever or pain) calcium carbonate [Calcium 500] 500 mg calcium (1,250 mg) tablet,chewable 500 mg PO TID PRN (Reason: dyspepsia) Primary Care Provider: Jenn Sweeney Referrals: Sarah Harmon DO [Med Staff - Active Staff, Obstetrics-Gynecology (OBGYN)] - 3-5 Days Jenn Sweeney DO [Primary Care Provider, Family Practice] Activity Restrictions/Additional Instructions: Stop taking Pepcid/famotidine. Instead take 20 mg of omeprazole by mouth daily. Follow-up with your [facility] within the next week. Return to the emergency department with fever, pelvic pain, vaginal bleeding, new or worsening symptoms. Print Language: Djiboutian Disposition Disposition: Home, Self Care
[2025-07-23 11:38] VITALS: BP 98/48; PULSE 81; RESP 20; TEMP 36.9; O2SAT 100
== END 2025-07-23 11:52 | disposition home or self-care (01) ==
PROVIDERS: Emergency Provider Emergency Medicine; PCP Family Medicine; Visit Provider Emergency Medicine
DX: O99.891 Other specified diseases and conditions complicating pregnancy (principal); O99.612 Diseases of the digestive system complicating pregnancy, second trimester; K21.9 Gastro-esophageal reflux disease without esophagitis; Z87.891 Personal history of nicotine dependence; R07.9 Chest pain, unspecified; Z3A.22 22 weeks gestation of pregnancy; O21.9 Vomiting of pregnancy, unspecified; Z79.899 Other long term (current) drug therapy
CPT/HCPCS: 71045; 71275; 80053; 83690; 84484; 85025; 85379; 93005; 99284; Q9967; A4216

== ENCOUNTER → 2025-08-30 | Outpatient (CLI) | payer OTHER, BC, SELFPAY ==
[2025-08-30 12:06] LABS: Hematocrit 33.5 % (37-47); Hemoglobin 11.4 g/dL (12.0-15.0); Immature Granulocytes Count 0.020 X10^3/uL (0.0-0.0); Mean Corp Hgb Conc 34.0 g/dL (32-36); Mean Corpuscular Volume 84.6 fL (81-99); Mean Platelet Vol. 8.8 fl (6.2-12.0); NRBC Flagged by Analyzer 0 % (0-5); Platelet Count 188 K/mm3 (150-450); RBC Distribution Width CV 12.1 % (11.6-14.6); RBC Distribution Width SD 36.9 fl (35.1-43.9); Red Blood Count 3.96 M/mm3 (4.2-5.4); White Blood Count 8.6 K/mm3 (4.4-11.0)
[2025-08-30 13:01] LABS: HIV Nonreactive (Nonreactive)
[2025-08-30 13:03] LABS: Syphilis Antibodies Nonreactive (Nonreactive)
[2025-08-30 13:14] LABS: Glucose Challenge Gest 1H 50g 121 mg/dL (70-140)
== END | disposition home or self-care (01) ==
PROVIDERS: Nurse Practitioner Women's Health; PCP Family Medicine; Visit Provider Obstetrics & Gynecology
DX: O26.899 Other specified pregnancy related conditions, unspecified trimester (principal); Z67.91 Unspecified blood type, Rh negative; Z3A.00 Weeks of gestation of pregnancy not specified; O09.90 Supervision of high risk pregnancy, unspecified, unspecified trimester; Z13.1 Encounter for screening for diabetes mellitus
CPT/HCPCS: 36415; 82950; 85025; 86703; 86780; 86850; 86900; 86901

== ENCOUNTER → 2025-09-07 | Outpatient (CLI) | payer OTHER, BC, SELFPAY ==
[2025-09-07 13:48] LABS: Hematocrit 34.8 % (37-47); Hemoglobin 12.1 g/dL (12.0-15.0); Immature Granulocytes Count 0.040 X10^3/uL (0.0-0.0); Mean Corp Hgb Conc 34.8 g/dL (32-36); Mean Corpuscular Volume 82.7 fL (81-99); Mean Platelet Vol. 8.5 fl (6.2-12.0); NRBC Flagged by Analyzer 0 % (0-5); Platelet Count 180 K/mm3 (150-450); RBC Distribution Width CV 12.5 % (11.6-14.6); RBC Distribution Width SD 37.4 fl (35.1-43.9); Red Blood Count 4.21 M/mm3 (4.2-5.4); White Blood Count 9.1 K/mm3 (4.4-11.0)
[2025-09-07 14:34] LABS: AST(SGOT) 28 U/L (<=31); Alanine Aminotransfer ALT/SGPT 16 U/L (<=34); Albumin, Serum 3.4 g/dL (3.5-5.0); Alkaline Phosphatase 100 U/L (35-104); Anion Gap 12 (5-15); BUN 4 mg/dL (4-19); BUN/Creat Ratio 7.1 RATIO (10-20); Calcium,Total 8.7 mg/dL (7.6-11.0); Carbon Dioxide 21.3 mmol/L (21.0-32.0); Chloride 104 mmol/L (98-108); Globulin 2.8 g/dL (2.2-4.2); Glucose 104 mg/dL (70-99); Potassium 3.4 mmol/L (3.3-5.1)
[2025-09-07 14:59] LABS: Creatinine, Urine (random) 80.20 mg/dL (28.00-217.00); Protein, Urine (Random) 13.2 mg/dL (0.0-12.0); Protein:Creat Ratio 165 mg/g CRE (0-200)
== END | disposition home or self-care (01) ==
PROVIDERS: PCP Family Medicine; Visit Provider Advanced Practice Midwife
DX: R51.9 Headache, unspecified (principal)
CPT/HCPCS: 36415; 80053; 82570; 84156; 85025